=== PATIENT | female | born 1950 | race Caucasian/White ===

== ENCOUNTER 2020-03-18 01:07 | Emergency (ER) | payer OTHER, MEDICARE ==
--- OUTSIDE RECORDS SUMMARY | 2020-03-18 01:10 | XMS REPORT | Continuity of Care Document ---
:1950 Author Organization [facility] t Address [address] [place] [address] Care Team Providers Name Role Phone Provider, Urgent Care Attending Clinician Unavailable Srinivasa LAKHANI Attending Clinician Problems This patient has no known problems. Allergies, Adverse Reactions, Alerts This patient has no known allergies or adverse reactions. Medications This patient has no known medications. Procedures This patient has no known procedures. Encounters Start End Encounter Admission Attending Care Care Encounter Source Date/Time Date/Time Type Type Clinicians Facility Department ID 2020-02-29 2020-02-29 Urgent Provider, ANA [id number] 08:19:23 08:56:14 Care [facility] [id number] Care [place] [id number] Professio [phone] [place] [address] [address] 2020-02-28 2020-02-28 Telephone ANA Bernabe [id number] 00:00:00 00:00:00 [facility] [id number] [place] [id number] Professio [phone] [place] [address] [address] 2020-01-24 2020-01-24 Telemedici ANA Bernabe [id number] 07:51:32 08:06:32 ne Visit Sundeep Ba [id number] [place] [id number] Professio [phone] [place] [address] Building 2019-12-29 2019-12-29 Telephone ANA Bernabe [id number] 00:00:00 00:00:00 [facility] [id number] [place] [id number] Professio [phone] [place] [address] [address] 2019-11-17 2019-11-17 Office Srinivasa [facility] [id number] 12:56:52 13:26:52 Visit [facility] [id number] [place] [id number] Professio [phone] [place] [address] [address] Results This patient has no known results.
--- OUTSIDE RECORDS SUMMARY | 2020-03-18 01:11 | XMS REPORT | Summary of Care ---
:1950 Author Organization [facility] Address [address] [place] [address] Care Team Providers Name Role Phone MD Srinivasa Primary Care Provider LARON Kaur Unavailable Unavailable Reason for Visit Reason Comments Rx Concern/Question Encounter Details Date Type Department Care Team Description 12/29/2019 Telephone [facility] Family Vincenzo Bernabe MD Rx Concern/Question Medicine - [address] [id number] [phone] Allergies Active Allergy Reactions Severity Noted Date Comments Codeine Unknown - See comments 07/26/2015 Sulfamethoxazole Nausea and/or Vomiting 03/12/2018 documented as of this encounter (statuses as of 12/29/2019) Medications Medication Sig Dispensed Refills Start Date End Date Status fluocinonide 0.05 % Apply to 30 g 1 04/30/2018 Active cream area(s) 2 (two) times daily. proMETHazine 25 mg Take 1 tablet by 30 tablet 5 10/19/2018 Active tabletIndications: mouth every 4 Depression, (four) hours as unspecified depression needed for type Nausea and Vomiting (N/V). furosemide 40 mg Take 1 tablet by 30 tablet 5 03/22/2019 Active tabletIndications: mouth daily. Essential hypertension potassium chloride Take 1 tablet by 30 tablet 5 03/22/2019 Active (K-TAB) 10 mEq CR mouth daily. tabletIndications: Essential hypertension FLUoxetine 40 mg TAKE 1 CAPSULE 90 capsule 1 06/22/2019 Active capsuleIndications: BY MOUTH EVERY Depression, DAY unspecified depression type propranolol 40 mg Take 1 tablet by 180 tablet 1 08/23/2019 Active tabletIndications: mouth 2 (two) Essential hypertension times daily. traMADol 50 mg TAKE 1 TABLET BY 120 tablet 2 11/17/2019 Active tabletIndications: MOUTH EVERY 6 Primary osteoarthritis HOURS NEEDED of right knee FOR PAIN cloNIDine 0.2 mg TAKE ONE TABLET 270 tablet 0 11/17/2019 Active tabletIndications: BY MOUTH THREE Essential hypertension TIMES A DAY meloxicam 15 mg Take 1 tablet by 90 tablet 1 11/17/2019 Active tabletIndications: mouth every Primary osteoarthritis morning. of right knee diltiazem 180 mg 24 hr Take 2 capsules 180 capsule 1 0 Active capsuleIndications: by mouth daily. Essential hypertension pravastatin 40 mg TAKE ONE TABLET 90 tablet 1 11/17/2019 Active tabletIndications: BY MOUTH EVERY Hyperlipidemia, EVENING unspecified hyperlipidemia type lisinopril-hydrochloro Take 1 tablet by 180 tablet 1 0 Active thiazide 20-25 mg per mouth 2 (two) tabletIndications: times daily. Essential hypertension documented as of this encounter (statuses as of 12/29/2019) Active Problems Problem Noted Date Hyperlipidemia, unspecified hyperlipidemia type 2017 Essential hypertension 12/06/2015 Osteoarthritis of right knee 12/06/2015 Depressed 12/06/2015 documented as of this encounter (statuses as of 12/29/2019) Immunizations Name Administration Dates Next Due Tdap 10/31/2016 documented as of this encounter Social History Tobacco Use Types Packs/Day Years Used Date Current Every Day Smoker Cigarettes 1 20 Smokeless Tobacco: Never Used Alcohol Use Drinks/Week oz/Week Comments No Sex Assigned at Date Recorded Not on file Job Start Date Occupation Industry Not on file Not on file Not on file Travel History Travel Start Travel End No recent travel history available. documented as of this encounter Last Filed Vital Signs Not on filedocumented in this encounter Plan of Treatment Date Type Specialty Care Team Description 01/24/2020 Telemedicine Visit Family Medicine Vincenzo Bernabe MD [address] [place], [place] [id number] [phone] Health Maintenance Due Date Last Done Comments HEPATITIS C (HCV) SCREEN 1950 Breast Cancer Screening (MAMMOGRAM) 1989 COLONOSCOPY 12/23/1999 Zoster Recombinant Vaccine (SHINGRIX) (1 of 2) 12/23/1999 LUNG CANCER SCREEN: Recommended for age 55-80 with 30 2004 + pack year history Medicare Wellness Visit 2014 Osteoporosis Screening 2014 PNEUMOCOCCAL VACCINES 65+ (1 of 2 - PCV13) 2014 INFLUENZA VACCINE (#1) 2019 DTaP,Tdap,and Td Vaccines (2 - Td) 10/31/2026 10/31/2016 documented as of this encounter Results Not on filedocumented in this encounter Insurance Payer Benefit Plan / Subscriber ID Effective Phone Address T ype Group Dates MEDICARE MEDICARE PART xxxxxxxxxxx 2014-Pre [phone] [address] [employer] sent [phone] ZAAR BRICE [address] [facility] [id number] 2018-Pre [address] [facility] sent [id number] Supplement MEDICARE [place] SUPPLEMENT ZARA WAGONER [id number] documented as of this encounter
--- OUTSIDE RECORDS SUMMARY | 2020-03-18 01:12 | XMS REPORT | Summary of Care ---
:1950 Author Organization [facility] Address [address] [place] [address] Care Team Providers Name Role Phone MD Srinivasa Primary Care Provider LARON Kaur Unavailable Unavailable Reason for Visit Reason Comments Assessment Encounter Details Date Type Department Care Team Description 02/28/2020 Telephone [facility] Family Medicine Sundeep Moreno MD Assessment - [address] [place] [address] [place] [address] [phone] Allergies Active Allergy Reactions Severity Noted Date Comments Codeine Unknown - See comments 07/26/2015 Sulfamethoxazole Nausea and/or Vomiting 03/12/2018 documented as of this encounter (statuses as of 02/28/2020) Medications Medication Sig Dispensed Refills Start Date [...] 03/22/2019 Active tabletIndications: mouth daily. Essential hypertension propranolol 40 mg Take 1 tablet by 180 tablet 1 08/23/2019 Active tabletIndications: mouth 2 (two) Essential hypertension times daily. meloxicam 15 mg Take 1 tablet by [...] 2 (two) tabletIndications: times daily. Essential hypertension traMADol 50 mg TAKE 1 TABLET BY 120 tablet 2 01/24/2020 Active tabletIndications: MOUTH EVERY 6 Primary osteoarthritis HOURS NEEDED of right knee FOR PAIN potassium chloride Take 1 tablet by 30 tablet 5 01/24/2020 Active (K-TAB) 10 mEq CR mouth daily. tabletIndications: Essential hypertension cloNIDine 0.2 mg TAKE ONE TABLET 270 tablet 0 01/24/2020 Active tabletIndications: BY MOUTH THREE Essential hypertension TIMES A DAY FLUoxetine 40 mg TAKE 1 CAPSULE 90 capsule 1 01/24/2020 Active capsuleIndications: BY MOUTH EVERY Depression, DAY unspecified depression type documented as of this encounter (statuses as of 02/28/2020) Active Problems Problem Noted Date Hyperlipidemia, unspecified hyperlipidemia type 2017 Essential hypertension 12/06/2015 Osteoarthritis of right knee 12/06/2015 Depressed 12/06/2015 documented as of this encounter (statuses as of 02/28/2020) Immunizations Name Administration Dates Next Due Tdap [...] Treatment Date Type Specialty Care Team Description 02/29/2020 Urgent Care Family Medicine Provider, [facility] Health Maintenance Due Date Last Done Comments HEPATITIS C (HCV) SCREEN 1950 Breast Cancer Screening (MAMMOGRAM) 1989 COLONOSCOPY 12/23/1999 Zoster Recombinant Vaccine (SHINGRIX) (1 of 2) 12/23/1999 LUNG CANCER SCREEN: Recommended for age 55-80 with 30 2004 + pack year history Medicare Wellness Visit 2014 Osteoporosis Screening 2014 PNEUMOCOCCAL VACCINES 65+ (1 of 2 - PCV13) 2014 INFLUENZA VACCINE (Season Ended) 2020 Depression Screening 08/23/2020 08/23/2019 DTaP,Tdap,and Td Vaccines (2 - Td) 10/31/2026 10/31/2016 documented as of this encounter Results Not on filedocumented in this encounter Insurance Payer Benefit Plan / Subscriber ID Effective Phone Address T e Group Dates MEDICARE MEDICARE PART xxxxxxxxxxx 2014-Pre [phone] [address] [facility] [phone] ZARA BRICE [phone] [facility] [id number] 2018-Pre [address] [facility] [place] sent [id number] Supplement MEDICARE [place] SUPPLEMENT ZARA WAGONER [id number] documented as of this encounter
--- OUTSIDE RECORDS SUMMARY | 2020-03-18 01:12 | XMS REPORT | Summary of Care ---
:1950 Author Organization [facility] Address [address] [place] [address] Care Team Providers Name Role Phone MD Srinivasa Primary Care Provider LARON Kaur Unavailable Unavailable Reason for Visit Reason Comments Pain Encounter Details Date Type Department Care Team Description 01/24/2020 Telemedicine Visit [facility] Sundeep Bernabe Prima ry osteoarthritis of right knee (Primary Dx); Pediatric and MD Essential hypertension; Adult Primary [address] [facility] Depression, unspecified depression type Care- [facility] [address] [place] , [address] [address] [place], [place] [phone] [address] Allergies Active Allergy Reactions Severity Noted Date Comments Codeine Unknown - See comments 07/26/2015 Sulfamethoxazole Nausea and/or Vomiting 03/12/2018 documented as of this encounter (statuses as of 01/24/2020) Medications Medication Sig Dispensed Refills Start End Date Status Date fluocinonide 0.05 % Apply to 30 g 1 Active cream area(s) 2 8 (two) times daily. proMETHazine 25 mg Take 1 tablet 30 tablet 5 Active tabletIndications: by mouth 9 Depression, every 4 unspecified (four) hours depression type as needed for Nausea and Vomiting (N/V). furosemide 40 mg Take 1 tablet 30 tablet 5 Active tabletIndications: by mouth 9 Essential daily. hypertension propranolol 40 mg Take 1 tablet 180 tablet 1 Active tabletIndications: by mouth 2 9 Essential (two) times hypertension daily. meloxicam 15 mg Take 1 tablet 90 tablet 1 Active tabletIndications: by mouth 0 Primary every osteoarthritis of morning. right knee diltiazem 180 mg 24 Take 2 180 capsule 1 Active hr capsules by 0 capsuleIndications: mouth daily. Essential hypertension pravastatin 40 mg TAKE ONE 90 tablet 1 Ac tive tabletIndications: TABLET BY 0 Hyperlipidemia, MOUTH EVERY unspecified EVENING hyperlipidemia type lisinopril-hydrochl Take 1 tablet 180 tablet 1 Active orothiazide 20-25 by mouth 2 0 mg per (two) times tabletIndications: daily. Essential hypertension traMADol 50 mg TAKE 1 TABLET 120 tablet 2 Active tabletIndications: BY MOUTH 0 Primary EVERY 6 HOURS osteoarthritis of NEEDED FOR right knee PAIN potassium chloride Take 1 tablet 30 tablet 5 Active (K-TAB) 10 mEq CR by mouth 0 tabletIndications: daily. Essential hypertension cloNIDine 0.2 mg TAKE ONE 270 tablet 0 Ac tive tabletIndications: TABLET BY 0 Essential MOUTH THREE hypertension TIMES A DAY FLUoxetine 40 mg TAKE 1 90 capsule 1 Ac tive capsuleIndications: CAPSULE BY 0 Depression, MOUTH EVERY unspecified DAY depression type potassium chloride Take 1 tablet 30 tablet 5 0 Discontinued (K-TAB) 10 mEq CR by mouth 9 20 (R eorder) tabletIndications: daily. Essential hypertension FLUoxetine 40 mg TAKE 1 90 capsule 1 01/24/20 Di scontinued capsuleIndications: CAPSULE BY 9 20 (Reorder) Depression, MOUTH EVERY unspecified DAY depression type traMADol 50 mg TAKE 1 TABLET 120 tablet 2 01/24/20 Discontinued tabletIndications: BY MOUTH 0 20 ( Reorder) Primary EVERY 6 HOURS osteoarthritis of NEEDED FOR right knee PAIN cloNIDine 0.2 mg TAKE ONE 270 tablet 0 01/24/20 Di scontinued tabletIndications: TABLET BY 0 20 ( Reorder) Essential MOUTH THREE hypertension TIMES A DAY documented as of this encounter (statuses as of 01/24/2020) Active Problems Problem Noted Date Hyperlipidemia, unspecified hyperlipidemia type 2017 Essential hypertension 12/06/2015 Osteoarthritis of right knee 12/06/2015 Depressed 12/06/2015 documented as of this encounter (statuses as of 01/24/2020) Immunizations Name Administration Dates Next Due Tdap [...] Signs Not on filedocumented in this encounter Progress Notes Sundeep Bernabe MD - 01/24/2020 10:15 AM CDT TELEHEALTH NOTE Verbal consent obtained from Patient: Sherita Parada due to the COVID-19 pandemic for telehealthservices provided below. Communication with patient was conducted via Telephone due to patient unable to obtain video call option. Location of Patient: Home Location of Provider: Office Date of Service: 01/24/2020 Chief Complaint: anxiety HPI: Sherita Parada is a 69 year old female with anxiety, chronic pain Past Medical History: Diagnosis Date Anxiety Arthritis Bursitis of knee, right since two months Depression Hyperlipidemia Hypertension MEDICATIONS: Current Outpatient Medications Medication Sig Dispense Refill cloNIDine 0.2 mg tablet TAKE ONE TABLET BY MOUTH THREE TIMES A DAY 270 tablet 0 diltiazem 180 mg 24 hr capsule Take 2 capsules by mouth daily. 180 capsule 1 lisinopril-hydrochlorothiazide 20-25 mg per tablet Take 1 tablet by mouth 2 (two) times daily. 180 tablet 1 meloxicam 15 mg tablet Take 1 tablet by mouth every morning. 90 tablet 1 pravastatin 40 mg tablet TAKE ONE TABLET BY MOUTH EVERY EVENING 90 tablet 1 traMADol 50 mg tablet TAKE 1 TABLET BY MOUTH EVERY 6 HOURS NEEDED FOR PAIN 120 tablet 2 propranolol 40 mg tablet Take 1 tablet by mouth 2 (two) times daily. 180 tablet 1 FLUoxetine 40 mg capsule TAKE 1 CAPSULE BY MOUTH EVERY DAY 90 capsule 1 furosemide 40 mg tablet Take 1 tablet by mouth daily. 30 tablet 5 potassium chloride (K-TAB) 10 mEq CR tablet Take 1 tablet by mouth daily. 30 tablet 5 proMETHazine 25 mg tablet Take 1 tablet by mouth every 4 (four) hours as needed for Nausea and Vomiting (N/V). 30 tablet 5 fluocinonide 0.05 % cream Apply to area(s) 2 (two) times daily. 30 g 1 No current facility-administered medications for this visit. ROS Pain, back Depression Negative otherwise TELEHEALTH EXAM Alert, no distress ASSESSMENT/ PLAN Sherita Parada is a 69 year old female with PMH as above presenting with: chronic pain, htn, andanxiety/depression. Meds reviewed, no changes. After visit summary (AVS ) documentation will be available through [employer] for this encounter. A total of 15 minutes was spent on the Telephone due to patient unable to obtain video call option. Sundeep Bernabe MD documented in this encounter Plan of Treatment Health Maintenance Due Date Last Done Comments HEPATITIS C (HCV) SCREEN 1950 Breast Cancer Screening (MAMMOGRAM) 1989 COLONOSCOPY 12/23/1999 Zoster Recombinant Vaccine (SHINGRIX) (1 of 2) 12/23/1999 LUNG CANCER SCREEN: Recommended for age 55-80 with 30 2004 + pack year history Medicare Wellness Visit 2014 Osteoporosis Screening 2014 PNEUMOCOCCAL VACCINES 65+ (1 of 2 - PCV13) 2014 INFLUENZA VACCINE (Season Ended) 2020 DTaP,Tdap,and Td Vaccines (2 - Td) 10/31/2026 10/31/2016 documented as of this encounter Results Not on filedocumented in this encounter Visit Diagnoses Diagnosis Primary osteoarthritis of right knee - P rimary Primary localized osteoarthrosis, lower leg Essential hypertension Unspecified essential hypertension Depression, unspecified depression type documented in this encounter Insurance Payer Benefit Plan / Subscriber ID Effective Phone Address T ype Group Dates MEDICARE MEDICARE PART xxxxxxxxxxx 2014-Pre [phone] [address] [employer] sent [phone] ZARA BRICE [id number] [facility] [id number] 2018-Pre [address] [facility] sent [id number] Supplement MEDICARE [place] SUPPLEMENT ZARA WAGONER [id number] documented as of this encounter
--- OUTSIDE RECORDS SUMMARY | 2020-03-18 01:14 | XMS REPORT | Summary of Care ---
:1950 Author Organization [facility] - Health Address [address] [place] [id number] Care Team Providers Name Role Phone MD Srinivasa Primary Care Provider LARON Kaur Unavailable Unavailable Reason for Referral (CATHY) Status Reason Specialty Diagnoses / Referred By Referred To Procedures Contact Contact New Request Diagnoses Leg swelling Elisa Conrad, Procedures UNILATERAL VENOUS DUPLEX LOWER EXTREMITY BY VASCULAR LAB [facility] [address] [place] [address] Reason for Visit Reason Comments Cellulitis left leg 02/23/20 Encounter Details Date Type Department Care Team Description 02/29/2020 Urgent Care [facility] Family Unknown, Attending Leg swelling (Primary Dx); [facility] Elisa Conrad, [facility] [address], [place] [id number] Sprain of left knee, unspecified ligamen t, initial encounter [address] [facility] Provider, [facility] [place] [address] Allergies Active Allergy Reactions Severity Noted Date Comments Codeine Unknown - See comments 07/26/2015 Sulfamethoxazole Nausea and/or Vomiting 03/12/2018 documented as of this encounter (statuses as of 02/29/2020) Medications Medication Sig Dispensed Refills Start Date [...] as of this encounter (statuses as of 02/29/2020) Active Problems Problem Noted Date Hyperlipidemia, unspecified hyperlipidemia type 2017 Essential hypertension 12/06/2015 Osteoarthritis of right knee 12/06/2015 Depressed 12/06/2015 documented as of this encounter (statuses as of 02/29/2020) Immunizations Name Administration Dates Next Due Tdap [...] Travel End No recent travel history available. COVID-19 Exposure Response Date Recorded In the last month, have you been in contact with No / Unsure 02/29/2020 8:20 AM CDT someone who was confirmed or suspected to have Coronavirus / COVID-19? documented as of this encounter Last Filed Vital Signs Vital Sign Reading Time Taken Comments Blood Pressure 168/89 02/29/2020 8:28 AM CDT Pulse 57 02/29/2020 8:24 AM CDT Temperature 36.5 C (97.7 F) 02/29/2020 8:24 AM CDT Respiratory Rate 18 02/29/2020 8:24 AM CDT Oxygen Saturation 98% 02/29/2020 8:24 AM CDT Inhaled Oxygen Concentration - - Weight 90.7 kg (200 lb) 02/29/2020 8:24 AM CDT Height 165.1 cm (5' 5") 02/29/2020 8:24 AM CDT Body Mass Index 33.28 02/29/2020 8:24 AM CDT documented in this encounter Progress Notes Elisa Conrad FNP - 02/29/2020 8:20 AM CDT SUBJECTIVE CC: Cellulitis (left leg 02/23/20) PCP : Sundeep Bernabe HPI: Sherita Parada is a 69 year old female who comes today with c/o left knee pain x 1 week. Pain severity 6 out of 10. She was helping her son who is disable to the van and accidentally twisted her left knee. Denies falls or other types of trauma. Her pain increases with activity and diminisheswith rest and topical analgesics. She has not taken any oral analgesic. She is here today as she noticed that her left leg was more swollen than usual. She is taking Lasix as prescribed. Denies chest pain/ shortness of breath. Takes baby ASA daily. Alleviating factors - topical analgesic. Aggravating factors - activity PAST HISTORY Past Medical History: Diagnosis Date Anxiety Arthritis Bursitis of knee, right since two months Depression Hyperlipidemia Hypertension Family History Problem Relation Age of Onset Stroke Mother Coronary Heart Disease Maternal Grandmother Coronary Heart Disease Maternal Grandfather Family Status Relation Name Status Mo Alive Fa Alive MGMo (Not Specified) MGFa (Not Specified) Past Surgical History: Procedure Laterality Date APPENDECTOMY HYSTERECTOMY parital, then complete TUBAL LIGATION Social History Socioeconomic History Marital status: Spouse name: Not on file Number of children: Not on file Years of education: Not on file Highest education level: Not on file Occupational History Not on file Social Needs Financial resource strain: Not on file Food insecurity: Worry: Not on file Inability: Not on file Transportation needs: Medical: Not on file Non-medical: Not on file Tobacco Use Smoking status: Current Every Day Smoker Packs/day: 1.00 Years: 20.00 Pack years: 20.00 Types: Cigarettes Smokeless tobacco: Never Used Substance and Sexual Activity Alcohol use: No Drug use: No Sexual activity: Not on file Lifestyle Physical activity: Days per week: Not on file Minutes per session: Not on file Stress: Not on file Relationships Social connections: Talks on phone: Not on file Gets together: Not on file Attends judaism service: Not on file Active member of club or organization: Not on file Attends meetings of clubs or organizations: Not on file Relationship status: Not on file Intimate partner violence: Fear of current or ex partner: Not on file Emotionally abused: Not on file Physically abused: Not on file Forced sexual activity: Not on file Other Topics Concern Not on file Social History Narrative Not on file Patient Active Problem List Diagnosis Essential hypertension Osteoarthritis of right knee Depressed Hyperlipidemia, unspecified hyperlipidemia type Current Meds: Current Outpatient Medications on File Prior to Visit Medication Sig Dispense Refill cloNIDine 0.2 mg tablet TAKE ONE TABLET BY MOUTH THREE TIMES A DAY 270 tablet 0 FLUoxetine 40 mg capsule TAKE 1 CAPSULE BY MOUTH EVERY DAY 90 capsule 1 potassium chloride (K-TAB) 10 mEq CR tablet Take 1 tablet by mouth daily. 30 tablet 5 traMADol 50 mg tablet TAKE 1 TABLET BY MOUTH EVERY 6 HOURS NEEDED FOR PAIN 120 tablet 2 diltiazem 180 mg 24 hr capsule Take 2 capsules by mouth daily. 180 capsule 1 lisinopril-hydrochlorothiazide 20-25 mg per tablet Take 1 tablet by mouth 2 (two) times daily. 180 tablet 1 meloxicam 15 mg tablet Take 1 tablet by mouth every morning. 90 tablet 1 pravastatin 40 mg tablet TAKE ONE TABLET BY MOUTH EVERY EVENING 90 tablet 1 propranolol 40 mg tablet Take 1 tablet by mouth 2 (two) times daily. 180 tablet 1 furosemide 40 mg tablet Take 1 tablet by mouth daily. 30 tablet 5 proMETHazine 25 mg tablet Take 1 tablet by mouth every 4 (four) hours as needed for Nausea and Vomiting (N/V). 30 tablet 5 fluocinonide 0.05 % cream Apply to area(s) 2 (two) times daily. 30 g 1 No current facility-administered medications on file prior to visit. ALLERGIES: Allergies Allergen Reactions Codeine Unknown - See comments Sulfamethoxazole Nausea and/or Vomiting REVIEW OF SYSTEMS Constitutional: denies appetite changes, denies chills, denies fatigue, denies fever and denies sweats. HEENT: denies sore throat, nasal drainage, nasal congestion, earache and eye irritation, redness or discharge Cardiovascular: denies chest pain, denies palpitations and denies tachycardia. Respiratory: denies chest congestion, denies cough , denies dyspnea on exertion, denies inability to take deep breath, denies shortness of breath and denies wheezing. Gastrointestinal: denies abdominal pain, denies diarrhea, denies nausea and denies vomiting. Skin: small blister at the back of the left heel, non-draining, no redness. Ext: LLE swelling and pain. Left knee pain 6/10, increases with activity. PHYSICAL EXAM BP (!) 168/89 | Pulse 57 | Temp 36.5 C (97.7 F) (Oral) | Resp 18 | Ht 5' 5" (1.651 m) | Wt 200 lb (90.7 kg) | SpO2 98% | BMI 33.28 kg/m General: alert, oriented times three, no apparent distress, appearing age appropriate Skin: negative findings: color normal, no lesions noted and turgor normal HEENT: TM's pearly peña, light reflex present, landmarks present; nasal turbinates pale without edema or erythema; throat tonsils normal, no erythema, exudate, or petechiae Lungs: good diaphragmatic excursion, lungs clear to auscultation bilaterally Heart: regular rate and rhythm, no murmurs, gallops or rubs Ext: Right lower extremity trace edema, no tenderness. LLE: edema +1 with calf tenderness, no erythema or increased warmth. There is a small blister back of left foot which is not draining. ASSESSMENT & PLAN 1. Leg swelling - Advised to go to the ER but patient declined to go to the ER. Risks and complications of d/w patient and she verbalized understanding. She wants to get the US as outpatient. Advised to get it done today itself and f/u with PCP within 2 days. - UNILATERAL VENOUS DUPLEX LOWER EXTREMITY BY VASCULAR LAB; Future - Continue with Furosemide as prescribed and follow low-salt diet. - Continue to take baby ASA. 2. Sprain of left knee, unspecified ligament, initial encounter - Patient does not want prescription pain medications. She will continue to apply topical analgesic which has helped her. - May apply knee compression with an CHARLES wrap, continue to use walker for ambulation and follow fallsafety. - Discussed RICE and care of the blister. EDUCATION: Leg swelling, sprain of knee. Plan of care, goals and medications discussed with patient. Patient voices understanding. FOLLOW UP: Return to clinic or PCP if symptoms get worse F/U with PCP within 2 days. ER precautions given. Barriers to care: none Ability to manage care: good This visit did not involve counseling and coordination that comprised more than 50% of the visit time. NTLiliya New RN - 02/29/2020 8:20 AM CDT Sherita Parada is a 69 year old female in office for the following: Chief Complaint Patient presents with Cellulitis left leg 02/23/20 All vitals taken. Allergies reviewed. All medications reviewed. Fall risk assessed. Level of pain 6. [place] [id number] Liliya New RN 02/29/2020 8:27 AM documented in this encounter Plan of Treatment [...] filedocumented in this encounter Visit Diagnoses Diagnosis Leg swelling - Primary Swelling of limb Sprain of left knee, unspecified ligamen t, initial encounter documented in this encounter Insurance Payer Benefit Plan / Subscriber ID Effective Phone Address T ype Group Dates MEDICARE MEDICARE PART xxxxxxxxxxx 2014-Pre [phone] [address] [employer] sent [phone] [place] [phone] [facility] [id number] 2018-Pre [address] [facility] sent [id number] Supplement MEDICARE [place] SUPPLEMENT ZARA WAGONER [id number] documented as of this encounter
[2020-03-18 01:35] LABS: Protime INR 1.03
[2020-03-18 01:36] LABS: Absolute Lymphocytes (CBC) 1.5 K/uL (0.7-4.9); Basophils % 1.3 % (0-1.3); Lymphocytes % 16.3 % (15.3-44.8); MPV 10.6 fL (7.6-11.3)
[2020-03-18 01:49] LABS: ALT/SGPT 21 U/L (12-78); AST/SGOT 19 U/L (15-37); Albumin 3.7 g/dL (3.4-5.0); Alkaline Phosphatase 110 U/L (45-117); BUN Blood Urea Nitrogen 18 mg/dL (7-18); Bicarbonate 27 mmol/L (21-32); Bilirubin Direct 0.1 mg/dL (0-0.2); Bilirubin Total 0.3 mg/dL (0.2-1.0); Glucose Level 116 mg/dL (74-106); Magnesium 2.1 mg/dL (1.8-2.4); NT PRO-BNP 463 pg/mL (<125); Potassium 3.2 mmol/L (3.5-5.1); Protein, Total 6.9 g/dL (6.4-8.2); Sodium Level 138 mmol/L (136-145); Troponin (Emerg Dept Use Only) < 0.02 ng/mL (0.0-0.045)
--- NOTE | 2020-03-18 03:57 | EDPHYS ---
Physician Documentation [facility] Name: Sherita Parada Age: 69 yrs Sex: Female : 1950 Arrival Date: 03/18/2020 Time: 01:09 Bed 5 Private MD: ED Physician Arturo Tatum HPI: 03/18 01:54 This 69 yrs old Female presents to ER via EMS with complaints of High Blood mh7 Pressure. 01:54 The patient has elevated blood pressure and discovered this at home, with a home mh7 device. Onset: The symptoms/episode began/occurred today. Modifying factors: The symptoms are aggravated by took a fat burner tablet, The symptoms are alleviated by prescription meds, clonidine. Associated signs and symptoms: Pertinent positives: nausea, vomiting, once, Pertinent negatives: chest pain, dizziness, dyspnea, headache, lightheadedness, visual changes, weakness. Severity of symptoms: At its worst the blood pressure was moderate, in the emergency department the blood pressure is now normal. The blood pressure problem is resolved, and did so just prior to arrival. The patient has experienced similar episodes in the past, chronically. Historical: - Allergies: 01:13 codeine sulfate; rv - Home Meds: 01:13 Lisinopril Oral [Active]; pravastatin oral oral [Active]; rv 01:21 Potassium Chloride Oral [Active]; clonidine HCl 0.2 mg Oral tab [Active]; Propranolol rr5 Oral [Active]; meloxicam oral oral [Active]; pravastatin oral oral [Active]; Diltiazem Oral [Active]; Vitamin Oral [Active]; Furosemide Oral [Active]; Fluoxetine Oral [Active]; lisinopril-hydrochlorothiazide oral oral [Active]; Aleve Oral [Active]; tramadol Oral [Active]; - PMHx: 01:13 Hypertension; High Cholesterol; rv - PSHx: 01:13 Appendectomy; Hysterectomy; rv - Immunization history:: Adult Immunizations up to date. - Social history:: Smoking status: Patient reports the use of cigarette tobacco products, smokes one pack cigarettes per day. ROS: 01:54 Constitutional: Negative for fever, chills, and weight loss, Eyes: Negative for injury, mh7 pain, redness, and discharge, ENT: Negative for injury, pain, and discharge, Neck: Negative for injury, pain, and swelling, Cardiovascular: Negative for chest pain, palpitations, and edema, Respiratory: Negative for shortness of breath, cough, wheezing, and pleuritic chest pain, Back: Negative for injury and pain, : Negative for injury, bleeding, discharge, and swelling, MS/Extremity: Negative for injury and deformity, Skin: Negative for injury, rash, and discoloration, Neuro: Negative for headache, weakness, numbness, tingling, and seizure, Psych: Negative for depression, anxiety, suicide ideation, homicidal ideation, and hallucinations, Allergy/Immunology: Negative for hives, rash, and allergies, Endocrine: Negative for neck swelling, polydipsia, polyuria, polyphagia, and marked weight changes, Hematologic/Lymphatic: Negative for swollen nodes, abnormal bleeding, and unusual bruising. Exam: 01:54 Constitutional: This is a well developed, well nourished patient who is awake, alert, mh7 and in no acute distress. Head/Face: Normocephalic, atraumatic. Eyes: Pupils equal round and reactive to light, extra-ocular motions intact. Lids and lashes normal. Conjunctiva and sclera are non-icteric and not injected. Cornea within normal limits. Periorbital areas with no swelling, redness, or edema. Neck: Trachea midline, no thyromegaly or masses palpated, and no cervical lymphadenopathy. Supple, full range of motion without nuchal rigidity, or vertebral point tenderness. No Meningismus. Chest/axilla: Normal chest wall appearance and motion. Nontender with no deformity. No lesions are appreciated. Cardiovascular: Regular rate and rhythm with a normal S1 and S2. No gallops, murmurs, or rubs. Normal PMI, no JVD. No pulse deficits. Respiratory: Lungs have equal breath sounds bilaterally, clear to auscultation and percussion. No rales, rhonchi or wheezes noted. No increased work of breathing, no retractions or nasal flaring. Abdomen/GI: Soft, non-tender, with normal bowel sounds. No distension or tympany. No guarding or rebound. No evidence of tenderness throughout. Back: No spinal tenderness. No costovertebral tenderness. Full range of motion. Skin: Warm, dry with normal turgor. Normal color with no rashes, no lesions, and no evidence of cellulitis. MS/ Extremity: Pulses equal, no cyanosis. Neurovascular intact. Full, normal range of motion. Neuro: Awake and alert, GCS 15, oriented to person, place, time, and situation. Cranial nerves II-XII grossly intact. Motor strength 5/5 in all extremities. Sensory grossly intact. Cerebellar exam normal. Normal gait. Psych: Awake, alert, with orientation to person, place and time. Behavior, mood, and affect are within normal limits. Vital Signs: 01:09 BP 212 / 98; Pulse 63; Resp 16; Temp 97.7; Pulse Ox 96% ; Weight 90.72 kg; Height 5 ft. rv 5 in. (165.10 cm); Pain 0/10; 02:15 BP 174 / 56; Pulse 66; Resp 18 S; Temp 97.7; Pulse Ox 99% on R/A; sg 03:00 BP 146 / 73; Pulse 56; Resp 15; Pulse Ox 97% on R/A; rv 03:30 BP 120 / 72; Pulse 56; Resp 15; Pulse Ox 96% on R/A; rv 04:03 BP 117 / 72; Pulse 60; Resp 19; Pulse Ox 99% on R/A; rr5 01:09 Body Mass Index 33.28 (90.72 kg, 165.10 cm) rv MDM: 01:37 Patient medically screened. [facility] 01:54 Differential diagnosis: hypertensive crisis, Malignant HTN, medication noncompliance. [facility] Data reviewed: vital signs, nurses notes. 03:55 Data interpreted: manager monitoring: rate is 62 beats/min, rhythm is normal sinus rhythm, mh7 regular, Interpretation: normal rate, normal rhythm, Pulse oximetry: on room air is 96 %. Interpretation: normal. Counseling: I had a detailed discussion with the patient and/or guardian regarding: the historical points, exam findings, and any diagnostic results supporting the discharge/admit diagnosis, the presence of at least one elevated blood pressure reading (>120/80) during this emergency department visit, lab results, radiology results, the need for outpatient follow up, to return to the emergency department if symptoms worsen or persist or if there are any questions or concerns that arise at home. Response to treatment: the patient's symptoms have resolved after treatment, the patient's blood pressure is in an acceptable range, mental status has returned to baseline, the patient no longer shows bradycardia, the patient is not short of breath, the patient is not tachycardic, the patient's pain is gone, the patient's temperature has normalized. 03/18 01:17 Order name: Basic Metabolic Panel 03/18 01:17 Order name: CBC with Diff 03/18 01:17 Order name: LFT's 03/18 01:17 Order name: Magnesium 03/18 01:17 Order name: NT PRO-BNP; Complete Time: 03:20 03/18 01:17 Order name: PT-INR; Complete Time: 03:20 03/18 01:17 Order name: Troponin (emerg Dept Use Only); Complete Time: 03:20 03/18 01:17 Order name: EKG; Complete Time: 01:18 03/18 01:17 Order name: Cardiac monitoring; Complete Time: 01:18 03/18 01:18 Order name: Basic Metabolic Panel; Complete Time: 03:20 EDMS 03/18 01:18 Order name: CBC with Automated Diff; Complete Time: 03:20 EDMS 03/18 01:18 Order name: Liver (Hepatic) Function; Complete Time: 03:20 EDMS 03/18 01:18 Order name: Magnesium; Complete Time: 03:20 EDMS 03/18 03:21 Order name: Chest Single View XRAY 7 03/18 01:17 Order name: EKG - Nurse/Tech; Complete Time: 01:18 03/18 01:17 Order name: IV Saline Lock; Complete Time: 01:18 03/18 01:17 Order name: Labs collected and sent; Complete Time: :19 03/18 01:17 Order name: O2 Per Protocol; Complete Time: : 03/18 01:17 Order name: O2 Sat Monitoring; Complete Time: 01:19 rv Administered Medications: No medications were administered Disposition: 03/18/20 03:57 Discharged to Home. Impression: Hypertension. - Condition is Stable. - Discharge Instructions: Hypertension, Gatu-ty-[id number]. - Medication Reconciliation Form, Thank You Letter, Antibiotic Education, Prescription Opioid Use form. - Follow up: Private Physician; When: 2 - 3 days; Reason: Worsening of condition, Recheck today's complaints, Re-evaluation by your physician. - Problem is an acute exacerbation. - Symptoms have improved. Signatures: Dispatcher [employer] EDFranko oCurtney RN RN rv Carlo Walton RN RN rr5 Arturo Tatum MD MD mh7 Corrections: (The following items were deleted from the chart) 04:04 03:57 03/18/2020 03:57 Discharged to Home. Impression: Hypertension. Condition is rr5 Stable. Forms are Medication Reconciliation Form, Thank You Letter, Antibiotic Education, Prescription Opioid Use. Follow up: Private Physician; When: 2 - 3 days; Reason: Worsening of condition, Recheck today's complaints, Re-evaluation by your physician. Problem is an acute exacerbation. Symptoms have improved. mh7
--- NOTE | 2020-03-18 03:57 | ER ---
Nurse's Notes [facility] Name: Sherita Parada Age: 69 yrs Sex: Female : 1950 Arrival Date: 03/18/2020 Time: 01:09 Bed 5 Private MD: Diagnosis: Hypertension Presentation: 03/18 01:09 Chief complaint: EMS states: PATIENT REGULARLY MONITORS HER BLOOD PRESSURE AT HOME. rv LAST NIGHT IT WAS READING ERROR OR VERY HIGH. AT ABOUT MIDNIGHT, PATIENT TOOK SOME FAT BURNING MEDICATION AND VOMITED AFTER. DENIES CHEST PAIN, SOB, HEADACHE, OR ANY OTHER SYMPTOMS. Coronavirus screen: Proceed with normal triage. Ebola Screen: No symptoms or risks identified at this time. Initial Sepsis Screen: Does the patient meet any 2 criteria? No. Patient's initial sepsis screen is negative. Does the patient have a suspected source of infection? No. Patient's initial sepsis screen is negative. Risk Assessment: Do you want to hurt yourself or someone else? Patient reports no desire to harm self or others. Onset of symptoms was March 17, 2020 at 21:00. 01:09 Method Of Arrival: EMS: [facility] rv 01:09 Acuity: NAVIN 3 rv Triage Assessment: 01:13 General: Appears comfortable, Behavior is calm, cooperative. Pain: Denies pain. EENT: rv No signs and/or symptoms were reported regarding the EENT system. Neuro: Level of Consciousness is awake, alert, obeys commands, Oriented to person, place, time, situation. Cardiovascular: Patient's skin is warm and dry. Rhythm is sinus bradycardia. Respiratory: Airway is patent Breath sounds are clear bilaterally. Derm: RED AND WARM, LEFT LOWER LEG. Musculoskeletal: Swelling present in left leg. Historical: - Allergies: 01:13 codeine sulfate; rv - Home Meds: 01:13 Lisinopril Oral [Active]; pravastatin oral oral [Active]; rv 01:21 Potassium Chloride Oral [Active]; clonidine HCl 0.2 mg Oral tab [Active]; Propranolol rr5 Oral [Active]; meloxicam oral oral [Active]; pravastatin oral oral [Active]; Diltiazem Oral [Active]; Vitamin Oral [Active]; Furosemide Oral [Active]; Fluoxetine Oral [Active]; lisinopril-hydrochlorothiazide oral oral [Active]; Aleve Oral [Active]; tramadol Oral [Active]; - PMHx: 01:13 Hypertension; High Cholesterol; rv - PSHx: 01:13 Appendectomy; Hysterectomy; rv - Immunization history:: Adult Immunizations up to date. - Social history:: Smoking status: Patient reports the use of cigarette tobacco products, smokes one pack cigarettes per day. Screenin:15 Abuse screen: Denies threats or abuse. Denies injuries from another. Nutritional rv screening: No deficits noted. Tuberculosis screening: No symptoms or risk factors identified. Fall Risk None identified. Assessment: 02:10 Reassessment: pt provided with warm blankets x2 and a pair of socks, pt reports feels sg better, awaiting new orders, pt and pt family stated understanding. 03:10 Reassessment: Patient appears in no apparent distress at this time. No changes from rr5 previously documented assessment. chatting with her warehouse logistics coordinator at bedside. 04:03 Reassessment: Patient appears in no apparent distress at this time. Patient is alert, rr5 oriented x 3, equal unlabored respirations, skin warm/dry/pink. discharge instruction given and explained without complaints made. Patient states feeling better. Patient states symptoms have improved. Vital Signs: 01:09 BP 212 / 98; Pulse 63; Resp 16; Temp 97.7; Pulse Ox 96% ; Weight 90.72 kg; Height 5 ft. rv 5 in. (165.10 cm); Pain 0/10; 02:15 BP 174 / 56; Pulse 66; Resp 18 S; Temp 97.7; Pulse Ox 99% on R/A; sg 03:00 BP 146 / 73; Pulse 56; Resp 15; Pulse Ox 97% on R/A; rv 03:30 BP 120 / 72; Pulse 56; Resp 15; Pulse Ox 96% on R/A; rv 04:03 BP 117 / 72; Pulse 60; Resp 19; Pulse Ox 99% on R/A; rr5 01:09 Body Mass Index 33.28 (90.72 kg, 165.10 cm) rv ED Course: 01:09 Patient arrived in ED. ds1 01:09 Franko Betancourt RN is Primary Nurse. rv 01:12 Triage completed. rv 01:13 Arturo Tatum MD is Attending Physician. mh7 01:15 Arm band placed on Patient placed in the treatment room, on a stretcher, Patient rv notified of wait time. EKG completed in triage. Results shown to MD. 01:15 Patient has correct armband on for positive identification. Bed in low position. Call rv light in reach. Side rails up X 1. it network administrator on. Pulse ox on. NIBP on. 01:19 Initial lab(s) drawn, by ED staff, sent to lab. Inserted saline lock: 20 gauge in left rv antecubital area, using aseptic technique. ,using aseptic technique. BY ALIYAH LARRY Blood collected. 03:40 Chest Single View XRAY In Process Unspecified. EDMS 03:45 No provider procedures requiring assistance completed. rv 04:03 IV discontinued, intact, bleeding controlled, No redness/swelling at site. Pressure rr5 dressing applied. Administered Medications: No medications were administered Outcome: 03:45 Condition: improved rv 03:57 Discharge ordered by . francoise 04:03 Discharged to home via wheelchair, with friend. rr5 04:03 Discharge instructions given to patient, Instructed on discharge instructions, follow up and referral plans. Demonstrated understanding of instructions, follow-up care. 04:04 Patient left the ED. rr5 Signatures: Dispatcher [employer] EDMS Edson Emerson RN Mari Stevenson ds1 Franko Betancourt RN RN rv Roque, Raymond, RN RN rr5 Arturo Tatum MD MD 7
[2020-03-18 05:08] VITALS: BP 117/72; O2SAT 99
--- NOTE | 2020-03-18 11:09 | RAD REPORT ---
EXAM DESCRIPTION: RAD - Chest Single View - 03/18/2020 3:40 am CLINICAL HISTORY: hypertension Chest pain. COMPARISON: No comparisons FINDINGS: Portable technique limits examination quality. The lungs are grossly clear. The heart is normal in size. No displaced fractures. IMPRESSION: No acute intrathoracic process suspected.
--- NOTE | 2020-03-18 11:24 | EKG ---
Test Date: 2020-03-18 Test Time: 01:09:21 Architecture Analyst: NISSA MEASUREMENT RESULTS: Intervals: Rate: 60 LA: 224 QRSD: 112 QT: 466 QTc: 466 [place]: P: 71 LA: 224 QRS: -50 T: 46 INTERPRETIVE STATEMENTS: Sinus rhythm with 1st degree AV block Left anterior fascicular block Moderate voltage criteria for LVH, may be normal variant Cannot rule out Septal infarct, age undetermined Abnormal ECG Compared to ECG 11/26/2016 18:00:16 First degree AV block now present Myocardial infarct finding still present Electronically Signed On 03-18-20 11:23:12 CDT by Davon Salgado
== END 2020-03-18 04:04 | disposition home or self-care (01) ==
LOC: ER 01:07
DX: I10 Essential (primary) hypertension (principal); E78.00 Pure hypercholesterolemia, unspecified; Z88.5 Allergy status to narcotic agent
CPT/HCPCS: 36415; 71045; 80048; 80076; 83735; 83880; 84484; 85025; 85610; 93005; 99284

== ENCOUNTER 2021-06-15 15:15 | Emergency (ER) | payer MEDICARE, OTHER ==
[2021-06-15] MEDS ORDERED: levoFLOXacin 250 MG TAB ONE (17:52)
[2021-06-15] MEDS ORDERED: levoFLOXacin 500 MG TAB ONE (17:53)
[2021-06-15 18:01] LABS: Potassium 3.6 mmol/L (3.5-5.1)
[2021-06-15 18:05] LABS: Absolute Lymphocytes (CBC) 1.5 K/uL (0.7-4.9); Basophils % 0.9 % (0-1.3); Hematocrit 34.1 % (36.0-45.0); Lymphocytes % 16.6 % (15.3-44.8); MPV 8.8 fL (7.6-11.3); RBC Red Blood Cell Count 3.81 M/uL (3.86-4.86)
--- NOTE | 2021-06-15 19:57 | ER ---
Nurse's Notes [facility] Name: Sherita Parada Age: 70 yrs Sex: Female : 1950 Arrival Date: 06/15/2021 Time: 15:19 Bed 20 Private MD: Diagnosis: Left leg swelling and pain Presentation: 06/15 15:26 Chief complaint: Patient states: she has recently been diagnosed with lymphadenia, ap3 however her left leg has had an increase in pain, swelling and itching. Patient states she called her PCP, and was told she needed to be seen by someone today. She has an appointment with a vascular dr in June. Coronavirus screen: At this time, the client does not indicate any symptoms associated with coronavirus-19. Ebola Screen: No symptoms or risks identified at this time. Initial Sepsis Screen: Does the patient meet any 2 criteria? No. Patient's initial sepsis screen is negative. Does the patient have a suspected source of infection? No. Patient's initial sepsis screen is negative. Risk Assessment: Do you want to hurt yourself or someone else? Patient reports no desire to harm self or others. 15:26 Method Of Arrival: Ambulatory ap3 15:26 Acuity: NAVIN 4 ap3 19:50 Onset of symptoms is unknown. dc2 19:50 Onset of symptoms is unknown. dc2 Triage Assessment: 15:33 General: Appears in no apparent distress. Behavior is calm, cooperative. Pain: ap3 Complains of pain in left leg Pain at worst was 10 out of 10 on a pain scale. Neuro: Level of Consciousness is awake, alert, obeys commands, Oriented to person, place, time, situation, Appropriate for age Speech is normal. Respiratory: Airway is patent Respiratory effort is even, unlabored, Respiratory pattern is regular, symmetrical. 15:34 Musculoskeletal: Swelling present in left leg. ap3 Historical: - Allergies: 15:31 codeine sulfate; ap3 15:31 steroids; ap3 - Home Meds: 15:31 Aleve Oral [Active]; clonidine HCl 0.2 mg Oral tab [Active]; Diltiazem Oral [Active]; ap3 Fluoxetine Oral [Active]; Furosemide Oral [Active]; lisinopril Oral [Active]; meloxicam Oral [Active]; Potassium Chloride Oral [Active]; pravastatin Oral [Active]; Vitamin Oral [Active]; Propranolol Oral [Active]; Tramadol Oral [Active]; - PMHx: 15:31 High Cholesterol; Hypertension; ap3 - PSHx: 15:31 Lumpectomy of breast; hysterectomy; ap3 - Immunization history:: Client reports having NOT received the Covid vaccine. - Social history:: Smoking status: Patient reports the use of cigarette tobacco products, smokes one pack cigarettes per day. Screenin:33 Abuse screen: Denies threats or abuse. Nutritional screening: No deficits noted. ap3 Tuberculosis screening: No symptoms or risk factors identified. 20:59 Fall Risk None identified. dc2 Assessment: 19:45 Reassessment: Pt sitting up in bed, co pain to all of left leg but states does not want lh3 any pain meds. VSS, right ac 20G noted and flushed. Pt voices no needs at present . Call light within reach, continue to monitor. 19:45 Pain: Complains of pain in left leg co aching 10/10 Pain at worst was 10 out of 10 on a lh3 pain scale. Quality of pain is described as aching, Pain began months ago. 20:53 Reassessment: MD to bedside to discuss discharge with patient. dc2 20:59 Reassessment: Left leg wrapped with 2 marie bandages. Instructed on care for leg dc2 elevation and wrap. Verbalizes understanding. Vital Signs: 15:26 BP 122 / 73 RA (auto/lg); Pulse 62; Resp 19; Temp 98.6; Pulse Ox 99% on R/A; Weight ap3 104.33 kg; Height 5 ft. 5 in. (165.10 cm); Pain 10/10; 19:45 BP 158 / 84; Pulse 59; Resp 18; Temp 97.5; Pulse Ox 100% on R/A; Pain 10/10; lh3 15:26 Body Mass Index 38.27 (104.33 kg, 165.10 cm) ap3 ED Course: 15:19 Patient arrived in ED. jm9 15:30 Triage completed. ap3 15:34 Arm band placed on left wrist. ap3 16:44 Venkatesh Velasquez MD is Attending Physician. kdr 17:07 Jennifer Burciaga RN is Primary Nurse. tc5 17:18 Chem 7 Sent. tc5 17:18 CBC with Diff Sent. tc5 17:18 Inserted saline lock: 20 gauge in right antecubital area, using aseptic technique. tc5 19:19 Report given to Matilde LARRY. tc5 19:48 US Extremity Venous Unilateral Ltd In Process Unspecified. EDMS 19:50 Patient has correct armband on for positive identification. Allergy band placed. Fall dc2 risk band placed. Bed in low position. Side rails up X 1. Pulse ox on. NIBP on. Warm blanket given. 20:59 IV discontinued, intact, bleeding controlled, No redness/swelling at site. dc2 21:00 No provider procedures requiring assistance completed. dc2 Administered Medications: 17:29 Drug: LevaQUIN (levofloxacin) 750 mg Route: PO; tc5 21:00 Follow up: Response: No adverse reaction dc2 Outcome: 19:57 Discharge ordered by . kdr 21:00 Discharged to home via wheelchair. dc2 21:00 Condition: good 21:00 Discharge instructions given to patient, Instructed on discharge instructions, follow up and referral plans. 21:03 Patient left the ED. dc2 Signatures: Dispatcher [employer] EDMS Venkatesh Velasquez MD MD kdr Zahira Brady RN RN kira3 Nancy Chiu RN RN 3 Matilde Velasco RN RN dc2 Jennifer Burciaga RN RN tc5 Deepthi Georges jm9
--- NOTE | 2021-06-15 19:57 | EDPHYS ---
Physician Documentation [facility] Name: Sherita Parada Age: 70 yrs Sex: Female : 1950 Arrival Date: 06/15/2021 Time: 15:19 Bed 20 Private MD: ED Physician Venkatesh Velasquez HPI: 06/15 18:12 This 70 yrs old Female presents to ER via Ambulatory with complaints of Leg kdr Swelling, Leg Pain - LEG ITCHING. 18:12 The patient presents with pain, that is chronic, swelling, tenderness. The complaints kdr affect the lateral aspect of left calf, left lateral ankle, lateral aspect of left foot, left calf, left Achilles, left heel, medial aspect of left calf, left medial ankle, medial aspect of left foot, left [place], anterior aspect of left ankle and dorsum of left foot. Context: The problem was sustained at home, resulted from an unknown cause, the patient can partially bear weight, the patient is able to ambulate, Problem is a result from a previous injury: No. 18:14 Patient has been fighting left lower extremity pain and swelling for several months. kdr Her PCP had initially treated her for cellulitis. She was on an antibiotic for about a month. (Ciprofloxacin) she was subsequently sent to an orthopedist who diagnosed her with lymphedema. He recommended that she get further evaluated and treated for such. She has now been off of her antibiotic few weeks. Since then the leg is continued to swell and began and has become more warm and erythematous. The PCP today told her to come to the ED for further evaluation based on the worsening of her symptoms. She denies chest pain or shortness of breath. She refused pain medication at the time of initial evaluation.. Historical: - Allergies: 15:31 codeine sulfate; ap3 15:31 steroids; ap3 - Home Meds: 15:31 Aleve Oral [Active]; clonidine HCl 0.2 mg Oral tab [Active]; Diltiazem Oral [Active]; ap3 Fluoxetine Oral [Active]; Furosemide Oral [Active]; lisinopril Oral [Active]; meloxicam Oral [Active]; Potassium Chloride Oral [Active]; pravastatin Oral [Active]; Vitamin Oral [Active]; Propranolol Oral [Active]; Tramadol Oral [Active]; - PMHx: 15:31 High Cholesterol; Hypertension; ap3 - PSHx: 15:31 Lumpectomy of breast; hysterectomy; ap3 - Immunization history:: Client reports having NOT received the Covid vaccine. - Social history:: Smoking status: Patient reports the use of cigarette tobacco products, smokes one pack cigarettes per day. ROS: 18:14 Constitutional: Negative for fever, chills, and weight loss, Eyes: Negative for injury, kdr pain, redness, and discharge, Neck: Negative for injury, pain, and swelling, Cardiovascular: Negative for chest pain, palpitations, and edema, Respiratory: Negative for shortness of breath, cough, wheezing, and pleuritic chest pain, Abdomen/GI: Negative for abdominal pain, nausea, vomiting, diarrhea, and constipation, Back: Negative for injury and pain, : Negative for injury, bleeding, discharge, and swelling, Skin: Negative for injury, rash, and discoloration, Neuro: Negative for headache, weakness, numbness, tingling, and seizure activity. Psych: Negative for depression, anxiety, suicide ideation, homicidal ideation, and hallucinations, Allergy/Immunology: Negative for hives, rash, and allergies, Endocrine: Negative for neck swelling, polydipsia, polyuria, polyphagia, and marked weight changes, Hematologic/Lymphatic: Negative for swollen nodes, abnormal bleeding, and unusual bruising. 18:14 MS/extremity: Positive for decreased range of motion, erythema, pain, swelling, tenderness, of the left leg. Exam: 18:14 Constitutional: This is a well developed, well nourished patient who is awake, alert, kdr and in no acute distress. Head/Face: Normocephalic, atraumatic. Eyes: Pupils equal round and reactive to light, extra-ocular motions intact. Lids and lashes normal. Conjunctiva and sclera are non-icteric and not injected. Cornea within normal limits. Periorbital areas with no swelling, redness, or edema. Respiratory: Lungs have equal breath sounds bilaterally, clear to auscultation and percussion. No rales, rhonchi or wheezes noted. No increased work of breathing, no retractions or nasal flaring. Abdomen/GI: Soft, non-tender, with normal bowel sounds. No distension or tympany. No guarding or rebound. No evidence of tenderness throughout. Back: No spinal tenderness. No costovertebral tenderness. Full range of motion. Skin: Warm, dry with normal turgor. Normal color with no rashes, no lesions, and no evidence of cellulitis. Neuro: Awake and alert, GCS 15, oriented to person, place, time, and situation. Cranial nerves II-XII grossly intact. Motor strength 5/5 in all extremities. Sensory grossly intact. Cerebellar exam normal. Normal gait. Psych: Awake, alert, with orientation to person, place and time. Behavior, mood, and affect are within normal limits. 18:14 Musculoskeletal/extremity: Extremities: grossly normal except: noted in the left leg: decreased ROM, erythema, laceration, pain. Vital Signs: 15:26 BP 122 / 73 RA (auto/lg); Pulse 62; Resp 19; Temp 98.6; Pulse Ox 99% on R/A; Weight ap3 104.33 kg; Height 5 ft. 5 in. (165.10 cm); Pain 10/10; 19:45 BP 158 / 84; Pulse 59; Resp 18; Temp 97.5; Pulse Ox 100% on R/A; Pain 10/10; lh3 15:26 Body Mass Index 38.27 (104.33 kg, 165.10 cm) ap3 MDM: 18:14 Data reviewed: vital signs, nurses notes, lab test result(s), radiologic studies. kdr Counseling: I had a detailed discussion with the patient and/or guardian regarding: the historical points, exam findings, and any diagnostic results supporting the discharge/admit diagnosis, lab results, radiology results, the need for outpatient follow up. 19:57 Patient medically screened. kdr 06/15 16:59 Order name: CBC with Diff; Complete Time: 18:12 kdr 06/15 16:59 Order name: Chem 7; Complete Time: 18:12 kdr 06/15 16:59 Order name: US Extremity Venous Unilateral Ltd; Complete Time: 20:43 kdr 06/15 20:00 Order name: Marcus Wrap: Using 6 inch Marcus wrap, snugly wrap left lower extremity to above kdr from the foot to the knee ; Complete Time: 20:50 Administered Medications: 17:29 Drug: LevaQUIN (levofloxacin) 750 mg Route: PO; tc5 21:00 Follow up: Response: No adverse reaction dc2 Disposition Summary: 06/15/21 19:57 Discharge Ordered Location: Home kdr Problem: an ongoing problem kdr Symptoms: have improved kdr Condition: Stable kdr Diagnosis - Left leg swelling and pain kdr Followup: kdr - With: Private Physician - When: 2 - 3 days - Reason: If symptoms return, Further diagnostic work-up, Recheck today's complaints, Continuance of care, Re-evaluation by your physician Discharge Instructions: - Discharge Summary Sheet kdr - Leg Cramps kdr - Lymphedema kdr Forms: - Medication Reconciliation Form kdr - Thank You Letter kdr Prescriptions: - Cephalexin 500 mg Oral Capsule - take 1 capsule by ORAL route every 12 hours for 10 days; 20 capsule; Refills: kdr 0, Product Selection Permitted Signatures: Dispatcher [employer] EDMS Venkatesh Velasquez MD MD kdr Zahira Brady RN RN ap3 Jennifer Burciaga RN RN tc5 Matilde Velasco RN dc2
--- NOTE | 2021-06-15 20:09 | RAD REPORT ---
EXAM DESCRIPTION: US - Extremity Venous Uni Ltd - 06/15/2021 7:48 pm CLINICAL HISTORY: Pain;Swelling COMPARISON: None. TECHNIQUE: Real-time sonographic evaluation of the left lower extremity deep venous system was perfo rmed. FINDINGS: Normal compressibility, flow augmentation, phasic flow and spontaneous flow is identified in the left lower extremity deep venous system. No intraluminal filling defects seen. 2.5 x 1.9 cm fl uid collection in the popliteal fossa consistent with a small Palacios cyst. IMPRESSION: No DVT in the left lower extremity.
[2021-06-15 21:38] VITALS: BP 158/84; TEMP 97.5; O2SAT 100
== END 2021-06-15 21:03 | disposition home or self-care (01) ==
LOC: ER 15:15
DX: R22.42 Localized swelling, mass and lump, left lower limb (principal); I10 Essential (primary) hypertension; E78.00 Pure hypercholesterolemia, unspecified; F17.210 Nicotine dependence, cigarettes, uncomplicated; Z88.5 Allergy status to narcotic agent; Z88.8 Allergy status to other drugs, medicaments and biological substances
CPT/HCPCS: 36415; 80048; 85025; 93971; 99284

== ENCOUNTER 2021-07-17 18:43 | Emergency (ER) | payer OTHER ==
[2021-07-17] MEDS ORDERED: CEPHALEXIN 250 MG CAP ONE (20:09)
[2021-07-17] MEDS ORDERED: DOXYCYCLINE 100 MG CAP PO ONE (20:09)
--- NOTE | 2021-07-17 20:26 | EDPHYS ---
Physician Documentation [facility] Name: Sherita Parada Age: 70 yrs Sex: Female : 1950 Arrival Date: 07/17/2021 Time: 18:47 Bed 7 Private MD: Eleuterio Hauser B ED Physician Elvis Monsalve HPI: 07/17 20:20 This 70 yrs old Female presents to ER via Wheelchair with complaints of Leg jmm Swelling, Leg Pain. 20:20 The patient presents with pain. Onset: The symptoms/episode began/occurred gradually, 1 jmm day(s) ago. Modifying factors: The symptoms are alleviated by nothing. the symptoms are aggravated by nothing. Associated signs and symptoms: Pertinent negatives fever. 70-year-old female with history of hypertension and lymphedema the presents emergency depaty with swelling to the left lower leg. Denies fever or chills.. Historical: - Allergies: 18:56 codeine sulfate; tw5 18:56 steroids; tw5 - Home Meds: 18:56 Aleve Oral [Active]; clonidine HCl 0.2 mg Oral tab [Active]; Diltiazem Oral [Active]; tw5 Fluoxetine Oral [Active]; Furosemide Oral [Active]; lisinopril Oral [Active]; meloxicam Oral [Active]; Potassium Chloride Oral [Active]; pravastatin Oral [Active]; pravastatin Oral [Active]; Vitamin Oral [Active]; Propranolol Oral [Active]; Tramadol Oral [Active]; - PMHx: 18:56 High Cholesterol; Hypertension; tw5 - PSHx: 18:56 hysterectomy; Lumpectomy of breast; tw5 - Immunization history:: Client reports having NOT received the Covid vaccine. - Social history:: Smoking status: Patient reports the use of cigarette tobacco products, smokes one-half pack cigarettes per day. ROS: 20:20 Constitutional: Negative for fever, chills, and weight loss, Cardiovascular: Negative jmm for chest pain, palpitations, and edema, Respiratory: Negative for shortness of breath, cough, wheezing, and pleuritic chest pain. 20:20 MS/extremity: Positive for pain, swelling. 20:20 All other systems are negative. Exam: 20:20 Constitutional: This is a well developed, well nourished patient who is awake, alert, jmm and in no acute distress. Head/Face: atraumatic. Eyes: EOMI, no conjunctival erythema appreciated ENT: Moist Mucus Membranes Neck: Trachea midline, Supple Chest/axilla: Normal chest wall appearance and motion. Cardiovascular: Regular rate and rhythm. No edema appreciated Respiratory: Normal respirations, no respiratory distress appreciated Abdomen/GI: Non distended, soft Back: Normal ROM 20:20 Skin: erythema noted to the left lower leg with induration, mildly ttp, compartments are soft, full dorsalis pulse. 20:20 Neuro: Orientation: is normal, Mentation: is normal, Memory: is normal. 20:20 Psych: Behavior/mood is pleasant, cooperative. Vital Signs: 18:56 BP 143 / 81; Pulse 70; Resp 20; Temp 98.0; Pulse Ox 97% on R/A; Weight 99.79 kg; Height tw5 5 ft. 5 in. (165.10 cm); Pain 8/10; 19:47 BP 141 / 75; Pulse 70; Resp 18; Temp 98.8(O); Pulse Ox 99% on R/A; Pain 3/10; kc4 20:36 BP 147 / 99; Pulse 74; Resp 20; Temp 98.0; Pulse Ox 100% on R/A; Pain 0/10; kc4 18:56 Body Mass Index 36.61 (99.79 kg, 165.10 cm) tw5 Sarai Coma Score: 20:38 Eye Response: spontaneous(4). Verbal Response: oriented(5). Motor Response: obeys kc4 commands(6). Total: 15. MDM: 19:07 Patient medically screened. [facility] 20:20 Data reviewed: vital signs, nurses notes. Counseling: I had a detailed discussion with [facility] the patient and/or guardian regarding: the historical points, exam findings, and any diagnostic results supporting the discharge/admit diagnosis, radiology results, the need for outpatient follow up, to return to the emergency department if symptoms worsen or persist or if there are any questions or concerns that arise at home. ED course: Patient is alert and non toxic in appearance in the ED. No signs of sepsis. Patient is advised to follow up with pcp and otherwise given strict return precautions. Patient understood and agrees with the plan of care. . 07/17 19:15 Order name: US Extremity Venous Unilateral Ltd; Complete Time: 20:33 [facility] Administered Medications: 19:44 Drug: Cephalexin 500 mg Route: PO; kc4 20:46 Follow up: Response: No adverse reaction kc4 19:45 Drug: Doxycycline 100 mg Route: PO; kc4 20:46 Follow up: Response: No adverse reaction kc4 Disposition: 07/18 08:00 Co-signature as Attending Physician, Elvis Monsalve MD I agree with the assessment and [facility] plan of care. Disposition Summary: 07/17/21 20:25 Discharge Ordered Location: Home [facility] Condition: Stable [facility] Diagnosis - Cellulitis of the Left lower Leg [facility] Followup: [facility] - With: Eleuterio Hauser MD - When: 2 - 3 days - Reason: Recheck today's complaints, Continuance of care, Re-evaluation by your physician Discharge Instructions: - Discharge Summary Sheet [facility] - Cellulitis, Adult [facility] Forms: - Medication Reconciliation Form [facility] - Thank You Letter [facility] - Antibiotic Education [facility] - Prescription Opioid Use [facility] Prescriptions: - Cephalexin 500 mg Oral Capsule - take 1 capsule by ORAL route every 6 hours for 10 days; 40 capsule; Refills: 0, [facility] Product Selection Permitted - Doxycycline Hyclate 100 mg Oral Tablet - take 1 tablet by ORAL route every 12 hours; 20 tablet; Refills: 0, Product [facility] Selection Permitted Signatures: Dispatcher [employer] Elvis Reyes MD MD cha Mickail, Joel, PA PA Liset Buchanan kc4 Felecia Pace tw5
--- NOTE | 2021-07-17 20:26 | ER ---
Nurse's Notes [facility] Name: Sherita Parada Age: 70 yrs Sex: Female : 1950 Arrival Date: 07/17/2021 Time: 18:47 Bed 7 Private MD: Eleuterio Hauser B Diagnosis: Cellulitis of the Left lower Leg Presentation: 07/17 18:55 Chief complaint: Patient states: " I went to the clinic today to get my legs wrapped tw5 but they said my legs were infected and I needed to go to the ER and get antibiotics.". Coronavirus screen: Vaccine status: Patient reports being unvaccinated. Ebola Screen: Patient negative for fever greater than or equal to 101.5 degrees Fahrenheit, and additional compatible Ebola Virus Disease symptoms Patient denies exposure to infectious person. Patient denies travel to an Ebola-affected area in the 21 days before illness onset. Onset of symptoms is unknown. 18:55 Method Of Arrival: Wheelchair tw5 18:55 Acuity: NAVIN 3 tw5 18:55 Risk Assessment: Do you want to hurt yourself or someone else? Patient reports no tw5 desire to harm self or others. 20:45 Initial Sepsis Screen: Does the patient meet any 2 criteria? No. Patient's initial kc4 sepsis screen is negative. Does the patient have a suspected source of infection? Yes: Skin breakdown/wound. Triage Assessment: 18:56 General: Appears in no apparent distress. Behavior is calm, cooperative. Pain: tw5 Complains of pain in left [place] Pain currently is 8 out of 10 on a pain scale. Historical: - Allergies: 18:56 codeine sulfate; tw5 18:56 steroids; tw5 - Home Meds: 18:56 Aleve Oral [Active]; clonidine HCl 0.2 mg Oral tab [Active]; Diltiazem Oral [Active]; tw5 Fluoxetine Oral [Active]; Furosemide Oral [Active]; lisinopril Oral [Active]; meloxicam Oral [Active]; Potassium Chloride Oral [Active]; pravastatin Oral [Active]; pravastatin Oral [Active]; Vitamin Oral [Active]; Propranolol Oral [Active]; Tramadol Oral [Active]; - PMHx: 18:56 High Cholesterol; Hypertension; tw5 - PSHx: 18:56 hysterectomy; Lumpectomy of breast; tw5 - Immunization history:: Client reports having NOT received the Covid vaccine. - Social history:: Smoking status: Patient reports the use of cigarette tobacco products, smokes one-half pack cigarettes per day. Screenin:38 Abuse screen: Denies threats or abuse. Denies injuries from another. Nutritional kc4 screening: No deficits noted. On Difficulty chewing/swallowing? No. Tuberculosis screening: No symptoms or risk factors identified. Never had TB. Possible symptoms: None Risk factors: None. Fall Risk None identified. No fall in past 12 months (0 pts). No secondary diagnosis (0 pts). No IV (0 pts). Ambulatory Aid- Crutches/Cane/Walker (15 pts). Gait- Weak (10 pts.). Mental Status- Oriented to own ability (0 pts). Total Brush Fall Scale indicates Low Risk Score (25-44 pts). Fall prevention measures have been instituted. Side Rails Up X 2 Placed close to Nursing Station As available Patient and Family Educated on Fall Prevention Program and strategies. Assessment: 20:38 General: Appears in no apparent distress. well groomed, Behavior is calm, cooperative, kc4 appropriate for age. Pain: Denies pain. Complains of pain in left leg Pain radiates to left leg and left [place] Pain currently is 2 out of 10 on a pain scale. at worst was 9 out of 10 on a pain scale. level that patient reports is acceptable is 1 out of 10 on a pain scale. Quality of pain is described as burning, aching, tender, Pain began 2-3 days ago. Alleviated by medications, Aggravated by increased activity, heat, Also complains of. Neuro: No deficits noted. Neuro: Level of Consciousness is awake, alert, obeys commands, Oriented to person, place, time, situation, Appropriate for age Moves all extremities. Weakness leg(s) Gait is steady, but uses walker. Cardiovascular: No deficits noted. Reports. Cardiovascular: Reports None. Respiratory: No deficits noted. GI: No deficits noted. No signs and/or symptoms were reported involving the gastrointestinal system. : No deficits noted. No signs and/or symptoms were reported regarding the genitourinary system. EENT: No deficits noted. No signs and/or symptoms were reported regarding the EENT system. Derm: Reports increased burning, of left lower limb swelling. Musculoskeletal: No deficits noted. Swelling present in left leg Tenderness present in left leg Reports weakness in left leg pain in left leg. Vital Signs: 18:56 BP 143 / 81; Pulse 70; Resp 20; Temp 98.0; Pulse Ox 97% on R/A; Weight 99.79 kg; Height tw5 5 ft. 5 in. (165.10 cm); Pain 8/10; 19:47 BP 141 / 75; Pulse 70; Resp 18; Temp 98.8(O); Pulse Ox 99% on R/A; Pain 3/10; kc4 20:36 BP 147 / 99; Pulse 74; Resp 20; Temp 98.0; Pulse Ox 100% on R/A; Pain 0/10; kc4 18:56 Body Mass Index 36.61 (99.79 kg, 165.10 cm) tw5 Sarai Coma Score: 20:38 Eye Response: spontaneous(4). Verbal Response: oriented(5). Motor Response: obeys kc4 commands(6). Total: 15. ED Course: 18:47 Patient arrived in ED. mr 18:47 Eleuterio Hauser MD is Private Physician. mr 18:56 Triage completed. tw5 18:56 Arm band placed on right wrist. tw5 19:00 Yobany Beltrán PA is PHCP. jm 19:00 Elvis Monsalve MD is Attending Physician. jmm 19:07 Initial lab(s) drawn, by ma. Inserted saline lock: 22 gauge in left antecubital area, vg1 using aseptic technique. Blood collected. 19:33 Rehana Jean-Baptiste, RN is Primary Nurse. bs2 20:02 US Extremity Venous Unilateral Ltd In Process Unspecified. EDMS 20:25 Eleuterio Hauser MD is Referral Physician. jmm 20:38 Patient has correct armband on for positive identification. Fall risk band placed. kc4 Placed in gown. Bed in low position. Call light in reach. Side rails up X 1. Adult w/ patient. 20:38 No provider procedures requiring assistance completed. IV discontinued, intact, kc4 bleeding controlled, No redness/swelling at site. Pressure dressing applied. Administered Medications: 19:44 Drug: Cephalexin 500 mg Route: PO; kc4 20:46 Follow up: Response: No adverse reaction kc4 19:45 Drug: Doxycycline 100 mg Route: PO; kc4 20:46 Follow up: Response: No adverse reaction kc4 Outcome: 20:25 Discharge ordered by . dhruv 20:44 Discharged to home via wheelchair. kc4 20:44 Condition: stable 20:44 Discharge instructions given to patient, Instructed on discharge instructions, follow up and referral plans. medication usage. 20:46 Patient left the ED. kc4 Signatures: Dispatcher [employer] EDMS Yobany Beltrán PA PA jmm Rivera, Mary mr Garcia, Victoria, RN RN vg1 Rehana Jean-Baptiste RN RN bs2 Liset Chambers kc4 Felecia Pace tw5
--- NOTE | 2021-07-17 20:30 | RAD REPORT ---
EXAM DESCRIPTION: US - Extremity Venous Uni Ltd - 07/17/2021 8:03 pm CLINICAL HISTORY: Leg pain swelling COMPARISON: None. TECHNIQUE: Real-time sonographic evaluation of the left lower extremity deep venous system was perfo rmed. FINDINGS: Normal compressibility, flow augmentation, phasic flow and spontaneous flow is identified in the left lower extremity deep venous system. No intraluminal filling defects seen. Palacios's cyst in the popliteal fossa measuring 2.5 x 1.9 cm. IMPRESSION: No DVT in the left lower extremity.
[2021-07-17 20:57] VITALS: BP 147/99; TEMP 98; O2SAT 100
== END 2021-07-17 20:46 | disposition home or self-care (01) ==
LOC: ER 18:43
DX: L03.116 Cellulitis of left lower limb (principal); I10 Essential (primary) hypertension; E78.00 Pure hypercholesterolemia, unspecified; F17.210 Nicotine dependence, cigarettes, uncomplicated; Z88.5 Allergy status to narcotic agent; Z88.8 Allergy status to other drugs, medicaments and biological substances
CPT/HCPCS: 93971; 99284

== ENCOUNTER → 2023-02-03 | Day surgery (SDC) | payer OTHER ==
--- NOTE | 2023-02-03 12:10 | RAD REPORT ---
EXAM DESCRIPTION: US - Guided FNA Non Breast - 02/03/2023 11:09 am CLINICAL HISTORY: R22.1 COMPARISON: No comparisons FINDINGS: Preoperative diagnosis: Left cervical chain nodule. Post operative diagnosis: Same. Conscious Sedation: None Fluoroscopy time: None Contrast used: None Estimated blood loss: Minimal Specimens:3 fine-needle aspirates obtained under ultrasound guidance IMPRESSION: Technically successful ultrasound-guided fine-needle aspiration of the patient's palpabl e nodule of in the left aspect of the neck.
== END ==
LOC: FNA 10:00
PROVIDERS: ATTEND Otolaryngology
PROC: 07D23ZX Extraction of Left Neck Lymphatic, Percutaneous Approach, Diagnostic (ICD-10-PCS; principal; 2023-02-03)
DX: R22.1 Localized swelling, mass and lump, neck (principal)
CPT/HCPCS: 88162

== ENCOUNTER 2023-03-07 09:27 | Day surgery (SDC) | payer OTHER ==
--- NOTE | 2023-03-06 13:56 | EKG ---
Test Date: 2023-03-05 Test Time: 12:42:57 Inside Sales Person: GI MEASUREMENT RESULTS: Intervals: Rate: 55 SD: 200 QRSD: 112 QT: 484 QTc: 463 [place]: P: SD: 200 QRS: -66 T: 51 INTERPRETIVE STATEMENTS: Sinus bradycardia Left anterior fascicular block Septal infarct, age undetermined Abnormal ECG Compared to ECG 03/18/2020 01:09:21 Sinus rhythm no longer present First degree AV block no longer present Left ventricular hypertrophy no longer present Myocardial infarct finding still present Electronically Signed On 03-06-23 13:55:19 CDT by David Mason
[2023-03-07] MEDS ORDERED: Ringers Lactate 1,000 ML IV ONE (09:53)
[2023-03-07] MEDS ORDERED: LIDOCAINE HCL/EPINEPHRINE 20 ML MDV ONE (12:12)
[2023-03-07] MEDS ORDERED: FENTANYL CITR 100 MCG/2 ML ONE (12:15)
[2023-03-07] MEDS ORDERED: MIDAZOLAM HCL 2 MG/2 ML INJ ONE (12:16)
[2023-03-07] MEDS ORDERED: ONDANSETRON 4 MG/2 ML VIAL ONE (12:16)
[2023-03-07] MEDS ORDERED: propofoL 200 MG/20 ML VIAL IV ONE (12:16)
[2023-03-07] MEDS ORDERED: ROCURONIUM 50 MG/5 ML VIAL IV ONE (12:16)
[2023-03-07] MEDS ORDERED: LIDOCAINE 2% MPF 5 ML VIAL ONE (12:16)
[2023-03-07] MEDS ORDERED: KETOROLAC 30 MG/ML INJ ONE (13:59)
[2023-03-07] MEDS ORDERED: NEOSTIGMINE 1 MG/ML -10 ML VIAL ONE (14:01)
[2023-03-07] MEDS ORDERED: GLYCOPYRROLATE 0.2 MG/ML SYR ONE (14:01)
--- NOTE | 2023-03-07 14:19 | P.OP ---
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 The head was turned towards the right side to the degree feasible but limited due to patient's arthritis. The left upper neck demonstrated a palpable 3 x 4 cm mobile mass which seem to be clinically associated with the tail of the parotid. Planned incision site in the left upper neck was injected with 3 mL of 1% lidocaine with epinephrine. The facial nerve monitor electrodes were placed to the left brow and left upper lip and secured with tape with appropriate grounding and return electrodes placed in the right shoulder. The right face and neck was prepped with Betadine and then draped in a sterile fashion. A 4 to 5 cm incision was made within an existing skin crease over the mass and positioned in such a way to allow for extension in the preauricular crease if deemed necessary. The skin was incised using a 15 blade scalpel and the subcutaneous tissues were divided using Bovie electrocautery. The SMAS was identified and a soft tissue flap was developed anteriorly and posteriorly to the incision. With division of the fatty tissues at the inferior most aspect of the mass, the tail of the parotid was isolated. The LigaSure was used to divide soft tissue attachments around the tip of the mass and the anterior border of the sternocleidomastoid muscles were carefully and bluntly from the posterior aspect of the tumor. The anterior aspect of the mass was palpated and the LigaSure was used to divide the fatty tissues along this edge. No significant salivary tissue was noted in this plane and the mass was elevated along its anterior border and a superior to deep manner with blunt dissection and LigaSure. No facial nerve branches were identified in these areas. The superior border of the mass was palpated and was felt to be inferior to likely branches of the facial nerve. The LigaSure was used to carefully divide the superficial portions of the salivary tissue, taking care to inspect for any branches of nerve. None were visualized. The mass was completely removed with division of soft tissue attachments. Inspection of the cervical cavity revealed a prominent 1.5 cm lymph node on the anterior inferior aspect. This lymph node was grasped with a forcep and removed using the LigaSure, to be sent with the main specimen. The surgical cavity was thoroughly irrigated. There is no significant bleeding noted. Consideration was made for SINCERE drain but given the relatively smooth dissection and the LigaSure dividing the salivary tissue, I elected to defer drain placement. The incision was closed in layered fashion using Vicryl deep sutures and Monocryl subcuticular sutures. The skin was cleaned and dried and the incision was dressed with Mastisol and Steri-Strips. The counts were all correct and the patient was returned to anesthesia for awakening extubation which proceeded without difficulty. The patient was transported to the recovery room and will be discharged home later today in the care of her family. Complications: None Implants: None Transferred to: Recovery Room Condition: Good
[2023-03-07 14:31] VITALS: TEMP 97.5
[2023-03-07] MEDS ORDERED: TRAMADOL HCL 50 MG TAB ONE (15:14)
[2023-03-07 15:30] VITALS: BP 157/81; O2SAT 96
== END 2023-03-07 15:27 | disposition home or self-care (01) ==
LOC: OR 09:27
PROVIDERS: ATTEND Otolaryngology
PROC: 07B20ZX Excision of Left Neck Lymphatic, Open Approach, Diagnostic (ICD-10-PCS; 2023-03-07)
PROC: 0CB90ZZ Excision of Left Parotid Gland, Open Approach (ICD-10-PCS; principal; 2023-03-07 10:45)
DX: D11.0 Benign neoplasm of parotid gland (principal)
CPT/HCPCS: 93005; 88307; 42410; 38999; J2704; J2710; J2001; J2250; J3010; J2405; J7120

== ENCOUNTER 2023-04-05 11:37 | Inpatient (IN) | payer OTHER ==
--- OUTSIDE RECORDS SUMMARY | 2023-04-05 11:48 | XMS REPORT | Continuity of Care Document ---
:[address] [facility] t Address [address] [place] [address] [address] [place] [address] Care Team Providers Name Role Phone Mendy Oh MD Primary Care Physician DWIGHT CHAVEZ Attending Clinician Unavailable PUAM SAENZ Attending Clinician Unavailable MENDY OH Attending Clinician Unavailable Mendy Oh MD Attending Clinician Doctor Unassigned, [place] Attending Clinician Unavailable Lab, Ang - Db Attending Clinician Unavailable NAMITA BRISCOE Attending Clinician Unavailable Namita Briscoe MD Attending Clinician Eileen Anaya LVN Attending Clinician Unavailable DAVIDSON DELGADILLO Attending Clinician Unavailable Akhil Amaral MD Attending Clinician Davidson Sierra Attending Clinician Sonam South Attending Clinician SONAM YU Attending Clinician Unavailable Lab, Adc Fam Pob I Attending Clinician Unavailable Morgan Osei DO Attending Clinician Cbc, Medicare Wellness Ang Fam Attending Clinician Unavailab Dwight Marcelo MD Attending Clinician Only, Adc Test Attending Clinician Unavailable Provider, [facility] Attending Clinician Unavailable Unknown, Attending Attending Clinician Unavailable Elisa Hui Attending Clinician UNKNOWN, ATTENDING Attending Clinician Unavailable DWIGHT CHAVEZ Admitting Clinician Unavailable MENDY OH Admitting Clinician Unavailable Kathy LAKHANI, Dwight Brooks Admitting Clinician Payers Payer Name Policy Type Policy Number Effective Date Expiration Date Celia barr MEDICARE PART A AND [id number] 2014 B 00:00:00 MEDICARE PART A \T\ [id number] 2014 B 00:00:00 [place] [id number] 2020 BENEFITS 00:00:00 [employer] CHOICE [id number] 2022 00:00:00 Problems Condition Condition Condition Status Onset Resolution Last Treating Co mments Source Name Details Category Date Date Treatment Clinician Date Chronic Chronic Disease Active 2020-09 [facility] venous venous 2-14 it[facility] insufficie insufficie [place] [facility] Lymphedema Lymphedema Disease Active 2020-09 [facility] nivers 0-27 ity of 00:00: Medical Branch Leg Leg Disease Active 2020-09 [facility] swelling swelling 0-27 ity of 00:00: Medical Branch Hyperlipid Hyperlipid Disease Active U nivers emia, emia, 6-08 ity of unspecifie unspecifie 00:[place] 00 Medical hyperlipid hyperlipid Br anch emia type emia type Essential Essential Disease Active Uni vers hypertensi hypertensi 3-16 it y of on on 00:00: [place] 00 Medical Branch Osteoarthr Osteoarthr Disease Active U nivers itis of itis of 3-16 ity of right knee right [place] 00:[place]: [place] [facility] Depressed Depressed Disease Active Uni vers 3-16 ity of 00:00: [place] 00 Medical Branch Allergies, Adverse Reactions, Alerts Allergy Allergy Status Severity Reaction(s) Onset Inactive Treating Comm ents Source Name Type Date Date Clinician PREDNISO DRUG Active Other-Cmnt 2020-09 Univ ers LONE INGREDI 09-22 ity of 00:00: [place] 00 Medical Branch Predniso Propensi Active Other - See 2020-09 U nivers lone ty to comments 09-22 ity of adverse 00:00: [place] reaction 00 Medical s Branch SULFAMET DRUG Active N/V Univers HOXAZOLE INGREDI 6-21 ity of 00:00: [place] 00 Medical Branch Sulfamet Propensi Active Nausea Univer s hoxazole ty to and/or 03-12 ity of adverse Vomiting 00:00: [place] reaction 00 Medical s to Branch drug Sulfamet Propensi Active Nausea And [place] hoxazole ty to Vomiting 03-12 Health adverse 00:00: reaction 00 s CODEINE DRUG Active Unknown-Cmnt 2014-09 Uni vers INGREDI 09-25 ity of 00:00: [place] 00 Medical Branch Codeine Propensi Active Unknown 2014-09 [place] ty to 09-25 Health adverse 00:00: reaction 00 s Social History Social Habit Start Date Stop Date Quantity Comments Source History of tobacco Cigarette Smoker University of use [facility] [place] Exposure to 2023-02-09 2023-02-19 Not sure University SARS-CoV-2 (event) 00:00:00 09:47:00 [facility] [place] Alcohol intake 2023-02-19 2023-02-19 Current University of 00:00:00 00:00:00 non-drinker of [facility] alcohol Branch (finding) Cigarettes smoked 2022-04-12 2022-04-12 Univers ity of current (pack per 00:00:00 00:00:00 ) - Reported Branch Cigarette 2022-04-12 2022-04-12 University of pack-years 00:00:00 00:00:00 [facility] [place] Tobacco use and 2022-04-12 2022-04-12 Smokeless Universit y of exposure 00:00:00 00:00:00 tobacco non-user [facility] [place] [facility] Sex Ass[birth year] [facility] 00:00:00 00:00:00 Smoking Status Start Date Stop Date Source Smokes tobacco daily 2022-04-12 00:00:00 Univers ity of [facility] [place] Medications Ordered Filled Start Stop Current Ordering Indication Dosage Frequency Signature Comments Components Source Medication Medication Date Date Medication? Clinician (SIG) Name Name traMADoL 50 Yes 2745 TAKE ONE Un ofe mg tablet 6-20 TABLET BY ity o f 00:00: MOUTH [place] 00 EVERY 4 TO Medical 6 HOURS Branch NEEDED FOR CHRONIC PAIN Indication s: chronic pain traMADoL 50 Yes 2745 TAKE ONE Un ofe mg tablet 6-20 TABLET BY ity o f 00:00: MOUTH [place] 00 EVERY 4 TO Medical 6 HOURS Branch NEEDED FOR CHRONIC PAIN Indication s: chronic pain traMADoL 50 2022-0 Yes 2745 TAKE ONE Un ofe mg tablet 5-17 TABLET BY ity o f 00:00: MOUTH [place] 00 EVERY 4 TO Medical 6 HOURS Branch NEEDED FOR PAIN Indication s: chronic pain traMADoL 50 2022-0 Yes 2745 TAKE ONE Un ofe mg tablet 5-17 TABLET BY ity o f 00:00: MOUTH [place] 00 EVERY 4 TO Medical 6 HOURS Branch NEEDED FOR PAIN Indication s: chronic pain traMADoL 50 2022-0 Yes 2745 TAKE ONE Un ofe mg tablet 5-17 TABLET BY ity o f 00:00: MOUTH [place] 00 EVERY 4 TO Medical 6 HOURS Branch NEEDED FOR PAIN Indication s: chronic pain traMADoL 50 2022-0 Yes 2745 TAKE ONE Un ofe mg tablet 5-17 TABLET BY ity o f 00:00: MOUTH [place] 00 EVERY 4 TO Medical 6 HOURS Branch NEEDED FOR PAIN Indication s: chronic pain traMADoL 50 2022-0 Yes 2745 TAKE ONE Un ofe mg tablet 5-17 TABLET BY ity o f 00:00: MOUTH [place] 00 EVERY 4 TO Medical 6 HOURS Branch NEEDED FOR PAIN Indication s: chronic pain traMADoL 50 2022-0 Yes 2745 TAKE ONE Un ofe mg tablet 5-17 TABLET BY ity o f 00:00: MOUTH [place] 00 EVERY 4 TO Medical 6 HOURS Branch NEEDED FOR PAIN Indication s: chronic pain traMADoL 50 2022-0 Yes 2745 TAKE ONE Un ofe mg tablet 5-17 TABLET BY ity o f 00:00: MOUTH [place] 00 EVERY 4 TO Medical 6 HOURS Branch NEEDED FOR PAIN Indication s: chronic pain traMADoL 50 2022-0 Yes 2745 TAKE ONE Un ofe mg tablet 5-17 TABLET BY ity o f 00:00: MOUTH [place] 00 EVERY 4 TO Medical 6 HOURS Branch NEEDED FOR PAIN Indication s: chronic pain traMADoL 50 3-0 Yes 2745 TAKE ONE Un ofe mg tablet 5-17 TABLET BY ity o f 00:00: MOUTH [place] 00 EVERY 4 TO Medical 6 HOURS Branch NEEDED FOR PAIN Indication s: chronic pain traMADoL 50 2022-0 Yes 2745 TAKE ONE Un ofe mg tablet 5-17 TABLET BY ity o f 00:00: MOUTH [place] 00 EVERY 4 TO Medical 6 HOURS Branch NEEDED FOR PAIN Indication s: chronic pain traMADoL 50 2022-0 Yes 2745 TAKE ONE Un ofe mg tablet 5-17 TABLET BY ity o f 00:00: MOUTH [place] 00 EVERY 4 TO Medical 6 HOURS Branch NEEDED FOR PAIN Indication s: chronic pain traMADoL 50 3-0 2023- No 2745 TAKE ONE U nivers mg tablet 5-17 06-20 TABLET BY ity of 00:00: 00:00 MOUTH [place] 00 :00 EVERY 4 TO Medical 6 HOURS Branch NEEDED FOR PAIN Indication s: chronic pain traMADoL 50 2022-0 Yes 2745 TAKE ONE Un ofe mg tablet 3-17 TABLET BY ity o f 00:00: [place] 00 EVERY 4 Medical HOURS Branch NEEDED FOR CHRONIC PAIN Indication s: chronic pain Indication s: chronic pain traMADoL 50 2022-0 Yes 2745 TAKE ONE Un ofe mg tablet 3-17 TABLET BY ity o f 00:00: MOUTH [place] 00 EVERY 4 Medical HOURS Branch NEEDED FOR CHRONIC PAIN Indication s: chronic pain Indication s: chronic pain traMADoL 50 2022-0 Yes 2745 TAKE ONE Un ofe mg tablet 3-17 TABLET BY ity o f 00:00: MOUTH 00 EVERY 4 Medical HOURS Branch NEEDED FOR CHRONIC PAIN Indication s: chronic pain Indication s: chronic pain traMADoL 50 2022-0 Yes 2745 TAKE ONE Un ofe mg tablet 3-17 TABLET BY ity o f 00:00: MOUTH [place] 00 EVERY 4 Medical HOURS Branch NEEDED FOR CHRONIC PAIN Indication s: chronic pain Indication s: chronic pain traMADoL 50 3-0 Yes 2745 TAKE ONE Un ofe mg tablet 3-17 TABLET BY ity o f 00:00: MOUTH [place] 00 EVERY 4 Medical HOURS Branch NEEDED FOR CHRONIC PAIN Indication s: chronic pain Indication s: chronic pain traMADoL 50 3-0 Yes 2745 TAKE ONE Un ofe mg tablet 3-17 TABLET BY ity o f 00:00: MOUTH [place] 00 EVERY 4 Medical HOURS Branch NEEDED FOR CHRONIC PAIN Indication s: chronic pain Indication s: chronic pain traMADoL 50 3-0 2023- No 2745 TAKE ONE U nivers mg tablet 3-17 05-17 TABLET BY ity of 00:00: 00:00 MOUTH [place] 00 :00 EVERY 4 Medical HOURS Branch NEEDED FOR CHRONIC PAIN Indication s: chronic pain Indication s: chronic pain traMADoL 50 2022-0 Yes 2745 TAKE ONE Un ofe mg tablet 3-15 TABLET BY ity o f 00:00: MOUTH [place] 00 EVERY 6 Medical HOURS Branch NEEDED FOR CHRONIC PAINTAKE ONE TABLET BY MOUTH EVERY 4 HOURS NEEDED FOR CHRONIC PAIN Indication s: chronic pain Indication s: chronic pain traMADoL 50 2022-0 Yes 2745 TAKE ONE Un ofe mg tablet 3-15 TABLET BY ity o f 00:00: MOUTH [place] 00 EVERY 6 Medical HOURS Branch NEEDED FOR CHRONIC PAINTAKE ONE TABLET BY MOUTH EVERY 4 HOURS NEEDED FOR CHRONIC PAIN Indication s: chronic pain Indication s: chronic pain traMADoL 50 2022-0 2022- No 2745 TAKE ONE U nivers mg tablet 3-15 03-17 TABLET BY ity of 00:00: 00:00 MOUTH [place] 00 :00 EVERY 6 Medical HOURS Branch NEEDED FOR CHRONIC PAINTAKE ONE TABLET BY MOUTH EVERY 4 HOURS NEEDED FOR CHRONIC PAIN Indication s: chronic pain Indication s: chronic pain traMADoL 50 2022-0 2023- No 2745 TAKE ONE U nivers mg tablet 3-15 03-17 TABLET BY ity of 00:00: 00:00 MOUTH [place] 00 :00 EVERY 6 Medical HOURS Branch NEEDED FOR CHRONIC PAINTAKE ONE TABLET BY MOUTH EVERY 4 HOURS NEEDED FOR CHRONIC PAIN Indication s: chronic pain Indication s: chronic pain cloNIDine 2022-0 Yes [id number] .2mg Take 1 Un ofe 0.2 mg 1-25 tablet by ity of tablet 00:00: mouth in [place] 00 the Medical morning Branch and 1 tablet at noon and 1 tablet in the evening. diltiazem 2022-0 Yes [id number] 180mg Take 1 U nivers 180 mg 24 1-25 capsule by ity of hr capsule 00:00: mouth in [facility] 00 the Medical morning. Branch FLUoxetine 2022-0 Yes [id number] 60mg Take 3 U nivers 20 mg 1-25 capsules ity of capsule 00:00: by mouth [place] 00 in the Medical morning. Branch furosemide 2022-0 Yes [id number] 40mg Take 1 U nivers 40 mg 1-25 tablet by ity of tablet 00:00: mouth in [place] 00 the Medical morning. Branch isosorbide 2022-0 Yes [id number] 30mg Take 1 U nivers mononitrate 1-25 tablet by ity of 30 mg 24 hr 00:00: mouth in [place] tablet 00 the Medical morning. Branch lisinopriL- 2022-0 Yes [id number] 1{tbl} Take 1 Univers hydrochloro 1-25 tablet by ity of thiazide 00:00: mouth in [place] 20-25 mg 00 the Medical per tablet morning Branch and 1 tablet in the evening. meloxicam 2022-0 Yes [id number] TAKE ONE Univers 15 mg 1-25 9100 TABLET BY ity of tablet 00:00: MOUTH ONCE [place] 00 EVERY Medical MORNING Branch potassium 2022-0 Yes [id number] 10meq Take 1 U nivers chloride 10 1-25 tablet by ity of mEq CR 00:00: mouth in [place] tablet 00 the Medical morning. Branch pravastatin 2022-0 Yes [id number] 40mg Take 1 Univers 40 mg 1-25 tablet by ity of tablet 00:00: mouth [place] 00 every Medical evening. Branch propranoloL 2022-0 Yes [id number] 40mg Take 1 Univers 40 mg 1-25 tablet by ity of tablet 00:00: mouth in [place] 00 the Medical morning Branch and 1 tablet in the evening. cloNIDine 2022-0 Yes [id number] .2mg Take 1 Un ofe 0.2 mg 1-25 tablet by ity of tablet 00:00: mouth in [place] 00 the Medical morning Branch and 1 tablet at noon and 1 tablet in the evening. diltiazem 2022-0 Yes [id number] 180mg Take 1 U nivers 180 mg 24 1-25 capsule by ity of hr capsule 00:00: mouth in [facility] as 00 the Medical morning. Branch FLUoxetine 2022-0 Yes [id number] 60mg Take 3 U nivers 20 mg 1-25 capsules ity of capsule 00:00: by mouth [place] 00 in the Medical morning. Branch furosemide 2022-0 Yes [id number] 40mg Take 1 U nivers 40 mg 1-25 tablet by ity of tablet 00:00: mouth in [place] 00 the Medical morning. Branch isosorbide 2022-0 Yes [id number] 30mg Take 1 U nivers mononitrate 1-25 tablet by ity of 30 mg 24 hr 00:00: mouth in [place] tablet 00 the Medical morning. Branch lisinopriL- 2022-0 Yes [id number] 1{tbl} Take 1 Univers hydrochloro 1-25 tablet by ity of thiazide 00:00: mouth in [place] 20-25 mg 00 the Medical per tablet morning Branch and 1 tablet in the evening. meloxicam 2022-0 Yes [id number] TAKE ONE Univers 15 mg 1-25 9100 TABLET BY ity of tablet 00:00: MOUTH ONCE [place] 00 EVERY Medical MORNING Branch potassium 2022-0 Yes [id number] 10meq Take 1 U nivers chloride 10 1-25 tablet by ity of mEq CR 00:00: mouth in [place] tablet 00 the Medical morning. Branch pravastatin 2022-0 Yes [id number] 40mg Take 1 Univers 40 mg 1-25 tablet by ity of tablet 00:00: mouth [place] 00 every Medical evening. Branch propranoloL 2022-0 Yes [id number] 40mg Take 1 Univers 40 mg 1-25 tablet by ity of tablet 00:00: mouth in [place] 00 the Medical morning Branch and 1 tablet in the evening. cloNIDine 2022-0 Yes [id number] .2mg Take 1 Un ofe 0.2 mg 1-25 tablet by ity of tablet 00:00: mouth in [place] 00 the Medical morning Branch and 1 tablet at noon and 1 tablet in the evening. diltiazem 2022-0 Yes [id number] 180mg Take 1 U nivers 180 mg 24 1-25 capsule by ity of hr capsule 00:00: mouth in [place] 00 the Medical morning. Branch FLUoxetine 2022-0 Yes [id number] 60mg Take 3 U nivers 20 mg 1-25 capsules ity of capsule 00:00: by mouth [place] 00 in the Medical morning. Branch furosemide 2022-0 Yes [id number] 40mg Take 1 U nivers 40 mg 1-25 tablet by ity of tablet 00:00: mouth in [place] 00 the Medical morning. Branch isosorbide 2022-0 Yes [id number] 30mg Take 1 U nivers mononitrate 1-25 tablet by ity of 30 mg 24 hr 00:00: mouth [place] tablet 00 the Medical morning. Branch lisinopriL- 2022-0 Yes [id number] 1{tbl} Take 1 Univers hydrochloro 1-25 tablet by ity of thiazide 00:00: mouth in [place] 20-25 mg 00 the Medical per tablet morning Branch and 1 tablet in the evening. meloxicam 2022-0 Yes [id number] TAKE ONE Univers 15 mg 1-25 9100 TABLET BY ity of tablet 00:00: MOUTH ONCE [place] 00 EVERY Medical MORNING Branch potassium 2022-0 Yes [id number] 10meq Take 1 U nivers chloride 10 1-25 tablet by ity of mEq CR 00:00: mouth in [place] tablet 00 the Medical morning. Branch pravastatin 2022-0 Yes [id number] 40mg Take 1 Univers 40 mg 1-25 tablet by ity of tablet 00:00: mouth [place] 00 every Medical evening. Branch propranoloL 2022-0 Yes [id number] 40mg Take 1 Univers 40 mg 1-25 tablet by ity of tablet 00:00: mouth in [place] 00 the Medical morning Branch and 1 tablet in the evening. cloNIDine 2022-0 Yes [id number] .2mg Take 1 Un ofe 0.2 mg 1-25 tablet by ity of tablet 00:00: mouth in [place] 00 the Medical morning Branch and 1 tablet at noon and 1 tablet in the evening. diltiazem 2022-0 Yes [id number] 180mg Take 1 U nivers 180 mg 24 1-25 capsule by ity of hr capsule 00:00: mouth in [place] 00 the Medical morning. Branch FLUoxetine 2022-0 Yes [id number] 60mg Take 3 U nivers 20 mg 1-25 capsules ity of capsule 00:00: by mouth [place] 00 in the Medical morning. Branch furosemide 2022-0 Yes [id number] 40mg Take 1 U nivers 40 mg 1-25 tablet by ity of tablet 00:00: mouth in [place] 00 the Medical morning. Branch isosorbide 2022-0 Yes [id number] 30mg Take 1 U nivers mononitrate 1-25 tablet by ity of 30 mg 24 hr 00:00: mouth in [place] tablet 00 the Medical morning. Branch lisinopriL- 2022-0 Yes [id number] 1{tbl} Take 1 Univers hydrochloro 1-25 tablet by ity of thiazide 00:00: mouth in [place] 20-25 mg 00 the Medical per tablet morning Branch and 1 tablet in the evening. meloxicam 2022-0 Yes [id number] TAKE ONE Univers 15 mg 1-25 9100 TABLET BY ity of tablet 00:00: MOUTH ONCE [place] 00 EVERY Medical MORNING Branch potassium 2023-0 Yes [id number] 10meq Take 1 U nivers chloride 10 1-25 tablet by ity of mEq CR 00:00: mouth in [place] tablet 00 the Medical morning. Branch pravastatin 2022-0 Yes [id number] 40mg Take 1 Univers 40 mg 1-25 tablet by ity of tablet 00:00: mouth [place] 00 every Medical evening. Branch propranoloL 2022-0 Yes [id number] 40mg Take 1 Univers 40 mg 1-25 tablet by ity of tablet 00:00: mouth in [place] 00 the Medical morning Branch and 1 tablet in the evening. cloNIDine 2022-0 Yes [id number] .2mg Take 1 Un ofe 0.2 mg 1-25 tablet by ity of tablet 00:00: mouth in [place] 00 the Medical morning Branch and 1 tablet at noon and 1 tablet in the evening. diltiazem 2022-0 Yes [id number] 180mg Take 1 U nivers 180 mg 24 1-25 capsule by ity of hr capsule 00:00: mouth in [place] 00 the Medical morning. Branch FLUoxetine 2022-0 Yes [id number] 60mg Take 3 U nivers 20 mg 1-25 capsules ity of capsule 00:00: by mouth [place] 00 in the Medical morning. Branch furosemide 2022-0 Yes [id number] 40mg Take 1 U nivers 40 mg 1-25 tablet by ity of tablet 00:00: mouth in [place] 00 the Medical morning. Branch isosorbide 2022-0 Yes [id number] 30mg Take 1 U nivers mononitrate 1-25 tablet by ity of 30 mg 24 hr 00:00: mouth in [place] tablet 00 the Medical morning. Branch lisinopriL- 2022-0 Yes [id number] 1{tbl} Take 1 Univers hydrochloro 1-25 tablet by ity of thiazide 00:00: mouth in [place] 20-25 mg 00 the Medical per tablet morning Branch and 1 tablet in the evening. meloxicam 2022-0 Yes [id number] TAKE ONE Univers 15 mg 1-25 9100 TABLET BY ity of tablet 00:00: MOUTH ONCE [place] 00 EVERY Medical MORNING Branch potassium 2022-0 Yes [id number] 10meq Take 1 U nivers chloride 10 1-25 tablet by ity of mEq CR 00:00: mouth in [place] tablet 00 the Medical morning. Branch pravastatin 2022-0 Yes [id number] 40mg Take 1 Univers 40 mg 1-25 tablet by ity of tablet 00:00: mouth [place] 00 every Medical evening. Branch propranoloL 2022-0 Yes [id number] 40mg Take 1 Univers 40 mg 1-25 tablet by ity of tablet 00:00: mouth in [place] 00 the Medical morning Branch and 1 tablet in the evening. cloNIDine 2022-0 Yes [id number] .2mg Take 1 Un ofe 0.2 mg 1-25 tablet by ity of tablet 00:00: mouth in [place] 00 the Medical morning Branch and 1 tablet at noon and 1 tablet in the evening. diltiazem 2022-0 Yes [id number] 180mg Take 1 U nivers 180 mg 24 1-25 capsule by ity of hr capsule 00:00: mouth in [facility] as 00 the Medical morning. Branch FLUoxetine 2022-0 Yes [id number] 60mg Take 3 U nivers 20 mg 1-25 capsules ity of capsule 00:00: by mouth [place] 00 in the Medical morning. Branch furosemide 2022-0 Yes [id number] 40mg Take 1 U nivers 40 mg 1-25 tablet by ity of tablet 00:00: mouth in [place] 00 the Medical morning. Branch isosorbide 2022-0 Yes [id number] 30mg Take 1 U nivers mononitrate 1-25 tablet by ity of 30 mg 24 hr 00:00: mouth [place] tablet 00 the Medical morning. Branch lisinopriL- 2022-0 Yes [id number] 1{tbl} Take 1 Univers hydrochloro 1-25 tablet by ity of thiazide 00:00: mouth in [place] 20-25 mg 00 the Medical per tablet morning Branch and 1 tablet in the evening. meloxicam 2022-0 Yes [id number] TAKE ONE Univers 15 mg 1-25 9100 TABLET BY ity of tablet 00:00: MOUTH ONCE [place] 00 EVERY Medical MORNING Branch potassium 2022-0 Yes [id number] 10meq Take 1 U nivers chloride 10 1-25 tablet by ity of mEq CR 00:00: mouth in [place] tablet 00 the Medical morning. Branch pravastatin 2022-0 Yes [id number] 40mg Take 1 Univers 40 mg 1-25 tablet by ity of tablet 00:00: mouth [place] 00 every Medical evening. Branch propranoloL 2022-0 Yes [id number] 40mg Take 1 Univers 40 mg 1-25 tablet by ity of tablet 00:00: mouth in [place] 00 the Medical morning Branch and 1 tablet in the evening. cloNIDine 2022-0 Yes [id number] .2mg Take 1 Un ofe 0.2 mg 1-25 tablet by ity of tablet 00:00: mouth in [place] 00 the Medical morning Branch and 1 tablet at noon and 1 tablet in the evening. diltiazem 2022-0 Yes [id number] 180mg Take 1 U nivers 180 mg 24 1-25 capsule by ity of hr capsule 00:00: mouth in [place] 00 the Medical morning. Branch FLUoxetine 2022-0 Yes [id number] 60mg Take 3 U nivers 20 mg 1-25 capsules ity of capsule 00:00: by mouth [place] 00 in the Medical morning. Branch furosemide 2022-0 Yes [id number] 40mg Take 1 U nivers 40 mg 1-25 tablet by ity of tablet 00:00: mouth in [place] 00 the Medical morning. Branch isosorbide 2022-0 Yes [id number] 30mg Take 1 U nivers mononitrate 1-25 tablet by ity of 30 mg 24 hr 00:00: mouth in [place] tablet 00 the Medical morning. Branch lisinopriL- 2022-0 Yes [id number] 1{tbl} Take 1 Univers hydrochloro 1-25 tablet by ity of thiazide 00:00: mouth in [place] 20-25 mg 00 the Medical per tablet morning Branch and 1 tablet in the evening. meloxicam 2022-0 Yes [id number] TAKE ONE Univers 15 mg 1-25 9100 TABLET BY ity of tablet 00:00: MOUTH ONCE [place] 00 EVERY Medical MORNING Branch potassium 3-0 Yes [id number] 10meq Take 1 U nivers chloride 10 1-25 tablet by ity of mEq CR 00:00: mouth in [place] tablet 00 the Medical morning. Branch pravastatin 2022-0 Yes [id number] 40mg Take 1 Univers 40 mg 1-25 tablet by ity of tablet 00:00: mouth [place] 00 every Medical evening. Branch propranoloL 2022-0 Yes [id number] 40mg Take 1 Univers 40 mg 1-25 tablet by ity of tablet 00:00: mouth in [place] 00 the Medical morning Branch and 1 tablet in the evening. cloNIDine 2022-0 Yes [id number] .2mg Take 1 Un ofe 0.2 mg 1-25 tablet by ity of tablet 00:00: mouth in [place] 00 the Medical morning Branch and 1 tablet at noon and 1 tablet in the evening. diltiazem 2022-0 Yes [id number] 180mg Take 1 U nivers 180 mg 24 1-25 capsule by ity of hr capsule 00:00: mouth in [place] 00 the Medical morning. Branch FLUoxetine 2022-0 Yes [id number] 60mg Take 3 U nivers 20 mg 1-25 capsules ity of capsule 00:00: by mouth [place] 00 in the Medical morning. Branch furosemide 2022-0 Yes [id number] 40mg Take 1 U nivers 40 mg 1-25 tablet by ity of tablet 00:00: mouth in [place] 00 the Medical morning. Branch isosorbide 2022-0 Yes [id number] 30mg Take 1 U nivers mononitrate 1-25 tablet by ity of 30 mg 24 hr 00:00: mouth in [place] tablet 00 the Medical morning. Branch lisinopriL- 2022-0 Yes [id number] 1{tbl} Take 1 Univers hydrochloro 1-25 tablet by ity of thiazide 00:00: mouth in [place] 20-25 mg 00 the Medical per tablet morning Branch and 1 tablet in the evening. meloxicam 2022-0 Yes [id number] TAKE ONE Univers 15 mg 1-25 9100 TABLET BY ity of tablet 00:00: MOUTH ONCE [place] 00 EVERY Medical MORNING Branch potassium 2022-0 Yes [id number] 10meq Take 1 U nivers chloride 10 1-25 tablet by ity of mEq CR 00:00: mouth in [place] tablet 00 the Medical morning. Branch pravastatin 2022-0 Yes [id number] 40mg Take 1 Univers 40 mg 1-25 tablet by ity of tablet 00:00: mouth [place] 00 every Medical evening. Branch propranoloL 2022-0 Yes [id number] 40mg Take 1 Univers 40 mg 1-25 tablet by ity of tablet 00:00: mouth in [place] 00 the Medical morning Branch and 1 tablet in the evening. cloNIDine 2022-0 Yes [id number] .2mg Take 1 Un ofe 0.2 mg 1-25 tablet by ity of tablet 00:00: mouth in [place] 00 the Medical morning Branch and 1 tablet at noon and 1 tablet in the evening. diltiazem 2022-0 Yes [id number] 180mg Take 1 U nivers 180 mg 24 1-25 capsule by ity of hr capsule 00:00: mouth in [place] 00 the Medical morning. Branch FLUoxetine 2022-0 Yes [id number] 60mg Take 3 U nivers 20 mg 1-25 capsules ity of capsule 00:00: by mouth [place] 00 in the Medical morning. Branch furosemide 2022-0 Yes [id number] 40mg Take 1 U nivers 40 mg 1-25 tablet by ity of tablet 00:00: mouth in [place] 00 the Medical morning. Branch isosorbide 2022-0 Yes [id number] 30mg Take 1 U nivers mononitrate 1-25 tablet by ity of 30 mg 24 hr 00:00: mouth in [place] tablet 00 the Medical morning. Branch lisinopriL- 2022-0 Yes [id number] 1{tbl} Take 1 Univers hydrochloro 1-25 tablet by ity of thiazide 00:00: mouth in [place] 20-25 mg 00 the Medical per tablet morning Branch and 1 tablet in the evening. meloxicam 2022-0 Yes [id number] TAKE ONE Univers 15 mg 1-25 9100 TABLET BY ity of tablet 00:00: MOUTH ONCE [place] 00 EVERY Medical MORNING Branch potassium 2022-0 Yes [id number] 10meq Take 1 U nivers chloride 10 1-25 tablet by ity of mEq CR 00:00: mouth in [place] tablet 00 the Medical morning. Branch pravastatin 2022-0 Yes [id number] 40mg Take 1 Univers 40 mg 1-25 tablet by [facility] tablet 00:00: mouth [place] 00 every Medical evening. Branch propranoloL 2022-0 Yes [id number] 40mg Take 1 [facility] 40 mg 1-25 tablet by [facility] tablet 00:00: mouth in [place] 00 the Medical morning Branch and 1 tablet in the evening. cloNIDine 2022-0 Yes [id number] .2mg Take 1 [facility] 0.2 mg 1-25 tablet by [facility] tablet 00:00: mouth in [place] 00 the Medical morning Branch and 1 tablet at noon and 1 tablet in the evening. diltiazem 2022-0 Yes [id number] 180mg Take 1 [facility] 180 mg 24 1-25 capsule by [facility] hr capsule 00:00: mouth in [place] 00 the Medical morning. Branch FLUoxetine 2022-0 Yes [id number] 60mg Take 3 [facility] 20 mg 1-25 capsules [facility] capsule 00:00: by mouth [place] 00 in the Medical morning. Branch furosemide 2022-0 Yes [id number] 40mg Take 1 [facility] 40 mg 1-25 tablet by [facility] tablet 00:00: mouth in [place] 00 the Medical morning. Branch isosorbide 2022-0 Yes [id number] 30mg Take 1 [facility] n[facility] mononitrate 1-25 tablet by [facility] 30 mg 24 hr 00:00: mouth in [place] tablet 00 the Medical morning. Branch lisinopriL- 2022-0 Yes [id number] 1{tbl} Take 1 [facility] hydrochloro 1-25 tablet by [facility] thiazide 00:00: mouth in [place] 20-25 mg 00 the Medical per tablet morning Branch and 1 tablet in the evening. meloxicam 2022-0 Yes [id number] TAKE ONE [facility] 15 mg 1-25 9100 TABLET BY [facility] tablet 00:00: MOUTH ONCE [place] 00 EVERY Medical MORNING Branch potassium 2022-0 Yes [id number] 10meq Take 1 [facility] n[facility] chloride 10 1-25 tablet by [facility] mEq CR 00:00: mouth in [place] tablet 00 the Medical morning. Branch pravastatin 2022-0 Yes [id number] 40mg Take 1 [facility] 40 mg 1-25 tablet by [facility] tablet 00:00: mouth [place] 00 every Medical evening. Branch propranoloL 2022-0 Yes [id number] 40mg Take 1 [facility] 40 mg 1-25 tablet by [facility] tablet 00:00: mouth in [place] 00 the Medical morning Branch and 1 tablet in the evening. cloNIDine 2022-0 Yes [id number] .2mg Take 1 [facility] 0.2 mg 1-25 tablet by [facility] tablet 00:00: mouth in [place] 00 the Medical morning Branch and 1 tablet at noon and 1 tablet in the evening. diltiazem 2022-0 Yes [id number] 180mg Take 1 [facility] 180 mg 24 1-25 capsule by [facility] hr capsule 00:00: mouth in [place] 00 the Medical morning. Branch FLUoxetine 2022-0 Yes [id number] 60mg Take 3 [facility] 20 mg 1-25 capsules [facility] capsule 00:00: by mouth [place] 00 in the Medical morning. Branch furosemide 2022-0 Yes [id number] 40mg Take 1 [facility] 40 mg 1-25 tablet by [facility] tablet 00:00: mouth in [place] 00 the Medical morning. Branch isosorbide 2022-0 Yes [id number] 30mg Take 1 [facility] n[facility] mononitrate 1-25 tablet by [facility] 30 mg 24 hr 00:00: mouth in [place] tablet 00 the Medical morning. Branch lisinopriL- 2022-0 Yes [id number] 1{tbl} Take 1 [facility] hydrochloro 1-25 tablet by [facility] thiazide 00:00: mouth in [place] 20-25 mg 00 the Medical per tablet morning Branch and 1 tablet in the evening. meloxicam 2022-0 Yes [id number] TAKE ONE [facility] 15 mg 1-25 9100 TABLET BY [facility] tablet 00:00: MOUTH ONCE [place] 00 EVERY Medical MORNING Branch potassium 2022-0 Yes [id number] 10meq Take 1 [facility] chloride 10 1-25 tablet by [facility] mEq CR 00:00: mouth in [place] tablet 00 the Medical morning. Branch pravastatin 2022-0 Yes [id number] 40mg Take 1 [facility] 40 mg 1-25 tablet by [facility] tablet 00:00: mouth [place] 00 every Medical evening. Branch propranoloL 2022-0 Yes [id number] 40mg Take 1 [facility] 40 mg 1-25 tablet by [facility] tablet 00:00: mouth in [place] 00 the Medical morning Branch and 1 tablet in the evening. cloNIDine 2022-0 Yes [id number] .2mg Take 1 [facility] 0.2 mg 1-25 tablet by [facility] tablet 00:00: mouth in [place] 00 the Medical morning Branch and 1 tablet at noon and 1 tablet in the evening. diltiazem 2022-0 Yes [id number] 180mg Take 1 [facility] 180 mg 24 1-25 capsule by [facility] hr capsule 00:00: mouth in [place] 00 the Medical morning. Branch FLUoxetine 2022-0 Yes [id number] 60mg Take 3 [facility] 20 mg 1-25 capsules [facility] capsule 00:00: by mouth [place] 00 in the Medical morning. Branch furosemide 2022-0 Yes [id number] 40mg Take 1 [facility] 40 mg 1-25 tablet by [facility] tablet 00:00: mouth in [place] 00 the Medical morning. Branch isosorbide 2022-0 Yes [id number] 30mg Take 1 [facility] n[facility] mononitrate 1-25 tablet by [facility] 30 mg 24 hr 00:00: mouth in [place] tablet 00 the Medical morning. Branch lisinopriL- 2022-0 Yes [id number] 1{tbl} Take 1 [facility] hydrochloro 1-25 tablet by [facility] thiazide 00:00: mouth in [place] 20-25 mg 00 the Medical per tablet morning Branch and 1 tablet in the evening. meloxicam 2022-0 Yes [id number] TAKE ONE [facility] 15 mg 1-25 9100 TABLET BY [facility] tablet 00:00: MOUTH ONCE [place] 00 EVERY Medical MORNING Branch potassium 2022-0 Yes [id number] 10meq Take 1 [facility] chloride 10 1-25 tablet by [facility] mEq CR 00:00: mouth in [place] tablet 00 the Medical morning. Branch pravastatin 2022-0 Yes [id number] 40mg Take 1 [facility] 40 mg 1-25 tablet by [facility] tablet 00:00: mouth [place] 00 every Medical evening. Branch propranoloL 2022-0 Yes [id number] 40mg Take 1 [facility] 40 mg 1-25 tablet by [facility] tablet 00:00: mouth in [place] 00 the Medical morning Branch and 1 tablet in the evening. cloNIDine 2022-0 Yes [id number] .2mg Take 1 [facility] 0.2 mg 1-25 tablet by [facility] tablet 00:00: mouth in [place] 00 the Medical morning Branch and 1 tablet at noon and 1 tablet in the evening. diltiazem 2022-0 Yes [id number] 180mg Take 1 [facility] 180 mg 24 1-25 capsule by [facility] hr capsule 00:00: mouth in [place] 00 the Medical morning. Branch FLUoxetine 2022-0 Yes [id number] 60mg Take 3 [facility] 20 mg 1-25 capsules [facility] capsule 00:00: by mouth [place] 00 in the Medical morning. Branch furosemide 2022-0 Yes [id number] 40mg Take 1 [facility] 40 mg 1-25 tablet by [facility] tablet 00:00: mouth in [place] 00 the Medical morning. Branch isosorbide 2022-0 Yes [id number] 30mg Take 1 [facility] n[facility] mononitrate 1-25 tablet by [facility] 30 mg 24 hr 00:00: mouth in [place] tablet 00 the Medical morning. Branch lisinopriL- 2023-0 Yes [id number] 1{tbl} Take 1 [facility] hydrochloro 1-25 tablet by [facility] thiazide 00:00: mouth in [place] 20-25 mg 00 the Medical per tablet morning Branch and 1 tablet in the evening. meloxicam 0 Yes [id number] TAKE ONE [facility] 15 mg 1-25 9100 TABLET BY [facility] tablet 00:00: MOUTH ONCE [place] 00 EVERY Medical MORNING Branch potassium 2022-0 Yes [id number] 10meq Take 1 [facility] chloride 10 1-25 tablet by [facility] mEq CR 00:00: mouth in [place] tablet 00 the Medical morning. Branch pravastatin 0 Yes [id number] 40mg Take 1 [facility] 40 mg 1-25 tablet by [facility] tablet 00:00: mouth [place] 00 every Medical evening. Branch propranoloL 0 Yes [id number] 40mg Take 1 [facility] 40 mg 1-25 tablet by [facility] tablet 00:00: mouth in [place] 00 the Medical morning Branch and 1 tablet in the evening. cloNIDine Yes [id number] .2mg Take 1 [facility] 0.2 mg 1-25 tablet by [facility] tablet 00:00: mouth in [place] 00 the Medical morning Branch and 1 tablet at noon and 1 tablet in the evening. diltiazem Yes [id number] 180mg Take 1 [facility] 180 mg 24 1-25 capsule by [facility] hr capsule 00:00: mouth in [place] 00 the Medical morning. Branch FLUoxetine 0 Yes [id number] 60mg Take 3 [facility] 20 mg 1-25 capsules [facility] capsule 00:00: by mouth [place] 00 in the Medical morning. Branch furosemide 2022-0 Yes [id number] 40mg Take 1 [facility] 40 mg 1-25 tablet by [facility] tablet 00:00: mouth in [place] 00 the Medical morning. Branch isosorbide 2022-0 Yes [id number] 30mg Take 1 [facility] n[facility] mononitrate 1-25 tablet by [facility] 30 mg 24 hr 00:00: mouth in [place] tablet 00 the Medical morning. Branch lisinopriL- 0 Yes [id number] 1{tbl} Take 1 [facility] hydrochloro 1-25 tablet by [facility] thiazide 00:00: mouth in [place] 20-25 mg 00 the Medical per tablet morning Branch and 1 tablet in the evening. meloxicam 2022-0 Yes [id number] TAKE ONE [facility] 15 mg 1-25 9100 TABLET BY [facility] tablet 00:00: MOUTH ONCE [place] 00 EVERY Medical MORNING Branch potassium 2022-0 Yes [id number] 10meq Take 1 [facility] chloride 10 1-25 tablet by [facility] mEq CR 00:00: mouth in [place] tablet 00 the Medical morning. Branch pravastatin 2022-0 Yes [id number] 40mg Take 1 [facility] 40 mg 1-25 tablet by [facility] tablet 00:00: mouth [place] 00 every Medical evening. Branch propranoloL 2022-0 Yes [id number] 40mg Take 1 [facility] 40 mg 1-25 tablet by [facility] tablet 00:00: mouth in [place] 00 the Medical morning Branch and 1 tablet in the evening. cloNIDine 2022-0 Yes [id number] .2mg Take 1 [facility] 0.2 mg 1-25 tablet by [facility] tablet 00:00: mouth in [place] 00 the Medical morning Branch and 1 tablet at noon and 1 tablet in the evening. diltiazem 2022-0 Yes [id number] 180mg Take 1 [facility] 180 mg 24 1-25 capsule by [facility] hr capsule 00:00: mouth in [place] 00 the Medical morning. Branch FLUoxetine 2022-0 Yes [id number] 60mg Take 3 [facility] 20 mg 1-25 capsules [facility] capsule 00:00: by mouth [place] 00 in the Medical morning. Branch furosemide 2022-0 Yes [id number] 40mg Take 1 [facility] 40 mg 1-25 tablet by [facility] tablet 00:00: mouth in [place] 00 the Medical morning. Branch isosorbide 2022-0 Yes [id number] 30mg Take 1 [facility] n[facility] mononitrate 1-25 tablet by [facility] 30 mg 24 hr 00:00: mouth in [place] tablet 00 the Medical morning. Branch lisinopriL- 2022-0 Yes [id number] 1{tbl} Take 1 [facility] hydrochloro 1-25 tablet by [facility] of thiazide 00:00: mouth in [place] 20-25 mg 00 the Medical per tablet morning Branch and 1 tablet in the evening. meloxicam 2022-0 Yes [id number] TAKE ONE [facility] 15 mg 1-25 9100 TABLET BY [facility] tablet 00:00: MOUTH ONCE [place] 00 EVERY Medical MORNING Branch potassium 2022-0 Yes [id number] 10meq Take 1 [facility] n[facility] chloride 10 1-25 tablet by [facility] of mEq CR 00:00: mouth in [place] tablet 00 the Medical morning. Branch pravastatin 2022-0 Yes [id number] 40mg Take 1 [facility] 40 mg 1-25 tablet by [facility] tablet 00:00: mouth [place] 00 every Medical evening. Branch propranoloL 2022-0 Yes [id number] 40mg Take 1 [facility] 40 mg 1-25 tablet by [facility] tablet 00:00: mouth in [place] 00 the Medical morning Branch and 1 tablet in the evening. cloNIDine 2022-0 Yes [id number] .2mg Take 1 [facility] 0.2 mg 1-25 tablet by [facility] tablet 00:00: mouth in [place] 00 the Medical morning Branch and 1 tablet at noon and 1 tablet in the evening. diltiazem 2022-0 Yes [id number] 180mg Take 1 [facility] 180 mg 24 1-25 capsule by [facility] hr capsule 00:00: mouth in [place] 00 the Medical morning. Branch FLUoxetine 2022-0 Yes [id number] 60mg Take 3 [facility] 20 mg 1-25 capsules [facility] of capsule 00:00: by mouth [place] 00 in the Medical morning. Branch furosemide 2022-0 Yes [id number] 40mg Take 1 [facility] 40 mg 1-25 tablet by [facility] tablet 00:00: mouth in [place] 00 the Medical morning. Branch isosorbide 2022-0 Yes [id number] 30mg Take 1 [facility] n[facility] mononitrate 1-25 tablet by [facility] 30 mg 24 hr 00:00: mouth in [place] tablet 00 the Medical morning. Branch lisinopriL- 2022-0 Yes [id number] 1{tbl} Take 1 [facility] hydrochloro 1-25 tablet by [facility] of thiazide 00:00: mouth in [place] 20-25 mg 00 the Medical per tablet morning Branch and 1 tablet in the evening. meloxicam 2022-0 Yes [id number] TAKE ONE [facility] 15 mg 1-25 9100 TABLET BY [facility] tablet 00:00: MOUTH ONCE [place] 00 EVERY Medical MORNING Branch potassium 2022-0 Yes [id number] 10meq Take 1 [facility] chloride 10 1-25 tablet by [facility] of mEq CR 00:00: mouth in [place] tablet 00 the Medical morning. Branch pravastatin 2022-0 Yes [id number] 40mg Take 1 [facility] 40 mg 1-25 tablet by [facility] of tablet 00:00: mouth [place] 00 every Medical evening. Branch propranoloL 2022-0 Yes [id number] 40mg Take 1 [facility] 40 mg 1-25 tablet by [facility] of tablet 00:00: mouth in [place] 00 the Medical morning Branch and 1 tablet in the evening. cloNIDine 2022-0 Yes [id number] .2mg Take 1 [facility] 0.2 mg 1-25 tablet by [facility] of tablet 00:00: mouth in [place] 00 the Medical morning Branch and 1 tablet at noon and 1 tablet in the evening. diltiazem 2022-0 Yes [id number] 180mg Take 1 [facility] 180 mg 24 1-25 capsule by [facility] of hr capsule 00:00: mouth in [facility] as 00 the Medical morning. Branch FLUoxetine 2022-0 Yes [id number] 60mg Take 3 [facility] n[facility] 20 mg 1-25 capsules [facility] of capsule 00:00: by mouth [place] 00 in the Medical morning. Branch furosemide 2022-0 Yes [id number] 40mg Take 1 [facility] 40 mg 1-25 tablet by [facility] of tablet 00:00: mouth in [place] 00 the Medical morning. Branch isosorbide 2022-0 Yes [id number] 30mg Take 1 [facility] nivers mononitrate 1-25 tablet by [facility] of 30 mg 24 hr 00:00: mouth in [place] tablet 00 the Medical morning. Branch lisinopriL- 2022-0 Yes [id number] 1{tbl} Take 1 [facility] hydrochloro 1-25 tablet by [facility] of thiazide 00:00: mouth in [place] 20-25 mg 00 the Medical per tablet morning Branch and 1 tablet in the evening. meloxicam 2022-0 Yes [id number] TAKE ONE [facility] 15 mg 1-25 9100 TABLET BY [facility] of tablet 00:00: MOUTH ONCE [place] 00 EVERY Medical MORNING Branch potassium 2022-0 Yes [id number] 10meq Take 1 [facility] n[facility] chloride 10 1-25 tablet by [facility] of mEq CR 00:00: mouth in [place] tablet 00 the Medical morning. Branch pravastatin 2022-0 Yes [id number] 40mg Take 1 [facility] 40 mg 1-25 tablet by [facility] of tablet 00:00: mouth [place] 00 every Medical evening. Branch propranoloL 2022-0 Yes [id number] 40mg Take 1 [facility] 40 mg 1-25 tablet by [facility] of tablet 00:00: mouth in [place] 00 the Medical morning Branch and 1 tablet in the evening. cloNIDine 2022-0 Yes [id number] .2mg Take 1 [facility] 0.2 mg 1-25 tablet by [facility] of tablet 00:00: mouth in [place] 00 the Medical morning Branch and 1 tablet at noon and 1 tablet in the evening. diltiazem 2022-0 Yes [id number] 180mg Take 1 [facility] n[facility] 180 mg 24 1-25 capsule by it[facility] of hr capsule 00:00: mouth in [facility] as 00 the Medical morning. Branch FLUoxetine 2022-0 Yes [id number] 60mg Take 3 [facility] nivers 20 mg 1-25 capsules it[facility] of capsule 00:00: by mouth [place] 00 in the Medical morning. Branch furosemide 2022-0 Yes [id number] 40mg Take 1 [facility] n[facility] 40 mg 1-25 tablet by [facility] of tablet 00:00: mouth in [place] 00 the Medical morning. Branch isosorbide 2022-0 Yes [id number] 30mg Take 1 [facility] nivers mononitrate 1-25 tablet by [facility] of 30 mg 24 hr 00:00: mouth in [place] tablet 00 the Medical morning. Branch lisinopriL- 2022-0 Yes [id number] 1{tbl} Take 1 [facility] hydrochloro 1-25 tablet by it[facility] of thiazide 00:00: mouth in [place] 20-25 mg 00 the Medical per tablet morning Branch and 1 tablet in the evening. meloxicam 2022-0 Yes [id number] TAKE ONE [facility] 15 mg 1-25 9100 TABLET BY it[facility] of tablet 00:00: MOUTH ONCE [place] 00 EVERY Medical MORNING Branch potassium 3-0 Yes [id number] 10meq Take 1 [facility] n[facility] chloride 10 1-25 tablet by it[facility] of mEq CR 00:00: mouth in [place] tablet 00 the Medical morning. Branch pravastatin 2022-0 Yes [id number] 40mg Take 1 [facility] 40 mg 1-25 tablet by [facility] of tablet 00:00: mouth [place] 00 every Medical evening. Branch propranoloL 2022-0 Yes [id number] 40mg Take 1 [facility] 40 mg 1-25 tablet by [facility] of tablet 00:00: mouth in [place] 00 the Medical morning Branch and 1 tablet in the evening. cloNIDine 2022-0 Yes [id number] .2mg Take 1 [facility] foe 0.2 mg 1-25 tablet by it[facility] of tablet 00:00: mouth in [place] 00 the Medical morning Branch and 1 tablet at noon and 1 tablet in the evening. diltiazem 2022-0 Yes [id number] 180mg Take 1 [facility] 180 mg 24 1-25 capsule by [facility] of hr capsule 00:00: mouth in [place] 00 the Medical morning. Branch FLUoxetine 2022-0 Yes [id number] 60mg Take 3 [facility] n[facility] 20 mg 1-25 capsules ity of capsule 00:00: by mouth [place] 00 in the Medical morning. Branch furosemide 2022-0 Yes [id number] 40mg Take 1 [facility] 40 mg 1-25 tablet by [facility] of tablet 00:00: mouth in [place] 00 the Medical morning. Branch isosorbide 2022-0 Yes [id number] 30mg Take 1 [facility] nivers mononitrate 1-25 tablet by [facility] of 30 mg 24 hr 00:00: mouth in [place] tablet 00 the Medical morning. Branch lisinopriL- 2022-0 Yes [id number] 1{tbl} Take 1 [facility] hydrochloro 1-25 tablet by ity of thiazide 00:00: mouth in [place] 20-25 mg 00 the Medical per tablet morning Branch and 1 tablet in the evening. meloxicam 2022-0 Yes [id number] TAKE ONE [facility] 15 mg 1-25 9100 TABLET BY it[facility] of tablet 00:00: MOUTH ONCE [place] 00 EVERY Medical MORNING Branch potassium 2022-0 Yes [id number] 10meq Take 1 [facility] n[facility] chloride 10 1-25 tablet by it[facility] of mEq CR 00:00: mouth in [place] tablet 00 the Medical morning. Branch pravastatin 2022-0 Yes [id number] 40mg Take 1 [facility] 40 mg 1-25 tablet by it[facility] of tablet 00:00: mouth [place] 00 every Medical evening. Branch propranoloL 2022-0 Yes [id number] 40mg Take 1 [facility] 40 mg 1-25 tablet by [facility] of tablet 00:00: mouth in [place] 00 the Medical morning Branch and 1 tablet in the evening. cloNIDine 2022-0 Yes [id number] .2mg Take 1 [facility] 0.2 mg 1-25 tablet by [facility] of tablet 00:00: mouth in [place] 00 the Medical morning Branch and 1 tablet at noon and 1 tablet in the evening. diltiazem 2022-0 Yes [id number] 180mg Take 1 [facility] 180 mg 24 1-25 capsule by [facility] of hr capsule 00:00: mouth in [place] 00 the Medical morning. Branch FLUoxetine 2022-0 Yes [id number] 60mg Take 3 [facility] 20 mg 1-25 capsules ity of capsule 00:00: by mouth [place] 00 in the Medical morning. Branch furosemide 2022-0 Yes [id number] 40mg Take 1 [facility] 40 mg 1-25 tablet by [facility] of tablet 00:00: mouth in [place] 00 the Medical morning. Branch isosorbide 2022-0 Yes [id number] 30mg Take 1 [facility] nivers mononitrate 1-25 tablet by [facility] of 30 mg 24 hr 00:00: mouth in [place] tablet 00 the Medical morning. Branch lisinopriL- 2022-0 Yes [id number] 1{tbl} Take 1 [facility] hydrochloro 1-25 tablet by ity of thiazide 00:00: mouth in [place] 20-25 mg 00 the Medical per tablet morning Branch and 1 tablet in the evening. meloxicam 2022-0 Yes [id number] TAKE ONE [facility] 15 mg 1-25 9100 TABLET BY it[facility] of tablet 00:00: MOUTH ONCE [place] 00 EVERY Medical MORNING Branch potassium 2022-0 Yes [id number] 10meq Take 1 [facility] nivers chloride 10 1-25 tablet by ity of mEq CR 00:00: mouth in [place] tablet 00 the Medical morning. Branch pravastatin 2022-0 Yes [id number] 40mg Take 1 [facility] 40 mg 1-25 tablet by [facility] of tablet 00:00: mouth [place] 00 every Medical evening. Branch propranoloL 2022-0 Yes [id number] 40mg Take 1 [facility] 40 mg 1-25 tablet by [facility] of tablet 00:00: mouth in [place] 00 the Medical morning Branch and 1 tablet in the evening. cloNIDine 2022-0 Yes [id number] .2mg Take 1 [facility] 0.2 mg 1-25 tablet by [facility] of tablet 00:00: mouth in [place] 00 the Medical morning Branch and 1 tablet at noon and 1 tablet in the evening. diltiazem 2022-0 Yes [id number] 180mg Take 1 [facility] n[facility] 180 mg 24 1-25 capsule by [facility] of hr capsule 00:00: mouth in [place] 00 the Medical morning. Branch FLUoxetine 2022-0 Yes [id number] 60mg Take 3 [facility] n[facility] 20 mg 1-25 capsules ity of capsule 00:00: by mouth [place] 00 in the Medical morning. Branch furosemide 2022-0 Yes [id number] 40mg Take 1 [facility] n[facility] 40 mg 1-25 tablet by [facility] of tablet 00:00: mouth in [place] 00 the Medical morning. Branch isosorbide 2022-0 Yes [id number] 30mg Take 1 [facility] nivers mononitrate 1-25 tablet by [facility] of 30 mg 24 hr 00:00: mouth in [place] tablet 00 the Medical morning. Branch lisinopriL- 2022-0 Yes [id number] 1{tbl} Take 1 [facility] hydrochloro 1-25 tablet by ity of thiazide 00:00: mouth in [place] 20-25 mg 00 the Medical per tablet morning Branch and 1 tablet in the evening. meloxicam 2022-0 Yes [id number] TAKE ONE [facility] 15 mg 1-25 9100 TABLET BY it[facility] of tablet 00:00: MOUTH ONCE [place] 00 EVERY Medical MORNING Branch potassium 2022-0 Yes [id number] 10meq Take 1 [facility] nivers chloride 10 1-25 tablet by ity of mEq CR 00:00: mouth in [place] tablet 00 the Medical morning. Branch pravastatin 2022-0 Yes [id number] 40mg Take 1 [facility] 40 mg 1-25 tablet by [facility] of tablet 00:00: mouth [place] 00 every Medical evening. Branch propranoloL 2022-0 Yes [id number] 40mg Take 1 [facility] 40 mg 1-25 tablet by [facility] of tablet 00:00: mouth in [place] 00 the Medical morning Branch and 1 tablet in the evening. cloNIDine 2022-0 Yes [id number] .2mg Take 1 [facility] 0.2 mg 1-25 tablet by it[facility] of tablet 00:00: mouth in [place] 00 the Medical morning Branch and 1 tablet at noon and 1 tablet in the evening. diltiazem 2022-0 Yes [id number] 180mg Take 1 [facility] n[facility] 180 mg 24 1-25 capsule by [facility] of hr capsule 00:00: mouth in [place] 00 the Medical morning. Branch FLUoxetine 2022-0 Yes [id number] 60mg Take 3 [facility] nivers 20 mg 1-25 capsules ity of capsule 00:00: by mouth [place] 00 in the Medical morning. Branch furosemide 2022-0 Yes [id number] 40mg Take 1 [facility] nivers 40 mg 1-25 tablet by ity of tablet 00:00: mouth in [place] 00 the Medical morning. Branch isosorbide 2022-0 Yes [id number] 30mg Take 1 U nivers mononitrate 1-25 tablet by [facility]y of 30 mg 24 hr 00:00: mouth in [place] tablet 00 the Medical morning. Branch lisinopriL- 2022-0 Yes [id number] 1{tbl} Take 1 [facility] hydrochloro 1-25 tablet by ity of thiazide 00:00: mouth in [place] 20-25 mg 00 the Medical per tablet morning Branch and 1 tablet in the evening. meloxicam 2022-0 Yes [id number] TAKE ONE [facility] 15 mg 1-25 9100 TABLET BY ity of tablet 00:00: MOUTH ONCE [place] 00 EVERY Medical MORNING Branch potassium 2022-0 Yes [id number] 10meq Take 1 U nivers chloride 10 1-25 tablet by ity of mEq CR 00:00: mouth in [place] tablet 00 the Medical morning. Branch pravastatin 2022-0 Yes [id number] 40mg Take 1 [facility] 40 mg 1-25 tablet by ity of tablet 00:00: mouth [place] 00 every Medical evening. Branch propranoloL 2022-0 Yes [id number] 40mg Take 1 [facility] 40 mg 1-25 tablet by ity of tablet 00:00: mouth in [place] 00 the Medical morning Branch and 1 tablet in the evening. cloNIDine 2022-0 Yes [id number] .2mg Take 1 [facility] 0.2 mg 1-25 tablet by ity of tablet 00:00: mouth in [place] 00 the Medical morning Branch and 1 tablet at noon and 1 tablet in the evening. diltiazem 2022-0 Yes [id number] 180mg Take 1 [facility] nivers 180 mg 24 1-25 capsule by ity of hr capsule 00:00: mouth in [place] 00 the Medical morning. Branch FLUoxetine 2022-0 Yes [id number] 60mg Take 3 [facility] nivers 20 mg 1-25 capsules ity of capsule 00:00: by mouth [place] 00 in the Medical morning. Branch furosemide 2022-0 Yes [id number] 40mg Take 1 [facility] nivers 40 mg 1-25 tablet by ity of tablet 00:00: mouth in [place] 00 the Medical morning. Branch isosorbide 2023-0 Yes [id number] 30mg Take 1 U nivers mononitrate 1-25 tablet by ity of 30 mg 24 hr 00:00: mouth in [place] tablet 00 the Medical morning. Branch lisinopriL- 2022-0 Yes [id number] 1{tbl} Take 1 [facility] hydrochloro 1-25 tablet by ity of thiazide 00:00: mouth in [place] 20-25 mg 00 the Medical per tablet morning Branch and 1 tablet in the evening. meloxicam 2022-0 Yes [id number] TAKE ONE [facility] 15 mg 1-25 9100 TABLET BY ity of tablet 00:00: MOUTH ONCE [place] 00 EVERY Medical MORNING Branch potassium 2022-0 Yes [id number] 10meq Take 1 U nivers chloride 10 1-25 tablet by ity of mEq CR 00:00: mouth in [place] tablet 00 the Medical morning. Branch pravastatin 2022-0 Yes [id number] 40mg Take 1 [facility] 40 mg 1-25 tablet by ity of tablet 00:00: mouth [place] 00 every Medical evening. Branch propranoloL 2022-0 Yes [id number] 40mg Take 1 [facility] 40 mg 1-25 tablet by ity of tablet 00:00: mouth in [place] 00 the Medical morning Branch and 1 tablet in the evening. cloNIDine 2022-0 Yes [id number] .2mg Take 1 Un oef 0.2 mg 1-25 tablet by ity of tablet 00:00: mouth in [place] 00 the Medical morning Branch and 1 tablet at noon and 1 tablet in the evening. diltiazem 2022-0 Yes [id number] 180mg Take 1 U nivers 180 mg 24 1-25 capsule by ity of hr capsule 00:00: mouth in [facility] 00 the Medical morning. Branch FLUoxetine 2022-0 Yes [id number] 60mg Take 3 U nivers 20 mg 1-25 capsules ity of capsule 00:00: by mouth [place] 00 in the Medical morning. Branch furosemide 2022-0 Yes [id number] 40mg Take 1 U nivers 40 mg 1-25 tablet by ity of tablet 00:00: mouth in [place] 00 the Medical morning. Branch isosorbide 2022-0 Yes [id number] 30mg Take 1 U nivers mononitrate 1-25 tablet by ity of 30 mg 24 hr 00:00: mouth in [place] tablet 00 the Medical morning. Branch lisinopriL- 2022-0 Yes [id number] 1{tbl} Take 1 [facility] hydrochloro 1-25 tablet by ity of thiazide 00:00: mouth in [place] 20-25 mg 00 the Medical per tablet morning Branch and 1 tablet in the evening. meloxicam 2022-0 Yes [id number] TAKE ONE [facility] 15 mg 1-25 9100 TABLET BY ity of tablet 00:00: MOUTH ONCE [place] 00 EVERY Medical MORNING Branch potassium 2022-0 Yes [id number] 10meq Take 1 U nivers chloride 10 1-25 tablet by ity of mEq CR 00:00: mouth in [place] tablet 00 the Medical morning. Branch pravastatin 2022-0 Yes [id number] 40mg Take 1 [facility] 40 mg 1-25 tablet by ity of tablet 00:00: mouth [place] 00 every Medical evening. Branch propranoloL 2022-0 Yes [id number] 40mg Take 1 [facility] 40 mg 1-25 tablet by [facility] tablet 00:00: mouth in [place] 00 the Medical morning Branch and 1 tablet in the evening. cloNIDine 2022-0 Yes [id number] .2mg Take 1 [facility] 0.2 mg 1-25 tablet by [facility] tablet 00:00: mouth in [place] 00 the Medical morning Branch and 1 tablet at noon and 1 tablet in the evening. diltiazem 2022-0 Yes [id number] 180mg Take 1 [facility] 180 mg 24 1-25 capsule by [facility] hr capsule 00:00: mouth in [place] 00 the Medical morning. Branch FLUoxetine 2022-0 Yes [id number] 60mg Take 3 [facility] 20 mg 1-25 capsules [facility] of capsule 00:00: by mouth [place] 00 in the Medical morning. Branch furosemide 2022-0 Yes [id number] 40mg Take 1 [facility] 40 mg 1-25 tablet by [facility] tablet 00:00: mouth in [place] 00 the Medical morning. Branch isosorbide 2022-0 Yes [id number] 30mg Take 1 [facility] mononitrate 1-25 tablet by [facility] 30 mg 24 hr 00:00: mouth in [place] tablet 00 the Medical morning. Branch lisinopriL- 2022-0 Yes [id number] 1{tbl} Take 1 [facility] hydrochloro 1-25 tablet by [facility] of thiazide 00:00: mouth in [place] 20-25 mg 00 the Medical per tablet morning Branch and 1 tablet in the evening. meloxicam 2022-0 Yes [id number] TAKE ONE [facility] 15 mg 1-25 9100 TABLET BY [facility] tablet 00:00: MOUTH ONCE [place] 00 EVERY Medical MORNING Branch potassium 2022-0 Yes [id number] 10meq Take 1 [facility] chloride 10 1-25 tablet by [facility] of mEq CR 00:00: mouth in [place] tablet 00 the Medical morning. Branch pravastatin 2022-0 Yes [id number] 40mg Take 1 [facility] 40 mg 1-25 tablet by [facility] tablet 00:00: mouth [place] 00 every Medical evening. Branch propranoloL 2022-0 Yes [id number] 40mg Take 1 [facility] 40 mg 1-25 tablet by [facility] tablet 00:00: mouth in [place] 00 the Medical morning Branch and 1 tablet in the evening. cloNIDine 2022-0 Yes [id number] .2mg Take 1 [facility] 0.2 mg 1-25 tablet by [facility] tablet 00:00: mouth in [place] 00 the Medical morning Branch and 1 tablet at noon and 1 tablet in the evening. diltiazem 2022-0 Yes [id number] 180mg Take 1 [facility] 180 mg 24 1-25 capsule by [facility] hr capsule 00:00: mouth in [place] 00 the Medical morning. Branch FLUoxetine 2022-0 Yes [id number] 60mg Take 3 [facility] 20 mg 1-25 capsules [facility] of capsule 00:00: by mouth [place] 00 in the Medical morning. Branch furosemide 2022-0 Yes [id number] 40mg Take 1 [facility] 40 mg 1-25 tablet by [facility] tablet 00:00: mouth in [place] 00 the Medical morning. Branch isosorbide 2022-0 Yes [id number] 30mg Take 1 [facility] mononitrate 1-25 tablet by [facility] 30 mg 24 hr 00:00: mouth in [place] tablet 00 the Medical morning. Branch lisinopriL- 2022-0 Yes [id number] 1{tbl} Take 1 [facility] hydrochloro 1-25 tablet by [facility] of thiazide 00:00: mouth in [place] 20-25 mg 00 the Medical per tablet morning Branch and 1 tablet in the evening. meloxicam 2022-0 Yes [id number] TAKE ONE [facility] 15 mg 1-25 9100 TABLET BY [facility] tablet 00:00: MOUTH ONCE [place] 00 EVERY Medical MORNING Branch potassium 2023-0 Yes [id number] 10meq Take 1 [facility] chloride 10 1-25 tablet by [facility] of mEq CR 00:00: mouth in [place] tablet 00 the Medical morning. Branch pravastatin 2022-0 Yes [id number] 40mg Take 1 [facility] 40 mg 1-25 tablet by [facility] tablet 00:00: mouth [place] 00 every Medical evening. Branch propranoloL 2022-0 Yes [id number] 40mg Take 1 [facility] 40 mg 1-25 tablet by [facility] tablet 00:00: mouth in [place] 00 the Medical morning Branch and 1 tablet in the evening. cloNIDine 2022-0 Yes [id number] .2mg Take 1 [facility] 0.2 mg 1-25 tablet by [facility] tablet 00:00: mouth in [place] 00 the Medical morning Branch and 1 tablet at noon and 1 tablet in the evening. diltiazem 2022-0 Yes [id number] 180mg Take 1 [facility] 180 mg 24 1-25 capsule by [facility] hr capsule 00:00: mouth in [place] 00 the Medical morning. Branch FLUoxetine 2022-0 Yes [id number] 60mg Take 3 [facility] 20 mg 1-25 capsules [facility] of capsule 00:00: by mouth [place] 00 in the Medical morning. Branch furosemide 2022-0 Yes [id number] 40mg Take 1 [facility] 40 mg 1-25 tablet by [facility] tablet 00:00: mouth in [place] 00 the Medical morning. Branch isosorbide 2022-0 Yes [id number] 30mg Take 1 [facility] mononitrate 1-25 tablet by [facility] 30 mg 24 hr 00:00: mouth in [place] tablet 00 the Medical morning. Branch lisinopriL- 2022-0 Yes [id number] 1{tbl} Take 1 [facility] hydrochloro 1-25 tablet by [facility] of thiazide 00:00: mouth in [place] 20-25 mg 00 the Medical per tablet morning Branch and 1 tablet in the evening. meloxicam 2022-0 Yes [id number] TAKE ONE [facility] 15 mg 1-25 9100 TABLET BY [facility] tablet 00:00: MOUTH ONCE [place] 00 EVERY Medical MORNING Branch potassium 2022-0 Yes [id number] 10meq Take 1 [facility] chloride 10 1-25 tablet by [facility] of mEq CR 00:00: mouth in [place] tablet 00 the Medical morning. Branch pravastatin 2022-0 Yes [id number] 40mg Take 1 [facility] 40 mg 1-25 tablet by [facility] tablet 00:00: mouth [place] 00 every Medical evening. Branch propranoloL 2022-0 Yes [id number] 40mg Take 1 [facility] 40 mg 1-25 tablet by [facility] tablet 00:00: mouth in [place] 00 the Medical morning Branch and 1 tablet in the evening. cloNIDine 2022-0 Yes [id number] .2mg Take 1 [facility] 0.2 mg 1-25 tablet by [facility] tablet 00:00: mouth in [place] 00 the Medical morning Branch and 1 tablet at noon and 1 tablet in the evening. diltiazem 2022-0 Yes [id number] 180mg Take 1 [facility] 180 mg 24 1-25 capsule by [facility] hr capsule 00:00: mouth in [place] 00 the Medical morning. Branch FLUoxetine 2022-0 Yes [id number] 60mg Take 3 [facility] 20 mg 1-25 capsules [facility] capsule 00:00: by mouth [place] 00 in the Medical morning. Branch furosemide 2022-0 Yes [id number] 40mg Take 1 [facility] 40 mg 1-25 tablet by [facility] tablet 00:00: mouth in [place] 00 the Medical morning. Branch isosorbide 2022-0 Yes [id number] 30mg Take 1 [facility] mononitrate 1-25 tablet by [facility] 30 mg 24 hr 00:00: mouth in [place] tablet 00 the Medical morning. Branch lisinopriL- 2022-0 Yes [id number] 1{tbl} Take 1 [facility] hydrochloro 1-25 tablet by [facility] thiazide 00:00: mouth in [place] 20-25 mg 00 the Medical per tablet morning Branch and 1 tablet in the evening. meloxicam 2022-0 Yes [id number] TAKE ONE [facility] 15 mg 1-25 9100 TABLET BY [facility] tablet 00:00: MOUTH ONCE [place] 00 EVERY Medical MORNING Branch potassium 3-0 Yes [id number] 10meq Take 1 [facility] chloride 10 1-25 tablet by [facility] of mEq CR 00:00: mouth in [place] tablet 00 the Medical morning. Branch pravastatin 2022-0 Yes [id number] 40mg Take 1 [facility] 40 mg 1-25 tablet by [facility] tablet 00:00: mouth [place] 00 every Medical evening. Branch propranoloL 2022-0 Yes [id number] 40mg Take 1 [facility] 40 mg 1-25 tablet by [facility] tablet 00:00: mouth in [place] 00 the Medical morning Branch and 1 tablet in the evening. cloNIDine 2022-0 Yes [id number] .2mg Take 1 [facility] 0.2 mg 1-25 tablet by [facility] tablet 00:00: mouth in [place] 00 the Medical morning Branch and 1 tablet at noon and 1 tablet in the evening. diltiazem 2022-0 Yes [id number] 180mg Take 1 [facility] 180 mg 24 1-25 capsule by [facility] hr capsule 00:00: mouth in [facility] 00 the Medical morning. Branch FLUoxetine 2022-0 Yes [id number] 60mg Take 3 [facility] 20 mg 1-25 capsules [facility] of capsule 00:00: by mouth [place] 00 in the Medical morning. Branch furosemide 2022-0 Yes [id number] 40mg Take 1 [facility] 40 mg 1-25 tablet by [facility] of tablet 00:00: mouth in [place] 00 the Medical morning. Branch isosorbide 2022-0 Yes [id number] 30mg Take 1 [facility] n[facility] mononitrate 1-25 tablet by [facility] 30 mg 24 hr 00:00: mouth in [place] tablet 00 the Medical morning. Branch lisinopriL- 2022-0 Yes [id number] 1{tbl} Take 1 [facility] hydrochloro 1-25 tablet by [facility] of thiazide 00:00: mouth in [place] 20-25 mg 00 the Medical per tablet morning Branch and 1 tablet in the evening. meloxicam 2022-0 Yes [id number] TAKE ONE [facility] 15 mg 1-25 9100 TABLET BY [facility] tablet 00:00: MOUTH ONCE [place] 00 EVERY Medical MORNING Branch potassium 3-0 Yes [id number] 10meq Take 1 [facility] chloride 10 1-25 tablet by [facility] of mEq CR 00:00: mouth in [place] tablet 00 the Medical morning. Branch pravastatin 2022-0 Yes [id number] 40mg Take 1 [facility] 40 mg 1-25 tablet by [facility] tablet 00:00: mouth [place] 00 every Medical evening. Branch propranoloL 2022-0 Yes [id number] 40mg Take 1 [facility] 40 mg 1-25 tablet by [facility] tablet 00:00: mouth in [place] 00 the Medical morning Branch and 1 tablet in the evening. cloNIDine 2022-0 Yes [id number] .2mg Take 1 [facility] 0.2 mg 1-25 tablet by [facility] tablet 00:00: mouth in [place] 00 the Medical morning Branch and 1 tablet at noon and 1 tablet in the evening. diltiazem 2022-0 Yes [id number] 180mg Take 1 [facility] 180 mg 24 1-25 capsule by [facility] hr capsule 00:00: mouth in [place] 00 the Medical morning. Branch FLUoxetine 2022-0 Yes [id number] 60mg Take 3 [facility] 20 mg 1-25 capsules [facility] of capsule 00:00: by mouth [place] 00 in the Medical morning. Branch furosemide 2022-0 Yes [id number] 40mg Take 1 [facility] 40 mg 1-25 tablet by [facility] tablet 00:00: mouth in [place] 00 the Medical morning. Branch isosorbide 2022-0 Yes [id number] 30mg Take 1 [facility] mononitrate 1-25 tablet by [facility] of 30 mg 24 hr 00:00: mouth in [place] tablet 00 the Medical morning. Branch lisinopriL- 2022-0 Yes [id number] 1{tbl} Take 1 [facility] hydrochloro 1-25 tablet by [facility] of thiazide 00:00: mouth in [place] 20-25 mg 00 the Medical per tablet morning Branch and 1 tablet in the evening. meloxicam 2022-0 Yes [id number] TAKE ONE [facility] 15 mg 1-25 9100 TABLET BY [facility] of tablet 00:00: MOUTH ONCE [place] 00 EVERY Medical MORNING Branch potassium 2022-0 Yes [id number] 10meq Take 1 [facility] chloride 10 1-25 tablet by [facility] of mEq CR 00:00: mouth in [place] tablet 00 the Medical morning. Branch pravastatin 2022-0 Yes [id number] 40mg Take 1 [facility] 40 mg 1-25 tablet by [facility] of tablet 00:00: mouth [place] 00 every Medical evening. Branch propranoloL 2022-0 Yes [id number] 40mg Take 1 [facility] 40 mg 1-25 tablet by [facility] of tablet 00:00: mouth in [place] 00 the Medical morning Branch and 1 tablet in the evening. cloNIDine 2022-0 Yes [id number] .2mg Take 1 [facility] 0.2 mg 1-25 tablet by [facility] tablet 00:00: mouth in [place] 00 the Medical morning Branch and 1 tablet at noon and 1 tablet in the evening. diltiazem 2022-0 Yes [id number] 180mg Take 1 [facility] 180 mg 24 1-25 capsule by [facility] hr capsule 00:00: mouth in [place] 00 the Medical morning. Branch FLUoxetine 2022-0 Yes [id number] 60mg Take 3 [facility] 20 mg 1-25 capsules [facility] of capsule 00:00: by mouth [place] 00 in the Medical morning. Branch furosemide 2022-0 Yes [id number] 40mg Take 1 [facility] 40 mg 1-25 tablet by [facility] of tablet 00:00: mouth in [place] 00 the Medical morning. Branch isosorbide 2022-0 Yes [id number] 30mg Take 1 [facility] mononitrate 1-25 tablet by [facility] of 30 mg 24 hr 00:00: mouth in [place] tablet 00 the Medical morning. Branch lisinopriL- 2022-0 Yes [id number] 1{tbl} Take 1 [facility] hydrochloro 1-25 tablet by it[facility] of thiazide 00:00: mouth in [place] 20-25 mg 00 the Medical per tablet morning Branch and 1 tablet in the evening. meloxicam 2022-0 Yes [id number] TAKE ONE [facility] 15 mg 1-25 9100 TABLET BY it[facility] of tablet 00:00: MOUTH ONCE [place] 00 EVERY Medical MORNING Branch potassium 3-0 Yes [id number] 10meq Take 1 [facility] chloride 10 1-25 tablet by it[facility] of mEq CR 00:00: mouth in [place] tablet 00 the Medical morning. Branch pravastatin 2022-0 Yes [id number] 40mg Take 1 [facility] 40 mg 1-25 tablet by [facility] of tablet 00:00: mouth [place] 00 every Medical evening. Branch propranoloL 2022-0 Yes [id number] 40mg Take 1 [facility] 40 mg 1-25 tablet by [facility] of tablet 00:00: mouth in [place] 00 the Medical morning Branch and 1 tablet in the evening. cloNIDine 2022-0 Yes [id number] .2mg Take 1 [facility] 0.2 mg 1-25 tablet by [facility] tablet 00:00: mouth in [place] 00 the Medical morning Branch and 1 tablet at noon and 1 tablet in the evening. diltiazem 2022-0 Yes [id number] 180mg Take 1 [facility] 180 mg 24 1-25 capsule by [facility] hr capsule 00:00: mouth in [place] 00 the Medical morning. Branch FLUoxetine 2022-0 Yes [id number] 60mg Take 3 [facility] 20 mg 1-25 capsules [facility] of capsule 00:00: by mouth [place] 00 in the Medical morning. Branch furosemide 2022-0 Yes [id number] 40mg Take 1 [facility] 40 mg 1-25 tablet by [facility] of tablet 00:00: mouth in [place] 00 the Medical morning. Branch isosorbide 2022-0 Yes [id number] 30mg Take 1 [facility] mononitrate 1-25 tablet by [facility] of 30 mg 24 hr 00:00: mouth in [place] tablet 00 the Medical morning. Branch lisinopriL- 2022-0 Yes [id number] 1{tbl} Take 1 [facility] hydrochloro 1-25 tablet by it[facility] of thiazide 00:00: mouth in [place] 20-25 mg 00 the Medical per tablet morning Branch and 1 tablet in the evening. meloxicam 2022-0 Yes [id number] TAKE ONE [facility] 15 mg 1-25 9100 TABLET BY it[facility] of tablet 00:00: MOUTH ONCE [place] 00 EVERY Medical MORNING Branch potassium 2022-0 Yes [id number] 10meq Take 1 [facility] chloride 10 1-25 tablet by it[facility] of mEq CR 00:00: mouth in [place] tablet 00 the Medical morning. Branch pravastatin 2022-0 Yes [id number] 40mg Take 1 [facility] 40 mg 1-25 tablet by [facility] of tablet 00:00: mouth [place] 00 every Medical evening. Branch propranoloL 2022-0 Yes [id number] 40mg Take 1 [facility] 40 mg 1-25 tablet by [facility] of tablet 00:00: mouth in [place] 00 the Medical morning Branch and 1 tablet in the evening. cloNIDine 2022-0 Yes [id number] .2mg Take 1 [facility] 0.2 mg 1-25 tablet by [facility] of tablet 00:00: mouth in [place] 00 the Medical morning Branch and 1 tablet at noon and 1 tablet in the evening. diltiazem 2022-0 Yes [id number] 180mg Take 1 [facility] 180 mg 24 1-25 capsule by [facility] of hr capsule 00:00: mouth in [place] 00 the Medical morning. Branch FLUoxetine 2022-0 Yes [id number] 60mg Take 3 [facility] 20 mg 1-25 capsules it[facility] of capsule 00:00: by mouth [place] 00 in the Medical morning. Branch furosemide 2022-0 Yes [id number] 40mg Take 1 [facility] 40 mg 1-25 tablet by [facility] of tablet 00:00: mouth in [place] 00 the Medical morning. Branch isosorbide 2022-0 Yes [id number] 30mg Take 1 [facility] n[facility] mononitrate 1-25 tablet by [facility] of 30 mg 24 hr 00:00: mouth in [place] tablet 00 the Medical morning. Branch lisinopriL- 2022-0 Yes [id number] 1{tbl} Take 1 [facility] hydrochloro 1-25 tablet by it[facility] of thiazide 00:00: mouth in [place] 20-25 mg 00 the Medical per tablet morning Branch and 1 tablet in the evening. meloxicam 2022-0 Yes [id number] TAKE ONE [facility] 15 mg 1-25 9100 TABLET BY it[facility] of tablet 00:00: MOUTH ONCE [place] 00 EVERY Medical MORNING Branch potassium 2022-0 Yes [id number] 10meq Take 1 [facility] n[facility] chloride 10 1-25 tablet by it[facility] of mEq CR 00:00: mouth in [place] tablet 00 the Medical morning. Branch pravastatin 2022-0 Yes [id number] 40mg Take 1 [facility] 40 mg 1-25 tablet by it[facility] of tablet 00:00: mouth [place] 00 every Medical evening. Branch propranoloL 2022-0 Yes [id number] 40mg Take 1 [facility] 40 mg 1-25 tablet by ity of tablet 00:00: mouth in [place] 00 the Medical morning Branch and 1 tablet in the evening. FLUoxetine 2021-09 Yes 20mg Take 1 [facility] 20 mg 2-28 capsule by it[facility] of capsule 00:00: mouth in [place] 00 the Medical morning. Branch FLUoxetine 2021-09 Yes 20mg Take 1 [facility] 20 mg 2-28 capsule by ity of capsule 00:00: mouth in [place] 00 the Medical morning. Branch FLUoxetine 2021-09 Yes 20mg Take 1 [facility] 20 mg 2-28 capsule by ity of capsule 00:00: mouth in [place] 00 the Medical morning. Branch FLUoxetine 2021-09 Yes 20mg Take 1 [facility] 20 mg 2-28 capsule by ity of capsule 00:00: mouth in [place] 00 the Medical morning. Branch FLUoxetine 2021-09 Yes 20mg Take 1 [facility] 20 mg 2-28 capsule by [facility]y of capsule 00:00: mouth in [place] 00 the Medical morning. Branch FLUoxetine 2021-09 Yes 20mg Take 1 [facility] 20 mg 2-28 capsule by [facility]y of capsule 00:00: mouth in [place] 00 the Medical morning. Branch FLUoxetine 2021-09 Yes 20mg Take 1 [facility] 20 mg 2-28 capsule by [facility]y of capsule 00:00: mouth in [place] the Medical morning. Branch FLUoxetine 2021-09 Yes 20mg Take 1 [facility] 20 mg 2-28 capsule by ity of capsule 00:00: mouth in [place] 00 the Medical morning. Branch FLUoxetine 2021-09 Yes 20mg Take 1 [facility] 20 mg 2-28 capsule by ity of capsule 00:00: mouth in [place] 00 the Medical morning. Branch FLUoxetine 2021-09 Yes 20mg Take 1 [facility] 20 mg 2-28 capsule by ity of capsule 00:00: mouth in [place] the Medical morning. Branch FLUoxetine 2021-09 Yes 20mg Take 1 [facility] 20 mg 2-28 capsule by ity of capsule 00:00: mouth in [place] the Medical morning. Branch FLUoxetine 2021-09 Yes 20mg Take 1 [facility] 20 mg 2-28 capsule by ity of capsule 00:00: mouth in [place] the Medical morning. Branch FLUoxetine 2021-09- No 20mg Take 1 [facility] ers 20 mg 2-28 01-25 capsule by ity of capsule 00:00: 00:00 mouth in [place] 00 :00 the Medical morning. Branch FLUOXETINE 2021-09 Yes TAKE THREE [facility] nivers 20 mg 2-21 TABLETS BY ity of tablet 00:00: MOUTH [place] 00 DAILY Medical Branch traMADoL 50 2021-09 Yes 2745 TAKE ONE [facility] mg tablet 2-21 TABLET BY ity o f 00:00: MOUTH [place] 00 EVERY 6 Medical HOURS Branch NEEDED FOR CHRONIC PAIN Indication s: chronic pain traMADoL 50 2021-09 Yes 2745 TAKE ONE [facility] mg tablet 2-21 TABLET BY ity o f 00:00: MOUTH [place] 00 EVERY 6 Medical HOURS Branch NEEDED FOR CHRONIC PAIN Indication s: chronic pain traMADoL 50 2021-09 Yes 2745 TAKE ONE [facility] mg tablet 2-21 TABLET BY ity o f 00:00: MOUTH [place] [address] EVERY 6 Medical HOURS Branch NEEDED FOR CHRONIC PAIN Indication s: chronic pain traMADoL 50 2021-09 Yes 2745 TAKE ONE [facility] mg tablet 2-21 TABLET BY ity o f 00:00: MOUTH [place] 00 EVERY 6 Medical HOURS Branch NEEDED FOR CHRONIC PAIN Indication s: chronic pain traMADoL 50 2021-09 Yes 2745 TAKE ONE [facility] mg tablet 2-21 TABLET BY ity o f 00:00: MOUTH [place] 00 EVERY 6 Medical HOURS Branch NEEDED FOR CHRONIC PAIN Indication s: chronic pain traMADoL 50 2021-09 Yes 2745 TAKE ONE [facility] mg tablet 2-21 TABLET BY ity o f 00:00: MOUTH [place] 00 EVERY 6 Medical HOURS Branch NEEDED FOR CHRONIC PAIN Indication s: chronic pain traMADoL 50 2021-09 Yes 2745 TAKE ONE [facility] mg tablet 2-21 TABLET BY ity o f 00:00: MOUTH [place] 00 EVERY 6 Medical HOURS Branch NEEDED FOR CHRONIC PAIN Indication s: chronic pain traMADoL 50 2021-09 Yes 2745 TAKE ONE [facility] mg tablet 2-21 TABLET BY ity o f 00:00: MOUTH [place] 00 EVERY 6 Medical HOURS Branch NEEDED FOR CHRONIC PAIN Indication s: chronic pain traMADoL 50 2021-09 Yes 2745 TAKE ONE [facility] mg tablet 2-21 TABLET BY ity o f 00:00: MOUTH [place] 00 EVERY 6 Medical HOURS Branch NEEDED FOR CHRONIC PAIN Indication s: chronic pain traMADoL 50 2021-09 Yes 2745 TAKE ONE [facility] mg tablet 2-21 TABLET BY ity o f 00:00: MOUTH [place] 00 EVERY 6 Medical HOURS Branch NEEDED FOR CHRONIC PAIN Indication s: chronic pain traMADoL 50 2021-09 Yes 2745 TAKE ONE [facility] mg tablet 2-21 TABLET BY ity o f 00:00: MOUTH [place] 00 EVERY 6 Medical HOURS Branch NEEDED FOR CHRONIC PAIN Indication s: chronic pain traMADoL 50 2021-09 Yes 2745 TAKE ONE [facility] mg tablet 2-21 TABLET BY ity o f 00:00: MOUTH [place] 00 EVERY 6 Medical HOURS Branch NEEDED FOR CHRONIC PAIN Indication s: chronic pain traMADoL 50 2021-09 Yes 2745 TAKE ONE [facility] mg tablet 2-21 TABLET BY ity o f 00:00: MOUTH [place] 00 EVERY 6 Medical HOURS Branch NEEDED FOR CHRONIC PAIN Indication s: chronic pain traMADoL 50 2021-09 Yes 2745 TAKE ONE [facility] mg tablet 2-21 TABLET BY ity o f 00:00: MOUTH [place] 00 EVERY 6 Medical HOURS Branch NEEDED FOR CHRONIC PAIN Indication s: chronic pain traMADoL 50 2021-09 Yes 2745 TAKE ONE [facility] mg tablet 2-21 TABLET BY ity o f 00:00: MOUTH [place] 00 EVERY 6 Medical HOURS Branch NEEDED FOR CHRONIC PAIN Indication s: chronic pain traMADoL 50 2021-09 Yes 2745 TAKE ONE [facility] mg tablet 2-21 TABLET BY ity o f 00:00: MOUTH [place] 00 EVERY 6 Medical HOURS Branch NEEDED FOR CHRONIC PAIN Indication s: chronic pain traMADoL 50 2021-09 Yes 2745 TAKE ONE [facility] mg tablet 2-21 TABLET BY ity o f 00:00: MOUTH [place] 00 EVERY 6 Medical HOURS Branch NEEDED FOR CHRONIC PAIN Indication s: chronic pain traMADoL 50 2021-09 Yes 2745 TAKE ONE [facility] mg tablet 2-21 TABLET BY ity o f 00:00: MOUTH [place] 00 EVERY 6 Medical HOURS Branch NEEDED FOR CHRONIC PAIN Indication s: chronic pain traMADoL 50 2021-09 Yes 2745 TAKE ONE [facility] mg tablet 2-21 TABLET BY ity o f 00:00: MOUTH [place] 00 EVERY 6 Medical HOURS Branch NEEDED FOR CHRONIC PAIN Indication s: chronic pain traMADoL 50 2021-09 Yes 2745 TAKE ONE [facility] mg tablet 2-21 TABLET BY ity o f 00:00: MOUTH [place] 00 EVERY 6 Medical HOURS Branch NEEDED FOR CHRONIC PAIN Indication s: chronic pain traMADoL 50 2021-09 Yes 2745 TAKE ONE [facility] mg tablet 2-21 TABLET BY ity o f 00:00: MOUTH [place] 00 EVERY 6 Medical HOURS Branch NEEDED FOR CHRONIC PAIN Indication s: chronic pain traMADoL 50 2021-09 Yes 2745 TAKE ONE [facility] mg tablet 2-21 TABLET BY ity o f 00:00: MOUTH [place] 00 EVERY 6 Medical HOURS Branch NEEDED FOR CHRONIC PAIN Indication s: chronic pain traMADoL 50 2021-09- No 2745 TAKE ONE [facility] mg tablet 2-21 03-15 TABLET BY ity of 00:00: 00:00 MOUTH [place] 00 :00 EVERY 6 Medical HOURS Branch NEEDED FOR CHRONIC PAIN Indication s: chronic pain traMADoL 50 2021-2022- No 2745 TAKE ONE [facility] nivers mg tablet 2-21 03-15 TABLET BY ity of 00:00: 00:00 MOUTH [place] 00 :00 EVERY 6 Medical HOURS Branch NEEDED FOR CHRONIC PAIN Indication s: chronic pain FLUOXETINE 2021-09- No TAKE THREE [facility] 20 mg 2-21 12-28 TABLETS BY ity of tablet 00:00: 00:00 MOUTH [place] 00 :00 DAILY Medical Branch propranoloL 2021-09 Yes [id number] 40mg Take 1 [facility] 40 mg 2-14 tablet by [facility] of tablet 00:00: mouth in [place] 00 the Medical morning Branch and 1 tablet in the evening. meloxicam 2021-09 Yes [id number] TAKE ONE [facility] 15 mg 2-14 9100 TABLET BY ity of tablet 00:00: MOUTH ONCE [place] [address] EVERY Medical MORNING Branch lisinopriL- 2021-09 Yes [id number] 1{tbl} Take 1 [facility] hydrochloro 2-14 tablet by ity of thiazide 00:00: mouth in [place] 20-25 mg 00 the Medical per tablet morning Branch and 1 tablet in the evening. propranoloL 2021-09 Yes [id number] 40mg Take 1 [facility] 40 mg 2-14 tablet by [facility] of tablet 00:00: mouth in [place] 00 the Medical morning Branch and 1 tablet in the evening. meloxicam 2021-09 Yes [id number] TAKE ONE [facility] 15 mg 2-14 9100 TABLET BY it[facility] of tablet 00:00: MOUTH ONCE [place] EVERY Medical MORNING Branch lisinopriL- 2021-09 Yes [id number] 1{tbl} Take 1 [facility] hydrochloro 2-14 tablet by ity of thiazide 00:00: mouth in [place] 20-25 mg 00 the Medical per tablet morning Branch and 1 tablet in the evening. propranoloL 2021-09 Yes [id number] 40mg Take 1 [facility] 40 mg 2-14 tablet by [facility] of tablet 00:00: mouth in [place] 00 the Medical morning Branch and 1 tablet in the evening. meloxicam 2021-09 Yes [id number] TAKE ONE [facility] 15 mg 2-14 9100 TABLET BY it[facility] of tablet 00:00: MOUTH ONCE [place] [address] EVERY Medical MORNING Branch lisinopriL- 2021-09 Yes [id number] 1{tbl} Take 1 [facility] hydrochloro 2-14 tablet by ity of thiazide 00:00: mouth in [place] 20-25 mg 00 the Medical per tablet morning Branch and 1 tablet in the evening. propranoloL 2021-09 Yes [id number] 40mg Take 1 [facility] 40 mg 2-14 tablet by [facility] of tablet 00:00: mouth in [place] 00 the Medical morning Branch and 1 tablet in the evening. meloxicam 2021-09 Yes [id number] TAKE ONE [facility] 15 mg 2-14 9100 TABLET BY it[facility] of tablet 00:00: MOUTH ONCE [place] [address] EVERY Medical MORNING Branch lisinopriL- 2021-09 Yes [id number] 1{tbl} Take 1 [facility] hydrochloro 2-14 tablet by it[facility] of thiazide 00:00: mouth in [place] 20-25 mg 00 the Medical per tablet morning Branch and 1 tablet in the evening. propranoloL 2021-09 Yes [id number] 40mg Take 1 [facility] 40 mg 2-14 tablet by [facility] of tablet 00:00: mouth in [place] 00 the Medical morning Branch and 1 tablet in the evening. meloxicam 2021-09 Yes [id number] TAKE ONE [facility] 15 mg 2-14 9100 TABLET BY ity of tablet 00:00: MOUTH ONCE [place] [address] EVERY Medical MORNING Branch lisinopriL- 2021-09 Yes [id number] 1{tbl} Take 1 [facility] hydrochloro 2-14 tablet by ity of thiazide 00:00: mouth in [place] 20-25 mg 00 the Medical per tablet morning Branch and 1 tablet in the evening. propranoloL 2021-09 Yes [id number] 40mg Take 1 [facility] 40 mg 2-14 tablet by [facility] of tablet 00:00: mouth in [place] 00 the Medical morning Branch and 1 tablet in the evening. meloxicam 2021-09 Yes [id number] TAKE ONE [facility] 15 mg 2-14 9100 TABLET BY it[facility] of tablet 00:00: MOUTH ONCE [place] [address] EVERY Medical MORNING Branch lisinopriL- 2021-09 Yes [id number] 1{tbl} Take 1 [facility] hydrochloro 2-14 tablet by ity of thiazide 00:00: mouth in [place] 20-25 mg 00 the Medical per tablet morning Branch and 1 tablet in the evening. propranoloL 2021-09 Yes [id number] 40mg Take 1 [facility] 40 mg 2-14 tablet by [facility] tablet 00:00: mouth in [place] 00 the Medical morning Branch and 1 tablet in the evening. meloxicam 2021-09 Yes [id number] TAKE ONE [facility] 15 mg 2-14 9100 TABLET BY [facility] of tablet 00:00: MOUTH ONCE [place] [address] EVERY Medical MORNING Branch lisinopriL- 2021-09 Yes [id number] 1{tbl} Take 1 [facility] hydrochloro 2-14 tablet by [facility] of thiazide 00:00: mouth in [place] 20-25 mg 00 the Medical per tablet morning Branch and 1 tablet in the evening. propranoloL 2021-09 Yes [id number] 40mg Take 1 [facility] 40 mg 2-14 tablet by [facility] of tablet 00:00: mouth in [place] 00 the Medical morning Branch and 1 tablet in the evening. meloxicam 2021-09 Yes [id number] TAKE ONE [facility] 15 mg 2-14 9100 TABLET BY [facility] of tablet 00:00: MOUTH ONCE [place] 00 EVERY Medical MORNING Branch lisinopriL- 2021-09 Yes [id number] 1{tbl} Take 1 [facility] hydrochloro 2-14 tablet by [facility]y of thiazide 00:00: mouth in [place] 20-25 mg 00 the Medical per tablet morning Branch and 1 tablet in the evening. propranoloL 2021-09 Yes [id number] 40mg Take 1 [facility] 40 mg 2-14 tablet by [facility] of tablet 00:00: mouth in [place] 00 the Medical morning Branch and 1 tablet in the evening. meloxicam 2021-09 Yes [id number] TAKE ONE [facility] 15 mg 2-14 9100 TABLET BY [facility] of tablet 00:00: MOUTH ONCE [place] 00 EVERY Medical MORNING Branch lisinopriL- 2021-09 Yes [id number] 1{tbl} Take 1 [facility] hydrochloro 2-14 tablet by ity of thiazide 00:00: mouth in [place] 20-25 mg 00 the Medical per tablet morning Branch and 1 tablet in the evening. propranoloL 2021-09 Yes [id number] 40mg Take 1 [facility] 40 mg 2-14 tablet by [facility] of tablet 00:00: mouth in [place] 00 the Medical morning Branch and 1 tablet in the evening. meloxicam 2021-09 Yes [id number] TAKE ONE [facility] 15 mg 2-14 9100 TABLET BY [facility] of tablet 00:00: MOUTH ONCE [place] [address] EVERY Medical MORNING Branch lisinopriL- 2021-09 Yes [id number] 1{tbl} Take 1 [facility] hydrochloro 2-14 tablet by ity of thiazide 00:00: mouth in [place] 20-25 mg 00 the Medical per tablet morning Branch and 1 tablet in the evening. propranoloL 2021-09 Yes [id number] 40mg Take 1 [facility] 40 mg 2-14 tablet by [facility] of tablet 00:00: mouth in [place] 00 the Medical morning Branch and 1 tablet in the evening. meloxicam 2021-09 Yes [id number] TAKE ONE [facility] 15 mg 2-14 9100 TABLET BY [facility] of tablet 00:00: MOUTH ONCE [place] [address] EVERY Medical MORNING Branch lisinopriL- 2021-09 Yes [id number] 1{tbl} Take 1 [facility] hydrochloro 2-14 tablet by [facility] of thiazide 00:00: mouth in [place] 20-25 mg 00 the Medical per tablet morning Branch and 1 tablet in the evening. propranoloL 2021-09 Yes [id number] 40mg Take 1 [facility] 40 mg 2-14 tablet by [facility] of tablet 00:00: mouth in [place] 00 the Medical morning Branch and 1 tablet in the evening. meloxicam 2021-09 Yes [id number] TAKE ONE [facility] 15 mg 2-14 9100 TABLET BY [facility] of tablet 00:00: MOUTH ONCE [place] [address] EVERY Medical MORNING Branch lisinopriL- 2021-09 Yes [id number] 1{tbl} Take 1 [facility] hydrochloro 2-14 tablet by [facility]y of thiazide 00:00: mouth in [place] 20-25 mg 00 the Medical per tablet morning Branch and 1 tablet in the evening. propranoloL 2021-09 Yes [id number] 40mg Take 1 [facility] 40 mg 2-14 tablet by [facility] of tablet 00:00: mouth in [place] 00 the Medical morning Branch and 1 tablet in the evening. meloxicam 2021-09 Yes [id number] TAKE ONE [facility] 15 mg 2-14 9100 TABLET BY [facility] of tablet 00:00: MOUTH ONCE [place] [address] EVERY Medical MORNING Branch lisinopriL- 2021-09 Yes [id number] 1{tbl} Take 1 [facility] hydrochloro 2-14 tablet by [facility]y of thiazide 00:00: mouth in [place] 20-25 mg 00 the Medical per tablet morning Branch and 1 tablet in the evening. propranoloL 2021-09 Yes [id number] 40mg Take 1 [facility] 40 mg 2-14 tablet by [facility] of tablet 00:00: mouth in [place] 00 the Medical morning Branch and 1 tablet in the evening. meloxicam 2021-09 Yes [id number] TAKE ONE [facility] 15 mg 2-14 9100 TABLET BY [facility] of tablet 00:00: MOUTH ONCE [place] [address] EVERY Medical MORNING Branch lisinopriL- 2021-09 Yes [id number] 1{tbl} Take 1 [facility] hydrochloro 2-14 tablet by [facility] of thiazide 00:00: mouth in [place] 20-25 mg 00 the Medical per tablet morning Branch and 1 tablet in the evening. propranoloL 2021-09 Yes [id number] 40mg Take 1 [facility] 40 mg 2-14 tablet by [facility] of tablet 00:00: mouth in [place] 00 the Medical morning Branch and 1 tablet in the evening. meloxicam 2021-09 Yes [id number] TAKE ONE [facility] 15 mg 2-14 9100 TABLET BY [facility] of tablet 00:00: MOUTH ONCE [place] [address] EVERY Medical MORNING Branch lisinopriL- 2021-09 Yes [id number] 1{tbl} Take 1 [facility] hydrochloro 2-14 tablet by [facility]y of thiazide 00:00: mouth in [place] 20-25 mg 00 the Medical per tablet morning Branch and 1 tablet in the evening. propranoloL 2021-09 Yes [id number] 40mg Take 1 [facility] 40 mg 2-14 tablet by [facility] of tablet 00:00: mouth in [place] 00 the Medical morning Branch and 1 tablet in the evening. meloxicam 2021-09 Yes [id number] TAKE ONE [facility] 15 mg 2-14 9100 TABLET BY [facility] of tablet 00:00: MOUTH ONCE [place] [address] EVERY Medical MORNING Branch lisinopriL- 2021-09 Yes [id number] 1{tbl} Take 1 [facility] hydrochloro 2-14 tablet by [facility] of thiazide 00:00: mouth in [place] 20-25 mg 00 the Medical per tablet morning Branch and 1 tablet in the evening. propranoloL 2021-09 Yes [id number] 40mg Take 1 [facility] 40 mg 2-14 tablet by [facility] tablet 00:00: mouth in [place] 00 the Medical morning Branch and 1 tablet in the evening. meloxicam 2021-09 Yes [id number] TAKE ONE [facility] 15 mg 2-14 9100 TABLET BY [facility] of tablet 00:00: MOUTH ONCE [place] [address] EVERY Medical MORNING Branch lisinopriL- 2021-09 Yes [id number] 1{tbl} Take 1 [facility] hydrochloro 2-14 tablet by [facility] of thiazide 00:00: mouth in [place] 20-25 mg 00 the Medical per tablet morning Branch and 1 tablet in the evening. propranoloL 2021-09- No [id number] 40mg Take 1 [facility] 40 mg 2-14 01-25 tablet by [facility] tablet 00:00: 00:00 mouth in [place] 00 :00 the Medical morning Branch and 1 tablet in the evening. meloxicam 2021-09- No [id number] TAKE ONE [facility] 15 mg 2-14 - 9100 TABLET BY [facility] tablet 00:00: 00:[place] 00 :[place] EVERY Medical MORNING Branch lisinopriL- 2021-09- No [id number] 1{tbl} Take 1 [facility] hydrochloro 2-14 - tablet by it y of thiazide 00:00: 00:00 mouth [place] 20-25 mg 00 :00 the Medical per tablet morning Branch and 1 tablet in the evening. FLUoxetine 2021-09 Yes [facility] 20 mg 1-28 it[facility] of capsule 00:00: [place] 00 Medical Branch FLUoxetine 2021-09 Yes [facility] 20 mg 1-28 ity of capsule 00:00: [place] 00 Medical Branch FLUoxetine 2021-09 Yes [facility] 20 mg 1-28 it[facility] of capsule 00:00: [place] 00 Medical Branch FLUoxetine 2021-09 Yes [facility] 20 mg 1-28 ity of capsule 00:00: [place] 00 Medical Branch FLUoxetine 2021-09- No [facility] 20 mg 1-28 12-21 ity of capsule 00:00: 00:00 [place] 00 :00 Medical Branch POTASSIUM 2021-09 Yes [id number] TAKE ONE [facility] CHLORIDE 10 1-16 TABLET BY ity of mEq CR 00:00: MOUTH [place] tablet 00 DAILY Medical Branch traMADoL 50 2021-09 Yes [id number] TAKE ONE [facility] mg tablet 1-16 TABLET BY ity o f 00:00: MOUTH [place] 00 EVERY 6 Medical HOURS Branch NEEDED FOR CHRONIC PAIN Indication s: chronic pain POTASSIUM 2021-09 Yes [id number] TAKE ONE [facility] CHLORIDE 10 1-16 TABLET BY ity of mEq CR 00:00: MOUTH [place] tablet 00 DAILY Medical Branch traMADoL 50 2021-09 Yes [id number] TAKE ONE [facility] of[facility] mg tablet 1-16 TABLET BY ity o f 00:00: MOUTH [place] 00 EVERY 6 Medical HOURS Branch NEEDED FOR CHRONIC PAIN Indication s: chronic pain POTASSIUM 2021-09 Yes [id number] TAKE ONE [facility] CHLORIDE 10 1-16 TABLET BY ity of mEq CR 00:00: MOUTH [place] tablet 00 DAILY Medical Branch traMADoL 50 2021-09 Yes [id number] TAKE ONE [facility] mg tablet 1-16 TABLET BY ity o f 00:00: MOUTH [place] 00 EVERY 6 Medical HOURS Branch NEEDED FOR CHRONIC PAIN Indication s: chronic pain POTASSIUM 2021-09 Yes [id number] TAKE ONE [facility] CHLORIDE 10 1-16 TABLET BY ity of mEq CR 00:00: MOUTH [place] tablet 00 DAILY Medical Branch traMADoL 50 2021-09 Yes [id number] TAKE ONE [facility] mg tablet 1-16 TABLET BY ity o f 00:00: MOUTH [place] 00 EVERY 6 Medical HOURS Branch NEEDED FOR CHRONIC PAIN Indication s: chronic pain POTASSIUM 2021-09 Yes [id number] TAKE ONE [facility] CHLORIDE 10 1-16 TABLET BY ity of mEq CR 00:00: MOUTH [place] tablet 00 DAILY Medical Branch traMADoL 50 2021-09 Yes [id number] TAKE ONE [facility] mg tablet 1-16 TABLET BY ity o f 00:00: MOUTH [place] 00 EVERY 6 Medical HOURS Branch NEEDED FOR CHRONIC PAIN Indication s: chronic pain POTASSIUM 2021-09 Yes [id number] TAKE ONE [facility] CHLORIDE 10 1-16 TABLET BY ity of mEq CR 00:00: MOUTH [place] tablet 00 DAILY Medical Branch traMADoL 50 2021-09 Yes [id number] TAKE ONE [facility] mg tablet 1-16 TABLET BY ity o f 00:00: MOUTH [place] 00 EVERY 6 Medical HOURS Branch NEEDED FOR CHRONIC PAIN Indication s: chronic pain POTASSIUM 2021-09 Yes [id number] TAKE ONE [facility] CHLORIDE 10 1-16 TABLET BY ity of mEq CR 00:00: MOUTH [place] tablet 00 DAILY Medical Branch POTASSIUM 2021-09 Yes [id number] TAKE ONE [facility] CHLORIDE 10 1-16 TABLET BY ity of mEq CR 00:00: MOUTH [place] tablet 00 DAILY Medical Branch POTASSIUM 2021- Yes [id number] TAKE ONE [facility] CHLORIDE 10 1-16 TABLET BY ity of mEq CR 00:00: MOUTH [place] tablet 00 DAILY Medical Branch POTASSIUM 2021- Yes [id number] TAKE ONE [facility] CHLORIDE 10 1-16 TABLET BY ity of mEq CR 00:00: MOUTH [place] tablet 00 DAILY Medical Branch POTASSIUM 2021- Yes [id number] TAKE ONE [facility] CHLORIDE 10 1-16 TABLET BY ity of mEq CR 00:00: MOUTH [place] tablet 00 DAILY Medical Branch POTASSIUM 2021-09 Yes [id number] TAKE ONE [facility] CHLORIDE 10 1-16 TABLET BY ity of mEq CR 00:00: MOUTH [place] tablet 00 DAILY Medical Branch POTASSIUM 2021- Yes [id number] TAKE ONE [facility] CHLORIDE 10 1-16 TABLET BY ity of mEq CR 00:00: MOUTH [place] tablet 00 DAILY Medical Branch POTASSIUM 2021-09 Yes [id number] TAKE ONE [facility] CHLORIDE 10 1-16 TABLET BY ity of mEq CR 00:00: MOUTH [place] tablet 00 DAILY Medical Branch POTASSIUM 2021-09 Yes [id number] TAKE ONE [facility] CHLORIDE 10 1-16 TABLET BY ity of mEq CR 00:00: MOUTH [place] tablet 00 DAILY Medical Branch POTASSIUM 2021-09 Yes [id number] TAKE ONE [facility] CHLORIDE 10 1-16 TABLET BY ity of mEq CR 00:00: MOUTH [place] tablet 00 DAILY Medical Branch POTASSIUM 2021-09 Yes [id number] TAKE ONE [facility] CHLORIDE 10 1-16 TABLET BY ity of mEq CR 00:00: MOUTH [place] tablet 00 DAILY Medical Branch POTASSIUM 2021-09 Yes [id number] TAKE ONE [facility] CHLORIDE 10 1-16 TABLET BY ity of mEq CR 00:00: MOUTH [place] tablet 00 DAILY Medical Branch POTASSIUM 2021-09 Yes [id number] TAKE ONE [facility] CHLORIDE 10 1-16 TABLET BY ity of mEq CR 00:00: MOUTH [place] tablet 00 DAILY Medical Branch POTASSIUM 2021-09- No [id number] TAKE ONE [facility] CHLORIDE 10 1-16 01-25 TABLET BY it y of mEq CR 00:00: 00:00 MOUTH [place] tablet 00 :00 DAILY Medical Branch traMADoL 50 2021-09- No [id number] TAKE ONE U nivers mg tablet 1-16 12-21 TABLET BY ity of 00:00: 00:00 MOUTH [place] 00 :00 EVERY 6 Medical HOURS Branch NEEDED FOR CHRONIC PAIN Indication s: chronic pain triamcinolo 2021-09- No [id number] 40mg [facility] ne 09-23 9109 ity of acetonide 22:00: 20:49 [place] (KENALOG) 00 :00 Medical injection Branch 40 mg triamcinolo 2021-09- No [id number] 40mg 40 mg, [facility] ne 09-23 9109 [facility] of acetonide 22:00: 20:49 [place], [place] ([place] 00 :00 1 dose, On Medi naren injection Wed Branch 40 mg 07/24/22 at 1700, Routine triamcinolo 2021-09- No [id number] 40mg [facility] ne 09-23 9109 ity of acetonide 22:00: 20:49 [place] (KENALOG) 00 :00 Medical injection Branch 40 mg triamcinolo 2021-09- No [id number] 40mg 40 mg, [facility] ne 09-23 9109 [facility] of acetonide 22:00: 20:49 [place], [place] ([place] 00 :00 1 dose, On Medi naren injection Wed Branch 40 mg 07/24/22 at 1700, Routine MELOXICAM 2021-09 Yes [id number] TAKE ONE [facility] 15 mg 0-31 9100 TABLET BY ity of tablet 00:00: MOUTH ONCE [place] 00 EVERY Medical MORNING Branch MELOXICAM 2021-09 Yes [id number] TAKE ONE [facility] 15 mg 0-31 9100 TABLET BY ity of tablet 00:00: MOUTH ONCE [place] 00 EVERY Medical MORNING Branch MELOXICAM 2021-09 Yes [id number] TAKE ONE [facility] 15 mg 0-31 9100 TABLET BY ity of tablet 00:00: MOUTH ONCE [place] 00 EVERY Medical MORNING Branch MELOXICAM 2021-09 Yes [id number] TAKE ONE [facility] 15 mg 0-31 9100 TABLET BY ity of tablet 00:00: MOUTH ONCE [place] 00 EVERY Medical MORNING Branch MELOXICAM 2021-09 Yes [id number] TAKE ONE [facility] 15 mg 0-31 9100 TABLET BY ity of tablet 00:00: MOUTH ONCE [place] 00 EVERY Medical MORNING Branch MELOXICAM 2021-09 Yes [id number] TAKE ONE [facility] 15 mg 0-31 9100 TABLET BY ity of tablet 00:00: MOUTH ONCE [place] 00 EVERY Medical MORNING Branch MELOXICAM 2021-09- No [id number] TAKE ONE [facility] 15 mg 0-31 12-14 9100 TABLET BY ity of tablet 00:00: 00:00 [place] 00 :00 EVERY Medical MORNING Branch MELOXICAM 2021-09- No [id number] TAKE ONE [facility] 15 mg 0-31 12-14 9100 TABLET BY ity of tablet 00:00: 00:00 [place]CE [place] 00 :00 EVERY Medical MORNING Branch traMADoL 50 2021-09 Yes [id number] TAKE ONE [facility] mg tablet 0-11 TABLET BY ity o f 00:00: MOUTH [place] 00 EVERY 6 Medical HOURS Branch NEEDED FOR CHRONIC PAIN Indication s: chronic pain traMADoL 50 2021-09 Yes 2745 TAKE ONE [facility] mg tablet 0-11 TABLET BY ity o f 00:00: MOUTH [place] 00 EVERY 6 Medical HOURS Branch NEEDED FOR CHRONIC PAIN Indication s: chronic pain traMADoL 50 2021-09 Yes 2745 TAKE ONE [facility] mg tablet 0-11 TABLET BY ity o f 00:00: MOUTH [place] 00 EVERY 6 Medical HOURS Branch NEEDED FOR CHRONIC PAIN Indication s: chronic pain traMADoL 50 2021-09- No 2745 TAKE ONE U nivers mg tablet 0-11 11-16 TABLET BY ity of 00:00: 00:00 MOUTH [place] 00 :00 EVERY 6 Medical HOURS Branch NEEDED FOR CHRONIC PAIN Indication s: chronic pain traMADoL 50 2021-09- No 2745 TAKE ONE U nivers mg tablet 0-11 11-16 TABLET BY ity of 00:00: 00:00 MOUTH [place] 00 :00 EVERY 6 Medical HOURS Branch NEEDED FOR CHRONIC PAIN Indication s: chronic pain traMADoL 50 2021-09- No 2745 TAKE ONE U nivers mg tablet 0-11 11-16 TABLET BY ity of 00:00: 00:00 MOUTH [place] 00 :00 EVERY 6 Medical HOURS Branch NEEDED FOR CHRONIC PAIN Indication s: chronic pain PRAVASTATIN 2021-09 Yes [id number] TAKE ONE [facility] 40 mg 0-03 TABLET BY ity of tablet 00:00: MOUTH [place] 00 EVERY Medical EVENING Branch PRAVASTATIN 2021-09 Yes [id number] TAKE ONE [facility] 40 mg 0-03 TABLET BY ity of tablet 00:00: MOUTH [place] 00 EVERY Medical EVENING Branch PRAVASTATIN 2021-09 Yes [id number] TAKE ONE [facility] 40 mg 0-03 TABLET BY ity of tablet 00:00: MOUTH [place] 00 EVERY Medical EVENING Branch PRAVASTATIN 2021-09 Yes [id number] TAKE ONE [facility] 40 mg 0-03 TABLET BY ity of tablet 00:00: MOUTH [place] 00 EVERY Medical EVENING Branch PRAVASTATIN 2021-09 Yes [id number] TAKE ONE [facility] 40 mg 0-03 TABLET BY ity of tablet 00:00: MOUTH [place] 00 EVERY Medical EVENING Branch PRAVASTATIN 2021-09 Yes [id number] TAKE ONE [facility] 40 mg 0-03 TABLET BY ity of tablet 00:00: MOUTH [place] 00 EVERY Medical EVENING Branch PRAVASTATIN 2021-09 Yes [id number] TAKE ONE [facility] 40 mg 0-03 TABLET BY ity of tablet 00:00: MOUTH [place] 00 EVERY Medical EVENING Branch PRAVASTATIN 2021- Yes [id number] TAKE ONE [facility] 40 mg 0-03 TABLET BY ity of tablet 00:00: MOUTH [place] 00 EVERY Medical EVENING Branch PRAVASTATIN 2021- Yes [id number] TAKE ONE [facility] 40 mg 0-03 TABLET BY ity of tablet 00:00: MOUTH [place] 00 EVERY Medical EVENING Branch PRAVASTATIN 2021- Yes [id number] TAKE ONE [facility] 40 mg 0-03 TABLET BY ity of tablet 00:00: MOUTH [place] 00 EVERY Medical EVENING Branch PRAVASTATIN 2021- Yes [id number] TAKE ONE [facility] 40 mg 0-03 TABLET BY ity of tablet 00:00: MOUTH [place] 00 EVERY Medical EVENING Branch PRAVASTATIN 2021- Yes [id number] TAKE ONE [facility] 40 mg 0-03 TABLET BY ity of tablet 00:00: MOUTH [place] 00 EVERY Medical EVENING Branch PRAVASTATIN 2021- Yes [id number] TAKE ONE [facility] 40 mg 0-03 TABLET BY ity of tablet 00:00: MOUTH [place] 00 EVERY Medical EVENING Branch PRAVASTATIN 2021- Yes [id number] TAKE ONE [facility] 40 mg 0-03 TABLET BY ity of tablet 00:00: MOUTH [place] 00 EVERY Medical EVENING Branch PRAVASTATIN 2021- Yes [id number] TAKE ONE [facility] 40 mg 0-03 TABLET BY ity of tablet 00:00: MOUTH [place] 00 EVERY Medical EVENING Branch PRAVASTATIN 2021- Yes [id number] TAKE ONE [facility] 40 mg 0-03 TABLET BY ity of tablet 00:00: MOUTH [place] 00 EVERY Medical EVENING Branch PRAVASTATIN 2021- Yes [id number] TAKE ONE [facility] 40 mg 0-03 TABLET BY ity of tablet 00:00: MOUTH [place] 00 EVERY Medical EVENING Branch PRAVASTATIN 2021- Yes [id number] TAKE ONE [facility] 40 mg 0-03 TABLET BY ity of tablet 00:00: MOUTH [place] 00 EVERY Medical EVENING Branch PRAVASTATIN 2- Yes [id number] TAKE ONE [facility] 40 mg 0-03 TABLET BY ity of tablet 00:00: MOUTH [place] 00 EVERY Medical EVENING Branch PRAVASTATIN 2021- Yes [id number] TAKE ONE [facility] 40 mg 0-03 TABLET BY ity of tablet 00:00: MOUTH [place] 00 EVERY Medical EVENING Branch PRAVASTATIN 2021- Yes [id number] TAKE ONE [facility] 40 mg 0-03 TABLET BY ity of tablet 00:00: MOUTH [place] 00 EVERY Medical EVENING Branch PRAVASTATIN 2022-1 Yes [id number] TAKE ONE [facility] 40 mg 0-03 TABLET BY ity of tablet 00:00: MOUTH [place] 00 EVERY Medical EVENING Branch PRAVASTATIN 2022-1 Yes [id number] TAKE ONE [facility] 40 mg 0-03 TABLET BY ity of tablet 00:00: MOUTH [place] 00 EVERY Medical EVENING Branch PRAVASTATIN 2022-1 Yes [id number] TAKE ONE [facility] 40 mg 0-03 TABLET BY ity of tablet 00:00: MOUTH [place] 00 EVERY Medical EVENING Branch PRAVASTATIN 2022-1 Yes [id number] TAKE ONE [facility] 40 mg 0-03 TABLET BY ity of tablet 00:00: MOUTH [place] 00 EVERY Medical EVENING Branch PRAVASTATIN 2022-1 2022- No [id number] TAKE ONE [facility] 40 mg 0-03 01-25 TABLET BY ity of tablet 00:00: 00:00 MOUTH [place] 00 :00 EVERY Medical EVENING Branch FUROSEMIDE 2022-0 Yes [id number] TAKE ONE [facility] 40 mg 9-26 TABLET BY ity of tablet 00:00: MOUTH [place] 00 DAILY Medical Branch FUROSEMIDE 2022-0 Yes [id number] TAKE ONE [facility] 40 mg 9-26 TABLET BY ity of tablet 00:00: MOUTH [place] 00 DAILY Medical Branch FUROSEMIDE 2022-0 Yes [id number] TAKE ONE [facility] 40 mg 9-26 TABLET BY ity of tablet 00:00: MOUTH [place] 00 DAILY Medical Branch FUROSEMIDE 2022-0 Yes [id number] TAKE ONE [facility] 40 mg 9-26 TABLET BY ity of tablet 00:00: MOUTH [place] 00 DAILY Medical Branch FUROSEMIDE 2022-0 Yes [id number] TAKE ONE [facility] 40 mg 9-26 TABLET BY ity of tablet 00:00: MOUTH [place] 00 DAILY Medical Branch FUROSEMIDE 2022-0 Yes [id number] TAKE ONE [facility] 40 mg 9-26 TABLET BY ity of tablet 00:00: MOUTH [place] 00 DAILY Medical Branch FUROSEMIDE 2022-0 Yes [id number] TAKE ONE [facility] 40 mg 9-26 TABLET BY ity of tablet 00:00: MOUTH [place] 00 DAILY Medical Branch FUROSEMIDE 2022-0 Yes [id number] TAKE ONE [facility] 40 mg 9-26 TABLET BY ity of tablet 00:00: MOUTH [place] 00 DAILY Medical Branch FUROSEMIDE 2022-0 Yes [id number] TAKE ONE [facility] 40 mg 9-26 TABLET BY ity of tablet 00:00: MOUTH DAILY Medical Branch FUROSEMIDE 2022-0 Yes [id number] TAKE ONE [facility] 40 mg 9-26 TABLET BY ity of tablet 00:00: MOUTH 00 DAILY Medical Branch FUROSEMIDE 2022-0 Yes [id number] TAKE ONE [facility] 40 mg 9-26 TABLET BY ity of tablet 00:00: MOUTH DAILY Medical Branch FUROSEMIDE 2022-0 Yes [id number] TAKE ONE [facility] 40 mg 9-26 TABLET BY ity of tablet 00:00: MOUTH DAILY Medical Branch FUROSEMIDE 2022-0 Yes [id number] TAKE ONE [facility] 40 mg 9-26 TABLET BY ity of tablet 00:00: MOUTH DAILY Medical Branch FUROSEMIDE 2022-0 Yes [id number] TAKE ONE [facility] 40 mg 9-26 TABLET BY ity of tablet 00:00: [facility] DAILY Medical Branch FUROSEMIDE 2022-0 Yes [id number] TAKE ONE [facility] 40 mg 9-26 TABLET BY ity of tablet 00:00: MOUTH DAILY Medical Branch FUROSEMIDE 2022-0 Yes [id number] TAKE ONE [facility] 40 mg 9-26 TABLET BY ity of tablet 00:00: MOUTH DAILY Medical Branch FUROSEMIDE 2022-0 Yes [id number] TAKE ONE [facility] 40 mg 9-26 TABLET BY ity of tablet 00:00: MOUTH DAILY Medical Branch FUROSEMIDE 2022-0 Yes [id number] TAKE ONE [facility] 40 mg 9-26 TABLET BY ity of tablet 00:00: [facility] DAILY Medical Branch FUROSEMIDE 2022-0 Yes [id number] TAKE ONE [facility] 40 mg 9-26 TABLET BY ity of tablet 00:00: [facility] DAILY Medical Branch FUROSEMIDE 2022-0 Yes [id number] TAKE ONE [facility] 40 mg 9-26 TABLET BY ity of tablet 00:00: MOUTH DAILY Medical Branch FUROSEMIDE 2022-0 Yes [id number] TAKE ONE [facility] 40 mg 9-26 TABLET BY ity of tablet 00:00: MOUTH DAILY Medical Branch FUROSEMIDE 2022-0 Yes [id number] TAKE ONE [facility] 40 mg 9-26 TABLET BY ity of tablet 00:00: MOUTH [place] DAILY Medical Branch FUROSEMIDE 2022-0 Yes [id number] TAKE ONE [facility] 40 mg 9-26 TABLET BY ity of tablet 00:00: MOUTH DAILY Medical Branch FUROSEMIDE 2022-0 Yes [id number] TAKE ONE [facility] 40 mg 9-26 TABLET BY ity of tablet 00:00: MOUTH [place] 00 DAILY Medical Branch FUROSEMIDE 2-0 Yes [id number] TAKE ONE [facility] 40 mg 9-26 TABLET BY ity of tablet 00:00: MOUTH [place] 00 DAILY Medical Branch FUROSEMIDE 2-0 Yes [id number] TAKE ONE [facility] 40 mg 9-26 TABLET BY ity of tablet 00:00: MOUTH [place] 00 DAILY Medical Branch FUROSEMIDE 2-0 2023- No [id number] TAKE ONE [facility] 40 mg 9-26 -25 TABLET BY ity of tablet 00:00: 00:00 MOUTH [place] 00 :00 DAILY Medical Branch isosorbide 2-0 Yes [id number] 30mg Take 1 U nivers mononitrate 9-14 tablet by ity of 30 mg 24 hr 00:00: mouth in [place] tablet 00 the Medical morning. Branch FLUoxetine 2021-0 Yes [id number] 60mg Take 3 U nivers 20 mg 9-14 tablets by ity of tablet 00:00: mouth in [place] the Medical morning. Branch cloNIDine 2021-0 Yes [id number] .2mg Take 1 Un ofe 0.2 mg 9-14 tablet by ity of tablet 00:00: mouth in [place] the Medical morning Branch and 1 tablet at noon and 1 tablet in the evening. diltiazem 2021-0 Yes [id number] 180mg Take 1 U nivers 180 mg 24 9-14 capsule by ity of hr capsule 00:00: mouth in [facility] as 00 the Medical morning. Branch isosorbide 2021-0 Yes [id number] 30mg Take 1 U nivers mononitrate 9-14 tablet by ity of 30 mg 24 hr 00:00: mouth in [place] tablet 00 the Medical morning. Branch FLUoxetine 2021-0 Yes [id number] 60mg Take 3 U nivers 20 mg 9-14 tablets by ity of tablet 00:00: mouth in [place] the Medical morning. Branch cloNIDine 2021-0 Yes [id number] .2mg Take 1 Un ofe 0.2 mg 9-14 tablet by ity of tablet 00:00: mouth in [place] the Medical morning Branch and 1 tablet at noon and 1 tablet in the evening. diltiazem 2021-0 Yes [id number] 180mg Take 1 U nivers 180 mg 24 9-14 capsule by ity of hr capsule 00:00: mouth in [place] 00 the Medical morning. Branch isosorbide 2021-0 Yes [id number] 30mg Take 1 U nivers mononitrate 9-14 tablet by ity of 30 mg 24 hr 00:00: mouth in [place] tablet 00 the Medical morning. Branch FLUoxetine 2021-0 Yes [id number] 60mg Take 3 U nivers 20 mg 9-14 tablets by ity of tablet 00:00: mouth in [place] the Medical morning. Branch cloNIDine 2021-0 Yes [id number] .2mg Take 1 Un ofe 0.2 mg 9-14 tablet by ity of tablet 00:00: mouth in [place] the Medical morning Branch and 1 tablet at noon and 1 tablet in the evening. diltiazem 2021-0 Yes [id number] 180mg Take 1 U nivers 180 mg 24 9-14 capsule by ity of hr capsule 00:00: mouth in [facility] as 00 the Medical morning. Branch isosorbide 2021-0 Yes [id number] 30mg Take 1 U nivers mononitrate 9-14 tablet by ity of 30 mg 24 hr 00:00: mouth in [place] tablet the Medical morning. Branch FLUoxetine 2021-0 Yes [id number] 60mg Take 3 U nivers 20 mg 9-14 tablets by ity of tablet 00:00: mouth in [place] the Medical morning. Branch cloNIDine 2021-0 Yes [id number] .2mg Take 1 Un ofe 0.2 mg 9-14 tablet by ity of tablet 00:00: mouth in [place] the Medical morning Branch and 1 tablet at noon and 1 tablet in the evening. diltiazem 2021-0 Yes [id number] 180mg Take 1 U nivers 180 mg 24 9-14 capsule by ity of hr capsule 00:00: mouth in [place] 00 the Medical morning. Branch isosorbide 2021-0 Yes [id number] 30mg Take 1 U nivers mononitrate 9-14 tablet by ity of 30 mg 24 hr 00:00: mouth in [place] tablet 00 the Medical morning. Branch FLUoxetine 2021-0 Yes [id number] 60mg Take 3 U nivers 20 mg 9-14 tablets by ity of tablet 00:00: mouth in [place] 00 the Medical morning. Branch cloNIDine 2021-0 Yes [id number] .2mg Take 1 Un ofe 0.2 mg 9-14 tablet by [facility] tablet 00:00: mouth in [place] 00 the Medical morning Branch and 1 tablet at noon and 1 tablet in the evening. diltiazem 2-0 Yes [id number] 180mg Take 1 [facility] 180 mg 24 9-14 capsule by [facility] hr capsule 00:00: mouth in [place] 00 the Medical morning. Branch isosorbide 2-0 Yes [id number] 30mg Take 1 [facility] mononitrate 9-14 tablet by [facility] 30 mg 24 hr 00:00: mouth in [place] tablet 00 the Medical morning. Branch FLUoxetine 2021-0 Yes [id number] 60mg Take 3 [facility] 20 mg 9-14 tablets by [facility] tablet 00:00: mouth in [place] 00 the Medical morning. Branch cloNIDine 2021-0 Yes [id number] .2mg Take 1 [facility] 0.2 mg 9-14 tablet by [facility] tablet 00:00: mouth in [place] 00 the Medical morning Branch and 1 tablet at noon and 1 tablet in the evening. diltiazem 2021-0 Yes [id number] 180mg Take 1 [facility] 180 mg 24 9-14 capsule by [facility] hr capsule 00:00: mouth in [place] 00 the Medical morning. Branch isosorbide 2021-0 Yes [id number] 30mg Take 1 [facility] mononitrate 9-14 tablet by [facility] 30 mg 24 hr 00:00: mouth in [place] tablet 00 the Medical morning. Branch FLUoxetine 2021-0 Yes [id number] 60mg Take 3 [facility] 20 mg 9-14 tablets by [facility] tablet 00:00: mouth in [place] 00 the Medical morning. Branch cloNIDine 2-0 Yes [id number] .2mg Take 1 [facility] 0.2 mg 9-14 tablet by [facility] tablet 00:00: mouth in [place] 00 the Medical morning Branch and 1 tablet at noon and 1 tablet in the evening. diltiazem 2-0 Yes [id number] 180mg Take 1 [facility] 180 mg 24 9-14 capsule by [facility] hr capsule 00:00: mouth in [place] 00 the Medical morning. Branch isosorbide 2-0 Yes [id number] 30mg Take 1 [facility] mononitrate 9-14 tablet by [facility] 30 mg 24 hr 00:00: mouth in [place] tablet 00 the Medical morning. Branch FLUoxetine 2021-0 Yes [id number] 60mg Take 3 [facility] 20 mg 9-14 tablets by [facility] tablet 00:00: mouth in [place] 00 the Medical morning. Branch cloNIDine 2021-0 Yes [id number] .2mg Take 1 [facility] 0.2 mg 9-14 tablet by [facility] tablet 00:00: mouth in [place] 00 the Medical morning Branch and 1 tablet at noon and 1 tablet in the evening. diltiazem 2021-0 Yes [id number] 180mg Take 1 [facility] 180 mg 24 9-14 capsule by [facility] hr capsule 00:00: mouth in [place] 00 the Medical morning. Branch isosorbide 2021-0 Yes [id number] 30mg Take 1 [facility] mononitrate 9-14 tablet by [facility] 30 mg 24 hr 00:00: mouth in [place] tablet 00 the Medical morning. Branch FLUoxetine 2021-0 Yes [id number] 60mg Take 3 [facility] 20 mg 9-14 tablets by [facility] tablet 00:00: mouth in [place] the Medical morning. Branch cloNIDine 2021-0 Yes [id number] .2mg Take 1 [facility] 0.2 mg 9-14 tablet by [facility] tablet 00:00: mouth in [place] the Medical morning Branch and 1 tablet at noon and 1 tablet in the evening. diltiazem 2021-0 Yes [id number] 180mg Take 1 [facility] 180 mg 24 9-14 capsule by [facility] hr capsule 00:00: mouth in [facility] as 00 the Medical morning. Branch isosorbide 2021-0 Yes [id number] 30mg Take 1 [facility] n[facility] mononitrate 9-14 tablet by [facility] of 30 mg 24 hr 00:00: mouth in [place] tablet 00 the Medical morning. Branch FLUoxetine 2021-0 Yes [id number] 60mg Take 3 [facility] 20 mg 9-14 tablets by [facility] tablet 00:00: mouth in [place] 00 the Medical morning. Branch cloNIDine 2021-0 Yes [id number] .2mg Take 1 [facility] 0.2 mg 9-14 tablet by [facility] of tablet 00:00: mouth in [place] 00 the Medical morning Branch and 1 tablet at noon and 1 tablet in the evening. diltiazem 2-0 Yes [id number] 180mg Take 1 [facility] 180 mg 24 9-14 capsule by [facility] hr capsule 00:00: mouth in [place] 00 the Medical morning. Branch isosorbide 2-0 Yes [id number] 30mg Take 1 [facility] mononitrate 9-14 tablet by [facility] 30 mg 24 hr 00:00: mouth in [place] tablet 00 the Medical morning. Branch cloNIDine 2-0 Yes [id number] .2mg Take 1 [facility] 0.2 mg 9-14 tablet by [facility] tablet 00:00: mouth in [place] 00 the Medical morning Branch and 1 tablet at noon and 1 tablet in the evening. diltiazem 2-0 Yes [id number] 180mg Take 1 [facility] 180 mg 24 9-14 capsule by [facility] hr capsule 00:00: mouth in [place] 00 the Medical morning. Branch isosorbide 2-0 Yes [id number] 30mg Take 1 [facility] mononitrate 9-14 tablet by [facility] of 30 mg 24 hr 00:00: mouth in [place] tablet 00 the Medical morning. Branch cloNIDine 2-0 Yes [id number] .2mg Take 1 [facility] 0.2 mg 9-14 tablet by [facility] tablet 00:00: mouth in [place] 00 the Medical morning Branch and 1 tablet at noon and 1 tablet in the evening. diltiazem 2-0 Yes [id number] 180mg Take 1 [facility] 180 mg 24 9-14 capsule by [facility] hr capsule 00:00: mouth in [place] 00 the Medical morning. Branch isosorbide 2-0 Yes [id number] 30mg Take 1 [facility] mononitrate 9-14 tablet by [facility] 30 mg 24 hr 00:00: mouth in [place] tablet 00 the Medical morning. Branch cloNIDine 2-0 Yes [id number] .2mg Take 1 [facility] 0.2 mg 9-14 tablet by [facility] tablet 00:00: mouth in [place] 00 the Medical morning Branch and 1 tablet at noon and 1 tablet in the evening. diltiazem 2-0 Yes [id number] 180mg Take 1 [facility] 180 mg 24 9-14 capsule by [facility] hr capsule 00:00: mouth in [place] 00 the Medical morning. Branch isosorbide 2-0 Yes [id number] 30mg Take 1 [facility] mononitrate 9-14 tablet by [facility] 30 mg 24 hr 00:00: mouth in [place] tablet 00 the Medical morning. Branch cloNIDine 2-0 Yes [id number] .2mg Take 1 [facility] 0.2 mg 9-14 tablet by [facility] tablet 00:00: mouth in [place] 00 the Medical morning Branch and 1 tablet at noon and 1 tablet in the evening. diltiazem 2022-0 Yes [id number] 180mg Take 1 [facility] 180 mg 24 9-14 capsule by [facility] hr capsule 00:00: mouth in [place] 00 the Medical morning. Branch isosorbide 2-0 Yes [id number] 30mg Take 1 [facility] mononitrate 9-14 tablet by [facility] 30 mg 24 hr 00:00: mouth in [place] tablet 00 the Medical morning. Branch cloNIDine 2-0 Yes [id number] .2mg Take 1 [facility] 0.2 mg 9-14 tablet by [facility] tablet 00:00: mouth in [place] the Medical morning Branch and 1 tablet at noon and 1 tablet in the evening. diltiazem 2-0 Yes [id number] 180mg Take 1 [facility] 180 mg 24 9-14 capsule by [facility] hr capsule 00:00: mouth in [place] 00 the Medical morning. Branch isosorbide 2-0 Yes [id number] 30mg Take 1 [facility] mononitrate 9-14 tablet by [facility] 30 mg 24 hr 00:00: mouth in [place] tablet 00 the Medical morning. Branch cloNIDine 2-0 Yes [id number] .2mg Take 1 [facility] 0.2 mg 9-14 tablet by [facility] tablet 00:00: mouth in [place] the Medical morning Branch and 1 tablet at noon and 1 tablet in the evening. diltiazem 2-0 Yes [id number] 180mg Take 1 [facility] 180 mg 24 9-14 capsule by [facility] hr capsule 00:00: mouth in [place] 00 the Medical morning. Branch isosorbide 2-0 Yes [id number] 30mg Take 1 [facility] mononitrate 9-14 tablet by [facility] 30 mg 24 hr 00:00: mouth in [place] tablet 00 the Medical morning. Branch cloNIDine 2-0 Yes [id number] .2mg Take 1 [facility] 0.2 mg 9-14 tablet by [facility] tablet 00:00: mouth in [place] 00 the Medical morning Branch and 1 tablet at noon and 1 tablet in the evening. diltiazem 2022-0 Yes [id number] 180mg Take 1 [facility] 180 mg 24 9-14 capsule by [facility] hr capsule 00:00: mouth in [place] 00 the Medical morning. Branch isosorbide 2-0 Yes [id number] 30mg Take 1 [facility] mononitrate 9-14 tablet by [facility] 30 mg 24 hr 00:00: mouth in [place] tablet 00 the Medical morning. Branch cloNIDine 2-0 Yes [id number] .2mg Take 1 [facility] 0.2 mg 9-14 tablet by [facility] tablet 00:00: mouth in [place] 00 the Medical morning Branch and 1 tablet at noon and 1 tablet in the evening. diltiazem 2-0 Yes [id number] 180mg Take 1 [facility] 180 mg 24 9-14 capsule by [facility] hr capsule 00:00: mouth in [place] 00 the Medical morning. Branch isosorbide 2-0 Yes [id number] 30mg Take 1 [facility] mononitrate 9-14 tablet by [facility] 30 mg 24 hr 00:00: mouth in [place] tablet 00 the Medical morning. Branch cloNIDine 2-0 Yes [id number] .2mg Take 1 [facility] 0.2 mg 9-14 tablet by [facility] tablet 00:00: mouth in [place] 00 the Medical morning Branch and 1 tablet at noon and 1 tablet in the evening. diltiazem 2022-0 Yes [id number] 180mg Take 1 [facility] 180 mg 24 9-14 capsule by [facility] hr capsule 00:00: mouth in [place] 00 the Medical morning. Branch isosorbide 2-0 Yes [id number] 30mg Take 1 [facility] mononitrate 9-14 tablet by [facility] of 30 mg 24 hr 00:00: mouth in [place] tablet 00 the Medical morning. Branch cloNIDine 2022-0 Yes [id number] .2mg Take 1 [facility] 0.2 mg 9-14 tablet by [facility] tablet 00:00: mouth in [place] 00 the Medical morning Branch and 1 tablet at noon and 1 tablet in the evening. diltiazem 2022-0 Yes [id number] 180mg Take 1 [facility] 180 mg 24 9-14 capsule by [facility] hr capsule 00:00: mouth in [place] 00 the Medical morning. Branch isosorbide 2-0 Yes [id number] 30mg Take 1 [facility] mononitrate 9-14 tablet by [facility] 30 mg 24 hr 00:00: mouth in [place] tablet 00 the Medical morning. Branch cloNIDine 2-0 Yes [id number] .2mg Take 1 [facility] 0.2 mg 9-14 tablet by [facility] tablet 00:00: mouth in [place] 00 the Medical morning Branch and 1 tablet at noon and 1 tablet in the evening. diltiazem 2-0 Yes [id number] 180mg Take 1 [facility] 180 mg 24 9-14 capsule by [facility] hr capsule 00:00: mouth in [place] 00 the Medical morning. Branch isosorbide 2-0 Yes [id number] 30mg Take 1 [facility] mononitrate 9-14 tablet by [facility] of 30 mg 24 hr 00:00: mouth in [place] tablet 00 the Medical morning. Branch cloNIDine 2-0 Yes [id number] .2mg Take 1 [facility] 0.2 mg 9-14 tablet by [facility] of tablet 00:00: mouth in [place] the Medical morning Branch and 1 tablet at noon and 1 tablet in the evening. diltiazem 2-0 Yes [id number] 180mg Take 1 [facility] 180 mg 24 9-14 capsule by [facility] hr capsule 00:00: mouth in [place] 00 the Medical morning. Branch isosorbide 2-0 Yes [id number] 30mg Take 1 [facility] mononitrate 9-14 tablet by [facility] of 30 mg 24 hr 00:00: mouth in [place] tablet 00 the Medical morning. Branch cloNIDine 2-0 Yes [id number] .2mg Take 1 [facility] 0.2 mg 9-14 tablet by [facility] of tablet 00:00: mouth in [place] the Medical morning Branch and 1 tablet at noon and 1 tablet in the evening. diltiazem 2-0 Yes [id number] 180mg Take 1 [facility] 180 mg 24 9-14 capsule by [facility] hr capsule 00:00: mouth in [place] 00 the Medical morning. Branch isosorbide 2-0 Yes [id number] 30mg Take 1 [facility] mononitrate 9-14 tablet by [facility] of 30 mg 24 hr 00:00: mouth in [place] tablet 00 the Medical morning. Branch cloNIDine 2-0 Yes [id number] .2mg Take 1 [facility] 0.2 mg 9-14 tablet by [facility] of tablet 00:00: mouth in [place] 00 the Medical morning Branch and 1 tablet at noon and 1 tablet in the evening. diltiazem 2022-0 Yes [id number] 180mg Take 1 [facility] 180 mg 24 9-14 capsule by [facility] of hr capsule 00:00: mouth in [place] 00 the Medical morning. Branch isosorbide 2-0 Yes [id number] 30mg Take 1 [facility] n[facility] mononitrate 9-14 tablet by [facility] of 30 mg 24 hr 00:00: mouth in [place] tablet 00 the Medical morning. Branch cloNIDine 2-0 Yes [id number] .2mg Take 1 [facility] 0.2 mg 9-14 tablet by [facility] of tablet 00:00: mouth in [place] the morning Branch and 1 tablet at noon and 1 tablet in the evening. diltiazem 2-0 Yes [id number] 180mg Take 1 [facility] 180 mg 24 9-14 capsule by [facility] of hr capsule 00:00: mouth in [place] 00 the Medical morning. Branch isosorbide 2-0 Yes [id number] 30mg Take 1 [facility] mononitrate 9-14 tablet by [facility] of 30 mg 24 hr 00:00: mouth in [place] tablet 00 the Medical morning. Branch cloNIDine 2-0 Yes [id number] .2mg Take 1 [facility] 0.2 mg 9-14 tablet by [facility] of tablet 00:00: mouth in [place] the Medical morning Branch and 1 tablet at noon and 1 tablet in the evening. diltiazem 2022-0 Yes [id number] 180mg Take 1 [facility] 180 mg 24 9-14 capsule by [facility] of hr capsule 00:00: mouth in [place] 00 the Medical morning. Branch isosorbide 2-0 Yes [id number] 30mg Take 1 [facility] mononitrate 9-14 tablet by [facility] of 30 mg 24 hr 00:00: mouth in [place] tablet 00 the Medical morning. Branch cloNIDine 2-0 Yes [id number] .2mg Take 1 [facility] 0.2 mg 9-14 tablet by [facility] of tablet 00:00: mouth in [place] 00 the Medical morning Branch and 1 tablet at noon and 1 tablet in the evening. diltiazem Yes [id number] 180mg Take 1 [facility] 180 mg 24 9-14 capsule by [facility] of hr capsule 00:00: mouth in [place] 00 the Medical morning. Branch isosorbide 2022- No [id number] 30mg Take 1 [facility] mononitrate 9-14 -25 tablet by it y of 30 mg 24 hr 00:00: 00:00 mouth in [place] tablet 00 :00 the Medical morning. Branch cloNIDine 2021-2022- No [id number] .2mg Take 1 [facility]ivers 0.2 mg 9-14 -25 tablet by [facility] of tablet 00:00: 00:00 mouth in [place] 00 :00 the Medical morning Branch and 1 tablet at noon and 1 tablet in the evening. diltiazem 2022- No [id number] 180mg Take 1 [facility] 180 mg 24 9-14 -25 capsule by [facility] of hr capsule 00:00: 00:00 mouth in [place] 00 :00 the Medical morning. Branch FLUoxetine 2021-2021- No [id number] 60mg Take 3 [facility] 20 mg 9-14 12-14 tablets by [facility] of tablet 00:00: 00:00 mouth in [place] 00 :00 the Medical morning. Branch FLUoxetine 2021-2021- No [id number] 60mg Take 3 [facility] 20 mg 9-14 12-14 tablets by [facility] of tablet 00:00: 00:00 mouth in [place] 00 :00 the Medical morning. Branch traMADoL 50 2021-0 Yes [id number] TAKE ONE [facility] mg tablet 9-06 TABLET BY ity o f 00:00: MOUTH [place] 00 EVERY 6 Medical HOURS Branch NEEDED FOR CHRONIC PAIN Indication s: chronic pain traMADoL 50 2021-0 Yes 2745 TAKE ONE [facility] mg tablet 9-06 TABLET BY ity o f 00:00: MOUTH [place] 00 EVERY 6 Medical HOURS Branch NEEDED FOR CHRONIC PAIN Indication s: chronic pain traMADoL 50 2021-0 Yes 2745 TAKE ONE [facility] of[facility] mg tablet 9-06 TABLET BY ity o f 00:00: MOUTH [place] 00 EVERY 6 Medical HOURS Branch NEEDED FOR CHRONIC PAIN Indication s: chronic pain traMADoL 50 2021-0 2021- No 2745 TAKE ONE [facility] nivers mg tablet 05-28 10-11 TABLET BY ity of 00:00: 00:00 MOUTH [place] 00 :00 EVERY 6 Medical HOURS Branch NEEDED FOR CHRONIC PAIN Indication s: chronic pain fluocinonid 0 Yes [id number] Apply to [facility] 0.05 % 6-13 [id number] area(s) 2 ity of cream 00:00: (two) [place] 00 times Medical daily. Branch lisinopriL- 0 Yes [id number] 1{tbl} Take 1 [facility] hydrochloro 6-13 tablet by [facility]y of thiazide 00:00: mouth 2 [place] 20-25 mg 00 (two) Medical per tablet times Branch daily. meloxicam Yes [id number] 15mg Take 1 [facility] 15 mg 6-13 9100 tablet by [facility] of tablet 00:00: mouth [place] 00 every Medical morning. Branch fluocinonid Yes [id number] Apply to [facility] e 0.05 % 6-13 [id number] area(s) 2 ity of cream 00:00: (two) [place] 00 times Medical daily. Branch lisinopriL- Yes [id number] 1{tbl} Take 1 [facility] hydrochloro 6-13 tablet by ity of thiazide 00:00: mouth 2 [place] 20-25 mg 00 (two) Medical per tablet times Branch daily. meloxicam 0 Yes [id number] 15mg Take 1 [facility] 15 mg 6-13 9100 tablet by [facility] of tablet 00:00: mouth [place] 00 every Medical morning. Branch fluocinonid Yes [id number] Apply to [facility] 0.05 % 6-13 [id number] area(s) 2 ity of cream 00:00: (two) [place] 00 times Medical daily. Branch lisinopriL- Yes [id number] 1{tbl} Take 1 [facility] hydrochloro 6-13 tablet by [facility] of thiazide 00:00: mouth 2 [place] 20-25 mg 00 (two) Medical per tablet times Branch daily. meloxicam 2021-0 Yes [id number] 15mg Take 1 [facility] 15 mg 6-13 9100 tablet by [facility] of tablet 00:00: mouth [place] 00 every Medical morning. Branch fluocinonid 2021-0 Yes [id number] Apply to [facility] 0.05 % 6-13 [id number] area(s) 2 ity of cream 00:00: (two) [place] 00 times Medical daily. Branch lisinopriL- 0 Yes [id number] 1{tbl} Take 1 [facility] hydrochloro 6-13 tablet by [facility] of thiazide 00:00: mouth 2 [place] 20-25 mg 00 (two) Medical per tablet times Branch daily. meloxicam 0 Yes [id number] 15mg Take 1 [facility] 15 mg 6-13 9100 tablet by it[facility] of tablet 00:00: mouth [place] 00 every Medical morning. Branch fluocinonid 0 Yes [id number] Apply to [facility] e 0.05 % 6-13 [id number] area(s) 2 ity of cream 00:00: (two) [place] 00 times Medical daily. Branch lisinopriL- Yes [id number] 1{tbl} Take 1 [facility] hydrochloro 6-13 tablet by [facility] of thiazide 00:00: mouth 2 [place] 20-25 mg 00 (two) Medical per tablet times Branch daily. fluocinonid 2021-0 Yes [id number] Apply to [facility] e 0.05 % 6-13 [id number] area(s) 2 ity of cream 00:00: (two) [place] 00 times Medical daily. Branch lisinopriL- Yes [id number] 1{tbl} Take 1 [facility] hydrochloro 6-13 tablet by [facility] of thiazide 00:00: mouth 2 [place] 20-25 mg 00 (two) Medical per tablet times Branch daily. fluocinonid 2021-0 Yes [id number] Apply to [facility] e 0.05 % 6-13 [id number] area(s) 2 ity of cream 00:00: (two) [place] 00 times Medical daily. Branch lisinopriL- 2021-0 Yes [id number] 1{tbl} Take 1 [facility] hydrochloro 6-13 tablet by [facility] of thiazide 00:00: mouth 2 [place] 20-25 mg 00 (two) Medical per tablet times Branch daily. fluocinonid 2021-0 Yes [id number] Apply to [facility] e 0.05 % 6-13 [id number] area(s) 2 ity of cream 00:00: (two) [place] 00 times Medical daily. Branch lisinopriL- 2022-0 Yes [id number] 1{tbl} Take 1 [facility] hydrochloro 6-13 tablet by ity of thiazide 00:00: mouth 2 [place] 20-25 mg 00 (two) Medical per tablet times Branch daily. fluocinonid 2022-0 Yes [id number] Apply to [facility] 0.05 % 6-13 [id number] area(s) 2 ity of cream 00:00: (two) [place] 00 times Medical daily. Branch lisinopriL- 2022-0 Yes [id number] 1{tbl} Take 1 [facility] hydrochloro 6-13 tablet by [facility] of thiazide 00:00: mouth 2 [place] 20-25 mg 00 (two) Medical per tablet times Branch daily. fluocinonid 2-0 Yes [id number] Apply to [facility] 0.05 % 6-13 [id number] area(s) 2 ity of cream 00:00: (two) [place] 00 times Medical daily. Branch lisinopriL- 2022-0 Yes [id number] 1{tbl} Take 1 [facility] hydrochloro 6-13 tablet by [facility] of thiazide 00:00: mouth 2 [place] 20-25 mg 00 (two) Medical per tablet times Branch daily. fluocinonid 2-0 Yes [id number] Apply to [facility] e 0.05 % 6-13 [id number] area(s) 2 ity of cream 00:00: (two) [place] 00 times Medical daily. Branch fluocinonid 2-0 Yes [id number] Apply to [facility] 0.05 % 6-13 [id number] area(s) 2 ity of cream 00:00: (two) [place] 00 times Medical daily. Branch fluocinonid 2022-0 Yes [id number] Apply to [facility] 0.05 % 6-13 [id number] area(s) 2 ity of cream 00:00: (two) [place] 00 times Medical daily. Branch fluocinonid 2022-0 Yes [id number] Apply to [facility] 0.05 % 6-13 [id number] area(s) 2 ity of cream 00:00: (two) [place] 00 times Medical daily. Branch fluocinonid 2022-0 Yes [id number] Apply to [facility] e 0.05 % 6-13 [id number] area(s) 2 ity of cream 00:00: (two) [place] 00 times Medical daily. Branch fluocinonid 2022-0 Yes [id number] Apply to [facility] e 0.05 % 6-13 [id number] area(s) 2 ity of cream 00:00: (two) [place] 00 times Medical daily. Branch fluocinonid 2022-0 Yes [id number] Apply to [facility] 0.05 % 6-13 [id number] area(s) 2 ity of cream 00:00: (two) [place] 00 times Medical daily. Branch fluocinonid 2022-0 Yes [id number] Apply to [facility] 0.05 % 6-13 [id number] area(s) 2 ity of cream 00:00: (two) [place] 00 times Medical daily. Branch fluocinonid 2022-0 Yes [id number] Apply to [facility] 0.05 % 6-13 [id number] area(s) 2 ity of cream 00:00: (two) [place] 00 times Medical daily. Branch fluocinonid 2022-0 Yes [id number] Apply to [facility] e 0.05 % 6-13 [id number] area(s) 2 ity of cream 00:00: (two) [place] 00 times Medical daily. Branch fluocinonid 2022-0 Yes [id number] Apply to [facility] e 0.05 % 6-13 [id number] area(s) 2 ity of cream 00:00: (two) [place] 00 times Medical daily. Branch fluocinonid 2022-0 Yes [id number] Apply to [facility] 0.05 % 6-13 [id number] area(s) 2 ity of cream 00:00: (two) [place] 00 times Medical daily. Branch fluocinonid 2022-0 Yes [id number] Apply to [facility] 0.05 % 6-13 [id number] area(s) 2 ity of cream 00:00: (two) [place] 00 times Medical daily. Branch fluocinonid 2022-0 Yes [id number] Apply to [facility] e 0.05 % 6-13 [id number] area(s) 2 ity of cream 00:00: (two) [place] 00 times Medical daily. Branch fluocinonid 2022-0 Yes [id number] Apply to [facility] e 0.05 % 6-13 [id number] area(s) 2 ity of cream 00:00: (two) [place] 00 times Medical daily. Branch fluocinonid 2022-0 Yes [id number] Apply to [facility] 0.05 % 6-13 [id number] area(s) 2 ity of cream 00:00: (two) [place] 00 times Medical daily. Branch fluocinonid 2022-0 Yes [id number] Apply to [facility] 0.05 % 6-13 [id number] area(s) 2 ity of cream 00:00: (two) [place] 00 times Medical daily. Branch fluocinonid 2022-0 Yes [id number] Apply to [facility] e 0.05 % 6-13 [id number] area(s) 2 ity of cream 00:00: (two) [place] 00 times Medical daily. Branch fluocinonid 2022-0 Yes [id number] Apply to [facility] 0.05 % 6-13 [id number] area(s) 2 ity of cream 00:00: (two) [place] 00 times Medical daily. Branch fluocinonid 2022-0 Yes [id number] Apply to [facility] 0.05 % 6-13 [id number] area(s) 2 ity of cream 00:00: (two) [place] 00 times Medical daily. Branch fluocinonid 2022-0 Yes [id number] Apply to [facility] 0.05 % 6-13 [id number] area(s) 2 ity of cream 00:00: (two) [place] 00 times Medical daily. Branch fluocinonid 2022-0 Yes [id number] Apply to [facility] 0.05 % 6-13 [id number] area(s) 2 ity of cream 00:00: (two) [place] 00 times Medical daily. Branch fluocinonid 2022-0 Yes [id number] Apply to [facility] 0.05 % 6-13 [id number] area(s) 2 ity of cream 00:00: (two) [place] 00 times Medical daily. Branch fluocinonid 2022-0 Yes [id number] Apply to [facility] 0.05 % 6-13 [id number] area(s) 2 ity of cream 00:00: (two) [place] 00 times Medical daily. Branch fluocinonid 2022-0 Yes [id number] Apply to [facility] e 0.05 % 6-13 [id number] area(s) 2 ity of cream 00:00: (two) [place] 00 times Medical daily. Branch fluocinonid 2022-0 Yes [id number] Apply to [facility] 0.05 % 6-13 [id number] area(s) 2 ity of cream 00:00: (two) [place] 00 times Medical daily. Branch fluocinonid 2022-0 Yes [id number] Apply to [facility] e 0.05 % 6-13 [id number] area(s) 2 ity of cream 00:00: (two) [place] 00 times Medical daily. Branch fluocinonid 2022-0 Yes [id number] Apply to [facility] e 0.05 % 6-13 [id number] area(s) 2 ity of cream 00:00: (two) [place] 00 times Medical daily. Branch fluocinonid 2022-0 Yes [id number] Apply to [facility] e 0.05 % 6-13 [id number] area(s) 2 ity of cream 00:00: (two) [place] 00 times Medical daily. Branch fluocinonid 2022-0 Yes [id number] Apply to [facility] e 0.05 % 6-13 [id number] area(s) 2 ity of cream 00:00: (two) [place] 00 times Medical daily. Branch fluocinonid 2022-0 Yes [id number] Apply to [facility] e 0.05 % 6-13 [id number] area(s) 2 ity of cream 00:00: (two) [place] 00 times Medical daily. Branch fluocinonid 2022-0 Yes [id number] Apply to [facility] e 0.05 % 6-13 [id number] area(s) 2 ity of cream 00:00: (two) [place] 00 times Medical daily. Branch fluocinonid 2022-0 Yes [id number] Apply to [facility] 0.05 % 6-13 [id number] area(s) 2 ity of cream 00:00: (two) [place] 00 times Medical daily. Branch fluocinonid 2022-0 Yes [id number] Apply to [facility] 0.05 % 6-13 [id number] area(s) 2 ity of cream 00:00: (two) [place] 00 times Medical daily. Branch fluocinonid 2022-0 Yes [id number] Apply to [facility] e 0.05 % 6-13 [id number] area(s) 2 ity of cream 00:00: (two) [place] 00 times Medical daily. Branch fluocinonid 2022-0 Yes [id number] Apply to [facility] e 0.05 % 6-13 [id number] area(s) 2 ity of cream 00:00: (two) [place] 00 times Medical daily. Branch fluocinonid 2022-0 Yes [id number] Apply to [facility] e 0.05 % 6-13 [id number] area(s) 2 ity of cream 00:00: (two) [place] 00 times Medical daily. Branch fluocinonid 2022-0 Yes [id number] Apply to [facility] e 0.05 % 6-13 [id number] area(s) 2 ity of cream 00:00: (two) [place] 00 times Medical daily. Branch fluocinonid 2022-0 Yes [id number] Apply to [facility] 0.05 % 6-13 [id number] area(s) 2 ity of cream 00:00: (two) [place] 00 times Medical daily. Branch fluocinonid 2022-0 Yes [id number] Apply to [facility] e 0.05 % 6-13 [id number] area(s) 2 ity of cream 00:00: (two) [place] 00 times Medical daily. Branch fluocinonid 2-0 Yes [id number] Apply to [facility] 0.05 % 6-13 [id number] area(s) 2 ity of cream 00:00: (two) [place] 00 times Medical daily. Branch fluocinonid 2-0 Yes [id number] Apply to [facility] 0.05 % 6-13 [id number] area(s) 2 ity of cream 00:00: (two) [place] 00 times Medical daily. Branch fluocinonid 2022-0 Yes [id number] Apply to [facility] 0.05 % 6-13 [id number] area(s) 2 ity of cream 00:00: (two) [place] 00 times Medical daily. Branch fluocinonid 2022-0 Yes [id number] Apply to [facility] e 0.05 % 6-13 [id number] area(s) 2 ity of cream 00:00: (two) [place] 00 times Medical daily. Branch fluocinonid 2022-0 Yes [id number] Apply to [facility] 0.05 % 6-13 [id number] area(s) 2 ity of cream 00:00: (two) [place] 00 times Medical daily. Branch fluocinonid 2022-0 Yes [id number] Apply to [facility] 0.05 % 6-13 [id number] area(s) 2 ity of cream 00:00: (two) [place] 00 times Medical daily. Branch fluocinonid 2021-0 Yes [id number] Apply to [facility] 0.05 % 6-13 [id number] area(s) 2 [facility] of cream 00:00: (two) [place] 00 times Medical daily. Branch fluocinonid 2021-0 Yes [id number] Apply to [facility] 0.05 % 6-13 [id number] area(s) 2 ity of cream 00:00: (two) [place] 00 times Medical daily. Branch fluocinonid 2021-0 Yes [id number] Apply to [facility] 0.05 % 6-13 [id number] area(s) 2 ity of cream 00:00: (two) [place] 00 times Medical daily. Branch fluocinonid 2021-0 Yes [id number] Apply to [facility] 0.05 % 6-13 [id number] area(s) 2 ity of cream 00:00: (two) [place] 00 times Medical daily. Branch fluocinonid 2021-0 Yes [id number] Apply to [facility] 0.05 % 6-13 [id number] area(s) 2 ity of cream 00:00: (two) [place] 00 times Medical daily. [place] lisinopriL- 2021- No [id number] 1{tbl} Take 1 [facility] hydrochloro 6-13 12-14 tablet by it y of thiazide 00:00: 00:00 mouth 2 [place] 20-25 mg 00 :00 (two) Medical per tablet times [place] daily. lisinopriL- 2021- No [id number] 1{tbl} Take 1 [facility] hydrochloro 6-13 12-14 tablet by it y of thiazide 00:00: 00:00 mouth 2 [place] 20-25 mg 00 :00 (two) Medical per tablet times [place] daily. meloxicam 2021- No [id number] 15mg Take 1 [facility] 15 mg 6- 10 9100 tablet by ity of tablet 00:00: 00:00 mouth [place] 00 :00 every Medical morning. [place] cloNIDine 2021- No [id number] .2mg Take 1 [facility] 0.2 mg 6- 09-14 tablet by ity of tablet 00:00: 00:00 mouth 3 [place] 00 :00 (three) Medical times Branch daily. FLUOXETINE 2021-0 2021- No [id number] TAKE THREE [facility] 20 mg 6-02 09-14 TABLETS BY ity of tablet 00:00: 00:00 MOUTH [place] 00 :00 DAILY Medical Branch POTASSIUM 2-0 Yes [id number] TAKE ONE [facility] CHLORIDE 10 4-05 TABLET BY ity of mEq CR 00:00: MOUTH [place] tablet 00 DAILY Medical Branch POTASSIUM 2-0 Yes [id number] TAKE ONE [facility] CHLORIDE 10 4-05 TABLET BY ity of mEq CR 00:00: MOUTH [place] tablet 00 DAILY Medical Branch POTASSIUM 2-0 Yes [id number] TAKE ONE [facility] CHLORIDE 10 4-05 TABLET BY ity of mEq CR 00:00: MOUTH [place] tablet 00 DAILY Medical Branch POTASSIUM 2-0 Yes [id number] TAKE ONE [facility] CHLORIDE 10 4-05 TABLET BY ity of mEq CR 00:00: MOUTH [place] tablet 00 DAILY Medical Branch POTASSIUM 2-0 Yes [id number] TAKE ONE [facility] CHLORIDE 10 4-05 TABLET BY ity of mEq CR 00:00: MOUTH [place] tablet 00 DAILY Medical Branch POTASSIUM 2-0 Yes [id number] TAKE ONE [facility] CHLORIDE 10 4-05 TABLET BY ity of mEq CR 00:00: MOUTH [place] tablet 00 DAILY Medical Branch POTASSIUM 2-0 2021- No [id number] TAKE ONE [facility] CHLORIDE 10 4-05 11-16 TABLET BY it y of mEq CR 00:00: 00:00 MOUTH [place] tablet 00 :00 DAILY Medical Branch POTASSIUM 2-0 2021- No [id number] TAKE ONE [facility] CHLORIDE 10 4-05 11-16 TABLET BY it y of mEq CR 00:00: 00:00 MOUTH [place] tablet 00 :00 DAILY Medical Branch POTASSIUM 2-0 2021- No [id number] TAKE ONE [facility] CHLORIDE 10 4-05 11-16 TABLET BY it y of mEq CR 00:00: 00:00 MOUTH [place] tablet 00 :00 DAILY Medical Branch propranoloL 2021-0 Yes [id number] 40mg Take 1 [facility] 40 mg 3-23 tablet by ity of tablet 00:00: mouth 2 [place] 00 (two) Medical times Branch daily. propranoloL 2021-0 Yes [id number] 40mg Take 1 [facility] 40 mg 3-23 tablet by ity of tablet 00:00: mouth 2 [place] 00 (two) Medical times Branch daily. propranoloL 2021-0 Yes [id number] 40mg Take 1 [facility] 40 mg 3-23 tablet by ity of tablet 00:00: mouth 2 [place] (two) Medical times Branch daily. propranoloL 2021-0 Yes [id number] 40mg Take 1 [facility] 40 mg 3-23 tablet by ity of tablet 00:00: mouth 2 [place] (two) Medical times Branch daily. propranoloL 2021-0 Yes [id number] 40mg Take 1 [facility] 40 mg 3-23 tablet by ity of tablet 00:00: mouth 2 [place] (two) Medical times Branch daily. propranoloL 2021-0 Yes [id number] 40mg Take 1 [facility] 40 mg 3-23 tablet by ity of tablet 00:00: mouth [place] (two) Medical times Branch daily. propranoloL 2021-0 Yes [id number] 40mg Take 1 [facility] 40 mg 3-23 tablet by ity of tablet 00:00: mouth [place] (two) Medical times Branch daily. propranoloL 2021-0 Yes [id number] 40mg Take 1 [facility] 40 mg 3-23 tablet by ity of tablet 00:00: mouth [place] (two) Medical times Branch daily. propranoloL 2021-0 Yes [id number] 40mg Take 1 [facility] 40 mg 3-23 tablet by ity of tablet 00:00: mouth [place] (two) Medical times Branch daily. propranoloL 2021-0 Yes [id number] 40mg Take 1 [facility] 40 mg 3-23 tablet by ity of tablet 00:00: mouth [place] (two) Medical times Branch daily. propranoloL 2021-0 2021- No [id number] 40mg Take 1 [facility] 40 mg 3-23 12-14 tablet by ity of tablet 00:00: 00:00 mouth 2 [place] 00 :00 (two) Medical times Branch daily. propranoloL 2021-0 2021- No [id number] 40mg Take 1 [facility] 40 mg 3-23 12-14 tablet by ity of tablet 00:00: 00:[address] [place] [address] 00 :00 (two) Medical times Branch daily. diltiazem 2021-0 2021- No [id number] 180mg Take 1 [facility] 180 mg 24 3-23 09-14 capsule by ity of hr capsule 00:00: 00:00 mouth [place] 00 :00 daily. Medical Branch ISOSORBIDE 2021-0 2021- No [id number] TAKE ONE [facility] MONONITRATE 3-11 09-14 TABLET BY it y of 30 mg 24 hr 00:00: 00:00 MOUTH [place] tablet 00 :00 DAILY [facility] No known No No known [facility] 1-26 medication [facility] 12:42: s 49 No known 2020-09 No No known [facility] 2-15 medication [facility] 14:18: s 14 No known 2020-09 No No known [facility] 1- medication [facility] 11:49: s 44 pravastatin Yes [id number] 40mg Take 1 [facility] 40 mg 8-03 tablet by ity of tablet 00:00: mouth [place] 00 every Medical evening. Branch furosemide Yes [id number] 40mg Take 1 [facility] 40 mg 8-03 tablet by ity of tablet 00:00: mouth [place] 00 daily. Medical Branch pravastatin Yes [id number] 40mg Take 1 [facility] 40 mg 8-03 tablet by ity of tablet 00:00: mouth [place] 00 every Medical evening. Branch pravastatin 2021- No [id number] 40mg Take 1 [facility] 40 mg 8-03 -03 tablet by ity of tablet 00:00: 00:00 mouth [place] 00 :00 every Medical evening. Branch furosemide 2021- No [id number] 40mg Take 1 [facility] 40 mg 8-06-17 tablet by ity of tablet 00:00: 00:00 mouth [place] 00 :00 daily. Medical Branch aspirin 325 Yes 325mg Take 325 [facility] n[facility] mg tablet 2-10 mg by ity of 13:23: mouth [place] 23 daily. Medical Branch aspirin 325 Yes 325mg Take 325 [facility] mg tablet 2-10 mg by ity of 13:23: mouth [place] 23 daily. Medical Branch aspirin 325 Yes 325mg Take 325 [facility] mg tablet 2-10 mg by ity of 13:23: mouth [place] 23 daily. Medical Branch aspirin 325 Yes 325mg Take 325 [facility] mg tablet 2-10 mg by ity of 13:23: mouth [place] 23 daily. Medical Branch aspirin 325 Yes 325mg Take 325 [facility] mg tablet 2-10 mg by ity of 13:23: mouth [place] 23 daily. Medical Branch aspirin 325 2021-0 Yes 325mg Take 325 [facility] mg tablet 2-10 mg by ity of 13:23: mouth [place] 23 daily. Medical Branch aspirin 325 2020-0 Yes 325mg Take 325 [facility] mg tablet 2-10 mg by ity of 13:23: mouth [place] 23 daily. Medical Branch aspirin 325 2020-0 Yes 325mg Take 325 [facility] mg tablet 2-10 mg by ity of 13:23: mouth [place] 23 daily. Medical Branch aspirin 325 2020-0 Yes 325mg Take 325 [facility] mg tablet 2-10 mg by ity of 13:23: mouth [place] 23 daily. Medical Branch aspirin 325 2020-0 Yes 325mg Take 325 [facility] mg tablet 2-10 mg by ity of 13:23: mouth [place] 23 daily. Medical Branch aspirin 325 2020-0 Yes 325mg Take 325 [facility] mg tablet 2-10 mg by ity of 13:23: mouth [place] 23 daily. Medical Branch aspirin 325 2020-0 Yes 325mg Take 325 [facility] mg tablet 2-10 mg by ity of 13:23: mouth [place] 23 daily. Medical Branch aspirin 325 2020-0 Yes 325mg Take 325 [facility] mg tablet 2-10 mg by ity of 13:23: mouth [place] 23 daily. Medical Branch aspirin 325 2020-0 Yes 325mg Take 325 [facility] mg tablet 2-10 mg by ity of 13:23: mouth [place] 23 daily. Medical Branch aspirin 325 2020-0 Yes 325mg Take 325 [facility] mg tablet 2-10 mg by ity of 13:23: mouth [place] 23 daily. Medical Branch aspirin 325 1-0 Yes 325mg Take 325 [facility] mg tablet 2-10 mg by ity of 13:23: mouth [place] 23 daily. Medical Branch aspirin 325 1-0 Yes 325mg Take 325 [facility] mg tablet 2-10 mg by ity of 13:23: mouth [place] 23 daily. Medical Branch aspirin 325 1-0 Yes 325mg Take 325 [facility] mg tablet 2-10 mg by ity of 13:23: mouth [place] 23 daily. Medical Branch aspirin 325 1-0 Yes 325mg Take 325 [facility] mg tablet 2-10 mg by ity of 13:23: mouth [place] 23 daily. Medical Branch aspirin 325 2020-0 Yes 325mg Take 325 [facility] mg tablet 2-10 mg by ity of 13:23: mouth [place] 23 daily. Medical Branch aspirin 325 1-0 Yes 325mg Take 325 [facility] mg tablet 2-10 mg by ity of 13:23: mouth [place] 23 daily. Medical Branch aspirin 325 1-0 Yes 325mg Take 325 [facility] mg tablet 2-10 mg by ity of 13:23: mouth [place] 23 daily. Medical Branch aspirin 325 1-0 Yes 325mg Take 325 [facility] mg tablet 2-10 mg by ity of 13:23: mouth [place] 23 daily. Medical Branch aspirin 325 1-0 Yes 325mg Take 325 [facility] mg tablet 2-10 mg by ity of 13:23: mouth [place] 23 daily. Medical Branch aspirin 325 1-0 Yes 325mg Take 325 [facility] mg tablet 2-10 mg by ity of 13:23: mouth [place] 23 daily. Medical Branch aspirin 325 1-0 Yes 325mg Take 325 [facility] mg tablet 2-10 mg by ity of 13:23: mouth [place] 23 daily. Medical Branch aspirin 325 2020-0 Yes 325mg Take 325 [facility] mg tablet 2-10 mg by ity of 13:23: mouth [place] 23 daily. Medical Branch aspirin 325 2020-0 Yes 325mg Take 325 [facility] mg tablet 2-10 mg by ity of 13:23: mouth [place] 23 daily. Medical Branch aspirin 325 1-0 Yes 325mg Take 325 [facility] mg tablet 2-10 mg by ity of 13:23: mouth [place] 23 daily. Medical Branch aspirin 325 1-0 Yes 325mg Take 325 [facility] mg tablet 2-10 mg by ity of 13:23: mouth [place] 23 daily. Medical Branch aspirin 325 1-0 Yes 325mg Take 325 [facility] mg tablet 2-10 mg by ity of 13:23: mouth [place] 23 daily. Medical Branch aspirin 325 1-0 Yes 325mg Take 325 [facility] mg tablet 2-10 mg by ity of 13:23: mouth [place] 23 daily. Medical Branch aspirin 325 1-0 Yes 325mg Take 325 [facility] mg tablet 2-10 mg by ity of 13:23: mouth [place] 23 daily. Medical Branch aspirin 325 1-0 Yes 325mg Take 325 [facility] mg tablet 2-10 mg by ity of 13:23: mouth [place] 23 daily. Medical Branch aspirin 325 1-0 Yes 325mg Take 325 [facility] mg tablet 2-10 mg by ity of 13:23: mouth [place] 23 daily. Medical Branch aspirin 325 1-0 Yes 325mg Take 325 [facility] mg tablet 2-10 mg by ity of 13:23: mouth [place] 23 daily. Medical Branch aspirin 325 1-0 Yes 325mg Take 325 [facility] mg tablet 2-10 mg by ity of 13:23: mouth [place] 23 daily. Medical Branch aspirin 325 1-0 Yes 325mg Take 325 [facility] mg tablet 2-10 mg by ity of 13:23: mouth [place] 23 daily. Medical Branch aspirin 325 1-0 Yes 325mg Take 325 [facility] mg tablet 2-10 mg by ity of 13:23: mouth [place] 23 daily. Medical Branch aspirin 325 1-0 Yes 325mg Take 325 [facility] mg tablet 2-10 mg by ity of 13:23: mouth [place] 23 daily. Medical Branch aspirin 325 2020-0 Yes 325mg Take 325 [facility] mg tablet 2-10 mg by ity of 13:23: mouth [place] 23 daily. Medical Branch aspirin 325 2020-0 Yes 325mg Take 325 [facility] mg tablet 2-10 mg by ity of 13:23: mouth [place] 23 daily. Medical Branch aspirin 325 2020-0 Yes 325mg Take 325 [facility] mg tablet 2-10 mg by ity of 13:23: mouth [place] 23 daily. Medical Branch aspirin 325 1-0 Yes 325mg Take 325 [facility] mg tablet 2-10 mg by ity of 13:23: mouth [place] 23 daily. Medical Branch aspirin 325 1-0 Yes 325mg Take 325 [facility] mg tablet 2-10 mg by ity of 13:23: mouth [place] 23 daily. Medical Branch aspirin 325 1-0 Yes 325mg Take 325 [facility] mg tablet 2-10 mg by ity of 13:23: mouth [place] 23 daily. Medical Branch aspirin 325 1-0 Yes 325mg Take 325 [facility] mg tablet 2-10 mg by ity of 13:23: mouth [place] 23 daily. Medical Branch aspirin 325 1-0 Yes 325mg Take 325 [facility] mg tablet 2-10 mg by ity of 13:23: mouth [place] 23 daily. Medical Branch aspirin 325 2021-0 Yes 325mg Take 325 [facility] mg tablet 2-10 mg by ity of 13:23: mouth [place] 23 daily. Medical Branch aspirin 325 2020-0 Yes 325mg Take 325 [facility] mg tablet 2-10 mg by ity of 13:23: mouth [place] 23 daily. Medical Branch aspirin 325 2020-0 Yes 325mg Take 325 [facility] mg tablet 2-10 mg by ity of 13:23: mouth [place] 23 daily. Medical Branch aspirin 325 2020-0 Yes 325mg Take 325 [facility] mg tablet 2-10 mg by ity of 13:23: mouth [place] 23 daily. Medical Branch aspirin 325 2020-0 Yes 325mg Take 325 [facility] mg tablet 2-10 mg by ity of 13:23: mouth [place] 23 daily. Medical Branch aspirin 325 2020-0 Yes 325mg Take 325 [facility] mg tablet 2-10 mg by ity of 13:23: mouth [place] 23 daily. Medical Branch aspirin 325 2020-0 Yes 325mg Take 325 [facility] mg tablet 2-10 mg by ity of 13:23: mouth [place] 23 daily. Medical Branch aspirin 325 0 Yes 325mg Take 325 [facility] mg tablet 2-10 mg by ity of 13:23: mouth [place] 23 daily. Medical Branch aspirin 325 2020-0 Yes 325mg Take 325 [facility] mg tablet 2-10 mg by ity of 13:23: mouth [place] 23 daily. Medical Branch aspirin 325 2020-0 Yes 325mg Take 325 [facility] mg tablet 2-10 mg by ity of 13:23: mouth [place] 23 daily. Medical Branch aspirin 325 2020-0 Yes 325mg Take 325 [facility] mg tablet 2-10 mg by ity of 13:23: mouth [place] 23 daily. Medical Branch aspirin 325 0 Yes 325mg Take 325 [facility] mg tablet 2-10 mg by ity of 13:23: mouth [place] 23 daily. Medical Branch aspirin 325 2020-0 Yes 325mg Take 325 [facility] mg tablet 2-10 mg by ity of 13:23: mouth [place] 23 daily. Medical Branch proMETHazin 2019-0 Yes [id number] 25mg Take 1 [facility] 25 mg 1-28 tablet by ity of tablet 00:00: mouth [place] 00 every 4 Medical (four) Branch hours as needed for Nausea and Vomiting (N/V). proMETHazin 2019-0 Yes [id number] 25mg Take 1 [facility] e 25 mg 1-28 tablet by ity of tablet 00:00: mouth [place] 00 every 4 Medical (four) Branch hours as needed for Nausea and Vomiting (N/V). proMETHazin 2019-0 Yes [id number] 25mg Take 1 [facility] e 25 mg 1-28 tablet by ity of tablet 00:00: mouth [place] 00 every 4 Medical (four) Branch hours as needed for Nausea and Vomiting (N/V). proMETHazin 2019-0 Yes [id number] 25mg Take 1 [facility] e 25 mg 1-28 tablet by ity of tablet 00:00: mouth [place] 00 every 4 Medical (four) Branch hours as needed for Nausea and Vomiting (N/V). proMETHazin 2019-0 Yes [id number] 25mg Take 1 [facility] e 25 mg 1-28 tablet by ity of tablet 00:00: mouth [place] 00 every 4 Medical (four) Branch hours as needed for Nausea and Vomiting (N/V). proMETHazin 2019-0 Yes [id number] 25mg Take 1 [facility] e 25 mg 1-28 tablet by ity of tablet 00:00: mouth [place] 00 every 4 Medical (four) Branch hours as needed for Nausea and Vomiting (N/V). proMETHazin 2019-0 Yes [id number] 25mg Take 1 [facility] e 25 mg 1-28 tablet by ity of tablet 00:00: mouth [place] 00 every 4 Medical (four) Branch hours as needed for Nausea and Vomiting (N/V). proMETHazin 2019-0 Yes [id number] 25mg Take 1 [facility] e 25 mg 1-28 tablet by ity of tablet 00:00: mouth [place] 00 every 4 Medical (four) Branch hours as needed for Nausea and Vomiting (N/V). proMETHazin 2019-0 Yes [id number] 25mg Take 1 [facility] e 25 mg 1-28 tablet by ity of tablet 00:00: mouth [place] 00 every 4 Medical (four) Branch hours as needed for Nausea and Vomiting (N/V). proMETHazin 2019-0 Yes [id number] 25mg Take 1 [facility] e 25 mg 1-28 tablet by ity of tablet 00:00: mouth [place] 00 every 4 Medical (four) Branch hours as needed for Nausea and Vomiting (N/V). proMETHazin 2019-0 Yes [id number] 25mg Take 1 [facility] e 25 mg 1-28 tablet by ity of tablet 00:00: mouth [place] 00 every 4 Medical (four) Branch hours as needed for Nausea and Vomiting (N/V). proMETHazin 2019-0 Yes [id number] 25mg Take 1 [facility] e 25 mg 1-28 tablet by ity of tablet 00:00: mouth [place] 00 every 4 Medical (four) Branch hours as needed for Nausea and Vomiting (N/V). proMETHazin 2019-0 Yes [id number] 25mg Take 1 [facility] e 25 mg 1-28 tablet by ity of tablet 00:00: mouth [place] 00 every 4 Medical (four) Branch hours as needed for Nausea and Vomiting (N/V). proMETHazin 2019-0 Yes [id number] 25mg Take 1 [facility] e 25 mg 1-28 tablet by ity of tablet 00:00: mouth [place] 00 every 4 Medical (four) Branch hours as needed for Nausea and Vomiting (N/V). proMETHazin 2019-0 Yes [id number] 25mg Take 1 [facility] e 25 mg 1-28 tablet by ity of tablet 00:00: mouth [place] 00 every 4 Medical (four) Branch hours as needed for Nausea and Vomiting (N/V). proMETHazin 2019-0 Yes [id number] 25mg Take 1 [facility] e 25 mg 1-28 tablet by ity of tablet 00:00: mouth [place] 00 every 4 Medical (four) Branch hours as needed for Nausea and Vomiting (N/V). proMETHazin 2019-0 Yes [id number] 25mg Take 1 [facility] e 25 mg 1-28 tablet by ity of tablet 00:00: mouth [place] 00 every 4 Medical (four) Branch hours as needed for Nausea and Vomiting (N/V). proMETHazin 2019-0 Yes [id number] 25mg Take 1 [facility] 25 mg 1-28 tablet by ity of tablet 00:00: mouth [place] 00 every 4 Medical (four) Branch hours as needed for Nausea and Vomiting (N/V). proMETHazin 2019-0 Yes [id number] 25mg Take 1 [facility] e 25 mg 1-28 tablet by ity of tablet 00:00: mouth [place] 00 every 4 Medical (four) Branch hours as needed for Nausea and Vomiting (N/V). proMETHazin 2019-0 Yes [id number] 25mg Take 1 [facility] 25 mg 1-28 tablet by ity of tablet 00:00: mouth [place] 00 every 4 Medical (four) Branch hours as needed for Nausea and Vomiting (N/V). proMETHazin 2019-0 Yes [id number] 25mg Take 1 [facility] 25 mg 1-28 tablet by ity of tablet 00:00: mouth [place] 00 every 4 Medical (four) Branch hours as needed for Nausea and Vomiting (N/V). proMETHazin 2019-0 Yes [id number] 25mg Take 1 [facility] 25 mg 1-28 tablet by ity of tablet 00:00: mouth [place] 00 every 4 Medical (four) Branch hours as needed for Nausea and Vomiting (N/V). proMETHazin 2019-0 Yes [id number] 25mg Take 1 [facility] 25 mg 1-28 tablet by ity of tablet 00:00: mouth [place] 00 every 4 Medical (four) Branch hours as needed for Nausea and Vomiting (N/V). proMETHazin 2019-0 Yes [id number] 25mg Take 1 [facility] 25 mg 1-28 tablet by ity of tablet 00:00: mouth [place] 00 every 4 Medical (four) Branch hours as needed for Nausea and Vomiting (N/V). proMETHazin 2019-0 Yes [id number] 25mg Take 1 [facility] 25 mg 1-28 tablet by ity of tablet 00:00: mouth [place] 00 every 4 Medical (four) Branch hours as needed for Nausea and Vomiting (N/V). proMETHazin 2019-0 Yes [id number] 25mg Take 1 [facility] 25 mg 1-28 tablet by ity of tablet 00:00: mouth [place] 00 every 4 Medical (four) Branch hours as needed for Nausea and Vomiting (N/V). proMETHazin 2019-0 Yes [id number] 25mg Take 1 [facility] 25 mg 1-28 tablet by ity of tablet 00:00: mouth [place] 00 every 4 Medical (four) Branch hours as needed for Nausea and Vomiting (N/V). proMETHazin 2019-0 Yes [id number] 25mg Take 1 [facility] 25 mg 1-28 tablet by ity of tablet 00:00: mouth [place] 00 every 4 Medical (four) Branch hours as needed for Nausea and Vomiting (N/V). proMETHazin 2019-0 Yes [id number] 25mg Take 1 [facility] 25 mg 1-28 tablet by ity of tablet 00:00: mouth [place] 00 every 4 Medical (four) Branch hours as needed for Nausea and Vomiting (N/V). proMETHazin 2019-0 Yes [id number] 25mg Take 1 [facility] 25 mg 1-28 tablet by ity of tablet 00:00: mouth [place] 00 every 4 Medical (four) Branch hours as needed for Nausea and Vomiting (N/V). proMETHazin 2019-0 Yes [id number] 25mg Take 1 [facility] 25 mg 1-28 tablet by ity of tablet 00:00: mouth [place] 00 every 4 Medical (four) Branch hours as needed for Nausea and Vomiting (N/V). proMETHazin 2019-0 Yes [id number] 25mg Take 1 [facility] 25 mg 1-28 tablet by ity of tablet 00:00: mouth [place] 00 every 4 Medical (four) Branch hours as needed for Nausea and Vomiting (N/V). proMETHazin 2019-0 Yes [id number] 25mg Take 1 [facility] 25 mg 1-28 tablet by ity of tablet 00:00: mouth [place] 00 every 4 Medical (four) Branch hours as needed for Nausea and Vomiting (N/V). proMETHazin 2019-0 Yes [id number] 25mg Take 1 [facility] 25 mg 1-28 tablet by ity of tablet 00:00: mouth [place] 00 every 4 Medical (four) Branch hours as needed for Nausea and Vomiting (N/V). proMETHazin 2019-0 Yes [id number] 25mg Take 1 [facility] 25 mg 1-28 tablet by ity of tablet 00:00: mouth [place] 00 every 4 Medical (four) Branch hours as needed for Nausea and Vomiting (N/V). proMETHazin 2019-0 Yes [id number] 25mg Take 1 [facility] e 25 mg 1-28 tablet by ity of tablet 00:00: mouth [place] 00 every 4 Medical (four) Branch hours as needed for Nausea and Vomiting (N/V). proMETHazin 2019-0 Yes [id number] 25mg Take 1 [facility] 25 mg 1-28 tablet by ity of tablet 00:00: mouth [place] 00 every 4 Medical (four) Branch hours as needed for Nausea and Vomiting (N/V). proMETHazin 2019-0 Yes [id number] 25mg Take 1 [facility] 25 mg 1-28 tablet by ity of tablet 00:00: mouth [place] 00 every 4 Medical (four) Branch hours as needed for Nausea and Vomiting (N/V). proMETHazin 2019-0 Yes [id number] 25mg Take 1 [facility] e 25 mg 1-28 tablet by ity of tablet 00:00: mouth [place] 00 every 4 Medical (four) Branch hours as needed for Nausea and Vomiting (N/V). proMETHazin 2019-0 Yes [id number] 25mg Take 1 [facility] 25 mg 1-28 tablet by ity of tablet 00:00: mouth [place] 00 every 4 Medical (four) Branch hours as needed for Nausea and Vomiting (N/V). proMETHazin 2019-0 Yes [id number] 25mg Take 1 [facility] 25 mg 1-28 tablet by ity of tablet 00:00: mouth [place] 00 every 4 Medical (four) Branch hours as needed for Nausea and Vomiting (N/V). proMETHazin 2019-0 Yes [id number] 25mg Take 1 [facility] 25 mg 1-28 tablet by ity of tablet 00:00: mouth [place] 00 every 4 Medical (four) Branch hours as needed for Nausea and Vomiting (N/V). proMETHazin 2019-0 Yes [id number] 25mg Take 1 [facility] e 25 mg 1-28 tablet by ity of tablet 00:00: mouth [place] 00 every 4 Medical (four) Branch hours as needed for Nausea and Vomiting (N/V). proMETHazin 2019-0 Yes [id number] 25mg Take 1 [facility] 25 mg 1-28 tablet by ity of tablet 00:00: mouth [place] 00 every 4 Medical (four) Branch hours as needed for Nausea and Vomiting (N/V). proMETHazin 2019-0 Yes [id number] 25mg Take 1 [facility] 25 mg 1-28 tablet by ity of tablet 00:00: mouth [place] 00 every 4 Medical (four) Branch hours as needed for Nausea and Vomiting (N/V). proMETHazin 2019-0 Yes [id number] 25mg Take 1 [facility] 25 mg 1-28 tablet by ity of tablet 00:00: mouth [place] 00 every 4 Medical (four) Branch hours as needed for Nausea and Vomiting (N/V). proMETHazin 2019-0 Yes [id number] 25mg Take 1 [facility] 25 mg 1-28 tablet by ity of tablet 00:00: mouth [place] 00 every 4 Medical (four) Branch hours as needed for Nausea and Vomiting (N/V). proMETHazin 2019-0 Yes [id number] 25mg Take 1 [facility] 25 mg 1-28 tablet by ity of tablet 00:00: mouth [place] 00 every 4 Medical (four) Branch hours as needed for Nausea and Vomiting (N/V). proMETHazin 2019-0 Yes [id number] 25mg Take 1 [facility] 25 mg 1-28 tablet by ity of tablet 00:00: mouth [place] 00 every 4 Medical (four) Branch hours as needed for Nausea and Vomiting (N/V). proMETHazin 2019-0 Yes [id number] 25mg Take 1 [facility] 25 mg 1-28 tablet by ity of tablet 00:00: mouth [place] 00 every 4 Medical (four) Branch hours as needed for Nausea and Vomiting (N/V). proMETHazin 2019-0 Yes [id number] 25mg Take 1 [facility] e 25 mg 1-28 tablet by ity of tablet 00:00: mouth [place] 00 every 4 Medical (four) Branch hours as needed for Nausea and Vomiting (N/V). proMETHazin 2019-0 Yes [id number] 25mg Take 1 [facility] 25 mg 1-28 tablet by ity of tablet 00:00: mouth [place] 00 every 4 Medical (four) Branch hours as needed for Nausea and Vomiting (N/V). proMETHazin 2019-0 Yes [id number] 25mg Take 1 [facility] 25 mg 1-28 tablet by ity of tablet 00:00: mouth [place] 00 every 4 Medical (four) Branch hours as needed for Nausea and Vomiting (N/V). proMETHazin 2019-0 Yes [id number] 25mg Take 1 [facility] 25 mg 1-28 tablet by ity of tablet 00:00: mouth [place] 00 every 4 Medical (four) Branch hours as needed for Nausea and Vomiting (N/V). proMETHazin 2019-0 Yes [id number] 25mg Take 1 [facility] 25 mg 1-28 tablet by ity of tablet 00:00: mouth [place] 00 every 4 Medical (four) Branch hours as needed for Nausea and Vomiting (N/V). proMETHazin 2019-0 Yes [id number] 25mg Take 1 [facility] 25 mg 1-28 tablet by ity of tablet 00:00: mouth [place] 00 every 4 Medical (four) Branch hours as needed for Nausea and Vomiting (N/V). proMETHazin 2019-0 Yes [id number] 25mg Take 1 [facility] 25 mg 1-28 tablet by ity of tablet 00:00: mouth [place] 00 every 4 Medical (four) Branch hours as needed for Nausea and Vomiting (N/V). proMETHazin 2019-0 Yes [id number] 25mg Take 1 [facility] 25 mg 1-28 tablet by ity of tablet 00:00: mouth [place] 00 every 4 Medical (four) Branch hours as needed for Nausea and Vomiting (N/V). proMETHazin 2019-0 Yes [id number] 25mg Take 1 [facility] 25 mg 1-28 tablet by ity of tablet 00:00: mouth [place] 00 every 4 Medical (four) Branch hours as needed for Nausea and Vomiting (N/V). proMETHazin 2019-0 Yes [id number] 25mg Take 1 Univers e 25 mg 1-28 tablet by ity of tablet 00:00: mouth [place] 00 every 4 Medical (four) Branch hours as needed for Nausea and Vomiting (N/V). proMETHazin 2019-0 Yes [id number] 25mg Take 1 Univers e 25 mg 1-28 tablet by ity of tablet 00:00: mouth [place] 00 every 4 Medical (four) Branch hours as needed for Nausea and Vomiting (N/V). Immunizations Ordered Filled Immunization Date Status Comments [facility] e Immunization Name Name [facility] 2016-10-31 Completed University of 00:00:00 [facility] [place] TDAP 2016-10-31 Completed University of 00:00:00 [facility] [place] TDAP 2016-10-31 Completed University of 00:00:00 [facility] [place] TDAP 2016-10-31 Completed University of 00:00:00 [facility] [place] TDAP 2016-10-31 Completed University of 00:00:00 [facility] [place] TDAP 2016-10-31 Completed University of 00:00:00 [facility] [place] TDAP 2016-10-31 Completed University of 00:00:00 [facility] [place] TDAP 2016-10-31 Completed University of 00:00:00 [facility] [place] TDAP 2016-10-31 Completed University of 00:00:00 [facility] [place] TDAP 2016-10-31 Completed University of 00:00:00 [facility] [place] TDAP 2016-10-31 Completed University of 00:00:00 [facility] [place] TDAP 2016-10-31 Completed University of 00:00:00 [facility] [place] TDAP 2016-10-31 Completed University of 00:00:00 [facility] [place] TDAP 2016-10-31 Completed University of 00:00:00 [facility] TDAP 2016-10-31 Completed University of 00:00:00 [facility] TDAP 2016-10-31 Completed University of 00:00:00 [facility] TDAP 2016-10-31 Completed University of 00:00:00 [facility] TDAP 2016-10-31 Completed University of 00:00:00 [facility] TDAP 2016-10-31 Completed University of 00:00:00 [facility] TDAP 2016-10-31 Completed University of 00:00:00 [facility] TDAP 2016-10-31 Completed University of 00:00:00 [facility] TDAP 2016-10-31 Completed University of 00:00:00 [facility] TDAP 2016-10-31 Completed University of 00:00:00 [facility] TDAP 2016-10-31 Completed University of 00:00:00 [facility] TDAP 2016-10-31 Completed University of 00:00:00 [facility] TDAP 2016-10-31 Completed University of 00:00:00 [facility] TDAP 2016-10-31 Completed University of 00:00:00 [facility] TDAP 2016-10-31 Completed University of 00:00:00 [facility] TDAP 2016-10-31 Completed University of 00:00:00 [facility] TDAP 2016-10-31 Completed University of 00:00:00 [facility] TDAP 2016-10-31 Completed University of 00:00:00 [facility] TDAP 2016-10-31 Completed University of 00:00:00 [facility] TDAP 2016-10-31 Completed University of 00:00:00 [facility] TDAP 2016-10-31 Completed University of 00:00:00 [facility] TDAP 2016-10-31 Completed University of 00:00:00 [facility] TDAP 2016-10-31 Completed University of 00:00:00 [facility] TDAP 2016-10-31 Completed University of 00:00:00 [facility] TDAP 2016-10-31 Completed University of 00:00:00 [facility] TDAP 2016-10-31 Completed University of 00:00:00 [facility] TDAP 2016-10-31 Completed University of 00:00:00 [facility] TDAP 2016-10-31 Completed University of 00:00:00 [facility] TDAP 2016-10-31 Completed University of 00:00:00 [facility] TDAP 2016-10-31 Completed University of 00:00:00 [facility] TDAP 2016-10-31 Completed University of 00:00:00 [facility] TDAP 2016-10-31 Completed University of 00:00:00 [facility] TDAP 2016-10-31 Completed University of 00:00:00 [facility] TDAP 2016-10-31 Completed University of 00:00:00 [facility] TDAP 2016-10-31 Completed University of 00:00:00 [facility] TDAP 2016-10-31 Completed University of 00:00:00 [facility] TDAP 2016-10-31 Completed University of 00:00:00 [facility] TDAP 2016-10-31 Completed University of 00:00:00 [facility] TDAP 2016-10-31 Completed University of 00:00:00 [facility] TDAP 2016-10-31 Completed University of 00:00:00 [facility] TDAP 2016-10-31 Completed University of 00:00:00 [facility] TDAP 2016-10-31 Completed University of 00:00:00 [facility] TDAP 2016-10-31 Completed University of 00:00:00 [facility] TDAP 2016-10-31 Completed University of 00:00:00 [facility] TDAP 2016-10-31 Completed University of 00:00:00 [facility] TDAP 2016-10-31 Completed University of 00:00:00 [facility] TDAP 2016-10-31 Completed University of 00:00:00 [facility] TDAP 2016-10-31 Completed University of 00:00:00 [facility] [place] Vital Signs Vital Name Observation Time Observation Value Comments Source Systolic blood 2023-02-19 15:01:00 125 mm[Hg] [facility] [place] pressure [facility] Diastolic blood 2023-02-19 15:01:00 74 mm[Hg] [facility] [place] [facility] Heart rate 2023-02-19 15:01:00 60 /min [facility] Body height 2023-02-19 15:01:00 165.1 cm [facility] Body weight 2023-02-19 15:01:00 83.961 kg [facility] BMI 2023-02-19 15:01:00 30.80 kg/m2 [facility] [place] [facility] Oxygen saturation 2023-02-19 15:01:00 96 /min [facility] [place] in Arterial blood Medical Br anch by Pulse oximetry Systolic blood 2022-12-04 17:49:00 122 mm[Hg] [facility] [place] pressure [facility] Diastolic blood 2022-12-04 17:49:00 70 mm[Hg] [facility] [place] pressure [facility] Heart rate 2022-12-04 17:49:00 60 /min [facility] [place] [facility] Body height 2022-12-04 17:49:00 165.1 cm [facility] [place] [facility] Body weight 2022-12-04 17:49:00 92.806 kg [facility] [place] [facility] BMI 2022-12-04 17:49:00 34.05 kg/m2 [facility] [place] [facility] Oxygen saturation 2022-12-04 17:49:00 94 /min [facility] [place] in Arterial blood Medical Br anch by Pulse oximetry Body height 2022-10-23 20:19:00 165.1 cm [facility] [place] [facility] Body weight 2022-10-23 20:19:00 95.709 kg [facility] [place] [facility] BMI 2022-10-23 20:19:00 35.11 kg/m2 [facility] [place] [facility] Systolic blood 2022-09-04 19:48:00 159 mm[Hg] [facility] [place] pressure Medical [facility] Diastolic blood 2022-09-04 19:48:00 82 mm[Hg] [facility] [place] [facility] Heart rate 2022-09-04 19:47:00 63 /min [facility] [place] [facility] Body height 2022-09-04 19:47:00 165.1 cm [facility] [place] [facility] Body weight 2022-09-04 19:47:00 95.936 kg [facility] [place] [facility] BMI 2022-09-04 19:47:00 35.20 kg/m2 [facility] [place] [facility] Oxygen saturation 2022-09-04 19:47:00 97 /min [facility] [place] in Arterial blood Medical Br anch by Pulse oximetry Body weight 2022-07-24 20:42:00 97.523 kg [facility] BMI 2022-07-24 20:42:00 35.78 kg/m2 [facility] Systolic blood 2022-06-05 19:29:00 176 mm[Hg] [facility] Diastolic blood 2022-06-05 19:29:00 96 mm[Hg] [facility] Heart rate 2022-06-05 19:22:00 60 /min [facility] Body weight 2022-06-05 19:22:00 97.523 kg [facility] BMI 2022-06-05 19:22:00 35.78 kg/m2 [facility] Oxygen saturation 2022-06-05 19:22:00 98 /min [facility] in Arterial blood Medical Br anch by Pulse oximetry Procedures Procedure Date / Time Performing Clinician Source Performed REFERRAL- 2023-03-04 05:01:00 Doctor Jorge, [facility] REQUEST/RESPONSE [facility] [place] MEDICAL RELEASE/CLEARANCE 2023-02-12 05:01:00 Doctor Jorge, [facility] FORMS [facility] US HEAD NECK 2022-12-12 18:59:53 Althea Mendy [facility] REFERRAL- 2022-11-25 06:01:00 Doctor Jorge, [facility] REQUEST/RESPONSE [facility] MEDICATION CORRESPONDENCE 2022-09-08 06:01:00 Doctor Jorge, [facility] Encounters Start End Encounter Admission Attending Care Care Encounter Source Date/Time Date/Time Type Type Clinicians Facility Department ID 2021-07-24 Outpatient [facility] [id number] [place] 10:37:00 Health 2021-07-20 Outpatient Bibiana ZABALA [facility] JEFFREY [id number] Univers 21:49:03 DWIGHT Wong [facility] 2021-06-08 Outpatient LETTY, [facility] [id number] [place] 11:28:06 [facility] 2023-05-22 2023-05-22 Outpatient Bibiana [place] [facility] [id number] Univers 12:00:00 12:00:00 MENDY carmichael [facility] 2023-03-122023-03-12 [facility] 1.2.840.114 [id number] Univers 00:00:00 00:00:00 Mendy HEALTH 350.1.13.10 it y of [place] 4.2.7.2.686 Moustapha as GEREMIAS?BLEA [id number] [facility] [address] MEDICAL OFFICE [facility] 2023-03-09 2023-03-09 [facility] 1.2.840.114 [id number] Univers 00:00:00 00:00:00 Mendy HEALTH 350.1.13.10 [facility] 4.2.7.2.686 Moustapha as GEREMIAS?BLEA [id number] [address] OFFICE [facility] 2023-03-06 2023-03-06 Outpatient Bibiana [place] [facility] [id number] Univers 13:30:00 13:30:00 MENDY ity [facility] 2023-03-05 2023-03-05 Telephone [facility] [id number] [id number] Univers 00:00:00 00:00:00 [facility] 350.1.13.10 it [facility] 4.2.7.2.686 Moustapha as GEREMIAS?BLEA [id number] [address] OFFICE [facility] 2023-03-04 2023-03-04 Orders Doctor MARCIE 1.2.840.114 [id number] Univers 00:00:00 00:00:00 Only Unassigned, JC 350.1.13.10 ity of [place] [facility] 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 - Db [facility] 1.2.840.1 14 [id number] Univers 10:45:00 10:45:00 Visit Mendy Oh [facility] 350.1.13.10 ity [facility] 4.2.7.2.686 Moustapha as GEREMIAS?BLEA [id number] [facility] 353 [facility] OFFICE [facility] 2023-02-19 2023-02-19 Outpatient R ALTHEA [facility] [id number] Univers 10:00:00 10:29:59 MENDY carmichael [facility] 2023-02-19 2023-02-19 Office [facility] 1.2.840.114 [id number] Univers 10:00:00 10:29:59 Visit Mendy HEALTH 350.1.13.10 it y of [place] 4.2.7.2.686 Moustapha as GEREMIAS?BLEA [id number] [address] OFFICE [facility] 2023-02-18 2023-02-18 Outpatient R [place] [facility] [id number] [facility] 09:45:00 09:45:00 MENDY carmichael [facility] 2023-02-14 2023-02-14 Telephone [facility] 1.2.950.803 [id number] Univers 00:00:00 00:00:00 Mendy HEALTH 350.1.13.10 it [facility] 4.2.7.2.686 Moustapha as GEREMIAS?BLEA [id number] [address] OFFICE [facility] 2023-02-13 2023-02-13 Telephone [facility] 1.2.450.601 [id number] Univers 00:00:00 00:00:00 Mendy HEALTH 350.1.13.10 it y of [place] 4.2.7.2.686 Moustapha as GEREMIAS?BLEA [id number] [address] OFFICE [facility] 2023-02-13 2023-02-13 Patient Doctor AZCAROLYN 1.2.840.114 [id number] Univers 00:00:00 00:00:00 Secure Msg Unassigned, HEALTH 350.1.13.10 ity of [place] [facility] 4.2.7.2.686 Moustapha as GEREMIAS?BLEA [id number] [address] OFFICE [facility] 2023-02-12 2023-02-12 Orders Doctor MARCIE 1.2.840.114 [id number] Univers 00:00:00 00:00:00 Only Unassigned, JC 350.1.13.10 ity of [place] [facility] 4.2.7.2.686 Moustapha as [id number] [address] 2023-02-05 2023-02-05 Refill [facility] 1.2.840.114 [id number] Univers 00:00:00 00:00:00 Mendy HEALTH 350.1.13.10 it y of [place] 4.2.7.2.686 Moustapha as GEREMIAS?BLEA [id number] [address] OFFICE [facility] 2023-01-22 2023-01-22 Outpatient R LUIS FELIPE [facility] [id number] Univers 13:00:00 13:00:00 NAMITA itmargarette [facility] 2022-12-26 2022-12-26 Telephone [facility] 1.2.101.168 [id number] Univers 00:00:00 00:00:00 Mendy HEALTH 350.1.13.10 it y [facility] 4.2.7.2.686 Moustapha as GEREMIAS?BLEA [id number] [address] OFFICE [facility] 2022-12-12 2022-12-12 [facility] [id number] Univers 13:04:48 23:59:00 MENDY itmargarette [facility] 2022-12-12 2022-12-12 [facility] 1.2.840.114 [id number] Univers 13:04:48 23:59:00 Encounter Mendy HAR[place] 350.1.13.10 ity of [place] 4.2.7.2.686 [place] [facility] [id number] [facility] [address] 2022-12-05 2022-12-05 Telephone [facility] 1.2.418.984 [id number] Univers 00:00:00 00:00:00 Mendy HEALTH 350.1.13.10 it y of [place] 4.2.7.2.686 Moustapha as GEREMIAS?BLEA [id number] [address] OFFICE [facility] 2022-12-04 2022-12-04 Office [facility] 1.2.840.114 [id number] Univers 13:00:00 13:15:00 Visit Mendy HEALTH 350.1.13.10 it y of [place] 4.2.7.2.686 Moustapha as GEREMIAS?BLEA [phone] Al francisca PICKENS [address] [place] [address] OFFICE [facility] 2022-12-04 2022-12-04 Outpatient R ALTHEA [facility] [id number] Univers 13:00:00 13:00:00 MENDY carmichael [facility] 2022-12-04 2022-12-04 Telephone [facility] 1.2.257.538 [id number] Univers 00:00:00 00:00:00 Mendy [facility] 350.1.13.10 i ty [place] 4.2.7.2.686 [place] PROF[place] [id number] Al francisca BRAVO [address] [place] [address] 2022-11-29 2022-11-29 Telephone [facility] 1.2.211.824 [id number] Univers 00:00:00 00:00:00 [facility] 350.1.13.10 it y of [place] 4.2.7.2.686 Moustapha as GEREMIAS?BLEA [id number] Al francisca PICKENS [address] [place] [address] 2022-11-28 2022-11-28 Telephone [facility] 1.2.361.017 [id number] Univers 00:00:00 00:00:00 [facility] 350.1.13.10 it y of [place] 4.2.7.2.686 Moustapha as GEREMIAS?BLEA [id number] Al francisca PICKENS [address] [place] [address] 2022-11-27 2022-11-27 Refill [facility] 1.2.840.114 [id number] Univers 00:00:00 00:00:00 [place] HEALTH 350.1.13.10 it y of [place] 4.2.7.2.686 Moustapha as GEREMIAS?BLEA [id number] Al dicchapo PICKENS [address] [place] [address] OFFICE [facility] 2022-11-26 2022-11-26 Telephone [facility] 1.2.388.892 [id number] Univers 00:00:00 00:00:00 [place] HEALTH 350.1.13.10 it y of [place] 4.2.7.2.686 Moustapha as GEREMIAS?BLEA [id number] Al dicchapo PICKENS [address] [place] [address] OFFICE [facility] 2022-11-26 2022-11-26 Reffrancheska [facility] 1.2.840.114 [id number] Univers 00:00:00 00:00:00 [facility] 350.1.13.10 it y [facility] 4.2.7.2.686 Moustapha as GEREMIAS?BLEA [id number] Al francisca PICKENS [address] [facility] OFFICE [facility] 2022-11-25 2022-11-25 Orders Doctor MARCIE 1.2.840.114 [id number] Univers 00:00:00 00:00:00 Only Unassigned, JC 350.1.13.10 ity of [place] [facility] 4.2.7.2.686 Moustapha as [id number] [address] 2022-11-23 2022-11-23 Reffrancheska [facility] 1.2.840.114 [id number] Univers 00:00:00 00:00:00 [facility] 350.1.13.10 it y [facility] 4.2.7.2.686 Moustapha as GEREMIAS?BLEA [id number] Al francisca PICKENS [address] [place] [address] OFFICE [facility] 2022-10-23 2022-10-23 Outpatient R LUIS FELIPE [facility] [id number] Univers 14:00:00 14:28:57 NAMITA kvngmargarette [facility] 2022-10-23 2022-10-23 Office Luis [facility]RE[facility] 1.2.257.188 [id number] Univers 14:00:00 14:28:57 Visit [facility] 350.1.13.10 it y of [facility] 4.2.7.2.686 Moustapha as GEREMIAS?BLEA [id number] Al francisca PICKENS [address] MEDICAL OFFICE [facility] 2022-10-16 2022-10-16 Telephone Althea AZCAROLYN 1.2.295.104 [id number] Univers 00:00:00 00:00:00 Mendy HARMON 350.1.13.10 i ty [place] 4.2.7.2.686 [place] PROF[place] [id number] Al francisca NAL 044 [facility] 2022-10-02 2022-10-02 Refill [facility] 1.2.840.114 [id number] Univers 00:00:00 00:00:00 Mendy HEALTH 350.1.13.10 it y of [place] 4.2.7.2.686 Moustapha as GEREMIAS?BLEA [id number] [facility] YAMILET[address] OFFICE [facility] 2022-10-02 2022-10-02 [facility] 1.2.840.114 [id number] Univers 00:00:00 00:00:00 Mendy HEALTH 350.1.13.10 it y of [place] 4.2.7.2.686 Moustapha as GEREMIAS?BLEA [id number] [facility] YAMILET[address] OFFICE [facility] 2022-10-02 2022-10-02 [facility] 1.2.840.114 [id number] Univers 00:00:00 00:00:00 Mendy HEALTH 350.1.13.10 it y of [place] 4.2.7.2.686 Moustapha as GEREMIAS?BLEA [id number] [address] OFFICE [facility] 2022-10-02 2022-10-02 [facility] OhRUST 1.2.840.114 [id number] Univers 00:00:00 00:00:00 Mendy HEALTH 350.1.13.10 it y of [place] 4.2.7.2.686 Moustapha as GEREMIAS?BLEA [id number] [address] OFFICE [facility] 2022-10-02 2022-10-02 [facility] 1.2.840.114 [id number] Univers 00:00:00 00:00:00 Mendy HEALTH 350.1.13.10 it y of [place] 4.2.7.2.686 Moustapha as GEREMIAS?BLEA [id number] [facility] YAMILET[address] OFFICE [facility] 2022-10-02 2022-10-02 [facility] OhRUST 1.2.840.114 [id number] Univers 00:00:00 00:00:00 Mendy HEALTH 350.1.13.10 it y of [place] 4.2.7.2.686 Moustapha as GEREMIAS?BLEA [id number] [address] OFFICE [facility] 2022-10-02 2022-10-02 Елена [facility] 1.2.840.114 [id number] Univers 00:00:00 00:00:00 Mendy HEALTH 350.1.13.10 it y of [place] 4.2.7.2.686 Moustapha as GEREMIAS?BLEA [phone] Al amelie[address] OFFICE [facility] 2022-10-02 2022-10-02 Елена [facility] 1.2.840.114 [id number] Univers 00:00:00 00:00:00 Mendy HEALTH 350.1.13.10 it y of [place] 4.2.7.2.686 Moustapha as GEREMIAS?BLEA [id number] [address] 2022-10-02 2022-10-02 Елена [facility] 1.2.840.114 [id number] Univers 00:00:00 00:00:00 Mendy HEALTH 350.1.13.10 it y of [place] 4.2.7.2.686 Moustapha as GEREMIAS?BLEA [id number] Al francisca MENDOZA[address] OFFICE [facility] 2022-10-02 2022-10-02 Елена [facility] 1.2.840.114 [id number] Univers 00:00:00 00:00:00 Mendy HEALTH 350.1.13.10 it y of [place] 4.2.7.2.686 Moustapha as GEREMIAS?BLEA [phone] Al francisca MENDOZA[address] OFFICE [facility] 2022-10-02 2022-10-02 Елена [facility] 1.2.840.114 [id number] Univers 00:00:00 00:00:00 Mendy HEALTH 350.1.13.10 it y of [place] 4.2.7.2.686 Moustapha as GEREMIAS?BLEA [id number] Al francisca [address] OFFICE [facility] 2022-09-18 2022-09-18 Елена [facility] 1.2.840.114 [id number] Univers 00:00:00 00:00:00 Mendy HEALTH 350.1.13.10 it y of [place] 4.2.7.2.686 Moustapha as GEREMIAS?BLEA [id number] Al francisca MENDOZA [address] MEDICAL OFFICE [facility] 2022-09-11 2022-09-11 Refill [facility] 1.2.840.114 [id number] Univers 00:00:00 00:00:00 [facility] 350.1.13.10 it y of [place] 4.2.7.2.686 Moustapha as GEREMIAS?BLEA [id number] Al francisca MENDOZA [address] MEDICAL OFFICE [facility] 2022-09-08 2022-09-08 Orders Doctor MARCIE 1.2.840.114 [id number] Univers 00:00:00 00:00:00 Only Unassigned, JC 350.1.13.10 ity of [place] [facility] 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, Ang - [facility] 1.2.840.1 14 [id number] Univers 14:00:00 14:15:00 [facility] 350.1.13.10 ity of [place] 4.2.7.2.686 Moustapha as GEREMIAS?BLEA [id number] Al francisca MENDOZA [address] MEDICAL OFFICE [facility] 2022-09-04 2022-09-04 Outpatient R ALTHEA [facility] [id number] Univers 14:00:00 14:00:00 MENDY margarette [facility] 2022-09-04 2022-09-04 Office [facility] [id number] Univers 13:45:00 14:00:00 Visit [facility] [id number] it y of [place] [id number] Moustapha as GEREMIAS?BLEA [id number] Al francisca PICKENS [address] [place] [address] MEDICAL OFFICE [facility] 2022-09-04 2022-09-04 Outpatient R ALTHEA [facility] [id number] Univers 07:30:00 07:30:00 MENDY carmichael [facility] 2022-08-20 2022-08-20 Telephone [facility] [id number] Univers 00:00:00 00:00:00 Mendy HEALTH [id number] it y of [place] [id number] Moustapha as GEREMIAS?BLEA [id number] Al francisca PICKENS [address] [place] [address] MEDICAL OFFICE [facility] 2022-08-07 2022-08-07 Refill [facility] [id number] Univers 00:00:00 00:00:00 Mendy HEALTH [id number] it y of [place] [id number] Moustapha as GEREMIAS?BLEA [id number] Al francisca PICKENS [address] [place] [address] OFFICE [facility] 2022-07-24 2022-07-24 Office Luis [facility]RE[facility] [id number] Univers 16:15:00 16:15:00 Visit [facility] HEALTH 350.1.13.10 it y of [place] 4.2.7.2.686 Moustapha as GEREMIAS?BLEA [phone] Al francisca PICKENS [address] MEDICAL OFFICE [facility] 2022-07-24 2022-07-24 Outpatient R LUIS FELIPE [facility] [id number] Univers 16:15:00 15:57:44 NAMITA carmichael [facility] 2022-07-22 2022-07-22 Telephone [facility] 1.2.663.609 [id number] Univers 00:00:00 00:00:00 Mendy HEALTH 350.1.13.10 it y of [place] 4.2.7.2.686 Moustapha as GEREMIAS?BLEA [id number] Al francisca [address] MEDICAL OFFICE [facility] 2022-07-19 2022-07-19 Reffrancheska [facility] 1.2.840.114 [id number] Univers 00:00:00 00:00:00 Mendy HEALTH 350.1.13.10 it y of [place] 4.2.7.2.686 Moustapha as GEREMIAS?BLEA [phone] [address] MEDICAL OFFICE [facility] 2022-07-12 2022-07-12 Outpatient R LUIS FELIPE [facility] [id number] Univers 11:00:00 11:00:00 NAMITA carmichael [facility] 2022-07-02 2022-07-02 Reffrancheska [facility] 1.2.840.114 [id number] Univers 00:00:00 00:00:00 [facility] 350.1.13.10 it y of [place] 4.2.7.2.686 Moustapha as GEREMIAS?BLEA [id number] [address] MEDICAL OFFICE [facility] 2022-06-24 2022-06-24 Reffrancheska [facility] 1.2.840.114 [id number] Univers 00:00:00 00:00:00 [facility] 350.1.13.10 it y of [place] 4.2.7.2.686 Moustapha as GEREMIAS?BLEA [phone] [address] MEDICAL OFFICE [facility] 2022-06-11 2022-06-11 Reffrancheska [facility] 1.2.840.114 [id number] Univers 00:00:00 00:00:00 [facility] 350.1.13.10 it y of [place] 4.2.7.2.686 Moustapha as GEREMIAS?BLEA [phone] [address] MEDICAL OFFICE [facility] 2022-06-05 2022-06-05 Outpatient R ALTHEA [facility] [id number] Univers 14:15:00 14:45:07 MENDY [facility] 2022-06-05 2022-06-05 Office [facility] 1.2.840.114 [id number] Univers 14:15:00 14:30:00 Visit [facility] 350.1.13.10 it y of [place] 4.2.7.2.686 Moustapha as GEREMIAS?BLEA [phone] [address] MEDICAL OFFICE [facility] 2022-06-05 2022-06-05 Outpatient [facility] [id number] Univers 14:15:00 14:15:00 MENDY ity [facility] 2022-06-05 2022-06-05 Outpatient Bibiana OH [facility] [id number] Univers 14:15:00 14:15:00 MENDY ity [facility] 2022-05-24 2022-05-24 Refill [facility] 1.2.840.114 [id number] Univers 00:00:00 00:00:00 [facility] 350.1.13.10 [facility] 4.2.7.2.686 Moustapha as GEREMIAS?BLEA [phone] Al francisca MENDOZA[address] OFFICE [facility] 2022-04-12 2022-04-12 Office [facility]RE[facility] 1.2.446.763 [id number] Univers 08:45:00 10:06:[address] [facility] 350.1.13.10 it y of [place] 4.2.7.2.686 Moustapha as GEREMIAS?BLEA [id number] Al dicchapo PICKENS [address] [facility] OFFICE [facility] 2022-04-12 2022-04-12 Outpatient Bibiana BRISCOE [facility] [id number] Univers 08:45:00 10:06:52 NAMITATJ carmichael [facility] 2022-04-12 2022-04-12 Outpatient Bibiana BRISCOE [facility] [id number] Univers 08:45:00 08:45:00 NAMITATJ carmichael [facility] 2022-04-08 2022-04-08 Outpatient Bibiana [facility] [id number] Univers 16:00:00 16:00:00 NAMITATJ carmichael [facility] 2022-03-21 2022-03-21 Outpatient Bibiana SHAFFERBRISCOE, [facility] [id number] Univers 11:15:00 11:15:00 NAMITATJ carmichael [facility] 2022-03-04 2022-03-04 Outpatient Bibiana ALTHEA [facility] [id number] Univers 14:00:00 14:47:34 MENDY margarette [facility] 2022-03-04 2022-03-04 Office [facility] 1.2.840.114 [id number] Univers 14:00:00 14:15:00 Visit [facility] 350.1.13.10 it y of [place] 4.2.7.2.686 Moustapha as GEREMIAS?BLEA [id number] Al francisca [address]ENS [address] MEDICAL OFFICE [facility] 2022-03-04 2022-03-04 Outpatient R ALTHEA [facility] [id number] Univers 14:00:00 14:00:00 [facility] 2022-03-01 2022-03-01 Abstract Eileen Anaya [facility] 1.2.840.114 [id number] Univers 00:00:00 00:00:00 HEALTH 350.1.13.10 it y of [place] 4.2.7.2.686 Moustapha as GEREMIAS?BLEA [phone] Al francisca PICKENS [address] [place] [address] OFFICE [facility] 2022-02-21 2022-02-21 Refill [facility] 1.2.840.114 [id number] Univers 00:00:00 00:00:00 [facility] 350.1.13.10 it y of [place] 4.2.7.2.686 Moustapha as GEREMIAS?BLEA [id number] Al francisca PICKENS [address] [place] [address] OFFICE [facility] 2022-02-01 2022-02-01 Outpatient R LUIS [facility] [id number] Univers 11:00:00 11:22:57 NAMITA [facility] 2022-02-01 2022-02-01 Office Luis [facility]RE[facility] 1.2.672.486 [id number] Univers 11:00:00 11:22:[address] [facility] 350.1.13.10 it y of [place] 4.2.7.2.686 Moustapha as GEREMIAS?BLEA [phone] Al francisca PICK[address] MEDICAL OFFICE [facility] 2022-02-01 2022-02-01 Outpatient R LUIS FELIPE [facility] [id number] Univers 11:00:00 11:22:57 NAMITA margarette [facility] 2022-02-01 2022-02-01 Outpatient R [facility] [id number] Univers 11:00:00 11:00:00 [facility] 2022-01-25 2022-01-25 Outpatient R LUIS FELIPE [facility] [id number] Univers 10:15:00 10:36:40 NAMITA margarette [facility] 2022-01-25 2022-01-25 Office Luis [facility]ipeRE[facility] 1.2.787.518 [id number] Univers 10:15:00 10:36:40 Visit [facility] 350.1.13.10 it y of [place] 4.2.7.2.686 Moustapha as GEREMIAS?BLEA [phone] Al francisca PICKENS [address] [facility] OFFICE [facility] 2022-01-25 2022-01-25 Outpatient R LUIS FELIPE [facility] [id number] Univers 10:15:00 10:15:00 [facility] 2022-01-18 2022-01-18 Outpatient R [facility] [id number] Univers 10:45:00 10:49:06 [facility] 2022-01-18 2022-01-18 Office Luis [facility]ipeRE[facility] 1.2.938.245 [id number] Univers 10:45:00 10:49:06 Visit [facility] 350.1.13.10 it y of [place] 4.2.7.2.686 Moustapha as GEREMIAS?BLEA [id number] Al francisca PICKENS 198 [facility] 2022-01-18 2022-01-18 Outpatient R LUIS [facility] [id number] Univers 10:45:00 10:49:06 [facility] 2022-01-18 2022-01-18 Outpatient R LUIS [facility] [id number] Univers 10:45:00 10:49:06 [facility] 2022-01-16 2022-01-16 Reffrancheska [facility]RE[facility] 1.2.840.114 [id number] Univers 00:00:00 00:00:00 Mendy HEALTH 350.1.13.10 it y of [place] 4.2.7.2.686 Moustapha as GEREMIAS?BLEA [phone] Al francisca PICKENS 0[address] [facility] OFFICE [facility] 2022-01-15 2022-01-15 Елена OhREH[facility]IL[facility] 1.2.840.114 [id number] Univers 00:00:00 00:00:00 Mendy HEALTH 350.1.13.10 it y of [place] 4.2.7.2.686 Moustapha as PROFESSIO [id number] Al francisca NAL 044 [facility] ONE 2021-12-31 2021-12-31 Telephone Luis FelipeREHABIL[facility]ATION [facility] 1.2.840.114 [id number] Univers 00:00:00 00:00:00 Namita Pablo HEALTH 350.1.13.10 it y of [place] 4.2.7.2.686 Moustapha as GEREMIAS?BLEA [phone] Al francisca [address] [facility] OFFICE [facility] 2021-12-24 2021-12-24 Елена OhREHABIL[facility] 1.2.840.114 [id number] Univers 00:00:00 00:00:00 Mendy HEALTH 350.1.13.10 it y of [place] 4.2.7.2.686 Moustapha as PROFESSIO [phone] Al francisca NAL 044 [facility] 2021-12-21 2021-12-21 Office Luis [facility]ipeREHABIL[facility]ATION [facility] 1.2.851.598 [id number] Univers 09:00:00 09:35:30 Visit Namita Pablo HEALTH 350.1.13.10 it y of [place] 4.2.7.2.686 Moustapha as GEREMIAS?BLEA [phone] Al francisca PICKENS [address] [place] [address] 2021-12-21 2021-12-21 Outpatient Bibiana BRISCOE [facility] [id number] Univers 09:00:00 09:35:30 NAMITA carmichael [facility] 2021-12-21 2021-12-21 Outpatient Bbiiana BRISCOE [facility] [id number] Univers 09:00:00 09:35:30 NAMITA carmichael [facility] 2021-12-21 2021-12-21 Outpatient Bibiana BRISCOE [facility] [id number] Univers 09:00:00 09:00:00 NAMITA margarette [facility] 2021-12-19 2021-12-19 Outpatient Bibiana DELGADILLO [facility] [id number] Univers 15:00:00 15:00:00 DAVIDSON carmichael [facility] 2021-12-18 2021-12-18 Orders Doctor MARCIE 1.2.840.114 [id number] Univers 00:00:00 00:00:00 Only Unassigned, JC 350.1.13.10 ity of [place] HOSPITAL 4.2.7.2.686 Moustapha as [phone] [address] 2021-12-12 2021-12-12 Outpatient R [facility] [id number] Univers 09:30:00 09:49:11 MENDY itmargarette [facility] 2021-12-12 2021-12-12 Office [facility] 1.2.840.114 [id number] Univers 09:30:00 09:45:00 Visit Mendy HEALTH 350.1.13.10 [facility] 4.2.7.2.686 Moustapha as GEREMIAS?BLEA [phone] Al francisca PICKENS [address] [place] [address] OFFICE BUILDING 2021-12-12 2021-12-12 Outpatient R [facility] [id number] Univers 09:30:00 09:30:00 MENDY [facility] 2021-12-06 2021-12-06 Orders Doctor MARCIE 1.2.840.114 [id number] Univers 00:00:00 00:00:00 Only Unassigned, JC 350.1.13.10 ity of [place] [facility] 4.2.7.2.686 Moustapha as [phone] [address] 2021-11-30 2021-11-30 Refill [facility]RE[facility] 1.2.840.114 [id number] Univers 00:00:00 00:00:00 Mendy HEALTH 350.1.13.10 [facility] 4.2.7.2.686 Moustapha as PROFESSIO [phone] Al francisca BRAVO [address] [place] [address] OFFICE BUILDING ONE 2021-11-07 2021-11-07 Outpatient R LUIS FELIPE [facility] [id number] Univers 16:00:00 16:40:03 NAMITA itmargarette [facility] 2021-11-07 2021-11-07 Office Luis [facility]RE[facility] 1.2.719.621 [id number] Univers 16:00:00 16:40:[address] [facility] 350.1.13.10 it [facility] 4.2.7.2.686 Moustapha as GEREMIAS?BLEA [phone] Al francisca PICKENS [address] MEDICAL OFFICE BUILDING 2021-11-07 2021-11-07 Outpatient Bibiana BRISCOE [facility] [id number] Univers 16:00:00 16:00:00 NAMITA carmichael [facility] 2021-11-06 2021-11-06 Office [facility] 1.2.840.114 [id number] Univers 09:00:00 09:15:00 Visit [facility] 350.1.13.10 it y of [place] 4.2.7.2.686 Moustapha as GEREMIAS?BLEA [phone] Al francisca MENDOZA [address] MEDICAL OFFICE [facility] 2021-11-06 2021-11-06 Outpatient Bibiana [facility] [id number] Univers 09:00:00 09:00:00 MENDY carmichael [facility] 2021-11-06 2021-11-06 Outpatient Bibiana [facility] [id number] Univers 09:00:00 09:00:00 MENDY ity [facility] 2021-11-06 2021-11-06 Outpatient Bibiana [facility] [id number] Univers 09:00:00 09:00:00 MENDY ity [facility] 2021-11-06 2021-11-06 Orders Doctor JACK 1.2.840.114 [id number] Univers 00:00:00 00:00:00 Only Unassigned, JC 350.1.13.10 ity of [place] [facility] 4.2.7.2.686 Moustapha as [phone] [address] 2021-10-17 2021-10-17 Telephonic ESPINOZA Amaral 1.2.840.114 [id number] [place] 07:45:00 10:51:26 Encounter Akhil RENEE 350.1.13.58 Health CLINIC 9.2.7.2.686 [id number] 2 2021-10-15 2021-10-15 Orders Doctor JACK 1.2.840.114 [id number] Univers 00:00:00 00:00:00 Only Unassigned, JC 350.1.13.10 [facility] 4.2.7.2.686 Moustapha as [phone] [address] 2021-09-13 2021-09-13 Outpatient R [facility] [id number] Univers 09:11:20 23:59:00 NAMITA carmichael [facility] 2021-09-13 2021-09-13 Hospital [facility] 1.2.840.114 [id number] Univers 09:11:20 23:59:00 Encounter Namita WANG 350.1.13.10 ity of [place] 4.2.7.2.686 Moustapha as GEREMIAS?BLEA [phone] Al ameliechapo MENDOZAPUNEET [address] MEDICAL OFFICE [facility] 2021-09-13 2021-09-13 Outpatient R [facility] [id number] Univers 09:11:20 23:59:00 [place] amol [facility] 2021-09-13 2021-09-13 Outpatient R [facility] [id number] Univers 09:11:20 23:59:00 NAMITATJ carmichael [facility] 2021-09-13 2021-09-13 Outpatient R [facility] [id number] Univers 09:11:20 23:59:00 [facility]arg[facility] 2021-09-13 2021-09-13 Office [facility] 1.2.935.512 [id number] Univers 09:00:00 09:56:30 Visit Namita Pablo [facility] 350.1.13.10 it y of [place] 4.2.7.2.686 Moustapha as GEREMIAS?BLEA [phone] Al francisca PICKENS [address] MEDICAL OFFICE BUILDING 2021-09-05 2021-09-05 Telephonic ESPINOZA Amaral 1.2.840.114 [id number] [place] 07:45:00 09:00:23 Encounter Akhil RENEE 350.1.13.58 Health CLINIC 9.2.7.2.686 [id number] 2 2021-08-20 2021-08-20 Orders Doctor JACK 1.2.840.114 [id number] Univers 00:00:00 00:00:00 Only Unassigned, JC 350.1.13.10 ity of [place] HOSPITAL 4.2.7.2.686 Moustapha as [id number] [address] 2021-08-07 2021-08-07 Office Althea [facility] 1.2.840.114 [id number] Univers 09:12:18 09:27:18 Visit [facility] 350.1.13.10 [facility] 4.2.7.2.686 Moustapha as GEREMIAS?BLEA [id number] [address] MEDICAL OFFICE [facility] 2021-08-07 2021-08-07 Outpatient R ALTHEA [facility] [id number] Univers 09:15:00 09:15:00 MENDY carmichael [facility] 2021-08-07 2021-08-07 Outpatient Bibiana OH [facility] [id number] Univers 09:15:00 09:15:00 [facility] 2021-08-02 2021-08-02 Orders Doctor JACK 1.2.840.114 [id number] Univers 00:00:00 00:00:00 Only Unassigned, JC 350.1.13.10 ity of [place] HOSPITAL 4.2.7.2.686 Moustapha as [phone] [address] 2021-07-23 2021-07-23 Office ESPINOZA AMARAL [facility] 1.2.840.114 [id number] [place] 11:44:00 11:59:00 Visit AKHIL MARTIN 350.1.13.58 [place] 9.2.7.2.686 CLINIC [id number] 1 2021-07-23 2021-07-23 Orders Doctor JACK 1.2.840.114 [id number] Univers 00:00:00 00:00:00 Only Unassigned, JC 350.1.13.10 ity of [place] HOSPITAL 4.2.7.2.686 Moustapha as [id number] [address] 2021-07-17 2021-07-17 Telephone Althea [facility] 1.2.350.721 [id number] Univers 00:00:00 00:00:00 Mendy [facility] 350.1.13.10 it y of [place] 4.2.7.2.686 Moustapha as Geremias?Blea [phone] [address] Medical Office Building 2021-07-17 2021-07-17 Orders Doctor MARCIE 1.2.840.114 [id number] Univers 00:00:00 00:00:00 Only Unassigned, JC 350.1.13.10 ity of [place] [facility] 4.2.7.2.686 Moustapha as [phone] [address] 2021-07-13 2021-07-13 Refill [facility] 1.2.840.114 [id number] Univers 00:00:00 00:00:00 [facility] 350.1.13.10 it y of [place] 4.2.7.2.686 Moustapha as Professio [id number] [address] Office [facility] One 2021-07-10 2021-07-10 Telephone [facility] 1.2.631.706 [id number] Univers 00:00:00 00:00:00 Mendy Health 350.1.13.10 it y of [place] 4.2.7.2.686 Moustapha as Geremias?Blea [phone] [address] Office [facility] 2021-07-03 2021-07-03 Telephone [facility] 1.2.810.239 [id number] Univers 00:00:00 00:00:00 Mendy Health 350.1.13.10 it y of [place] 4.2.7.2.686 Moustapha as Geremias?Blea [phone] [address] Medical Office Building 2021-06-15 2021-06-15 Telephone [facility] 1.2.195.704 [id number] Univers 00:00:00 00:00:00 Mendy Health 350.1.13.10 it y of [place] 4.2.7.2.686 Moustapha as Geremias?Blea [phone] [address] Office [facility] 2021-06-11 2021-06-11 Telephone [facility] 1.2.861.439 [id number] Univers 00:00:00 00:00:00 [facility] 350.1.13.10 it y of [place] 4.2.7.2.686 Moustapha as Geremias?Blea [phone] Al francisca mendoza [address] Medical Office [facility] 2021-06-07 2021-06-07 Office [facility] 1.2.840.114 [id number] Univers 13:48:53 14:03:53 Visit MendyFormerly [facility] 350.1.13.10 it y of [place] 4.2.7.2.686 Moustapha as Geremias?Blea [phone] [facility] 044 [facility] Office [facility] 2021-06-07 2021-06-07 Outpatient R ALTHEA [facility] [id number] Univers 13:45:00 13:45:00 [facility] 2021-06-07 2021-06-07 Outpatient Bibiana OH [facility] [id number] Univers 12:00:00 12:00:00 [facility] 2021-06-06 2021-06-06 Outpatient Bibiana [facility] [id number] Univers 14:35:00 23:59:00 [facility] 2021-06-06 2021-06-06 Outpatient Bibiana DELGADILLO [facility] [id number] Univers 14:35:00 23:59:00 DAVIDSONDell [facility] 2021-06-06 2021-06-06 Outpatient Bibiana [facility] [id number] Univers 14:35:00 23:59:00 DAVIDSON y [facility] 2021-06-06 2021-06-06 [facility] 1.2.840.114 [id number] Univers 14:35:00 23:59:00 Encounter Davidson [facility] 350.1.13.10 ity of [place] 4.2.7.2.686 Moustapha as Geremias?Blea [id number] [facility] 809 [facility] Office [facility] 2021-06-06 2021-06-06 Office Luis [facility]RE[facility] 1.2.648.594 [id number] Univers 14:19:47 15:22:30 Visit [facility] 350.1.13.10 it y of [place] 4.2.7.2.686 Moustapha as Geremias?Blea [phone] Al francisca pickens [address] Medical Office [facility] 2021-06-06 2021-06-06 Outpatient Bibiana BRISCOE [facility] [id number] Univers 14:15:00 14:15:00 NAMITA carmichael [facility] 2021-05-31 2021-05-31 Telephone [facility] 1.2.037.803 [id number] Univers 00:00:00 00:00:00 Mendy [facility] 350.1.13.10 it y of [place] 4.2.7.2.686 Moustapha as Geremias?Blea [phone] Al francisca mendoza 044 [facility] Office [facility] 2021-05-25 2021-05-25 Outpatient Bibiana [facility] [id number] Univers 00:00:00 00:00:00 MENDY carmichael [facility] 2021-05-24 2021-05-24 [facility] 1.2.840.114 [id number] Univers 07:00:00 23:59:00 Encounter Mendy [place] 350.1.13.10 ity of [place] 4.2.7.2.686 [place] [facility] [phone] [address] 2021-05-24 2021-05-24 [facility] 1.2.840.114 [id number] Univers 14:06:27 14:21:27 Visit Mendy [facility] [id number] it y of [place] [id number] Moustapha as Geremias?Blea [phone] Al francisca pickens 044 [facility] Office [facility] 2021-05-24 2021-05-24 [facility]patient [facility] [id number] Univers 14:00:00 14:00:00 MENDY carmichael [facility] 2021-05-24 2021-05-24 Orders Doctor JACK 1.2.840.114 [id number] Univers 00:00:00 00:00:00 Only Unassigned, JC 350.1.13.10 ity of [place] [facility] 4.2.7.2.686 Moustapha as [phone] [address] 2021-05-24 2021-05-24 Orders Doctor MARCIE 1.2.840.114 [id number] Univers 00:00:00 00:00:00 Only Unassigned, JC 350.1.13.10 ity of [place] [facility] [id number] Moustapha as [phone] [address] 2021-05-23 2021-05-23 Office Aimee [facility] 1.2.840.114 [id number] Univers 14:22:52 15:10:04 Visit Sonam Agustin [employer] 350.1.13.10 i ty of [place] [id number] Moustapha as Geremias?Blea [phone] Al francisca pickens [address] [place] [address] Office [facility] 2021-05-23 2021-05-23 Outpatient R AIMEE [facility] [id number] Univers 14:30:00 14:30:00 SONAM carmichael [facility] 2021-05-08 2021-05-08 Outpatient R ALTHEA [facility] [id number] Univers 09:15:00 09:15:00 MENDY carmichael [facility] 2021-04-24 2021-04-24 [facility] 1.2.840.114 [id number] Univers 08:52:17 09:07:17 Visit Mendy [facility] [id number] it y of [place] [id number] Moustapha as Professio [phone] [address] [facility] 2021-04-24 2021-04-24 [facility] [id number] Univers 09:00:00 09:00:00 MENDY carmichael [facility] 2021-04-24 2021-04-24 Telephone [facility] 1.2.958.413 [id number] Univers 00:00:00 00:00:00 Mendy [facility] 350.1.13.10 it y of [place] 4.2.7.2.686 [place]oust[place]ha as Professio [phone] [address] One 2021-04-23 2021-04-23 Orders Doctor MARCIE 1.2.840.114 [id number] Univers 00:00:00 00:00:00 Only Unassigned, JC 350.1.13.10 ity of [place] HOSPITAL 4.2.7.2.686 Moustapha as [phone] [address] 2021-04-13 2021-04-13 Telephone [facility] 1.2.473.514 [id number] Univers 00:00:00 00:00:00 Mendy Health 350.1.13.10 it y of [place] 4.2.7.2.686 [place] Professio [phone] [address] 2021-04-10 2021-04-10 Reffrancheska [facility] 1.2.840.114 [id number] Univers 00:00:00 00:00:00 Mendy Harmon 350.1.13.10 i [place] [phone] [address] 2021-03-27 2021-03-27 [facility] 1.2.840.114 [id number] Univers 00:00:00 00:00:00 Mendy Harmon 350.1.13.10 i ty [place] [phone] [address] 2021-02-15 2021-02-15 Orders Doctor MARCIE 1.2.840.114 [id number] Univers 00:00:00 00:00:00 Only Unassigned, JC 350.1.13.10 ity of [place] HOSPITAL 4.2.7.2.686 [place] as [phone] [address] 2021-02-11 2021-02-11 [facility] 1.2.840.114 [id number] Univers 00:00:00 00:00:00 Mendy Health 350.1.13.10 it y of [place] 4.2.7.2.686 [place] Professio [phone] [address] One 2021-02-08 2021-02-08 [place] [facility] 1.2.840.114 [id number] Univers 00:00:00 00:00:00 Mendy Harmon 350.1.13.10 i ty [place] [phone] [address] 2021-01-29 2021-01-29 Roll Press Operator Lab, Adc Fam Pob I [facility] 1.2. 840.114 [id number] Univers 12:42:30 13:02:30 Visit Mendy Oh [facility] 350.1.13.10 ity of [place] 4.2.7.2.686 [place] Professio [phone] [address] One 2021-01-29 2021-01-29 Office Althea [facility] 1.2.840.114 [id number] Univers 12:02:04 12:17:04 Visit Mendy [facility] 350.1.13.10 it y of [place] 4.2.7.2.686 [place] Professio [phone] [address] 2021-01-29 2021-01-29 Outpatient R OH [facility] [id number] Univers 12:00:00 12:00:00 MENDY kvngmargarette of [facility] 2020-12-27 2020-12-27 Reffr[place] [facility] 1.2.840.114 [id number] Univers 00:00:00 00:00:00 Mendy [facility] 350.1.13.10 it y of [place] 4.2.7.2.686 [place] Professio [phone] [address] Office [facility] One 2020-12-08 2020-12-08 Orders Doctor MARCIE 1.2.840.114 [id number] Univers 00:00:00 00:00:00 Only Unassigned, JC 350.1.13.10 ity of [place] [facility] 4.2.7.2.686 [place]oust[place]ha as [phone] [address] 2020-12-06 2020-12-06 [place] [facility] 1.2.840.114 [id number] Univers 00:00:00 00:00:00 Mendy Mejia 350.1.13.10 i ty [place] [phone] [address] 2020-12-01 2020-12-01 Refill [facility] 1.2.840.114 [id number] Univers 00:00:00 00:00:00 Mendy Mejia 350.1.13.10 i ty [place].2.[place] [phone] [address] 2020-11-28 2020-11-28 [facility] 1.2.699.555 [id number] Univers 00:00:00 00:00:00 Mendy Wang 350.1.13.10 it y of [place] 4.2.7.2.686 [place] Professio [phone] [address] Office Building One 2020-11-24 2020-11-24 [facility] 1.2.840.114 [id number] Univers 11:13:31 23:59:00 Encounter Mendy Gimenezton 350.1.13.10 ity of [place] 4.2.7.2.686 [place] [facility] [phone] [address] 2020-11-24 2020-11-24 [facility] 1.2.840.114 [id number] Univers 11:00:00 11:12:00 Encounter Mendy Mejia 350.1.13.10 ity of [place] 4.2.7.2.686 [phone] [address] 2020-11-24 2020-11-24 Outpatient R [facility] [id number] Univers 00:00:00 00:00:00 MENDY carmichael of [facility] 2020-11-24 2020-11-24 Patient [facility] 1.2.840.114 [id number] Univers 00:00:00 00:00:00 Outreach Morgan PRIMARY 350.1.13.10 i ty of [place]2.7.2.686 [place] [phone] [address] 2020-11-08 2020-11-08 Outpatient R ALTHEA [facility] [id number] Univers 00:00:00 00:00:00 MENDY carmichael [facility] 2020-11-01 2020-11-01 Nurse Cbc, Medicare Wellness [facility] 1.2.840.114 [id number] Univers 13:05:17 14:09:44 Visit Mendy Oh [facility] 350.1.13.10 ity of [place] 4.2.7.2.686 [place] Professio [phone] [address] 2020-11-01 2020-11-01 Office [facility] 1.2.840.114 [id number] Univers 12:58:02 13:13:02 Visit Mendy [facility] 350.1.13.10 it y of [place] 4.2.7.2.686 [place] Professio [phone] [address] 2020-11-01 2020-11-01 Outpatient R ALTHEA [facility] [id number] Univers 13:00:00 13:00:00 MENDY carmichael [facility] 2020-10-25 2020-10-25 Reff[place] [facility] 1.2.840.114 [id number] Univers 00:00:00 00:00:00 Mendy Gimenezton 350.1.13.10 i ty [place] 4.2.7.2.[place] [phone] [address] 2020-10-13 2020-10-13 Refill [facility] 1.2.840.114 [id number] Univers 00:00:00 00:00:00 Mendy [facility] 350.1.13.10 it y of [place] 4.2.7.2.686 [place] Professio [phone] [address] One 2020-09-29 2020-09-29 Orders Doctor JACK 1.2.840.114 [id number] Univers 00:00:00 00:00:00 Only Unassigned, JC 350.1.13.10 it[place] HOSPITAL 4.2.7.2.686 Moustapha as [phone] [facility] [address] 2020-09-13 2020-09-13 [facility] 1.2.840.114 [id number] Univers 00:00:00 00:00:00 Mendy Harmon 350.1.13.10 i ty [place]2.[place].2.[place] [phone] Al dicwv nal 044 [facility] 2020-09-06 2020-09-06 [facility] 1.2.840.114 [id number] Univers 00:00:00 00:00:00 Mendy Harmon 350.1.13.10 i ty [place] 4.2.7.2.[place] [phone] [facility] 044 [facility] 2020-07-05 2020-07-05 [facility] 1.2.840.114 [id number] Univers 07:55:00 10:15:00 Encounter Dwight wong 350.1.13.10 ity of [place].2.7.2.[place] [phone] [address] 2020-07-04 2020-07-04 Laboratory Only, Adc Test [facility] 1.2.840. 114 [id number] Univers 14:16:45 14:31:45 Only Dwight Chavez 350.1.1 3.10 ity of [place] 4.2.7.2.686 [place] [phone] [facility] [address] 2020-07-04 2020-07-04 Outpatient R [facility] [id number] Univers 14:30:00 14:30:00 DWIGHT Wong o f [facility] 2020-07-04 2020-07-04 Orders Doctor MARCIE 1.2.840.114 [id number] Univers 00:00:00 00:00:00 Only Unassigned, JC 350.1.13.10 it[place] HOSPITAL 4.2.7.2.686 Moustapha as [phone] [address] 2020-06-29 2020-06-29 Telephone [facility] 1.2.605.551 [id number] Univers 00:00:00 00:00:00 Mendy Health 350.1.13.10 it y of [place] 4.2.7.2.686 [place] Professio [phone] [address] Office [facility] One 2020-06-25 2020-06-25 [facility] [facility] 1.2.840.114 [id number] Univers 00:00:00 00:00:00 Mendy [facility] 350.1.13.10 it y of [place] 4.2.7.2.686 [place] Professio [phone] [address] 2020-06-17 2020-06-17 [facility] [facility] 1.2.840.114 [id number] Univers 00:00:00 00:00:00 [facility]y [facility] 350.1.13.10 it y of [place] 4.2.7.2.686 [place] Professio [phone] [address] 2020-05-02 2020-05-02 [place] [facility] 1.2.840.114 [id number] Univers 00:00:00 00:00:00 [facility] 350.1.13.10 it y of [place] 4.2.7.2.686 [place] Professio [phone] [address] 2020-05-01 2020-05-01 Office [facility] 1.2.840.114 [id number] Univers 14:50:23 15:33:33 Visit Mendy Gimenezton 350.1.13.10 i ty [place]2.7.2.[place] [phone] [address] 2020-05-01 2020-05-01 Outpatient R ALTHEA [facility] [id number] Univers 15:00:00 15:00:00 MENDY carmichael [facility] 2020-04-17 2020-04-17 Telephone [facility] 1.2.032.893 [id number] Univers 00:00:00 00:00:00 Mendy Harmon 350.1.13.10 i ty [place]2.[place].2.[place] [phone] [address] 2020-04-17 2020-04-17 Orders Doctor MARCIE 1.2.840.114 [id number] Univers 00:00:00 00:00:00 Only Unassigned, JC 350.1.13.10 it[place] HOSPITAL 4.2.7.2.686 Moustapha as [phone] [address] 2020-04-02 2020-04-02 Refill [facility] 1.2.840.114 [id number] Univers 00:00:00 00:00:00 Mendy Wang 350.1.13.10 it y of [place] 4.2.7.2.686 [place] Professio [phone] [address] Office [facility] One 2020-03-30 2020-03-30 Orders Doctor MARCIE 1.2.840.114 [id number] Univers 00:00:00 00:00:00 Only Unassigned, JC 350.1.13.10 it[place] HOSPITAL 4.2.7.2.686 Moustapha as [phone] [address] 2020-03-29 2020-03-29 [facility] [id number] Univers 13:45:00 13:45:00 MENDY itmargarette [facility] 2020-03-27 2020-03-27 Telephone [facility] 1.2.689.601 [id number] Univers 00:00:00 00:00:00 Mendy Harmon 350.1.13.10 i ty of [place]2.7.2.[place] [phone] [address] 2020-03-20 2020-03-20 Office [facility] 1.2.840.114 [id number] Univers 14:21:50 14:36:50 Visit Mendy Harmon 350.1.13.10 i ty of [place] 4.2.7.2.[place] [phone] [address] 2020-03-20 2020-03-20 Outpatient [facility] [id number] Univers 14:30:00 14:30:00 MENDY ity of [facility] 2020-03-20 2020-03-20 Orders Doctor MARCIE 1.2.840.114 [id number] Univers 00:00:00 00:00:00 Only Unassigned, JC 350.1.13.10 ity of [place] [facility] 4.2.7.2.686 Moust[place]ha as [phone] [address] 2020-02-29 2020-02-29 Urgent Provider, [facility] 1.2.840.114 [id number] Univers 08:19:23 08:56:14 Care Unknown, Attending Health 350.1.13.10 ity of [place] 4.2.7.2.686 [place] Professio [phone] [address] Office Building [facility] 2020-02-29 2020-02-29 Urgent Provider, [facility] 1.2.852.826 [id number] 08:19:23 08:56:14 Care [facility] 350.1.13.10 Care [place] 4.2.7.2.686 Professio [phone] [place] [address] Office Building One 2020-02-29 2020-02-29 Outpatient R DRU [facility] [id number] Univers 08:20:00 08:20:00 ATTENDING ity [facility] 2020-02-28 2020-02-28 Telephone [facility] 1.2.839.253 [id number] Univers 00:00:00 00:00:00 [facility] 350.1.13.10 it y of [place] 4.2.7.2.686 [place] Professio [phone] [address] Office Building One 2020-02-28 2020-02-28 Telephone [facility] 1.2.495.736 [id number] 00:00:00 00:00:00 Mendy Health 350.1.13.10 [place] 4.2.7.2.686 Professio [phone] nal [facility] Office Building One 2020-01-24 2020-01-24 Outpatient R [facility] [id number] Univers 10:15:00 10:15:00 MENDY itmargarette of [facility] 2020-01-24 2020-01-24 Telemevai [facility] 1.2.840.114 [id number] Univers 07:51:32 08:06:32 ne Visit Mendy Harmon 350.1.13.10 ity of [place].2.[place] [phone] [address] 2020-01-24 2020-01-24 Telemjacqueline [facility]RE[facility] 1.2.840.114 [id number] 07:51:32 08:06:32 ne Visit Mendy Harmon 350.1.13.10 [place] 4.2.7.2.686 Professio [phone] [address] 2019-12-29 2019-12-29 Telephone [facility] 1.2.645.742 [id number] Univers 00:00:00 00:00:00 [facility]y [facility] 350.1.13.10 it y of [place] 4.2.7.2.686 [place] Professio [phone] [address] 2019-12-29 2019-12-29 Telephone [facility] 1.2.474.407 [id number] 00:00:00 00:00:00 [facility]y Health 350.1.13.10 [place] 4.2.7.2.686 Professio [phone] [address] 2019-11-17 2019-11-17 Office [facility] 1.2.840.114 [id number] [facility] 12:56:52 13:26:52 Visit Mendy Health 350.1.13.10 it y of [place] 4.2.7.2.686 [place] as Professio [phone] [address] Office [facility] 2019-11-17 2019-11-17 Office Althea [facility] 1.2.840.114 [id number] 12:56:52 13:26:52 Visit Mendy Health 350.1.13.10 [place] 4.2.7.2.686 Professio [phone] [place] [address] Office Building One 2019-11-17 2019-11-17 Outpatient R ALTHEA [facility] [id number] Univers 13:00:00 13:00:00 MENDY carmichael of [facility] 2019-10-20 2019-10-20 Orders Doctor MARCIE 1.2.840.114 [id number] Univers 00:00:00 00:00:00 Only Unassigned, JC 350.1.13.10 ity [place] [facility] 4.2.7.2.686 [place]oust[place] as [phone] [address] 2019-10-06 2019-10-06 Telephone Oh, [facility] 1.2.177.265 [id number] Univers 00:00:00 00:00:00 [facility] 350.1.13.10 it y of [place] 4.2.7.2.686 Moustapha as Pauline [phone] Al [facility] [address] Office Building One Results This patient has no known results.
[2023-04-05] MEDS ORDERED: PANTOPRAZOLE 40 MG INJ ONE (12:24)
[2023-04-05] MEDS ORDERED: ONDANSETRON 4 MG/2 ML VIAL ONE ×2 (12:24→16:00)
[2023-04-05] MEDS ORDERED: NA CHLORIDE 0.9% 1,000 ML ONE (12:24)
[2023-04-05] MEDS ORDERED: FENTANYL CITR 100 MCG/2 ML ONE (12:24)
[2023-04-05 12:49] LABS: Absolute Lymphocytes (CBC) 2.1 K/uL (0.7-4.9); Hematocrit 29.9 % (36.0-45.0); MPV 9.7 fL (7.6-11.3); RBC Red Blood Cell Count 3.36 M/uL (3.86-4.86)
[2023-04-05 12:54] LABS: Protime INR 1.16
--- NOTE | 2023-04-05 13:09 | EDPHYS ---
Physician Documentation [facility] Name: Sherita Parada Age: 72 yrs Sex: Female : 1950 Arrival Date: 04/05/2023 Time: 11:37 Bed 3 Private MD: KARYN Physician Elvis Monsalve HPI: 04/05 12:07 This 72 yrs old Female presents to ER via EMS with complaints of VOMITING ailyn BLOOD, ABD PAIN. 12:07 The patient presents with abdominal pain in the epigastric area. Onset: The ailyn symptoms/episode began/occurred 1 day(s) ago. The patient presents to the emergency department vomiting blood, a small amount, a moderate amount, bright red. Onset: The symptoms/episode began/occurred 1 day(s) ago. Abdominal pain: described as constant, crampy, located in the epigastric area, right upper quadrant and left upper quadrant. Modifying factors: The symptoms are alleviated by nothing, the symptoms are aggravated by nothing. Associated signs and symptoms: Pertinent positives: dizziness when standing, shortness of breath, vomiting. The symptoms do not radiate. Associated signs and symptoms: Pertinent positives:. Modifying factors: The symptoms are alleviated by nothing, remaining still, the symptoms are aggravated by movement, pressure, touching the area. Severity of pain: At its worst the pain was moderate in the emergency department the pain is unchanged. Severity of symptoms: At their worst the symptoms were moderate in the emergency department the symptoms are unchanged. Historical: - Allergies: 11:54 codeine sulfate; vg1 11:54 steroids; vg1 - PMHx: 11:54 High Cholesterol; Hypertension; vg1 - PSHx: 11:54 hysterectomy; Lumpectomy of breast; Benign Tumor, Left lymph node near neck; vg1 - Immunization history:: Client reports receiving the 2nd dose of the Covid vaccine. - Social history:: Smoking status: Patient reports the use of cigarette tobacco products, smokes one pack cigarettes per day. - Family history:: not pertinent. ROS: 12:07 Constitutional: Negative for fever, chills, and weight loss, Eyes: Negative for injury, ailyn pain, redness, and discharge, ENT: Negative for injury, pain, and discharge, Neck: Negative for injury, pain, and swelling, Cardiovascular: Negative for chest pain, palpitations, and edema, Respiratory: Negative for shortness of breath, cough, wheezing, and pleuritic chest pain, Back: Negative for injury and pain, : Negative for injury, bleeding, discharge, and swelling, MS/Extremity: Negative for injury and deformity, Neuro: Negative for headache, weakness, numbness, tingling, and seizure, Psych: Negative for depression, anxiety, suicide ideation, homicidal ideation, and hallucinations, Allergy/Immunology: Negative for hives, rash, and allergies, Endocrine: Negative for neck swelling, polydipsia, polyuria, polyphagia, and marked weight changes, Hematologic/Lymphatic: Negative for swollen nodes, abnormal bleeding, and unusual bruising. 12:07 Abdomen/GI: Positive for abdominal pain, nausea and vomiting, vomiting, hematemesis, of the epigastric area, right upper quadrant and left upper quadrant. 12:07 Skin: Positive for diaphoresis, pallor. Exam: 12:07 Constitutional: This is a well developed, well nourished patient who is awake, alert, ailyn and in no acute distress. Head/Face: Normocephalic, atraumatic. Eyes: Pupils equal round and reactive to light, extra-ocular motions intact. Lids and lashes normal. Conjunctiva and sclera are non-icteric and not injected. Cornea within normal limits. Periorbital areas with no swelling, redness, or edema. ENT: Nares patent. No nasal discharge, no septal abnormalities noted. Tympanic membranes are normal and external auditory canals are clear. Oropharynx with no redness, swelling, or masses, exudates, or evidence of obstruction, uvula midline. Mucous membranes moist. Neck: Trachea midline, no thyromegaly or masses palpated, and no cervical lymphadenopathy. Supple, full range of motion without nuchal rigidity, or vertebral point tenderness. No Meningismus. Chest/axilla: Normal chest wall appearance and motion. Nontender with no deformity. No lesions are appreciated. Respiratory: Lungs have equal breath sounds bilaterally, clear to auscultation and percussion. No rales, rhonchi or wheezes noted. No increased work of breathing, no retractions or nasal flaring. Back: No spinal tenderness. No costovertebral tenderness. Full range of motion. Female : Normal external genitalia. MS/ Extremity: Pulses equal, no cyanosis. Neurovascular intact. Full, normal range of motion. Neuro: Awake and alert, GCS 15, oriented to person, place, time, and situation. Cranial nerves II-XII grossly intact. Motor strength 5/5 in all extremities. Sensory grossly intact. Cerebellar exam normal. Normal gait. Psych: Awake, alert, with orientation to person, place and time. Behavior, mood, and affect are within normal limits. 12:07 Cardiovascular: Rate: tachycardic, actual rate is 106 bpm, Rhythm: regular, Pulses: Pulses are 4+ in bilateral radial, brachial, femoral, popliteal, posterior tibial and and dorsalis pedis arteries.. Heart sounds: normal, JVD: is not appreciated. 12:07 Abdomen/GI: Inspection: distension, that is mild, Bowel sounds: active, Palpation: mild abdominal tenderness, moderate abdominal tenderness, in the epigastric area, right upper quadrant and left upper quadrant, Liver: no appreciated palpable abnormalities, Hernia: not appreciated. Vital Signs: 11:50 BP 149 / 90; Pulse 106; Resp 16; Temp 97.9(O); Pulse Ox 98% on R/A; Weight 83.91 kg; vg1 Height 5 ft. 5 in. ; Pain 2/10; 12:30 BP 104 / 67; Pulse 101; Resp 18; Pulse Ox 98% on R/A; ph 13:30 BP 99 / 66; Pulse 93; Resp 18; Pulse Ox 95% on R/A; ph 14:30 BP 122 / 70; Pulse 90; Resp 20; Pulse Ox 99% ; vg1 15:14 BP 135 / 73; Pulse 90; Resp 18; Pulse Ox 98% on R/A; ph 11:50 Body Mass Index 30.79 (83.91 kg, 165.1 cm) vg1 11:50 Pain Scale: Adult vg1 MDM: 11:51 Patient medically screened. ailyn 12:14 Differential diagnosis: gastritis, diverticulitis, hemorrhagic shock, varices, ailyn appendicitis, bowel obstruction, coronary artery disease, Cholelithiasis, diverticulitis, gastritis, gastroesophageal reflux disease, GI Bleed, Hepatitis, myocardia ischemia or infarction, non-specific abd pain, pancreatitis, Peptic Ulcer Disease, urinary tract infection. Data reviewed: vital signs, nurses notes, lab test result(s), EKG, radiologic studies, CT scan, plain films. Consideration of Admission/Observation Escalation of care including admission/observation considered. I considered the following discharge prescriptions or medication management in the emergency department Medications were administered in the Emergency Department. See MAR. Test considered but Not performed: Ultrasound NO ABD USG. 04/05 12:01 Order name: Basic Metabolic Panel; Complete Time: 13:58 [facility] 04/05 12:01 Order name: CBC with Diff; Complete Time: 12:59 [facility] 04/05 12:01 Order name: LFT's; Complete Time: 13:58 [facility] 04/05 12:01 Order name: Magnesium; Complete Time: 13:58 [facility] 04/05 12:01 Order name: NT PRO-BNP; Complete Time: 13:58 [facility] 04/05 12:01 Order name: PT-INR; Complete Time: 13:06 [facility] 04/05 12:01 Order name: Troponin HS; Complete Time: 13:58 [facility] 04/05 12:01 Order name: Lipase; Complete Time: 13:58 [facility] 04/05 12:01 Order name: Type And Screen; Complete Time: 17:03 [facility] 04/05 14:00 Order name: CBC with Diff; Complete Time: 14:43 [facility] 04/05 14:43 Order name: Packed RBCs (Additional Unit) EDAK 04/05 14:52 Order name: ABO/RH no charge; Complete Time: 17:03 [facility]DA[facility] 04/05 16:27 Order name: Basic Metabolic Panel EDMS 04/05 16:27 Order name: Basic Metabolic Panel EDMS 04/05 16:27 Order name: CBC with Automated Diff EDMS 04/05 16:27 Order name: CBC with Automated Diff EDMS 04/05 16:27 Order name: Hematocrit EDMS 04/05 16:27 Order name: Hematocrit EDMS 04/05 16:27 Order name: Hematocrit EDMS 04/05 16:27 Order name: Hematocrit EDMS 04/05 16:27 Order name: Hemoglobin EDMS 04/05 16:27 Order name: Hemoglobin EDMS 04/05 16:27 Order name: Hemoglobin EDMS 04/05 16:27 Order name: Hemoglobin EDMS 04/05 16:27 Order name: Protime (+INR) EDMS 04/05 16:27 Order name: Protime (+INR) EDMS 04/05 16:27 Order name: PTT, Activated Partial Thromb EDMS 04/05 16:27 Order name: PTT, Activated Partial Thromb EDMS 04/05 16:27 Order name: CBC with Diff; Complete Time: 17:03 jl7 04/05 12:01 Order name: XRAY Chest (1 view); Complete Time: 13:58 ailyn 04/05 12:06 Order name: CT Abd/Pelvis - IV Contrast Only; Complete Time: 13:58 ailyn 04/05 12:01 Order name: EKG; Complete Time: 12:02 04/05 16:27 Order name: CONS Physician Consult EDMS 04/05 16:27 Order name: NPO EDMS 04/05 16:27 Order name: EKG Electrocardiogram EDMS 04/05 16:27 Order name: EKG Electrocardiogram EDMS 04/05 16:27 Order name: EKG Electrocardiogram EDMS 04/05 16:27 Order name: EKG Electrocardiogram EDMS 04/05 16:27 Order name: EKG Electrocardiogram EDMS 04/05 16:27 Order name: EKG Electrocardiogram EDMS 04/05 16:27 Order name: EKG Electrocardiogram EDMS 04/05 16:27 Order name: EKG Electrocardiogram EDMS 04/05 16:27 Order name: EKG Electrocardiogram EDMS 04/05 16:27 Order name: EKG Electrocardiogram EDMS 04/05 16:27 Order name: EKG Electrocardiogram EDMS 04/05 12:01 Order name: Cardiac monitoring; Complete Time: 12:56 04/05 12:01 Order name: EKG - Nurse/Tech; Complete Time: 14:01 04/05 12:01 Order name: IV Saline Lock; Complete Time: 12:43 ailyn 04/05 12:01 Order name: Labs collected and sent; Complete Time: 12:43 04/05 12:01 Order name: O2 Per Protocol; Complete Time: 12:43 04/05 12:01 Order name: O2 Sat Monitoring; Complete Time: 12:43 04/05 12:01 Order name: IV Saline Lock - Large Bore; Complete Time: 12:43 04/05 14:00 Order name: Misc. Order: BEDREST; Complete Time: 14:01 [facility] Administered Medications: 12:30 Drug: NS 0.9% IV 1000 ml Route: IV; Rate: 1 bolus; Site: left forearm; ph 13:30 Follow up: Response: No adverse reaction; IV Status: Completed infusion; IV Intake: jl7 1000ml 12:30 Drug: Pantoprazole IVP 80 mg Route: IVP; Site: left forearm; ph 16:51 Follow up: Response: No adverse reaction jl7 12:32 Drug: Ondansetron IVP 8 mg Route: IVP; Site: left forearm; ph 16:51 Follow up: Response: No adverse reaction; Nausea is decreased jl7 12:32 Drug: fentaNYL (PF) IVP 25 mcg Route: IVP; Site: left antecubital; ph 13:30 Follow up: Response: No adverse reaction; Marked relief of symptoms vg1 14:11 Drug: Pantoprazole IV 8 mg/hr Route: IV; Rate: 25 ml/hr; Site: right wrist; vg1 16:51 Follow up: Response: No adverse reaction; IV Status: Infusion continued upon admission jl7 17:45 Not Given (Other Intervention Used): fentaNYL (PF) IVP 25 mcg IVP once ph Disposition Summary: 04/05/23 13:08 Hospitalization Ordered Hospitalization Status: Inpatient Admission ailyn Provider: Jose L Bellamy cha Location: Telemetry/[facility] (Inpatient) ailyn Condition: Fair ailyn Problem: new ailyn Symptoms: have improved ailyn Bed/Room Type: Standard ailyn Room Assignment: 216(04/05/23 16:44) dw Diagnosis - GI Bleed/ Gastrointestinal hemorrhage, unspecified - UPPER ailyn - Anemia, unspecified aiyln - Hematemesis ailyn - Epigastric abdominal tenderness ailyn Forms: - Medication Reconciliation Form ailyn - SBAR form ailyn Signatures: Dispatcher [employer] Amy Silva RN RN dw Anderson, Corey, MD MD cha Hall, Patricia, RN RN ph Garcia, Victoria, RN RN vg1 Janine Moran RN jl7 Corrections: (The following items were deleted from the chart) 16:44 13:08 ailyn dw
--- NOTE | 2023-04-05 13:09 | ER ---
Nurse's Notes [facility] Name: Sherita Parada Age: 72 yrs Sex: Female : 1950 Arrival Date: 04/05/2023 Time: 11:37 Bed 3 Private MD: Diagnosis: GI Bleed/ Gastrointestinal hemorrhage, unspecified-UPPER;Anemia, unspecified;Hematemesis;Epigastric abdominal tenderness Presentation: 04/05 11:50 Chief complaint: EMS states: vomited blood x1 this morning, appears to have blood vg1 clots. On March 07, 2023 pt had "saliva gland sx", two weeks after had post op and was 'cleared'. Pt stated Epigastric discomfort, denies blood in stool or dark stool. Last BM was this morning, stated 'normal'. Coronavirus screen: Vaccine status: Patient reports receiving the 2nd dose of the covid vaccine. Ebola Screen: Patient negative for fever greater than or equal to 101.5 degrees Fahrenheit, and additional compatible Ebola Virus Disease symptoms Patient denies exposure to infectious person. Patient denies travel to an Ebola-affected area in the 21 days before illness onset. Initial Sepsis Screen: Does the patient meet any 2 criteria? HR > 90 bpm. Does the patient have a suspected source of infection? No. Patient's initial sepsis screen is negative. Risk Assessment: Do you want to hurt yourself or someone else? Patient reports no desire to harm self or others. Patient reports desire/thoughts of hurting themselves or someone else. Provider notified. Onset of symptoms was April 05, 2023. 11:50 Method Of Arrival: EMS: [facility] vg1 11:50 Acuity: NAVIN 3 vg1 11:54 Care prior to arrival: Medication(s) given: zofran 4 mg, IV initiated. 20 GA, in the vg1 left forearm. Triage Assessment: 11:54 General: Appears in no apparent distress. comfortable, Behavior is calm, cooperative. vg1 Pain: Complains of pain in epigastric area Pain currently is 2 out of 10 on a pain scale. Neuro: Level of Consciousness is awake, alert, obeys commands, Oriented to person, place, time, situation, Reports dizziness. Cardiovascular: Patient's skin is warm and dry. GI: Abdomen is round non-distended, Reports nausea, vomiting, blood, with blood clots. Musculoskeletal: Circulation, motion, and sensation intact. Historical: - Allergies: 11:54 codeine sulfate; vg1 11:54 steroids; vg1 - PMHx: 11:54 High Cholesterol; Hypertension; vg1 - PSHx: 11:54 hysterectomy; Lumpectomy of breast; Benign Tumor, Left lymph node near neck; vg1 - Immunization history:: Client reports receiving the 2nd dose of the Covid vaccine. - Social history:: Smoking status: Patient reports the use of cigarette tobacco products, smokes one pack cigarettes per day. - Family history:: not pertinent. Screenin:56 [facility] ED Fall Risk Assessment (Adult) History of falling in the last 3 months, vg1 including since admission No falls in past 3 months (0 pts). Abuse screen: Denies threats or abuse. Denies injuries from another. Nutritional screening: No deficits noted. Tuberculosis screening: No symptoms or risk factors identified. Assessment: 11:56 Reassessment: SEE TRIAGE. vg1 13:32 Reassessment: pt transported to CT via stretcher. vg1 14:46 Reassessment: Patient appears in no apparent distress at this time. Patient and/or vg1 family updated on plan of care and expected duration. Pain level reassessed. pt resting with eyes closed. 15:14 Reassessment: Patient appears in no apparent distress at this time. No changes from ph previously documented assessment. Patient and/or family updated on plan of care and expected duration. Pain level reassessed. 16:30 Reassessment: Patient appears in no apparent distress at this time. Pt laying in bed jl7 with eyes closed, respirations even and unlabored, no signs of distress noted at this time. 17:55 Reassessment: Patient appears in no apparent distress at this time. Patient and/or vg1 family updated on plan of care and expected duration. Pain level reassessed. Patient is alert, oriented x 3, equal unlabored respirations, skin warm/dry/pink. Vital Signs: 11:50 BP 149 / 90; Pulse 106; Resp 16; Temp 97.9(O); Pulse Ox 98% on R/A; Weight 83.91 kg; vg1 Height 5 ft. 5 in. ; Pain 2/10; 12:30 BP 104 / 67; Pulse 101; Resp 18; Pulse Ox 98% on R/A; ph 13:30 BP 99 / 66; Pulse 93; Resp 18; Pulse Ox 95% on R/A; ph 14:30 BP 122 / 70; Pulse 90; Resp 20; Pulse Ox 99% ; vg1 15:14 BP 135 / 73; Pulse 90; Resp 18; Pulse Ox 98% on R/A; ph 11:50 Body Mass Index 30.79 (83.91 kg, 165.1 cm) vg1 11:50 Pain Scale: Adult vg1 ED Course: 11:42 Patient arrived in ED. eb 11:43 Magda Velásquez, RN is Primary Nurse. vg1 11:51 Elvis Monsalve MD is Attending Physician. ailyn 11:54 Triage completed. vg1 11:54 Arm band placed on. vg1 11:56 Patient has correct armband on for positive identification. Placed in gown. Bed in low vg1 position. Call light in reach. Side rails up X2. Adult w/ patient. Client placed on continuous cardiac and pulse oximetry monitoring. NIBP monitoring applied. 12:30 Initial lab(s) drawn, by me, sent to lab. Inserted saline lock: 20 gauge in right ph wrist, using aseptic technique. Blood collected. Maintain EMS IV. Dressing intact. Good blood return noted. Site clean \\T\\ dry. Gauge \\T\\ site: 20 LFA. 13:07 XRAY Chest (1 view) In Process Unspecified. EDMS 13:07 Jose L Bellamy MD is Hospitalizing Provider. [facility] 13:44 CT Abd/Pelvis - IV Contrast Only In Process Unspecified. EDMS 14:27 Repeat lab(s) drawn. by me, sent to lab. jl7 16:50 Repeat lab(s) drawn. by me, sent to lab. jl7 17:19 No provider procedures requiring assistance completed. Patient admitted, IV remains in vg1 place. Administered Medications: 12:30 Drug: NS 0.9% IV 1000 ml Route: IV; Rate: 1 bolus; Site: left forearm; ph 13:30 Follow up: Response: No adverse reaction; IV Status: Completed infusion; IV Intake: jl7 1000ml 12:30 Drug: Pantoprazole IVP 80 mg Route: IVP; Site: left forearm; ph 16:51 Follow up: Response: No adverse reaction jl7 12:32 Drug: Ondansetron IVP 8 mg Route: IVP; Site: left forearm; ph 16:51 Follow up: Response: No adverse reaction; Nausea is decreased jl7 12:32 Drug: fentaNYL (PF) IVP 25 mcg Route: IVP; Site: left antecubital; ph 13:30 Follow up: Response: No adverse reaction; Marked relief of symptoms vg1 14:11 Drug: Pantoprazole IV 8 mg/hr Route: IV; Rate: 25 ml/hr; Site: right wrist; vg1 16:51 Follow up: Response: No adverse reaction; IV Status: Infusion continued upon admission jl7 17:45 Not Given (Other Intervention Used): fentaNYL (PF) IVP 25 mcg IVP once ph Medication: 13:39 VIS not applicable for this client. ph Intake: 13:30 IV: 1000ml; Total: 1000ml. jl7 Outcome: 13:08 Decision to Hospitalize by Provider. ailyn 17:18 Admitted to Tele accompanied by tech, room 216, with chart, Report called to lory Brito RN 17:18 Condition: stable 17:18 Instructed on the need for admit. 17:55 Patient left the ED. lory Signatures: Dispatcher [employer] Elvis Reyes MD MD cha Hall, Patricia, RN RN ph Janine Moran RN RN Gwen Bermudez Victoria, RN RN vg1
[2023-04-05 13:11] LABS: ALT/SGPT 17 U/L (13-56); AST/SGOT 12 U/L (15-37); Alkaline Phosphatase 82 U/L (45-117); BUN Blood Urea Nitrogen 61 mg/dL (7-18); Bicarbonate 25 mEq/L (21-32); Bilirubin Total 0.3 mg/dL (0.2-1.0); Glomerular Filtration Rate 50 ml/min (=/>90); Glucose Level 147 mg/dL (74-106); Lipase 17 U/L (13-75); NT PRO-BNP 1408 pg/mL (<125); Potassium 3.7 mEq/L (3.5-5.1); Sodium Level 136 mEq/L (136-145); Troponin High Sensitivity 26.7 pg/mL (<58.9)
[2023-04-05 13:21] LABS: Bilirubin Direct < 0.1 mg/dL (0-0.2); Bilirubin Indirect, Calculated ND mg/dL (0.2-0.8)
--- NOTE | 2023-04-05 13:28 | RAD REPORT ---
EXAM DESCRIPTION: RAD - Chest Single View - 04/05/2023 1:05 pm CLINICAL HISTORY: COUGH Chest pain. COMPARISON: Chest Single View dated 03/18/2020 FINDINGS: Portable technique limits examination quality. The lungs are emphysematous but grossly clear. Heart is moderately enlarged. No displaced fractures. IMPRESSION: No acute intrathoracic process suspected. COPD.
[2023-04-05] MEDS: PANTOPRAZOLE INJ 80 MG in NA CHLORIDE 0.9% 250 ML IV SCH ×2 (13:30→23:36)
--- NOTE | 2023-04-05 13:52 | RAD REPORT ---
EXAM DESCRIPTION: CTAbdomen Pelvis W Contrast - 04/05/2023 1:42 pm CLINICAL HISTORY: Abdominal pain. ABD PAIN COMPARISON: No comparisons TECHNIQUE: Biphasic CT imaging of the abdomen and pelvis was performed with 100 ml non-ionic IV cont rast. All CT scans are performed using dose optimization technique as appropriate and may include automated exposure control or mA/KV adjustment according to patient size. FINDINGS: The lung bases are clear. The liver, spleen, pancreas, adrenal glands and kidneys are within normal limits. No bowel obstruction, free air, free fluid or abscess. Prominent stool is present in the rectum. Non visualized appendix. No evidence of significant lymphadenopathy. Moderate stool is present lower lumbar spine. IMPRESSION: No acute intra-abdominal or pelvic finding.
[2023-04-05 14:33] LABS: Absolute Lymphocytes (CBC) 1.1 K/uL (0.7-4.9); Hematocrit 26.4 % (36.0-45.0); Lymphocytes % 8.1 % (15.3-44.8); MCV 89.1 fL (80-100); MPV 9.2 fL (7.6-11.3); RBC Red Blood Cell Count 2.97 M/uL (3.86-4.86)
[2023-04-05] MEDS ORDERED: ACETAMINOPHEN 500 MG TAB PO PRN (16:22)
[2023-04-05] MEDS ORDERED: ONDANSETRON 4 MG/2 ML VIAL IV PRN (16:22)
--- NOTE | 2023-04-05 16:28 | P.HP ---
Certification for Inpatient Patient admitted to: Inpatient With expected LOS: >2 Midnights Patient will require the following post-hospital care: None Practitioner: I am a practitioner with admitting privileges, knowledge of patient current condition, hospital course, and medical plan of care. Services: Services provided to patient in accordance with Admission requirements found in Title 42 Section 412.3 of the Code of Federal Regulations Patient History Date of Service: 04/05/23 Reason for admission: Acute GI bleeding History of Present Illness: Patient is a 72-year-old female who comes to the hospital with GI bleeding. Patient has been on NSAIDs and aspirin for quite a while. Patient states she started having some abdominal pain and then vomited up bright red blood. Her pain was mainly in the epigastric region. She decided to come into the emergency room for further evaluation. In the emergency room she was found to be slightly anemic. Patient was started on a Protonix drip. Spoke with GI and they will see the patient as well. We will continue with n.p.o. Patient will be admitted to the hospital for further evaluation. Allergies codeine Allergy (Verified 03/05/23 12:33) AMS Home Medications: Cholecalciferol (Vitamin D3) [Vitamin D3] 1,000 unit PO DAILY 03/05/23 Diltiazem HCl [Cardizem Cd] 180 mg PO DAILY 03/05/23 Fluoxetine HCl [Prozac] 3 cap PO DAILY 03/05/23 Furosemide [Lasix*] 40 mg PO DAILY 03/05/23 Isosorbide Mononitrate [Isosorbide Mononitrate ER] 30 mg PO DAILY 03/05/23 Pravastatin [Pravachol*] 40 mg PO DAILY 03/05/23 Propranolol [Inderal*] 40 mg PO BID 03/05/23 Tramadol HCl [Ultram] 50 mg PO PRN PRN 03/05/23 cloNIDine HCL [Clonidine HCl] 0.2 mg PO TID 03/05/23 Cyanocobalamin (Vitamin B-12) [Vitamin B12] 5,000 mcg SL DAILY #30 tab 04/06/23 - Past Medical/Surgical History -: Depression -: Hypertension -: Osteoarthritis Past Surgical History: Patient denies surgical history - Family History Father Family History: Reviewed- Non-Contributory Mother Medical History: Diabetes, Stroke - Social History Smoking Status: Unknown if ever smoked Alcohol use: No CD- Drugs: No Review of Systems 10-point ROS is otherwise unremarkable Physical Examination - Vital Signs Temperature: 98 F Blood Pressure: 110/80 Pulse: 80 Respirations: 18 Pulse Ox (%): 95 - Physical Exam General: Alert, In no apparent distress, Oriented x3 HEENT: Atraumatic, PERRLA, Mucous membr. moist/pink, EOMI, Sclerae nonicteric Neck: Supple, 2+ carotid pulse no bruit, No LAD, Without JVD or thyroid abn ormality Respiratory: Clear to auscultation bilaterally, Normal air movement Cardiovascular: Regular rate/rhythm, Normal S1 S2 Gastrointestinal: Normal bowel sounds, Soft and benign, Non-distended, Tenderness Musculoskeletal: No clubbing, No swelling, No tenderness Integumentary: No rashes Neurological: Normal gait, Normal speech, Normal strength at 5/5 x4 extr, Normal tone, Sensation intact, Cranial nerves 3-12 intact, Normal affect Lymphatics: No axilla or inguinal lymphadenopathy - Studies Laboratory Data (last 24 hrs) 04/05/23 14:24: WBC 14.10 H, Hgb 8.8 L D, Hct 26.4 L, Plt Count 177 04/05/23 12:30: PT 12.8 H, INR 1.16 04/05/23 12:30: WBC 12.60 H, Hgb 9.7 L, Hct 29.9 L, Plt Count 221 04/05/23 12:30: Sodium 136, Potassium 3.7, BUN 61 H, Creatinine 1.15 H, Glucose 147 H, Magnesium 2.0, Total Bilirubin 0.3, AST 12 L, ALT 17, Alkaline Phosphatase 82, Lipase 17 Assessment & Plan - Problems (Diagnosis) (1) Upper GI bleeding Current Visit: Yes Status: Acute (2) HTN (hypertension) Current Visit: Yes Status: Acute (3) NSAID-associated gastropathy Current Visit: Yes Status: Acute (4) HTN (hypertension) Current Visit: Yes Status: Acute - Plan Plan: 1. Continue with IV hydration and PPI drip 2. Continue with IV antibiotics 3. Continue with pain control 4. NPO 5. GI consultation 6. Serial H&H, and we will monitor LFTs and lipase along with electrolytes. 7. Strict blood pressure control 8. GI and DVT prophylaxis Discharge Plan: Home Plan to discharge in: Greater than 2 days - Advance Directives Does patient have a Living Will: No Does patient have a Durable POA for Healthcare: No - Code Status/Comfort Care Code Status Assessed: Yes Code Status: Full Code Critical Care: No Time Spent Managing PTS Care (In Minutes): 45
[2023-04-05 16:58] LABS: Absolute Lymphocytes (CBC) 1.5 K/uL (0.7-4.9); Hematocrit 27.5 % (36.0-45.0); Lymphocytes % 12.3 % (15.3-44.8); MPV 9.3 fL (7.6-11.3); RBC Red Blood Cell Count 3.09 M/uL (3.86-4.86)
[2023-04-05] MEDS: NA CHLORIDE 0.9% 1,000 ML IV SCH ×2 (17:00→22:09)
[2023-04-05] MEDS ORDERED: NA CHLORIDE 0.9% 250 ML IV SCH (17:00)
[2023-04-05 19:27] LABS: Hematocrit 26.1 % (36.0-45.0)
[2023-04-05 20:02] VITALS: BMI 30.7
[2023-04-05 20:43] LABS: Hematocrit 25.8 % (36.0-45.0)
[2023-04-06 01:14] LABS: Hematocrit 25.3 % (36.0-45.0)
[2023-04-06] MEDS: MORPHINE 2 MG/ML SYR IV PRN ×2 (01:34→05:12)
[2023-04-06] MEDS: NA CHLORIDE 0.9% 1,000 ML IV SCH ×2 (03:00→13:00)
[2023-04-06 03:37] LABS: Absolute Lymphocytes (CBC) 2.3 K/uL (0.7-4.9); Hematocrit 24.8 % (36.0-45.0); Lymphocytes % 20.3 % (15.3-44.8); MCV 89.1 fL (80-100); RBC Red Blood Cell Count 2.78 M/uL (3.86-4.86)
[2023-04-06 03:42] LABS: Protime INR 1.19
[2023-04-06 03:56] LABS: Potassium 3.6 mEq/L (3.5-5.1)
[2023-04-06] MEDS ORDERED: HYDRALAZINE HCL 20 MG/ML VIAL IV PRN (04:36)
[2023-04-06] MEDS: Ringers Lactate 1,000 ML IV ONE ×2 (08:47→08:49)
[2023-04-06] MEDS: PANTOPRAZOLE INJ 80 MG in NA CHLORIDE 0.9% 250 ML IV SCH ×2 (08:50→10:39)
[2023-04-06] MEDS ORDERED: propofoL 200 MG/20 ML VIAL IV ONE (09:25)
--- NOTE | 2023-04-06 11:54 | CON ---
Date of Consultation: 04/06/2023 Reason For Consultation: Upper GI bleed, hematemesis, nausea, vomiting, upper abdominal pain. History Of Present Illness: Patient is a 72-year-old white female with history of hypertension, hype rlipidemia, osteoarthritis, COPD. Patient presented to the hospital with 1-day history of hematemesi s. Patient states she had nausea, vomiting, fevers, chills, night sweats, and also midepigastric and right upper quadrant pain, maximum 10/10 now down about /10. She has also lost about 50 pounds ove r the past year and she is a chronic smoker of approximately half pack per day. She also reports had taken aspirin and NSAIDs for chronic pain all over her body. She denies any change in bowel habits, diarrhea, constipation, muscle aches, joint aches, backaches, headaches, chest pain, shortness of br eath, seizure, syncope, lower extremity edema, muscle aches, joint aches. She did report occasional lower extremity edema, none now. Past Medical History: Significant for hypertension, hyperlipidemia, osteoarthritis, COPD, tobacco ab use, depression, hysterectomy, breast lumpectomy, looks like a lymph node biopsy in the past for breezy gn process. Allergies: CODEINE. Medications: At home include Aloe Vera, aspirin, vitamin D3, Cardizem or diltiazem, Prozac, Lasix, I sordil, lisinopril, hydrochlorothiazide, meloxicam, , vitamins, pravastatin, Marcel al, Ultram, clonidine. Review of Systems: Patient has nausea; vomiting; hematemesis; fevers; chills; night sweats; change in weight, approximat riley lost 50 pounds over the past year; chronic tobacco smoker; midepigastric pain; right upper quadra nt pain. Positive NSAIDs, aspirin. She denies any melena, hematochezia, hematemesis. Right now, wisam wong has no coffee-ground emesis. She did report hematemesis. No muscle aches, joint aches. No change in bowel habits, diarrhea, or constipation. Positive for some depression and . Social History: She is a , 2 sons. Positive for tobacco half pack per day. No alcohol. Family History: Father of diabetes, hypertension, myocardial infarction, another medical condit ion she cannot recall at this time. Mother of stroke. Physical Examination: Vital Signs: Patient is 5 feet 5 inches, 185 pounds, formally 235 pounds she reports, has lost 50 po unds. BMI now 30.8 kg/sq m. She has temperature 97.4 degrees Fahrenheit, pulse 106, respirations 16 , blood pressure 144/79, O2 saturation 92% to 98%. General: She is an obese female, lying in bed, in no acute distress. HEENT: Normocephalic, atraumatic. Anicteric. Pupils equal, round, and reactive to light. Extraocu lar movements are intact. Oropharynx clear. Neck: Supple. No masses. Respirations: Clear to auscultation bilaterally. Cardiac: Regular rate and rhythm. Gastrointestinal: Positive bowel sounds. Soft, nondistended. No hepatosplenomegaly. Some mild cassi n in the right upper quadrant midepigastric area. Extremities: No clubbing, cyanosis, or edema. 2+ pulses. Neuro: Alert and oriented x3. Grossly nonfocal. Able to move all extremities well. Sensation is intact to light touch. Laboratory Data: Patient has a white count of 11.3 down from 14.1 yesterday, hemoglobin is 8.3 down from 9.7 on admission; hematocrit 25, MCV of 89, platelet count of 173, polys of 68%, lymphocytes 20% , monocytes 10%, eosinophils 1%; basophils 1%. PT of 13.1, INR of 1.2, PTT of 29.1. Patient has a s odium 142, potassium 3.6, chloride 110, bicarb 27, BUN of 51, creatinine of 1.02, glucose 110, calciu m 8.5. Patient's magnesium is 2.0. Total bilirubin 0.3, direct bilirubin less than 0.1, AST of 12, ALT of 17, alk phos 82. Troponin I of 26.7, normal. B-type natriuretic peptide of 1408. Probable c ongestive heart failure. Total protein 6.0, albumin 3.0. Lipase 17. CT abdomen and pelvis was nega tive. Impression: 1.Upper abdominal gastrointestinal bleeding with hematemesis; nausea; vomiting; midepigastric right upper quadrant pain, maximum 10/10, down to 1/10; associated with fevers, chills, night sweats, 50 po unds weight loss over the past year with positive tobacco history of half pack per day for many years . Had aspirin and ibuprofen for body aches all over her body. She reports no change in bowel habits . 2.Possible congestive heart failure with B-type natriuretic peptide of 1408. 3.History of hypertension, hyperlipidemia, arthritis, osteoarthritis, chronic obstructive pulmonary disease, tobacco abuse, depression, hysterectomy, breast lumpectomy, and lymph node biopsy in the pas t that was benign. Recommendations: 1.Continue IV fluid resuscitation. 2.Serial H and H and transfuse p.r.n. 3.PPI therapy. 4.Keep patient n.p.o. 5.Proceed with urgent EGD. JOSÉ LUIS/KIRSTEN Voice ID: [id number] Report ID: [id number]
[2023-04-06] MEDS: TRAMADOL HCL 50 MG TAB PO PRN ×2 (14:45→21:42)
[2023-04-06 15:06] LABS: Absolute Lymphocytes (CBC) 1.7 K/uL (0.7-4.9); Hematocrit 23.8 % (36.0-45.0); Lymphocytes % 16.3 % (15.3-44.8); MCV 89.4 fL (80-100); RBC Red Blood Cell Count 2.66 M/uL (3.86-4.86)
[2023-04-06] MEDS ORDERED: CYANOCOBALAMIN 1000MCG/ML INJ IM ONE (18:10)
--- NOTE | 2023-04-06 18:42 | P.PN ---
Subjective Date of Service: 04/06/23 Patient is doing better. Status post EGD with gastric ulcers and gastric erosions with no active bleeding. Hemoglobin down to 7.8. Will repeat in the morning. If hemoglobin stable anticipate discharge home. Review of Systems 10-point ROS is otherwise unremarkable Physical Examination - Vital Signs Temperature: 98 F Blood Pressure: 110/80 Pulse: 80 Respirations: 18 Pulse Ox (%): 95 - Physical Exam General: Alert, In no apparent distress, Oriented x3 HEENT: Atraumatic, PERRLA, EOMI Neck: Supple, JVD not distended Respiratory: Clear to auscultation bilaterally, Normal air movement Cardiovascular: Regular rate/rhythm, Normal S1 S2 Gastrointestinal: Normal bowel sounds, No tenderness Musculoskeletal: No tenderness Integumentary: No rashes Neurological: Normal speech, Normal tone, Normal affect Lymphatics: No axilla or inguinal lymphadenopathy - Studies Medications List Reviewed: Yes Assessment & Plan - Problems (Diagnosis) (1) Upper GI bleeding Current Visit: Yes Status: Acute (2) HTN (hypertension) Current Visit: Yes Status: Acute (3) NSAID-associated gastropathy Current Visit: Yes Status: Acute (4) HTN (hypertension) Current Visit: Yes Status: Acute - Plan Plan: 1. Continue with IV hydration and PPI drip changed to twice daily; 2. DC antibiotic therapy 3. Continue with pain control 4. Clear liquid diet; advance as tolerated 5. GI consultation appreciated; s/p EGD 6. Serial H&H 7. Strict blood pressure control 8. GI and DVT prophylaxis Discharge Plan: Home Plan to discharge in: Greater than 2 days - Advance Directives Does patient have a Living Will: No Does patient have a Durable POA for Healthcare: No - Code Status/Comfort Care Code Status: Full Code Critical Care: No Time Spent Managing PTS Care (In Minutes): 35
[2023-04-06] MEDS ORDERED: SODIUM CHLORIDE 0.9% 10ML INJ IV PRN (18:51)
[2023-04-06] MEDS ORDERED: FLUOXETINE 20 MG CAP PO ONE (20:00)
[2023-04-06 20:24] LABS: Absolute Lymphocytes (CBC) 1.7 K/uL (0.7-4.9); Hematocrit 23.5 % (36.0-45.0); Lymphocytes % 16.8 % (15.3-44.8); MPV 9.4 fL (7.6-11.3); RBC Red Blood Cell Count 2.64 M/uL (3.86-4.86)
[2023-04-06] MEDS: cloNIDine HCL 0.1 MG TAB PO SCH (21:06)
[2023-04-06] MEDS: PANTOPRAZOLE 40 MG INJ IVP SCH (21:07)
[2023-04-06] MEDS: PROPRANOLOL HCL 40 MG TAB PO SCH (21:10)
[2023-04-07 00:38] VITALS: TEMP 97.6
[2023-04-07 02:45] VITALS: O2SAT 93
[2023-04-07 08:16] LABS: Absolute Lymphocytes (CBC) 1.3 K/uL (0.7-4.9); Hematocrit 23.2 % (36.0-45.0); Lymphocytes % 13.8 % (15.3-44.8); MCV 88.9 fL (80-100); MPV 8.8 fL (7.6-11.3); RBC Red Blood Cell Count 2.61 M/uL (3.86-4.86)
[2023-04-07] MEDS ORDERED: FUROSEMIDE 40 MG TABLET PO SCH (09:00)
[2023-04-07] MEDS: PROPRANOLOL HCL 40 MG TAB PO SCH (09:00)
[2023-04-07] MEDS ORDERED: ISOSORBIDE MONO SR 30 MG TAB PO SCH (09:00)
[2023-04-07] MEDS ORDERED: ATORVASTATIN 10 MG TAB PO SCH (09:00)
[2023-04-07] MEDS: PANTOPRAZOLE 40 MG INJ IVP SCH (09:00)
[2023-04-07] MEDS: cloNIDine HCL 0.1 MG TAB PO SCH ×2 (09:00→13:34)
[2023-04-07] MEDS ORDERED: FLUOXETINE 20 MG CAP PO SCH ×2 (09:00)
--- NOTE | 2023-04-07 11:47 | EKG ---
Test Date: 2023-04-05 Test Time: 13:58:34 Database Designer: MARYURI MEASUREMENT RESULTS: Intervals: Rate: 88 NM: 180 QRSD: 106 QT: 414 QTc: 500 [place]: P: 72 NM: 180 QRS: -47 T: 58 INTERPRETIVE STATEMENTS: Normal sinus rhythm Left anterior fascicular block Septal infarct, age undetermined Abnormal ECG Compared to ECG 03/05/2023 12:42:57 Sinus bradycardia no longer present Myocardial infarct finding still present Electronically Signed On 04-07-23 11:45:02 CDT by David Mason
[2023-04-07 13:37] VITALS: BP 116/73
--- NOTE | 2023-04-07 14:37 | P.PN ---
Subjective Date of Service: 04/07/23 Chief Complaint: Acute GI bleeding, hematemesis, anemia Subjective: Improving (No further GI bleeding, hematemesis, hgb stable at ~ 8. Tolerating CLs to FLs. Wants to go home) Review of Systems 10-point ROS is otherwise unremarkable General: Weakness (Improved. ), Malaise (Improved.) Physical Examination - Vital Signs Temperature: 97.6 F Blood Pressure: 116/73 Pulse: 77 Respirations: 18 Pulse Ox (%): 93 - Physical Exam General: Alert, In no apparent distress, Oriented x3, Cooperative HEENT: Atraumatic, Normocephalic, PERRLA, EOMI Neck: Supple Respiratory: Normal air movement Cardiovascular: Normal pulses Gastrointestinal: Soft and benign, No masses, No guarding Neurological: Normal speech, Normal strength at 5/5 x4 extr - Studies Medications List Reviewed: Yes Assessment And Plan - Current Problems (Diagnosis) (1) Hematemesis Current Visit: Yes Status: Acute Comment: Resolved on PPI therapy (2) Gastritis Current Visit: Yes Status: Acute (3) Ulcer, gastric, acute Current Visit: Yes Status: Acute (4) NSAID-associated gastropathy Current Visit: Yes Status: Acute (5) Upper GI bleeding Current Visit: Yes Status: Acute - Plan REC: 1) Continue Protonix 40 mg bid for 2 months and then qd 2) Advance diet to GI soft 3) Okay to discharge 4) GI clinic f/u 5) await EGD pathology 6) await gastrin level
[2023-04-07] MEDS: TRAMADOL HCL 50 MG TAB PO PRN (14:44)
== END 2023-04-07 15:38 | disposition home or self-care (01) | DRG 379 ==
LOC: ER 11:37 → ERHOLD 16:22 → 2ND 17:27
PROVIDERS: ADMIT Hospitalist; ATTEND Hospitalist
PROC: 0DB78ZX Excision of Stomach, Pylorus, Via Natural or Artificial Opening Endoscopic, Diagnostic (ICD-10-PCS; 2023-04-06)
PROC: 0DB68ZX Excision of Stomach, Via Natural or Artificial Opening Endoscopic, Diagnostic (ICD-10-PCS; principal; 2023-04-06 09:00)
DX: K29.01 Acute gastritis with bleeding (principal); E78.00 Pure hypercholesterolemia, unspecified; I10 Essential (primary) hypertension; K31.9 Disease of stomach and duodenum, unspecified; D64.9 Anemia, unspecified; J44.9 Chronic obstructive pulmonary disease, unspecified; M19.90 Unspecified osteoarthritis, unspecified site; F17.210 Nicotine dependence, cigarettes, uncomplicated; T39.395A Adverse effect of other nonsteroidal anti-inflammatory drugs [NSAID], initial encounter; Z88.5 Allergy status to narcotic agent; Z90.710 Acquired absence of both cervix and uterus; Z79.899 Other long term (current) drug therapy
CPT/HCPCS: 36415; 71045; 74177; 80048; 80076; 82607; 82941; 83540; 83690; 83735; 83880; 84484; 85014; 85018; 85025; 85610; 85730; 86850; 86900; 86901; 86920; 88305; 88312; 93005; 99285; C9113; J0360; J2270; J2405; J2704; J3010; J3420; J7030; J7050; J7120; Q9967

== ENCOUNTER 2024-06-10 15:49 | Inpatient (IN) | payer OTHER ==
[2024-06-10 18:17] LABS: Absolute Lymphocytes (CBC) 0.6 K/uL (0.7-4.9); Absolute Neutrophil 4.3 K/uL (1.8-8.0); Basophils % 0.4 % (0-1.3); Eosinophils % 0.6 % (0-4.4); Hematocrit 40.8 % (36.0-45.0); Hemoglobin 13.8 g/dL (12.0-15.0); Lymphocytes % 9.9 % (15.3-44.8); MCH 29.3 pg (27.0-35.0); MCHC 33.7 g/dL (32.0-36.0); MPV 8.8 fL (7.6-11.3); Monocytes % 16.2 % (3.3-12.3); Neutrophils % 72.9 % (41.7-73.7); Nucleated Red Blood Cells % 0.1 % (0-0); Platelets 174 thou/uL (152-406); RBC Red Blood Cell Count 4.69 M/uL (3.86-4.86); Red Cell Distribution Width 14.1 % (12.1-15.2)
[2024-06-10 18:24] LABS: Albumin/Globulin Ratio 0.8 (1.1-1.8); Anion Gap 11.2 mEq/L (5.0-15.0); Bilirubin Total 0.4 mg/dL (0.2-1.0); Potassium 3.2 mEq/L (3.5-5.1)
[2024-06-10] MEDS ORDERED: droPERidol 5 MG/2 ML VIAL ONE (18:30)
[2024-06-10] MEDS ORDERED: DIPHENHYDRAMINE 50 MG/ML VIAL ONE (18:30)
[2024-06-10] MEDS ORDERED: NA CHLORIDE 0.9% 1,000 ML ONE ×2 (18:39→18:48)
--- NOTE | 2024-06-10 18:41 | ER ---
Nurse's Notes [facility] Name: Sherita Parada Age: 73 yrs Sex: Female : 1950 Arrival Date: 06/10/2024 Time: 15:49 Bed 6 Private MD: Diagnosis: Vomiting;Diarrhea, unspecified;Hypokalemia;Weakness;Acute kidney failure, unspecified;Other viral enteritis;Abnormal findings on diagnostic imaging of other specified body structures-right renal nmass;Abnormal levels of other serum enzymes-elevated troponin;Hypo-osmolality and hyponatremia Presentation: 06/10 16:02 Chief complaint: Patient states: Pt c/o nausea, vomiting, diarrhea x "nearly a week". tl4 Pt unable to tolerate food or liquids. Coronavirus screen: diarrhea, nausea, vomiting. Ebola Screen: No symptoms or risks identified at this time. Initial Sepsis Screen: Does the patient meet any 2 criteria? No. Patient's initial sepsis screen is negative. Does the patient have a suspected source of infection? No. Patient's initial sepsis screen is negative. Risk Assessment: Do you want to hurt yourself or someone else? Patient reports no desire to harm self or others. Onset of symptoms is unknown. 16:02 Method Of Arrival: Wheelchair tl4 16:02 Acuity: NAVIN 3 tl4 Triage Assessment: 16:08 General: Appears distressed, uncomfortable, Behavior is cooperative. Pain: Denies pain. tl4 EENT: No signs and/or symptoms were reported regarding the EENT system. Neuro: Level of Consciousness is awake, alert, obeys commands, Oriented to person, place, time, situation. Cardiovascular: Capillary refill < 3 seconds Patient's skin is warm and dry. Respiratory: Airway is patent Respiratory effort is even, unlabored, Respiratory pattern is regular, symmetrical. GI: Reports diarrhea, intolerance of fluids, intolerance of food, nausea, vomiting. : No signs and/or symptoms were reported regarding the genitourinary system. Derm: No signs and/or symptoms reported regarding the dermatologic system. Musculoskeletal: No signs and/or symptoms reported regarding the musculoskeletal system. Historical: - Allergies: 16:03 codeine sulfate ('makes me crazy'); tl4 16:03 Morphine; tl4 16:03 steroids (hypertension); tl4 - PMHx: 16:03 High Cholesterol; Hypertension; tl4 - PSHx: 16:03 Benign Tumor; hysterectomy; Lumpectomy of breast; Appendectomy; tl4 16:07 Cyst removal, groin; tl4 - Immunization history:: Adult Immunizations unknown. - Infectious Disease History:: Denies. - Social history:: Smoking status: Patient reports the use of cigarette tobacco products, 8 cigarettes/day. Screenin:58 [facility] ED Fall Risk Assessment (Adult) History of falling in the last 3 months, mb9 including since admission No falls in past 3 months (0 pts) Confusion or Disorientation No (0 pts) Intoxicated or Sedated No (0 pts) Impaired Gait No (0 pts) Mobility Assist Device Used No (0 pt) Altered Elimination No (0 pt) Score/Fall Risk Level 0 - 2 = Low Risk Oriented to surroundings, Maintained a safe environment, Educated pt \\T\\ family on fall prevention, incl call for assistance when getting out of bed. Abuse screen: Denies threats or abuse. Nutritional screening: No deficits noted. Tuberculosis screening: No symptoms or risk factors identified. Assessment: 17:58 General: Appears in no apparent distress. Behavior is calm, cooperative. Pain: Denies mb9 pain. Neuro: Young Agitation-Sedation Scale (RASS): 0 - Alert and Calm Level of Consciousness is awake, alert, obeys commands, Oriented to person, place, time, situation, Appropriate for age. Cardiovascular: Patient's skin is warm and dry. Respiratory: Airway is patent Respiratory effort is even, unlabored, Respiratory pattern is regular, symmetrical. GI: Abdomen is round non-distended, Bowel sounds present X 4 quads. Abd is soft and non tender X 4 quads. Reports diarrhea. : No signs and/or symptoms were reported regarding the genitourinary system. EENT: No signs and/or symptoms were reported regarding the EENT system. Derm: Skin is pink, warm \\T\\ dry. Musculoskeletal: Range of motion: intact in all extremities. Vital Signs: 16:02 BP 147 / 102; Pulse 99; Resp 20; Temp 98.3(O); Pulse Ox 98% ; Height 5 ft. 5 in. ; tl4 18:57 BP 118 / 99; Pulse 84; Resp 18; Pulse Ox 99% ; ko1 19:40 BP 157 / 91; br2 ED Course: 15:52 Patient arrived in ED. mg5 16:03 Triage completed. tl4 16:05 Lance Burgess MD is Attending Physician. ec2 16:09 Arm band placed on right wrist. tl4 17:57 Paige Vazquez, LARON is Primary Nurse. mb9 17:57 Initial lab(s) drawn, by me, sent to lab. Inserted saline lock: 20 gauge in right mb9 antecubital area, using aseptic technique. Blood collected. Flushed with 10 mL NS. 17:57 CBC with Diff Sent. mb9 17:57 CMP Sent. mb9 17:57 Lipase Sent. mb9 17:58 Placed in gown. Bed in low position. Call light in reach. Side rails up X 1. Provided mb9 Education on: PRESS CALL LIGHT IF NEEDING ANYTHING. Client placed on continuous cardiac and pulse oximetry monitoring. NIBP monitoring applied. 18:14 Attending Physician role handed off by Lance Burgess MD ec2 18:14 Elvis Monsalve MD is Attending Physician. ec2 18:16 Radiology exam delayed due to lab results not completed at this time. (BUN/Creatinine). nj 18:38 Ortiz Phillips MD is Hospitalizing Provider. ailyn 18:44 Magnesium Sent. ko1 18:44 NT PRO-BNP Sent. ko1 18:44 Troponin HS Sent. ko1 18:57 No provider procedures requiring assistance completed. ko1 19:06 Report given to Kaitlynn and STARLA. mb9 19:08 XRAY Chest (1 view) In Process Unspecified. EDMS 19:21 Abdomen In Process Unspecified. EDMS Administered Medications: 18:33 Drug: Droperidol IVP 2.5 mg IVP once Route: IVP; Site: right antecubital; ko1 18:48 Follow up: Response: No adverse reaction ko1 18:38 Drug: NS 0.9% IV 1000 ml IV at 1 bolus Per protocol; 1000 mL bolus Route: IV; Rate: 1 ko1 bolus; Site: right antecubital; 18:38 Drug: diphenhydrAMINE IVP 25 mg IVP once Route: IVP; Site: right antecubital; ko1 18:53 Follow up: Response: No adverse reaction ko1 18:50 Drug: Potassium PO Effervescent Tablet 25 mEq PO once; dissolve in 4 ounces of water or ko1 juice Route: PO; 19:01 Follow up: Response: No adverse reaction ko1 18:50 Drug: Famotidine IVP 20 mg IVP once; dilute with 10 mL 0.9% NaCl; give over 2 minutes ko1 Route: IVP; Site: right antecubital; 19:02 Follow up: Response: No adverse reaction ko1 Medication: 17:59 VIS not applicable for this client. mb9 Outcome: 18:41 Decision to Hospitalize by Provider. [facility] 21:09 Patient left the ED. iw Signatures: Dispatcher [employer] EDElvis Smith MD MD cha Williams, Irene, RN RN iw Jay Garcia Kathy, RN RN ko1 Paige Vazquez RN RN mb9 Monika Rodriguez 5 Lance Burgess MD MD ec2 Geoff Drake RN RN tl4 Lisa Vicente RN RN br2 Corrections: (The following items were deleted from the chart) 16:08 16:03 PSHx: Cyst removal, groin (Hypertension); tl4 tl4 18:54 18:44 BASIC METABOLIC PANEL+C.LAB.BRZ drawn and sent. ko1 EDMS 18:54 18:44 HEPATIC FUNCTION+C.LAB.BRZ drawn and sent. ko1 EDMI
--- NOTE | 2024-06-10 18:41 | EDPHYS ---
Physician Documentation [facility] Name: Sherita Parada Age: 73 yrs Sex: Female : 1950 Arrival Date: 06/10/2024 Time: 15:49 Bed 6 Private MD: ED Physician Elvis Monsalve HPI: 06/10 16:11 This 73 yrs old Female presents to ER via Wheelchair with complaints of ec2 Diarrhea. 16:11 Patient arrives today for evaluation of several days of nausea, vomiting, diarrhea. ec2 Patient reports decreased p.o. intake. Patient reports previous abdominal surgeries including appendectomy and hysterectomy. Patient reports no specific urinary complaints.. Historical: - Allergies: 16:03 codeine sulfate ('makes me crazy'); tl4 16:03 Morphine; tl4 16:03 steroids (hypertension); tl4 - PMHx: 16:03 High Cholesterol; Hypertension; tl4 - PSHx: 16:03 Benign Tumor; hysterectomy; Lumpectomy of breast; Appendectomy; tl4 16:07 Cyst removal, groin; tl4 - Immunization history:: Adult Immunizations unknown. - Infectious Disease History:: Denies. - Social history:: Smoking status: Patient reports the use of cigarette tobacco products, 8 cigarettes/day. ROS: 16:11 Constitutional: as per hpi ec2 Exam: 16:11 Constitutional: GEN: NAD Head: atraumatic Eyes: EOMI Ears: External ears are ec2 normal. CV: regular rate LUNGS: no respiratory distress ABD: non-distended, soft, nontender, not guarding, not rigid. SKIN: no evidence of rashes MSK: no evidence of trauma 20:58 ECG was reviewed by the Attending Physician. ailyn Vital Signs: 16:02 BP 147 / 102; Pulse 99; Resp 20; Temp 98.3(O); Pulse Ox 98% ; Height 5 ft. 5 in. ; tl4 18:57 BP 118 / 99; Pulse 84; Resp 18; Pulse Ox 99% ; ko1 19:40 BP 157 / 91; br2 MDM: 16:05 Patient medically screened. ec2 16:11 Data reviewed: vital signs. ED course: Patient arrives today for nausea, vomiting, ec2 diarrhea. Examination remarkable for a reassuring abdominal examination. Will obtain lab work, urine studies, CT imaging and treat the patient's symptoms. Differential includes gastroenteritis, urinary tract infection, electrolyte disturbances. . 18:14 Transition of care: After a detail discussion of the patient's case, care is ec2 transferred to Elvis Monsalve MD. ED course: Patient signed out with pending lab work and CT imaging.. 06/10 16:09 Order name: CBC with Diff; Complete Time: 18:31 [facility] 06/10 16:09 Order name: CMP; Complete Time: 18:31 [facility] 06/10 16:09 Order name: Lipase; Complete Time: 18:31 [facility] 06/10 16:09 Order name: UAM [facility] 06/10 18:35 Order name: Magnesium; Complete Time: 20:57 [facility] 06/10 18:35 Order name: NT PRO-BNP; Complete Time: 20:57 [facility] 06/10 18:35 Order name: Troponin HS; Complete Time: 20:57 [facility] 06/10 19:22 Order name: Urinalysis w/ reflexes [facility] 06/10 19:22 Order name: CBC with Automated Diff [facility] 06/10 19:22 Order name: CBC with Automated Diff [facility] 06/10 19:22 Order name: Comprehensive Metabolic Panel [facility] 06/10 19:22 Order name: Comprehensive Metabolic Panel [facility] 06/10 18:35 Order name: XRAY Chest (1 view); Complete Time: 20:11 [facility] 06/10 18:36 Order name: Abdomen ; Complete Time: 20:11 [facility] 06/10 18:35 Order name: EKG; Complete Time: 18:36 [facility] 06/10 16:09 Order name: IV Saline Lock; Complete Time: 17:57 [facility] 06/10 16:09 Order name: Labs collected and sent; Complete Time: 17:57 [facility] 06/10 18:35 Order name: Cardiac monitoring; Complete Time: 18:42 [facility] 06/10 18:35 Order name: EKG - Nurse/Tech [facility] 06/10 18:35 Order name: O2 Per Protocol; Complete Time: 18:42 [facility] 06/10 18:35 Order name: O2 Sat Monitoring; Complete Time: 18:42 [facility] EC:58 Rate is 103 beats/min. Rhythm is regular. QRS [place] is Normal. ND interval is normal. [facility] QRS interval is normal. QT interval is normal. No Q waves. T waves are Normal. No ST changes noted. Clinical impression: NSR w/ Non-specific ST/T Changes and No evidence of ischemia. Interpreted by me. Reviewed by me. Administered Medications: 18:33 Drug: Droperidol IVP 2.5 mg IVP once Route: IVP; Site: right antecubital; ko1 18:48 Follow up: Response: No adverse reaction ko1 18:38 Drug: NS 0.9% IV 1000 ml IV at 1 bolus Per protocol; 1000 mL bolus Route: IV; Rate: 1 ko1 bolus; Site: right antecubital; 18:38 Drug: diphenhydrAMINE IVP 25 mg IVP once Route: IVP; Site: right antecubital; ko1 18:53 Follow up: Response: No adverse reaction ko1 18:50 Drug: Potassium PO Effervescent Tablet 25 mEq PO once; dissolve in 4 ounces of water or ko1 juice Route: PO; 19:01 Follow up: Response: No adverse reaction ko1 18:50 Drug: Famotidine IVP 20 mg IVP once; dilute with 10 mL 0.9% NaCl; give over 2 minutes ko1 Route: IVP; Site: right antecubital; 19:02 Follow up: Response: No adverse reaction ko1 Disposition Summary: 06/10/24 18:41 Hospitalization Ordered Notes: Hospitalization Status: Inpatient Admission ailyn Provider: Ortiz Phillips cha [facility] a[facility]n Condition: Fair ailyn Problem: new ailyn Symptoms: have improved ailyn Bed/Room Type: Standard [facility] Room Assignment: 211(06/10/24 19:59) rv1 Diagnosis - Vomiting ailyn - Diarrhea, unspecified ailyn - Hypokalemia ailyn - Weakness ailyn - Acute kidney failure, unspecified aliyn - Other viral enteritis ailyn - Abnormal findings on diagnostic imaging of other specified body structures - right ailyn renal nmass - Abnormal levels of other serum enzymes - elevated troponin ailyn - Hypo-osmolality and hyponatremia ailyn Forms: - Medication Reconciliation Form ailyn - SBAR form ailyn - Leadership Thank You Letter ailyn Signatures: Dispatcher [employer] Elvis Reyes MD MD cha Oliver, Kathy, RN RN ko1 Vandana King rv1 Lance Burgess MD MD ec2 Geoff Drake RN RN tl4 Corrections: (The following items were deleted from the chart) 16:08 16:03 PSHx: Cyst removal, groin (Hypertension); tl4 tl4 18:36 16:09 Abdomen Pelvis W Con+CT.RAD.BRZ ordered. EDMS EDMS 18:36 18:36 MAGNESIUM+C.LAB.BRZ ordered. EDMS EDMS 18:36 18:36 PROBNP+C.LAB.BRZ ordered. EDMS EDMS 18:36 18:36 Troponin High Sensitivity+C.LAB.BRZ ordered. EDMS EDMS 18:54 18:36 BASIC METABOLIC PANEL+C.LAB.BRZ ordered. EDMS EDMS 18:54 18:36 HEPATIC FUNCTION+C.LAB.BRZ ordered. EDMS EDMS 19:59 18:41 ailyn rv1
[2024-06-10] MEDS ORDERED: POTASSIUM 25 MEQ EFFERV TAB ONE (18:47)
[2024-06-10] MEDS ORDERED: FAMOTIDINE 20 MG/2 ML VIAL IV ONE (18:47)
[2024-06-10 19:11] LABS: Magnesium 1.8 mg/dL (1.6-2.4)
--- NOTE | 2024-06-10 19:16 | P.HP ---
Certification for Inpatient Patient admitted to: Observation With expected LOS: <2 Midnights Practitioner: I am a practitioner with admitting privileges, knowledge of patient current condition, hospital course, and medical plan of care. Services: Services provided to patient in accordance with Admission requirements found in Title 42 Section 412.3 of the Code of Federal Regulations Patient History Date of Service: 06/10/24 Reason for admission: Generalized weakness History of Present Illness: 73 yrs old Female with past medical history of hypertension, hyperlipidemia who came in with nausea vomiting and diarrhea which has been going on for the last few days and was progressively worsening and was brought to ER. Patient denies any fever or chills. No sick contacts. Started having nausea vomiting and diarrhea associated with anorexia. Cannot tolerate anything p.o. complains of diffuse abdominal discomfort. Denies any chest pain or shortness of breath. Patient has previous abdominal surgeries including appendectomy and hysterectomy. Denies any dysuria. Patient was assessed in the ER and is admitted for further management of acute kidney injury and dehydration and intractable nausea and vomiting Allergies codeine Allergy (Verified 06/10/24 22:07) AMS Home medications list reviewed: Yes Home Medications: Cholecalciferol (Vitamin D3) [Vitamin D3] 1,000 unit PO DAILY 03/05/23 Fluoxetine HCl [Prozac] 3 cap PO DAILY 03/05/23 Furosemide [Lasix*] 40 mg PO DAILY 03/05/23 Isosorbide Mononitrate [Isosorbide Mononitrate ER] 30 mg PO DAILY 03/05/23 Pravastatin [Pravachol*] 40 mg PO DAILY 03/05/23 Tramadol HCl [Ultram] 50 mg PO PRN PRN 03/05/23 dilTIAZem HCL [Cardizem Cd] 180 mg PO DAILY 03/05/23 Cyanocobalamin (Vitamin B-12) [Vitamin B12] 5,000 mcg SL DAILY #30 tab 04/06/23 Pantoprazole Sodium [Protonix] 40 mg PO BID #60 tab 04/07/23 Hydrocodone 10/APAP 325 [[place] 10/325] 1 tab PO Q6H PRN #30 tab 04/10/23 - Past Medical/Surgical History Diabetic: No Past Medical History: Reviewed- Non-Contributory -: Depression -: Hypertension -: Osteoarthritis -: Lymphedema L Past Surgical History: Reviewed- Non-Contributory -: SX salivatory gland - Family History Family History: Reviewed- Non-Contributory - Family History Mother -: Diabetes, Stroke - Social History Smoking Status: Never smoker Alcohol use: No CD- Drugs: No Caffeine use: Yes Review of Systems 10-point ROS is otherwise unremarkable Physical Examination - Vital Signs Temperature: 98.3 F Blood Pressure: 146/100 Pulse: 88 Respirations: 18 Pulse Ox (%): 94 - Physical Exam General: Alert, In no apparent distress, Oriented x3 HEENT: Atraumatic, Normocephalic Neck: Supple Respiratory: Clear to auscultation bilaterally, Normal air movement Cardiovascular: Regular rate/rhythm, Normal S1 S2 Capillary refill: <2 Seconds Gastrointestinal: Normal bowel sounds, Soft and benign, Non-distended Musculoskeletal: No clubbing, No swelling Integumentary: No rashes Neurological: Normal speech, Normal strength at 5/5 x4 extr, Cranial nerves 3-12 intact Lymphatics: No axilla or inguinal lymphadenopathy - Studies Laboratory Data (last 24 hrs) 06/10/24 06/10/24 06/10/24 17:59 17:59 17:59 WBC 5.90 Hgb 13.8 Hct 40.8 Plt Count 174 Sodium Cancelled 130 L Potassium Cancelled 3.2 L BUN Cancelled 33 H Creatinine Cancelled 2.01 H Glucose Cancelled 111 H Total Bilirubin Cancelled 0.4 AST Cancelled 26 ALT Cancelled 18 Alkaline Phosphatase Cancelled 109 Lipase 13 Assessment and Plan - Plan Acute gastroenteritis Monitor closely IV hydration Zofran as needed Acute kidney injury Hyponatremia Hypokalemia Renal parameters monitor Hypertension Antihypertensives titrated Continue home medications and titrate as needed Hyperlipidemia Continue statin NSTEMI possibly type II Will trend cardiac enzymes Will monitor telemetry EKG did not show any acute changes suggestive of ischemia Patient denies any chest pain Will get an echocardiogram Cardiology consult if cardiac enzymes trended hide Elevated BNP Will get an echocardiogram GI/DVT prophylaxis Advanced directive full code - Advance Directives Does patient have a Living Will: No Does patient have a Durable POA for Healthcare: No - Code Status/Comfort Care Code Status: Full Code Time Spent Managing Pts Care (In Minutes): 48
[2024-06-10] MEDS ORDERED: ONDANSETRON 4 MG/2 ML VIAL IV PRN (19:17)
--- NOTE | 2024-06-10 19:56 | RAD REPORT ---
EXAMINATION: CT ABDOMEN AND PELVIS WITHOUT CONTRAST CLINICAL INDICATION: Female, 73 years old. ABD PAIN TECHNIQUE: CT abdomen and pelvis was performed, without IV contrast, as per department protocol. Axia l, sagittal and coronal reconstructions were obtained. One or more of the following dose reduction techniques were used: Automated exposure control, adjustment of the mA and kV according to the patien t size, and iterative reconstruction. Unless otherwise specified, incidental findings do not require dedicated imaging follow-up. COMPARISON: 2022 FINDINGS: The lack of oral and intravenous contrast limits the sensitivity of this exam for evaluation of solid visceral organs, vascular structures, and bowel Liver, spleen, pancreas, adrenals and left kidney grossly normal. 10 mm right renal mass low density.. Comparing this unenhanced scan to the 2022 enhanced scan there i s equivocal mild enhancement. No evidence of diverticulitis. Hysterectomy. No adnexal mass. Fluid within large and small bowel IMPRESSION: 10 mm right renal mass demonstrates equivocal enhancement when compared to a 2022 exam. It is still f avored to be a benign complex cyst however. It is recommended that patient have a follow-up renal ultrasound in 3 months for reevaluation Fluid within large and small bowel may indicate an enteritis
--- NOTE | 2024-06-10 20:00 | RAD REPORT ---
Procedure: Chest Single View History: cough Comparison: 2022 The lungs appear clear of acute infiltrate. No significant pleural effusion noted. The heart is mildly enlarged IMPRESSION: No acute abnormality is displayed.
[2024-06-10 20:45] LABS: Troponin High Sensitivity 85.7 pg/mL (<58.9)
[2024-06-10 21:33] VITALS: O2SAT 99
[2024-06-10 22:04] VITALS: BMI 32.3
[2024-06-10] MEDS: NA CHLORIDE 0.9% 1,000 ML IV SCH (22:16)
[2024-06-11 00:42] LABS: C.diff Antigen/Toxin Ag neg : Tox neg (NEG : NEG); CDIFF INTERNAL NEG CONTROL White Background (WHITE BKGD); STOOL CONSISTENCY Liquid/Semi-Solid
[2024-06-11 05:31] LABS: Absolute Lymphocytes (CBC) 0.4 K/uL (0.7-4.9); Absolute Monocytes 1.1 K/uL (0.1-1.3); Basophils % 0.3 % (0-1.3); Eosinophils % 0.4 % (0-4.4); Hematocrit 40.2 % (36.0-45.0); Hemoglobin 13.4 g/dL (12.0-15.0); Lymphocytes % 6.9 % (15.3-44.8); MCH 29.1 pg (27.0-35.0); MCHC 33.4 g/dL (32.0-36.0); MCV 87.1 fL (80-100); MPV 8.8 fL (7.6-11.3); Monocytes % 16.7 % (3.3-12.3); Neutrophils % 75.7 % (41.7-73.7); Platelets 173 thou/uL (152-406); RBC Red Blood Cell Count 4.61 M/uL (3.86-4.86)
--- NOTE | 2024-06-11 05:50 | P.PN ---
Date of Service: 06/11/24 subjective Admitted with gastroenteritis, trying to slowly advance diet, Reports 2 bowel movements over night, C. difficile Review of Systems 10-point ROS is otherwise unremarkable Physical Examination - Vital Signs reviewed - Physical Exam General: Alert, In no apparent distress, Oriented x3 HEENT: Atraumatic, Normocephalic Neck: Supple Respiratory: Clear to auscultation bilaterally, Normal air movement Cardiovascular: Regular rate/rhythm, Normal S1 S2 Capillary refill: <2 Seconds Gastrointestinal: Normal bowel sounds, mild abdominal tenderness Musculoskeletal: No clubbing, No swelling Integumentary: No rashes Neurological: Normal speech, Normal strength at 5/5 x4 extr, Cranial nerves 3-12 intact Lymphatics: No axilla or inguinal lymphadenopathy Assessment and Plan - Plan Acute gastroenteritis Diarrhea Monitor closely IV hydration Zofran as needed C. difficile negative Acute kidney injury Hyponatremia Hypokalemia renal mass Renal parameters monitor follow US 3 mo renal mass Hypertension Antihypertensives titrated Continue home medications and titrate as needed Hyperlipidemia Continue statin NSTEMI possibly type II Elevated BNP Will trend cardiac enzymes Will monitor telemetry EKG did not show any acute changes suggestive of ischemia Patient denies any chest pain Will get an echocardiogram Cardiology consult if cardiac enzymes trended hide Elevated BNP Will get an echocardiogram GI/DVT prophylaxis Advanced directive full code - Advance Directives Does patient have a Living Will: No Does patient have a Durable POA for Healthcare: No - Code Status/Comfort Care Code Status: Full Code Time Spent Managing Pts Care (In Minutes): 30
[2024-06-11 06:01] LABS: Albumin 2.8 g/dL (3.4-5.0); Albumin/Globulin Ratio 0.8 (1.1-1.8); Anion Gap 9.6 mEq/L (5.0-15.0); Bilirubin Total 0.4 mg/dL (0.2-1.0); Globulin 3.7 g/dL (2.3-3.5); Protein, Total 6.5 g/dL (6.4-8.2)
[2024-06-11 06:04] LABS: Potassium 2.6 mEq/L (3.5-5.1)
[2024-06-11 06:05] LABS: Troponin High Sensitivity 115.8 pg/mL (<58.9)
[2024-06-11] MEDS: KCL 20 MEQ/100 mL IVPB 20 MEQ/100 ML BAG IV SCH (06:37)
[2024-06-11] MEDS: METOPROLOL TARTRATE 5 MG/5 ML INJ IV PRN (07:56)
[2024-06-11] MEDS: PNEUMOCOCCAL VACCINE 0.5 ML IMVAC ONE (09:25)
[2024-06-11] MEDS: ENOXAPARIN 30 MG/0.3 ML SQ SCH (09:25)
[2024-06-11] MEDS: cloNIDine HCL 0.1 MG TAB PO ONE ×2 (11:52→14:50)
[2024-06-11] MEDS: METOPROLOL TARTRATE 5 MG/5 ML INJ IV STA ×2 (11:53→14:50)
[2024-06-11] MEDS ORDERED: HOME MED 1 EA UNK (Diltiazem Hcl [Diltiazem 24hr Er] 240 MG) PO SCH (15:16)
--- NOTE | 2024-06-11 15:39 | EKG ---
Test Date: 2024-06-10 Test Time: 20:55:51 Manager Custom: JOSHUA MEASUREMENT RESULTS: Intervals: Rate: 103 CA: 192 QRSD: 106 QT: 384 QTc: 503 [place]: P: 28 CA: 192 QRS: -51 T: 98 INTERPRETIVE STATEMENTS: Sinus tachycardia with premature supraventricular complexes Left anterior fascicular block Left ventricular hypertrophy with repolarization abnormality Cannot rule out Septal infarct, age undetermined Abnormal ECG Compared to ECG 04/11/2023 18:27:45 Left anterior fascicular block now present Left ventricular hypertrophy now present Early repolarization now present Sinus rhythm no longer present Left-axis deviation no longer present Myocardial infarct finding still present Electronically Signed On 06-11-24 15:38:10 CDT by David Mason
[2024-06-11] MEDS: ISOSORBIDE MONO SR 30 MG TAB PO SCH (15:41)
[2024-06-11] MEDS: DILTIAZEM HCL 120 MG SR CAP PO SCH (15:41)
[2024-06-11] MEDS: FAMOTIDINE 20 MG TAB PO SCH (20:20)
[2024-06-12 06:18] LABS: Anion Gap 8.6 mEq/L (5.0-15.0)
[2024-06-12 06:20] LABS: Potassium 2.6 mEq/L (3.5-5.1)
--- NOTE | 2024-06-12 06:39 | P.PN ---
Date of Service: 06/12/24 subjective Dark-colored urine, UA 3+ hematuria, will add ceftriaxone for UTI Review of Systems 10-point ROS is otherwise unremarkable Physical Examination - Vital Signs reviewed - Physical Exam General: Alert, In no apparent distress, Oriented x3 HEENT: Atraumatic, Normocephalic Neck: Supple Respiratory: Clear to auscultation bilaterally, Normal air movement Cardiovascular: Regular rate/rhythm, Normal S1 S2 Capillary refill: <2 Seconds Gastrointestinal: Normal bowel sounds, Soft and benign, Non-distended Musculoskeletal: No clubbing, No swelling Integumentary: No rashes Neurological: Normal speech, Normal strength at 5/5 x4 extr, Cranial nerves 3-12 intact Lymphatics: No axilla or inguinal lymphadenopathy Assessment and Plan - Plan Acute gastroenteritis Monitor closely IV hydration Zofran as needed Acute cystitis with hematuria Acute kidney injury Hyponatremia Hypokalemia renal mass Renal parameters monitor follow US 3 mo renal mass Will add ceftriaxone Hypertensive urgency Essential hypertension Sinus tachycardia Antihypertensives titrated, on beta-blockers Continue home medications and titrate as needed Hyperlipidemia Continue statin NSTEMI possibly type II Will trend cardiac enzymes Will monitor telemetry EKG did not show any acute changes suggestive of ischemia Patient denies any chest pain Will get an echocardiogram Cardiology consult if cardiac enzymes trended hide Elevated BNP Will get an echocardiogram GI/DVT prophylaxis Advanced directive full code - Advance Directives Does patient have a Living Will: No Does patient have a Durable POA for Healthcare: No - Code Status/Comfort Care Code Status: Full Code Time Spent Managing Pts Care (In Minutes): 30
[2024-06-12] MEDS: KCL 20 MEQ/100 mL IVPB 20 MEQ/100 ML BAG IV SCH ×2 (07:00→07:42)
[2024-06-12] MEDS: POTASSIUM 25 MEQ EFFERV TAB PO ONE ×2 (07:42→14:12)
[2024-06-12] MEDS: METOPROLOL TARTRATE 5 MG/5 ML INJ IV STA (07:42)
[2024-06-12] MEDS: ATORVASTATIN 10 MG TAB PO SCH (08:06)
[2024-06-12] MEDS: FLUOXETINE 20 MG CAP PO SCH (08:06)
[2024-06-12] MEDS ORDERED: HOME MED 1 EA UNK (Pravastatin [Pravachol*] 40 MG/TAB Tab) PO SCH (09:00)
[2024-06-12] MEDS ORDERED: DILTIAZEM HCL 120 MG SR CAP PO SCH (09:00)
[2024-06-12] MEDS ORDERED: DILTIAZEM HCL 240 MG PO SCH (09:00)
[2024-06-12 10:03] LABS: Specific Gravity 1.017 (1.005-1.030); Sqamous Epithelial <5 /HPF (None Seen); Urine Bacteria <20 /HPF (<20); Urine Bilirubin NEGATIVE (Negative); Urine Blood 3+ (OVER) (Negative); Urine Clarity Extremely Turbid (Clear); Urine Color Light-Orange (Yellow); Urine Culture Reflex Order REFLEXED; Urine Glucose NEGATIVE (Negative); Urine Ketones NEGATIVE (Negative); Urine Micro Reflex YN NO BILL MICROSCOPIC; Urine Mucus Slight /HPF (None Seen); Urine Nitrite 2+ (Negative); Urine Protein 3+ (Negative); Urine RBC 21-50 /HPF (None Seen); Urine Triple Phosphate Crystal Many /HPF (None Seen); Urine Urobilinogen Normal (Normal); Urine WBC >50 /HPF (<5)
[2024-06-12 13:33] LABS: Anion Gap 9.3 mEq/L (5.0-15.0); Magnesium 1.6 mg/dL (1.6-2.4); Potassium 3.3 mEq/L (3.5-5.1)
[2024-06-12] MEDS: POTASSIUM CL SA 10 MEQ TAB PO ONE (20:35)
[2024-06-12] MEDS: cloNIDine HCL 0.1 MG TAB PO SCH (20:36)
[2024-06-13] MEDS: ACETAMINOPHEN 325 MG TABLET PO PRN (00:41)
[2024-06-13] MEDS: TRAMADOL HCL 50 MG TAB PO PRN (01:16)
[2024-06-13] MEDS: HYDRALAZINE HCL 20 MG/ML VIAL IV PRN (04:59)
--- NOTE | 2024-06-13 07:24 | P.PN ---
Date of Service: 06/13/24 subjective Dark-colored urine, UA 3+ hematuria, will add ceftriaxone for UTI She reports eating breakfast, no nausea or diarrhea today Review of Systems 10-point ROS is otherwise unremarkable Physical Examination - Vital Signs reviewed - Physical Exam General: Alert, In no apparent distress, Oriented x3 HEENT: Atraumatic, Normocephalic Neck: Supple Respiratory: Clear to auscultation bilaterally, Normal air movement Cardiovascular: Regular rate/rhythm, Normal S1 S2 Capillary refill: <2 Seconds Gastrointestinal: Normal bowel sounds, Soft and benign, Non-distended Musculoskeletal: No clubbing, No swelling Integumentary: No rashes Neurological: Normal speech, Normal strength at 5/5 x4 extr, Cranial nerves 3-12 intact Lymphatics: No axilla or inguinal lymphadenopathy Assessment and Plan - Plan Acute gastroenteritis improving Monitor closely IV hydration Zofran as needed Acute cystitis with hematuria Acute kidney injury Hyponatremia Hypokalemia renal mass Renal parameters monitor follow US 3 mo renal mass Will add ceftriaxone Hypertensive urgency Essential hypertension Sinus tachycardia Antihypertensives titrated, on beta-blockers Continue home medications and titrate as needed Hyperlipidemia Continue statin NSTEMI possibly type II Will trend cardiac enzymes Will monitor telemetry EKG did not show any acute changes suggestive of ischemia Patient denies any chest pain Will get an echocardiogram Cardiology consult if cardiac enzymes trended hide Elevated BNP Will get an echocardiogram GI/DVT prophylaxis Advanced directive full code - Advance Directives Does patient have a Living Will: No Does patient have a Durable POA for Healthcare: No - Code Status/Comfort Care Code Status: Full Code Time Spent Managing Pts Care (In Minutes): 30
[2024-06-13 08:33] LABS: Absolute Basophils 0.1 K/uL (0-0.5); Absolute Eosinophils 0.1 K/uL (0-0.5); Absolute Lymphocytes (CBC) 0.8 K/uL (0.7-4.9); Absolute Monocytes 1.5 K/uL (0.1-1.3); Absolute Neutrophil 7.2 K/uL (1.8-8.0); Basophils % 0.7 % (0-1.3); Eosinophils % 1.1 % (0-4.4); Hematocrit 39.2 % (36.0-45.0); Hemoglobin 13.5 g/dL (12.0-15.0); Lymphocytes % 8.6 % (15.3-44.8); MCH 29.4 pg (27.0-35.0); MCHC 34.5 g/dL (32.0-36.0); MCV 85.3 fL (80-100); MPV 8.6 fL (7.6-11.3); Neutrophils % 74.6 % (41.7-73.7); Nucleated Red Blood Cells % 0.1 % (0-0); Platelets 233 thou/uL (152-406); Red Cell Distribution Width 13.9 % (12.1-15.2)
[2024-06-13 08:49] LABS: Anion Gap 11.1 mEq/L (5.0-15.0); Magnesium 1.4 mg/dL (1.6-2.4); Potassium 3.1 mEq/L (3.5-5.1)
[2024-06-13] MEDS: CEFTRIAXONE 1,000 MG in NA CHLORIDE 0.9% 50 ML IVPB SCH (08:58)
[2024-06-13] MEDS: ENOXAPARIN 40 MG/0.4 ML SQ SCH (08:59)
[2024-06-13] MEDS ORDERED: ENOXAPARIN 40 MG/0.4 ML SQ SCH (09:00)
[2024-06-13] MEDS: Magnesium Sulfate 2gm IVPB 2 G/50 ML BAG IV ONE (10:58)
[2024-06-13] MEDS: HYDRALAZINE HCL 20 MG/ML VIAL IV ONE (10:58)
[2024-06-13] MEDS: POTASSIUM CL SA 10 MEQ TAB PO ONE (11:00)
[2024-06-13 12:34] VITALS: BP 140/85; TEMP 97.5
--- NOTE | 2024-06-14 06:54 | ECHO ---
HEIGHT: 5 ft 5 in WEIGHT: 194 lb 6 oz DATE OF STUDY: 06/11/[address]: Dennys Phillips DO 2-DIMENSIONAL: YES M.MODE: YES DOPPLER: YES COLOR FLOW: YES TDS: YES PORTABLE: YES DEFINITY: BUBBLE STUDY: DIAGNOSIS: CONGESTIVE HEART FAILURE CARDIAC HISTORY: CATHERIZATION: NO SURGERY: NO PROSTHETIC VALVE: NO PACEMAKER: NO MEASUREMENTS (cm) DIASTOLIC (NORMALS) SYSTOLIC (NORMALS) IVSd 1.2 (0.6-1.2) LA Diam 4.4 (1.9-4.0) LVEF 55% LVIDd 4.7 (3.5-5.7) LVIDs 3.8 (2.0-3.5) %FS 21% LVPWd 1.3 (0.6-1.2) Ao Diam 3.0 (2.0-3.7) 2 DIMENSIONAL ASSESSMENT: RIGHT ATRIUM: NORMAL LEFT ATRIUM: ENLARGED RIGHT VENTRICLE: NORMAL LEFT VENTRICLE: NORMAL TRICUSPID VALVE: MILD TRICUSPID REGURGITATION MITRAL VALVE: MILD MITRAL REGURGITATION PULMONIC VALVE: NORMAL AORTIC VALVE: NORMAL PERICARDIAL EFFUSION: NONE AORTIC ROOT: NORMAL LEFT VENTRICULAR WALL MOTION: NORMAL DOPPLER/COLOR FLOW: SEE BELOW COMMENTS: 1. NORMAL LEFT VENTRICULAR EJECTION FRACTION 55-60% WITH NORMAL WALL MOTION 2. LEFT ATRIAL ENLARGEMENT 3. MILD MITRAL REGURGITATION 4. MILD TRICUSPID REGURGITATION 5. GRADE I DIASTOLIC DYSFUNCTION TECHNOLOGIST: ANA ESTRADA
== END 2024-06-13 15:15 | disposition home or self-care (01) | DRG 682 ==
LOC: ER 15:49 → ERHOLD 19:31 → 2ND 20:25 → OBSVTOIN 06-12 12:55
PROVIDERS: ADMIT Family Medicine; ATTEND Hospitalist
DX: N17.9 Acute kidney failure, unspecified (principal); I21.A1 Myocardial infarction type 2; A08.39 Other viral enteritis; E87.1 Hypo-osmolality and hyponatremia; N30.01 Acute cystitis with hematuria; E78.00 Pure hypercholesterolemia, unspecified; I10 Essential (primary) hypertension; E87.6 Hypokalemia; E86.0 Dehydration; M19.90 Unspecified osteoarthritis, unspecified site; N28.89 Other specified disorders of kidney and ureter; F17.210 Nicotine dependence, cigarettes, uncomplicated; R00.0 Tachycardia, unspecified; Z23 Encounter for immunization; Z88.5 Allergy status to narcotic agent; Z90.49 Acquired absence of other specified parts of digestive tract; Z90.710 Acquired absence of both cervix and uterus; Z79.899 Other long term (current) drug therapy
CPT/HCPCS: 36415; 71045; 74176; 80048; 80053; 81001; 83690; 83735; 83880; 84132; 84484; 85025; 87077; 87086; 87088; 87186; 87324; 90471; 90732; 93005; 93306; 96374; 96375; 99284; G0378; J0360; J0696; J1200; J1650; J1790; J3475; J3480; J7030

== ENCOUNTER 2024-07-13 18:24 | Inpatient (IN) | payer OTHER ==
[2024-07-13 19:12] LABS: Absolute Basophils 0.2 K/uL (0-0.5); Absolute Eosinophils 0.1 K/uL (0-0.5); Absolute Lymphocytes (CBC) 1.8 K/uL (0.7-4.9); Absolute Monocytes 1.6 K/uL (0.1-1.3); Absolute Neutrophil 10.8 K/uL (1.8-8.0); Basophils % 1.1 % (0-1.3); Eosinophils % 0.5 % (0-4.4); Hematocrit 42.8 % (36.0-45.0); Hemoglobin 14.1 g/dL (12.0-15.0); Lymphocytes % 12.2 % (15.3-44.8); MCH 28.6 pg (27.0-35.0); MCHC 32.9 g/dL (32.0-36.0); MCV 86.8 fL (80-100); Monocytes % 11.3 % (3.3-12.3); Neutrophils % 74.9 % (41.7-73.7); Platelets 302 thou/uL (152-406); RBC Red Blood Cell Count 4.92 M/uL (3.86-4.86); Red Cell Distribution Width 14.8 % (12.1-15.2)
[2024-07-13 19:25] LABS: PT Prothrombin Time 12.4 SECONDS (9.4-12.5); PTT, Activated Partial Thromb 33.4 SECONDS (24.3-36.9); Protime INR 1.11
[2024-07-13 19:31] LABS: Albumin 3.3 g/dL (3.4-5.0); Albumin/Globulin Ratio 0.8 (1.1-1.8); Anion Gap 9.7 mEq/L (5.0-15.0); Bilirubin Total 0.4 mg/dL (0.2-1.0); Globulin 4.4 g/dL (2.3-3.5); Potassium 3.7 mEq/L (3.5-5.1); Protein, Total 7.7 g/dL (6.4-8.2)
--- NOTE | 2024-07-13 19:39 | RAD REPORT ---
EXAMINATION: CT HEAD WITHOUT CONTRAST CLINICAL INDICATION: Female, 73 years old.fall, ams TECHNIQUE: Axial CT images from the skull base to the vertex without intravenous contrast. Coronal an d sagittal reformatted images were created from the data set. One or more of the following dose reduction techniques were used: Automated exposure control, adjustment of the mA and/or kV according to patient size, and/or iterative reconstruction. Unless otherwise specified, incidental findings do not require dedicated imaging follow-up. [id number]. COMPARISON: No prior exam. FINDINGS: INTRACRANIAL: No acute intracranial hemorrhage. No hydrocephalus. No mass effect or midline shift. Mo derate to severe subcortical deep white matter hypoattenuation, typically from old chronic small vessel ischemic changes. VASCULATURE: No visualized abnormalities in the arteries or dural venous sinuses. SCALP/SKULL: No significant soft tissue or osseous abnormalities. SINUSES: The visualized paranasal sinuses and mastoid air cells are predominantly clear. IMPRESSION: No acute intracranial abnormality. Probable advanced chronic small vessel ischemic changes.
--- NOTE | 2024-07-13 19:46 | RAD REPORT ---
EXAMINATION: ONE VIEW CHEST XR CLINICAL INDICATION: Female, 73 years old.AMS TECHNIQUE: 1 View, AP supine, X-ray of the chest was performed. [id number]. COMPARISON: 06/10/2024 FINDINGS: Lungs and pleura: Clear lungs. No effusion. Chronic coarsening of the pulmonary interstitium. Heart and mediastinum: Similar mild cardiomegaly. Unremarkable mediastinal contours. Osseous structures: No acute abnormality. Tubes/lines: None Other: None. IMPRESSION: No acute intrathoracic abnormality.
--- NOTE | 2024-07-13 19:55 | EDPHYS ---
Physician Documentation [facility] Name: Sherita Parada Age: 73 yrs Sex: Female : 1950 Arrival Date: 07/13/2024 Time: 18:24 Bed 4 Private MD: ED Physician Clyde Domínguez HPI: 07/13 18:38 This 73 yrs old Female presents to ER via Unassigned with complaints of ams. rn 18:38 The patient presents with confusion, decreased responsiveness. Onset: The rn symptoms/episode began/occurred 11 day(s) ago. Possible causes: unknown. It is unknown whether or not the patient has had similar symptoms in the past. Family told EMS altered mental status since July 02. Did have a fall with a head injury but no blood thinners, no known LOC. EMS reports strong odor of urine. Patient reports hurts all over but no injury from the fall. No fever or vomiting or diarrhea. No chest pain or shortness of breath.. Historical: - Allergies: 18:41 codeine sulfate ('makes me crazy'); cm10 18:41 Morphine; cm10 18:41 steroids (Hypertension); cm10 - PMHx: 18:41 High Cholesterol; Hypertension; Ulcers; Atrial fibrillation; cm10 - PSHx: 18:41 Appendectomy; Benign Tumor; Cyst removal; hysterectomy; Lumpectomy of breast; cm10 - Immunization history:: Adult Immunizations unknown. - Infectious Disease History:: Denies. - Family history:: not pertinent. - Social history:: Smoking status: unknown. - Hospitalizations: : No recent hospitalization is reported. ROS: 18:38 Constitutional: Negative for fever, chills, and weight loss, Eyes: Negative for injury, rn pain, redness, and discharge, Neck: Negative for injury, pain, and swelling, Cardiovascular: Negative for chest pain, palpitations, and edema, Respiratory: Negative for shortness of breath, cough, wheezing, and pleuritic chest pain, Abdomen/GI: Negative for abdominal pain, nausea, vomiting, diarrhea, and constipation, Back: Negative for injury and pain, MS/Extremity: Negative for injury and deformity, Skin: Negative for injury, rash, and discoloration, Neuro: Positive for generalized weakness and altered mental status Exam: 18:38 Constitutional: This is a well developed, well nourished patient who is awake, alert, rn and in no acute distress. Slow to respond but oriented x 3 Head/Face: Normocephalic, atraumatic. ENT: Dry mucous membranes Cardiovascular: Regular rate and rhythm. No pulse deficits. Respiratory: No increased work of breathing, no retractions or nasal flaring. Abdomen/GI: Soft, nontender, nondistended MS/ Extremity: Pulses equal, no cyanosis. Neurovascular intact. Full, normal range of motion. Equal circumference. Neuro: Awake and alert, GCS 15, oriented to person, place, time, and situation. Cranial nerves II-XII grossly intact. Motor strength 4/5 in all extremities. Sensory grossly intact. 19:49 ECG was reviewed by the Attending Physician. rn Vital Signs: 18:42 BP 173 / 110; Pulse 114; Resp 18; Temp 98.8(O); Pulse Ox 94% on R/A; Weight 96.16 kg lg3 (M); Pain 0/10; 20:34 BP 184 / 126; Pulse 107; Resp 18; Pulse Ox 99% ; cp4 20:57 BP 180 / 114; Pulse 108; Resp 18; Pulse Ox 98% ; cp4 21:39 BP 178 / 110; Pulse 110; Resp 18; Pulse Ox 98% ; cp4 18:42 Pain Scale: Adult lg3 MDM: 18:32 Medical Screening Exam initiated rn 19:54 Differential Diagnosis: CVA, electrolyte abnormality, pneumonia, UTI, volume depletion. rn Data reviewed: vital signs, nurses notes, lab test result(s), radiologic studies, CT scan, plain films, and as a result, I will discharge patient. Counseling: I had a detailed discussion with the patient and/or guardian regarding the historical points, exam findings, and any diagnostic results supporting the discharge/admit diagnosis, lab results, radiology results, the need for further work-up and treatment in the hospital. ED course: No source of infection identified at this time. Nursing has not obtained urine yet but very foul smell, elevated lactic acid, altered mental status and weakness with falls. Will cover with antibiotics and admit to hospitalist service. 07/13 18:37 Order name: Blood Culture Adult (2) rn 07/13 18:37 Order name: CBC with Diff; Complete Time: 19:46 rn 07/13 18:37 Order name: CMP; Complete Time: 19:46 rn 07/13 18:37 Order name: Lactate w/ 2H reflex if indic.; Complete Time: 19:46 rn 07/13 18:37 Order name: Protime (+inr); Complete Time: 19:46 rn 07/13 18:37 Order name: Ptt, Activated; Complete Time: 19:46 rn 07/13 18:37 Order name: Urinalysis w/ reflexes rn 07/13 20:22 Order name: Urinalysis w/ reflexes EDMS 07/13 20:22 Order name: CBC with Automated Diff EDMS 07/13 20:22 Order name: CBC with Automated Diff EDMS 07/13 20:22 Order name: Comprehensive Metabolic Panel EDMS 07/13 20:22 Order name: Comprehensive Metabolic Panel EDMS 07/13 20:22 Order name: Magnesium EDMS 07/13 20:22 Order name: Magnesium EDMS 07/13 20:22 Order name: NT PRO-BNP EDMS 07/13 20:22 Order name: NT PRO-BNP EDMS 07/13 20:52 Order name: Urine Culture EDNC 07/13 18:37 Order name: Chest Single View XRAY; Complete Time: 19:46 rn 07/13 18:37 Order name: CT Head Brain wo Cont; Complete Time: 19:46 rn 07/13 18:37 Order name: Accucheck; Complete Time: 18:41 rn 07/13 18:37 Order name: Cardiac monitoring; Complete Time: 18:41 rn 07/13 18:37 Order name: EKG - Nurse/Tech; Complete Time: 19:41 rn 07/13 18:37 Order name: IV Saline Lock - Large Bore; Complete Time: 19:03 rn 07/13 18:37 Order name: Labs collected and sent; Complete Time: 19:03 rn 07/13 18:37 Order name: O2 Per Protocol; Complete Time: 18:41 rn 07/13 18:37 Order name: O2 Sat Monitoring; Complete Time: 18:41 rn 07/13 18:37 Order name: Vital Signs; Complete Time: 18:41 rn EC:49 Rate is 109 beats/min. Rhythm is regular. Left axis deviation noted. QRS is positive in rn lead I and negative in lead aVF. DE interval is normal. QRS interval is normal. QT interval is normal. No Q waves. T waves are Normal. No ST changes noted. Clinical impression: Sinus tachycardia. Interpreted by me. Reviewed by me. Administered Medications: 20:24 Drug: Rocephin IV 1 grams IV at calculated rate once; Given slow IV push per pharmacy cp4 instructions Route: IV; Rate: calculated rate; Site: right forearm; 20:33 Follow up: Response: No adverse reaction; IV Status: Completed infusion cp4 20:33 Drug: Ondansetron IVP 4 mg IVP once; over 2 minutes Route: IVP; Site: right forearm; cp4 21:07 Follow up: Response: No adverse reaction cp4 22:19 Drug: Metoprolol IVP 5 mg IVP once; Hold for SBP <100 or HR <60. Route: IVP; Site: [facility] right forearm; 22:19 Follow up: Response: No adverse reaction cp4 Disposition Summary: 07/13/24 19:55 Hospitalization Ordered Notes: Hospitalization Status: Observation rn Provider: Jose L Bellamy rn Location: Telemetry/MedSurg (observation) rn Condition: Stable rn Problem: new rn Symptoms: have improved rn Bed/Room Type: Standard rn Room Assignment: 213(07/13/24 20:43) cg Diagnosis - Altered mental status, unspecified rn - Delirium due to known physiological condition rn - UTI/ Urinary tract infection, site not specified rn Forms: - Medication Reconciliation Form rn - SBAR form rn - Leadership Thank You Letter rn Signatures: Dispatcher [employer] EDMS Clyde Domínguez MD MD rn Garcia, Cindy, Ariana Barlow RN RN RN Anupama Martinez cp4 Corrections: (The following items were deleted from the chart) 18:38 18:38 BLOOD CULTURE*+BA.LAB.BRZ ordered. EDMS EDMS 18:38 18:38 CBC+H.LAB.BRZ ordered. EDMS EDMS 18:38 18:38 COMPREHENSIVE METABOLIC PANEL+C.LAB.BRZ ordered. EDMS EDMS 18:38 18:38 LACTATE+C.LAB.BRZ ordered. EDMS EDMS 18:38 18:38 PROTIME (+INR)+COAG.LAB.BRZ ordered. EDMS EDMS 18:38 18:38 PTT, ACTIVATED+COAG.LAB.BRZ ordered. EDMS EDMS 18:38 18:38 Urinalysis+U.LAB.BRZ ordered. EDMS EDMS 18:38 18:38 Chest Single View+RAD.RAD.BRZ ordered. EDMS EDMS 18:38 18:38 Head Brain Wo Cont+CT.RAD.BRZ ordered. EDMS EDMS 20:43 19:55 rn cg
--- NOTE | 2024-07-13 19:55 | ER ---
Nurse's Notes [facility] Name: Sherita Parada Age: 73 yrs Sex: Female : 1950 Arrival Date: 07/13/2024 Time: 18:24 Bed 4 Private MD: Diagnosis: Altered mental status, unspecified;Delirium due to known physiological condition;UTI/ Urinary tract infection, site not specified Presentation: 07/13 18:42 Chief complaint: EMS states: Called to patient's home for AMS onset when patient fell cm10 on 07/02. Per EMS report, pt has been falling more recently. Upon arrival, pt is A\T\Ox4. Coronavirus screen: Client denies travel out of the [place] in the last 14 days. Ebola Screen: Patient denies travel to an Ebola-affected area in the 21 days before illness onset. Initial Sepsis Screen: Does the patient meet any 2 criteria? Altered Mental Status. HR > 90 bpm. Does the patient have a suspected source of infection? No. Patient's initial sepsis screen is negative. Risk Assessment: Do you want to hurt yourself or someone else? Patient reports no desire to harm self or others. Onset of symptoms was July 02, 2024. 18:42 Method Of Arrival: EMS: [facility] cm10 18:42 Acuity: NAVIN 2 cm10 18:44 Care prior to arrival: IV initiated. 20 GA, in the right forearm, Glucose check: 126. cm10 Historical: - Allergies: 18:41 codeine sulfate ('makes me crazy'); cm10 18:41 Morphine; cm10 18:41 steroids (Hypertension); cm10 - PMHx: 18:41 High Cholesterol; Hypertension; Ulcers; Atrial fibrillation; cm10 - PSHx: 18:41 Appendectomy; Benign Tumor; Cyst removal; hysterectomy; Lumpectomy of breast; cm10 - Immunization history:: Adult Immunizations unknown. - Infectious Disease History:: Denies. - Family history:: not pertinent. - Social history:: Smoking status: unknown. - Hospitalizations: : No recent hospitalization is reported. Screenin:16 [facility] ED Fall Risk Assessment (Adult) History of falling in the last 3 months, cp4 including since admission Yes- single mechanical fall (1 pt) Confusion or Disorientation No (0 pts) Intoxicated or Sedated No (0 pts) Impaired Gait No (0 pts) Mobility Assist Device Used No (0 pt) Altered Elimination No (0 pt) Score/Fall Risk Level 0 - 2 = Low Risk Oriented to surroundings, Maintained a safe environment, Assessed \T\ reinforced patient's understanding of fall precautions, Hourly rounding (assess needs \T\ fall precautionary measures) done. Abuse screen: Denies threats or abuse. Nutritional screening: No deficits noted. Tuberculosis screening: No symptoms or risk factors identified. Assessment: 20:16 General: Appears in no apparent distress. uncomfortable, Behavior is calm, cooperative, cp4 appropriate for age. Pain: Denies pain. Neuro: Level of Consciousness is awake, alert, obeys commands, Oriented to person, place, time, situation. Cardiovascular: Patient's skin is warm and dry. Respiratory: Airway is patent Respiratory effort is even, unlabored. GI: No signs and/or symptoms were reported involving the gastrointestinal system. : No signs and/or symptoms were reported regarding the genitourinary system. EENT: No signs and/or symptoms were reported regarding the EENT system. Derm: No signs and/or symptoms reported regarding the dermatologic system. Musculoskeletal: No signs and/or symptoms reported regarding the musculoskeletal system. Vital Signs: 18:42 BP 173 / 110; Pulse 114; Resp 18; Temp 98.8(O); Pulse Ox 94% on R/A; Weight 96.16 kg lg3 (M); Pain 0/10; 20:34 BP 184 / 126; Pulse 107; Resp 18; Pulse Ox 99% ; cp4 20:57 BP 180 / 114; Pulse 108; Resp 18; Pulse Ox 98% ; cp4 21:39 BP 178 / 110; Pulse 110; Resp 18; Pulse Ox 98% ; cp4 18:42 Pain Scale: Adult lg3 ED Course: 18:28 Patient arrived in ED. cm10 18:32 Clyde Domínguez MD is Attending Physician. rn 18:44 Triage completed. cm10 18:44 Arm band placed on Patient placed in an exam room, on a stretcher. cm10 18:55 Inserted saline lock: 22 gauge in left forearm, using aseptic technique. Blood cm10 collected. Flushed with 10 mL NS Maintain EMS IV. Dressing intact. Good blood return noted. Site clean \T\ dry. Gauge \T\ site: 20g right FA. Flushed with 10 mL NS. 18:55 Initial lab(s) drawn, by me, sent to lab. First set of blood cultures drawn by me. cm10 19:03 CBC with Diff Sent. cm10 19:03 CMP Sent. cm10 19:03 Lactate w/ 2H reflex if indic. Sent. cm10 19:03 Protime (+inr) Sent. cm10 19:03 Ptt, Activated Sent. cm10 19:29 CT Head Brain wo Cont In Process Unspecified. EDMS 19:39 Chest Single View XRAY In Process Unspecified. EDMS 19:55 Jose L Bellamy MD is Hospitalizing Provider. rn 20:16 Anupama Fraga is Primary Nurse. cp4 20:16 Placed in gown. Bed in low position. Call light in reach. Side rails up X2. Cleaned of cp4 incontinence. Linen changed. 20:16 No provider procedures requiring assistance completed. Urine collected: straight cath cp4 specimen, bogdan colored. Straight cath inserted, using sterile technique, 16 Fr. Specimen obtained. 21:39 Patient admitted, IV remains in place. cp4 21:40 Provided Education on: admission. cp4 Administered Medications: 20:24 Drug: Rocephin IV 1 grams IV at calculated rate once; Given slow IV push per pharmacy cp4 instructions Route: IV; Rate: calculated rate; Site: right forearm; 20:33 Follow up: Response: No adverse reaction; IV Status: Completed infusion cp4 20:33 Drug: Ondansetron IVP 4 mg IVP once; over 2 minutes Route: IVP; Site: right forearm; cp4 21:07 Follow up: Response: No adverse reaction cp4 22:19 Drug: Metoprolol IVP 5 mg IVP once; Hold for SBP <100 or HR <60. Route: IVP; Site: cp4 right forearm; 22:19 Follow up: Response: No adverse reaction cp4 Medication: 20:16 VIS not applicable for this client. cp4 Outcome: 19:55 Decision to Hospitalize by Provider. rn 21:39 Admitted to Med/surg accompanied by nurse, via stretcher, with chart, cp4 21:39 Condition: stable 21:39 Instructed on the need for admit, 22:20 Patient left the ED. cp4 Signatures: Dispatcher [employer] EDClyde Gaines MD MD rn Able, Sarahy, RN RN lg3 Ariana Nayak RN RN cm10 Anupama Fraga cp4 Corrections: (The following items were deleted from the chart) 20:12 18:42 BP 173 / 110; Pulse 114bpm; Resp 18bpm; Pulse Ox 93% RA; Temp 98.8F Oral; 96.16 lg3 kg Measured; Pain 0/10, Adult; cm10
--- NOTE | 2024-07-13 20:15 | P.HP ---
Certification for Inpatient Patient admitted to: Inpatient Practitioner: I am a practitioner with admitting privileges, knowledge of patient current condition, hospital course, and medical plan of care. Services: Services provided to patient in accordance with Admission requirements found in Title 42 Section 412.3 of the Code of Federal Regulations Patient History Date of Service: 07/14/24 Reason for admission: Altered mental status History of Present Illness: 73 yrs old Female with a past medical historyHigh Cholesterol; Hypertension; Ulcers; Atrial fibrillation; presents to the emergency room with confusion. She reports symptoms started a week ago, HPI limited given Per medical record, previous falls hitting her head, patient is not on anticoagulation. Reports foul odor from urine. No reported fever, nausea vomiting diarrhea, chest pain shortness of breath. Plan to admit to [facility] for delirium, acute cystitis with hematuria, delirium, metabolic encephalopathy, hypertensive urgency ER [id number] beats/min. Rhythm is regular. Left axis deviation noted. QRS is positive in lead I and negative in lead aVF. OR interval is normal. QRS interval is normal. QT interval is normal. No Q waves. T waves are Normal. No ST changes noted. Clinical impression: Sinus tachycardia, BP 173 / 110; Pulse 114; Resp 18; Temp 98.8(O); Pulse Ox 94% on R/A; Weight 96.16 kg (M); Pain 0/10; she was t reated with metoprolol IV, IV Rocephin, Zofran, and the emergency room. Laboratory evaluation acute kidney injury, BUN 23, creatinine 1.18, estimated GFR 48, leukocytosis 14.40, left shift, urine acute acute cystitis, WBCs leukoesterase 250, with hematuria, chest x-ray no acute abnormality, CT of the head no acute abnormality possible chronic small vessel ischemic changes Allergies codeine Allergy (Verified 06/10/24 22:07) AMS morphine Adverse Reaction (Unknown, Verified 07/13/24 22:58) unknown prednisone Adverse Reaction (Verified 07/13/24 22:58) hypertension Home Medications: Fluoxetine HCl [Prozac] 3 cap PO DAILY 03/05/23 Furosemide [Lasix*] 40 mg PO DAILY 03/05/23 Isosorbide Mononitrate [Isosorbide Mononitrate ER] 30 mg PO DAILY 03/05/23 Pravastatin [Pravachol*] 1 tab PO DAILY 03/05/23 Tramadol HCl [Ultram] 1 tab PO PRN PRN 03/05/23 Hydrocodone 10/APAP 325 [[place] 10/325*] 1 tab PO Q6H PRN #30 tab 04/10/23 Clonidine HCl [Catapres*] 0.2 mg PO TID 06/11/24 Famotidine 20 mg PO BEDTIME 06/11/24 Pantoprazole Sodium [Protonix] 1 tab PO DAILY 06/11/24 dilTIAZem HCL [Diltiazem 24Hr ER] 240 mg PO DAILY 06/11/24 Cefdinir [Cefdinir*] 300 mg PO BID #14 cap 06/13/24 Metoprolol Tartrate [Lopressor*] 50 mg PO BID #60 tab 06/13/24 - Past Medical/Surgical History Diabetic: No -: Depression -: Hypertension -: Osteoarthritis -: Lymphedema L -: SX salivatory gland - Family History Mother -: Diabetes, Stroke - Social History Alcohol use: No CD- Drugs: No Caffeine use: Yes Review of Systems is unable to be obtained General: As per HPI Physical Examination - Physical Exam General: Alert, Oriented x2, Confused, Other (Generalized weakness) HEENT: Atraumatic, Normocephalic Neck: Supple, JVD not distended Respiratory: Normal air movement, Diminished Cardiovascular: Normal pulses, Regular rate/rhythm Capillary refill: <2 Seconds Gastrointestinal: Normal bowel sounds, Soft and benign Musculoskeletal: No swelling, No contractures Integumentary: No breakdown, No significant lesion Neurological: Normal speech, Normal strength at 5/5 x4 extr, Other (No focal deficits) - Studies Laboratory Data (last 24 hrs) 07/13/24 07/13/24 07/13/24 18:55 18:55 18:55 WBC 14.40 H Hgb 14.1 Hct 42.8 Plt Count 302 PT 12.4 INR 1.11 APTT 33.4 Sodium 135 L Potassium 3.7 BUN 23 H Creatinine 1.18 H Glucose 122 H Total Bilirubin 0.4 AST 19 ALT 16 Alkaline Phosphatase 130 H Assessment and Plan - Problems (Diagnosis) (1) Metabolic encephalopathy Current Visit: Yes Status: Acute (2) Acute cystitis with hematuria Current Visit: Yes Status: Acute (3) Delirium due to another medical condition, acute, hyperactive Current Visit: Yes Status: Acute (4) Falling Current Visit: Yes Status: Acute (5) Hypertensive urgency Current Visit: Yes Status: Acute - Plan Admit to [facility] Fall precautions IV fluids, IV antibiotics, Levaquin, ceftriaxone Trend cultures, urine culture, blood culture Hypertensive urgency, as needed antihypertensive Resume home antihypertensive, antilipid, aspirin statin Telemetry O2 2 L keep sats greater than 92% Normal saline, Trend kidney function, trend WBC Falls, PT eval - Advance Directives Does patient have a Living Will: No Does patient have a Durable POA for Healthcare: No - Code Status/Comfort Care Code Status: Full Code Critical Care: No Time Spent Managing Pts Care (In Minutes): 55
[2024-07-13] MEDS ORDERED: CEFTRIAXONE 1000 MG/VIAL ONE (20:20)
[2024-07-13] MEDS ORDERED: ONDANSETRON 4 MG/2 ML VIAL ONE (20:28)
[2024-07-13 20:42] LABS: Specific Gravity 1.019 (1.005-1.030); Sqamous Epithelial <5 /HPF (None Seen); Urine Bacteria 20-50 /HPF (<20); Urine Bilirubin NEGATIVE (Negative); Urine Blood 3+ (OVER) (Negative); Urine Clarity Extremely Turbid (Clear); Urine Color Light-Orange (Yellow); Urine Crystals Unidentified Few /HPF (None Seen); Urine Culture Reflex Order REFLEXED; Urine Glucose NEGATIVE (Negative); Urine Ketones NEGATIVE (Negative); Urine Microscopic Reflex YN ORDER UMIC; Urine Mucus Slight /HPF (None Seen); Urine Nitrite NEGATIVE (Negative); Urine Protein 4+ (Over) (Negative); Urine RBC 21-50 /HPF (None Seen); Urine Urobilinogen Normal (Normal); Urine WBC 20-50 /HPF (<5); Urine WBC Clump Rare /HPF (None Seen); Urine pH 6.5 (5.0-7.0)
[2024-07-13] MEDS ORDERED: METOPROLOL TARTRATE 5 MG/5 ML INJ IV ONE (21:58)
[2024-07-13] MEDS: NA CHLORIDE 0.9% 1,000 ML IV SCH (22:32)
[2024-07-13 22:51] VITALS: BMI 34.7
[2024-07-13] MEDS: LORazepam 2 MG/ML VIAL IV PRN (23:15)
[2024-07-14] MEDS: METOPROLOL TARTRATE 5 MG/5 ML INJ IV STA (00:33)
[2024-07-14] MEDS ORDERED: METOPROLOL TARTRATE 5 MG/5 ML INJ IV PRN (02:58)
[2024-07-14] MEDS: Levofloxacin500mg IV 500 MG/100 ML BAG IV ONE ×2 (03:00→05:06)
[2024-07-14] MEDS ORDERED: Levofloxacin 750mg IV 750 MG/150 ML BAG IV SCH (03:00)
[2024-07-14] MEDS: LORazepam 2 MG/ML VIAL IV ONE (04:08)
[2024-07-14] MEDS: HYDRALAZINE HCL 20 MG/ML VIAL IV ONE (05:04)
[2024-07-14 06:08] LABS: Absolute Basophils 0.2 K/uL (0-0.5); Absolute Eosinophils 0.1 K/uL (0-0.5); Absolute Lymphocytes (CBC) 1.5 K/uL (0.7-4.9); Absolute Neutrophil 10.6 K/uL (1.8-8.0); Basophils % 1.3 % (0-1.3); Eosinophils % 0.5 % (0-4.4); Hematocrit 41.6 % (36.0-45.0); Hemoglobin 13.8 g/dL (12.0-15.0); MCH 28.6 pg (27.0-35.0); MCHC 33.1 g/dL (32.0-36.0); MCV 86.3 fL (80-100); MPV 8.8 fL (7.6-11.3); Monocytes % 7.6 % (3.3-12.3); Neutrophils % 79.6 % (41.7-73.7); Platelets 284 thou/uL (152-406); RBC Red Blood Cell Count 4.82 M/uL (3.86-4.86); Red Cell Distribution Width 14.7 % (12.1-15.2)
[2024-07-14] MEDS: ONDANSETRON 4 MG/2 ML VIAL IV PRN (06:27)
[2024-07-14 06:40] LABS: Albumin 2.9 g/dL (3.4-5.0); Albumin/Globulin Ratio 0.7 (1.1-1.8); Anion Gap 12.6 mEq/L (5.0-15.0); Bilirubin Total 0.4 mg/dL (0.2-1.0); Globulin 4.4 g/dL (2.3-3.5); Magnesium 1.8 mg/dL (1.6-2.4); Potassium 3.6 mEq/L (3.5-5.1); Protein, Total 7.3 g/dL (6.4-8.2)
--- NOTE | 2024-07-14 06:51 | P.PN ---
Date of Service: 07/14/24 Subjective: remains confused. responding to some questions in short phrases opens eyes and responds to verbal stimuli restless throughout the night per nursing staff afebrile ROS: 10 point ROS limited due to mentation Physical Exam: GEN: awake, orientedx2, restless; slow to answer questions - requires repetitive questioning HEENT: Normal conjunctiva, sclera anicteric CV: Sinus Tachycardia; HR 100-110s, no edema Pulm: Nonlabored respirations on room air ABD: soft, mild generalized abdominal discomfort, nondistended Neuro: Normal speech, normal affect Problem List: Acute metabolic encephalopathy suspected UTI s/p Recent fall Hypertension Hyperlipidemia Depression Hx a-fib; not on anticoagulation Hx ulcers Acute metabolic encephalopathy suspected UTI s/p Recent fall on admission, presents with confusion, altered mentation, decreased responsiveness for ~2 weeks. +foul smelling urine family reports symptoms began 07/02. Had a recent fall with head injury. Family denies any loss of consciousness. CT head (07/13): Advanced chronic small vessel ischemic changes CXR (07/13): negative for any acute findings urinalysis suspicious for UTI continue empiric rocephin (07/14-) follow urine and blood cultures continue IVF pain control PT consult advance diet as tolerated did have some coughing when trying bedside swallow this morning resume home meds once appropriate/tolerating PO Hypertension Hyperlipidemia Depression Hx a-fib; not on anticoagulation Hx ulcers confirm home meds, restart as appropriate resume home metoprolol, imdur, cardizem, statin Code: Full Dispo: Home, ~2 days Pending cultures updated daughter over phone Time Spent Managing Pts Care (In Minutes): 54
[2024-07-14] MEDS ORDERED: FUROSEMIDE 40 MG TABLET PO SCH (09:00)
[2024-07-14] MEDS: CEFTRIAXONE 1,000 MG in NA CHLORIDE 0.9% 50 ML IVPB SCH (10:00)
[2024-07-14] MEDS: METOPROLOL TAR 50 MG TAB PO SCH (10:20)
[2024-07-14] MEDS: ISOSORBIDE MONO SR 30 MG TAB PO SCH (10:21)
[2024-07-14] MEDS: ATORVASTATIN 10 MG TAB PO SCH (10:21)
[2024-07-14] MEDS: DILTIAZEM HCL 120 MG SR CAP PO SCH (10:21)
[2024-07-14] MEDS: NA CHLORIDE 0.9% 50 ML ONE (11:13)
[2024-07-14] MEDS: HYDRALAZINE HCL 20 MG/ML VIAL IV PRN (16:13)
[2024-07-14] MEDS: LIDOCAINE 4% PATCH TOP SCH (16:15)
[2024-07-14] MEDS: TRAMADOL HCL 50 MG TAB PO PRN (16:16)
[2024-07-15] MEDS ORDERED: Levofloxacin 250mg IV 250 MG/50 ML BAG IV SCH (03:00)
[2024-07-15 06:30] LABS: Albumin/Globulin Ratio 0.8 (1.1-1.8); Anion Gap 11.4 mEq/L (5.0-15.0); Bilirubin Total 0.3 mg/dL (0.2-1.0); Globulin 3.9 g/dL (2.3-3.5); Magnesium 1.9 mg/dL (1.6-2.4); Potassium 3.4 mEq/L (3.5-5.1); Protein, Total 6.9 g/dL (6.4-8.2)
[2024-07-15 06:36] LABS: Absolute Basophils 0.1 K/uL (0-0.5); Absolute Lymphocytes (CBC) 1.2 K/uL (0.7-4.9); Absolute Monocytes 1.3 K/uL (0.1-1.3); Absolute Neutrophil 11.4 K/uL (1.8-8.0); Basophils % 0.6 % (0-1.3); Hematocrit 38.9 % (36.0-45.0); Lymphocytes % 8.5 % (15.3-44.8); MCH 28.6 pg (27.0-35.0); MCHC 33.6 g/dL (32.0-36.0); MCV 85.3 fL (80-100); MPV 9.3 fL (7.6-11.3); Monocytes % 9.3 % (3.3-12.3); Neutrophils % 81.6 % (41.7-73.7); Nucleated Red Blood Cells % 0.1 % (0-0); Platelets 276 thou/uL (152-406); RBC Red Blood Cell Count 4.55 M/uL (3.86-4.86); Red Cell Distribution Width 14.4 % (12.1-15.2)
[2024-07-15] MEDS: PANTOPRAZOLE 40MG TABLET PO SCH (08:24)
[2024-07-15] MEDS: FLUOXETINE 20 MG CAP PO SCH (08:24)
--- NOTE | 2024-07-15 09:20 | P.PN ---
Date of Service: 07/15/24 Subjective: remains confused. Able to respond to some questions responds "yes" when asked in pain. Unable to elaborate further left lower extremity pain/tenderness near knee on exam ate some applesauce for breakfast unsure when she last voided. ROS: 10 point ROS limited due to mentation Physical Exam: GEN: awake, orientedx2, restless; slow to answer questions - requires repetitive questioning HEENT: Normal conjunctiva, sclera anicteric CV: Sinus Tachycardia; HR 100-110s, no edema Pulm: Nonlabored respirations on room air ABD: soft, mild generalized abdominal discomfort, nondistended Neuro: Normal speech, normal affect Problem List: Acute metabolic encephalopathy UTI, POA s/p Recent fall acute on chronic pain Hypertension Hyperlipidemia Depression Hx a-fib; not on anticoagulation Hx ulcers Acute metabolic encephalopathy UTI, POA s/p Recent fall acute on chronic pain on admission, presents with confusion, altered mentation, decreased responsiveness for ~2 weeks. +foul smelling urine family reports symptoms began 07/02. Had a recent fall with head injury. Family denies any loss of consciousness. CT head (07/13): Advanced chronic small vessel ischemic changes CXR (07/13): negative for any acute findings Would likely benefit from CT abd/pelvis to further eval but suspect patient wouldn't be able to remain still long enough or follow commands for clear images. continue empiric rocephin (07/14-) urine cx (07/13): 4+ GNR follow urine and blood cultures bladder scan/PVR with 400-500 ml retained urine. Will recheck PVR ~noon. May need Dai placed if worse. pain control - fentanyl ordered - daughter states tolerates this well in past family reports patient doesn't do well with morphine/dilaudid continue lidocaine patch, tramadol avoid ativan as much as possible did have some coughing when trying bedside swallow yesterday resume home meds once appropriate/tolerating PO NPO for now feels some lower left extremity/knee pain/tenderness on light touch responds yes when asked if in pain but unable to elaborate further d/t mentation. unknown etiology or chronicity. She did have a recent fall at home. pain control continue PT Hypertension Hyperlipidemia Depression Hx a-fib; not on anticoagulation Hx ulcers confirm home meds, restart as appropriate resume home metoprolol, imdur, cardizem, statin Code: Full Dispo: Home, ~1-2 days Pending cultures improvement of mentation baseline is aox3, wheelchair bound mostly, and can transfer Time Spent Managing Pts Care (In Minutes): 54
[2024-07-15] MEDS: FENTANYL CITR 100 MCG/2 ML IV ONE (10:33)
--- NOTE | 2024-07-15 12:20 | EKG ---
Test Date: 2024-07-13 Test Time: 19:29:33 Device Sales Consultant: NOEL MEASUREMENT RESULTS: Intervals: Rate: 109 SD: 158 QRSD: 100 QT: 358 QTc: 482 [place]: P: 13 SD: 158 QRS: -39 T: 103 INTERPRETIVE STATEMENTS: Sinus tachycardia with premature atrial complexes Left axis deviation Voltage criteria for left ventricular hypertrophy T wave abnormality, consider lateral ischemia Abnormal ECG Compared to ECG 06/10/2024 20:55:51 Left-axis deviation now present T-wave abnormality now present Possible ischemia now present Left anterior fascicular block no longer present Early repolarization no longer present Myocardial infarct finding no longer present Electronically Signed On 07-15-24 12:16:19 CDT by Edgard Rush
[2024-07-15] MEDS: FENTANYL CITR 100 MCG/2 ML IV PRN (13:22)
[2024-07-15] MEDS: POTASSIUM 25 MEQ EFFERV TAB PO ONE (15:35)
--- NOTE | 2024-07-15 19:33 | RAD REPORT ---
EXAMINATION: CT Abdomen Pelvis W Contrast CLINICAL INDICATION: Female, 73 years old. abd pain, uti, r/o hydro/pyelo TECHNIQUE: CT abdomen and pelvis was performed, after the administration of IV contrast, as per [facility] protocol. Axial, sagittal and coronal reconstructions were obtained. One or more of the following dose reduction techniques were used: Automated exposure control, adjustment of the mA and k V according to patient size, and iterative reconstruction. Unless otherwise specified, incidental findings do not require dedicated imaging follow-up. COMPARISON: 04/11/2023 FINDINGS: Motion artifact limits evaluation. LOWER CHEST: The visualized lung bases are clear. LIVER: Normal in size and contour. No focal lesion. BILIARY SYSTEM: No suspicious abnormalities. SPLEEN: Normal size. No focal lesion. PANCREAS: No mass, ductal dilation, or savanah-pancreatic fluid. ADRENALS: Normal; no mass. KIDNEYS: Normal size. Cortical thinning of the left superior pole, table, may relate to focal scarrin g. Otherwise normal contour. No hydronephrosis. URINARY BLADDER: Unremarkable. GASTROINTESTINAL TRACT: No evidence of free air, significant intra-abdominal free fluid, bowel obstru ction or abscess. APPENDIX: Normal appendix. LYMPH NODES: No lymphadenopathy. MUSCULOSKELETAL: No acute or suspicious osseous abnormality. ADDITIONAL FINDINGS: Atherosclerotic calcifications of the aorta. Tortuosity of the iliac vessels. IMPRESSION: No acute or concerning abnormalities seen in the abdomen or pelvis, within limits of motion artifact. Stable findings as above.
[2024-07-15] MEDS: FAMOTIDINE 20 MG TAB PO SCH (21:00)
[2024-07-15] MEDS: LORazepam 2 MG/ML VIAL IV ONE (21:27)
[2024-07-16] MEDS: LORazepam 2 MG/ML VIAL ONE (02:47)
[2024-07-16] MEDS: LORazepam 2 MG/ML VIAL IV ONE (02:51)
[2024-07-16 05:43] LABS: Absolute Basophils 0.1 K/uL (0-0.5); Absolute Lymphocytes (CBC) 1.3 K/uL (0.7-4.9); Absolute Monocytes 1.5 K/uL (0.1-1.3); Absolute Neutrophil 11.4 K/uL (1.8-8.0); Basophils % 0.5 % (0-1.3); Hematocrit 39.3 % (36.0-45.0); Hemoglobin 13.1 g/dL (12.0-15.0); Lymphocytes % 9.4 % (15.3-44.8); MCH 28.5 pg (27.0-35.0); MCHC 33.3 g/dL (32.0-36.0); MCV 85.5 fL (80-100); MPV 9.1 fL (7.6-11.3); Monocytes % 10.4 % (3.3-12.3); Neutrophils % 79.7 % (41.7-73.7); Platelets 264 thou/uL (152-406); Red Cell Distribution Width 14.8 % (12.1-15.2)
[2024-07-16 05:52] LABS: Anion Gap 10.4 mEq/L (5.0-15.0); Magnesium 2.2 mg/dL (1.6-2.4); Potassium 3.4 mEq/L (3.5-5.1)
--- NOTE | 2024-07-16 07:10 | P.PN ---
Date of Service: 07/16/24 Subjective: nursing staff reports patient restless throughout the night voided multiple times throughout the day after initial bladder scan yesterday afebrile ROS: 10 point ROS limited due to mentation Physical Exam: GEN: awake, orientedx2, restless; slow to answer questions HEENT: Normal conjunctiva, sclera anicteric CV: Regular rate and rhythm, no edema Pulm: Nonlabored respirations on room air ABD: soft, mild generalized abdominal discomfort, nondistended Neuro: Normal speech, normal affect Problem List: Acute metabolic encephalopathy UTI, POA s/p Recent fall acute on chronic pain Hypertension Hyperlipidemia Depression Hx a-fib; not on anticoagulation Hx ulcers Acute metabolic encephalopathy UTI, POA s/p Recent fall on admission, presents with confusion, altered mentation, decreased responsiveness for ~2 weeks. +foul smelling urine family reports symptoms began 07/02. Had a recent fall with head injury. Family denies any loss of consciousness. CT head (07/13): Advanced chronic small vessel ischemic changes CXR (07/13): negative for any acute findings CT abd/pelvis (07/15): no acute findings seen within limits of motion artifact. Noted atherosclerotic calcifications of the aorta. Tortuosity of the iliac vessels urine cx (07/13): Enterobacter Aerogenes resistant to rocephin Blood cx (07/13): NGTD IV rocephin (07/14-07/15) switched to IV levaquin following culture results continue IV levaquin (07/16-) monitor on tele, given pts h/o afib; QTc ok bladder scan/PVR 07/15 with 400-500 ml retained urine. Voided multiple times after initial bladder scan. Repeat PVR < 100. did have some coughing when trying bedside swallow 07/14 resume home meds once appropriate/tolerating PO NPO for now except meds, IVF bedside swallow eval ongoing acute on chronic pain feels some lower left extremity/knee pain/tenderness on light touch. responds yes when asked if in pain but unable to elaborate further d/t mentation. unknown etiology or chronicity. She did have a recent fall at home and has some degree of chronic pain per family pain control - fentanyl ordered - daughter states tolerates this well in past family reports patient doesn't do well with morphine/dilaudid continue lidocaine patch, tramadol avoid ativan continue PT Hypertension Hyperlipidemia Depression Hx a-fib; not on anticoagulation Hx ulcers confirm home meds, restart as appropriate resume home metoprolol, imdur, cardizem, statin Code: Full Dispo: Home, ~1-2 days Pending improvement of mentation baseline is aox3, wheelchair bound, but can transfer independently Time Spent Managing Pts Care (In Minutes): 54
[2024-07-16] MEDS: D5.45NS W/KCL 20MEQ 20 MEQ/1,000 ML BAG IV SCH (07:49)
[2024-07-16] MEDS: Levofloxacin 750mg IV 750 MG/150 ML BAG IV SCH (07:50)
[2024-07-16] MEDS ORDERED: Levofloxacin 750mg IV 750 MG/150 ML BAG IV SCH (08:00)
[2024-07-16] MEDS: KCL 20 MEQ/100 mL IVPB 20 MEQ/100 ML BAG IV SCH (10:12)
[2024-07-17 06:02] LABS: Absolute Basophils 0.1 K/uL (0-0.5); Absolute Lymphocytes (CBC) 1.2 K/uL (0.7-4.9); Absolute Monocytes 1.5 K/uL (0.1-1.3); Absolute Neutrophil 11.4 K/uL (1.8-8.0); Basophils % 0.5 % (0-1.3); Eosinophils % 0.1 % (0-4.4); Hematocrit 39.6 % (36.0-45.0); Hemoglobin 13.1 g/dL (12.0-15.0); Lymphocytes % 8.7 % (15.3-44.8); MCH 28.6 pg (27.0-35.0); MCHC 33.1 g/dL (32.0-36.0); MCV 86.6 fL (80-100); MPV 9.6 fL (7.6-11.3); Monocytes % 10.6 % (3.3-12.3); Neutrophils % 80.1 % (41.7-73.7); Platelets 244 thou/uL (152-406); RBC Red Blood Cell Count 4.57 M/uL (3.86-4.86); Red Cell Distribution Width 14.5 % (12.1-15.2)
[2024-07-17 06:16] LABS: Anion Gap 9.7 mEq/L (5.0-15.0); Magnesium 2.3 mg/dL (1.6-2.4); Potassium 3.7 mEq/L (3.5-5.1)
--- NOTE | 2024-07-17 09:18 | P.PN ---
Subjective Date of Service: 07/17/24 Chief Complaint: Delirium Change patient continues to remain unresponsive agitated requiring a sitter to monitor Review of Systems is unable to be obtained Physical Examination - Vital Signs Temperature: 98.0 F Blood Pressure: 193/107 Pulse: 79 Respirations: 16 Pulse Ox (%): 97 - Physical Exam General: Delirious, Unresponsive Respiratory: Clear to auscultation bilaterally Cardiovascular: No edema, Regular rate/rhythm - Studies Microbiology Data (last 24 hrs): 07/13/24 20:11 Clean Catch Urine Carter Count - Final >100,000 CFU/ML. 07/13/24 20:11 Clean Catch Urine - Final Enterobacter Aerogenes Assessment And Plan - Current Problems (Diagnosis) (1) Metabolic encephalopathy Current Visit: Yes Status: Acute Plan: Patient admitted with a metabolic encephalopathy bacteria in the urine sensitive to levofloxacin and is delirious I have added thiamine was no change in treatment
[2024-07-17] MEDS: THIAMINE 200 MG/2 ML INJ IVP SCH (13:15)
[2024-07-17] MEDS ORDERED: WATER FOR INJ,STERILE 10 ML IM PRN (15:50)
[2024-07-17] MEDS ORDERED: ZIPRASIDONE MESYLA 20 MG/VIAL IM PRN (15:50)
[2024-07-17] MEDS: CLONIDINE 0.1 MG/PATCH TD SCH (16:01)
[2024-07-17 16:57] LABS: Thyroid Stimulating Hormone 0.95 uIU/mL (0.358-3.740)
[2024-07-17] MEDS: CEFEPIME 1 GM in NA CHLORIDE 0.9% 100 ML IV SCH (21:02)
[2024-07-18 09:04] LABS: Hematocrit 41.1 % (36.0-45.0); Hemoglobin 13.3 g/dL (12.0-15.0); MCH 28.3 pg (27.0-35.0); MCHC 32.4 g/dL (32.0-36.0); MCV 87.4 fL (80-100); MPV 9.6 fL (7.6-11.3); Platelets 205 thou/uL (152-406); RBC Red Blood Cell Count 4.71 M/uL (3.86-4.86); Red Cell Distribution Width 14.5 % (12.1-15.2)
[2024-07-18 09:20] LABS: Anion Gap 11.6 mEq/L (5.0-15.0); Potassium 3.6 mEq/L (3.5-5.1)
--- NOTE | 2024-07-18 09:39 | P.PN ---
Subjective Date of Service: 07/18/24 Chief Complaint: Delirium Patient appears to be less agitated today more alert and nonverbal Review of Systems is unable to be obtained Physical Examination - Vital Signs Temperature: 98.4 F Blood Pressure: 186/91 Pulse: 100 Respirations: 26 Pulse Ox (%): 92 - Physical Exam General: Alert, Unresponsive Respiratory: Clear to auscultation bilaterally Cardiovascular: No edema, Regular rate/rhythm, Normal S1 S2 Assessment And Plan - Current Problems (Diagnosis) (1) Metabolic encephalopathy Current Visit: Yes Status: Acute Plan: Patient appears to have encephalopathy may be doing elevated better today less agitated continue with thiamine reordered cultures including urinalysis Calcitonin level is still negative side effect of levofloxacin I will change her over to cefepime pressure is still elevated patient taking her pills labs ordered white count is declining. Cultures pending advance to soft diet consult Dr. Altman CT scan shows chronic small vessel disease of the brain
[2024-07-18 12:33] LABS: Urine Culture Reflex Order REFLEXED; Urine Microscopic Reflex YN ORDER UMIC; Urine RBC >50 /HPF (None Seen); Urine WBC >50 /HPF (<5)
[2024-07-18 12:35] LABS: Urine Bacteria >50 /HPF (<20)
[2024-07-18 12:36] LABS: Specific Gravity 1.021 (1.005-1.030); Urine Bilirubin NEGATIVE (Negative); Urine Clarity Turbid (Clear); Urine Color Light-Orange (Yellow); Urine Glucose Negative (Negative); Urine Ketones NEGATIVE (Negative)
[2024-07-18 12:37] LABS: Urine Blood 3+ (Negative); Urine Nitrite NEGATIVE (Negative); Urine Protein 2+ (Negative); Urine Urobilinogen Normal (Normal)
--- NOTE | 2024-07-18 15:07 | EKG ---
Test Date: 2024-07-15 Test Time: 21:52:49 Mutuel Clerk: SANDRA MEASUREMENT RESULTS: Intervals: Rate: 85 ME: 154 QRSD: 110 QT: 428 QTc: 509 [place]: P: 81 ME: 154 QRS: -68 T: 52 INTERPRETIVE STATEMENTS: Sinus rhythm with premature atrial complexes Pulmonary disease pattern Left anterior fascicular block Septal infarct, age undetermined Abnormal ECG Compared to ECG 07/13/2024 19:29:33 Left anterior fascicular block now present Myocardial infarct finding now present Sinus tachycardia no longer present Left-axis deviation no longer present Left ventricular hypertrophy no longer present T-wave abnormality no longer present Possible ischemia no longer present Electronically Signed On 07-18-24 15:06:16 CDT by Edgard Rush
--- NOTE | 2024-07-19 10:20 | P.PN ---
Subjective Date of Service: 07/19/24 Chief Complaint: Delirium Patient appears to be more alert today less agitated plan to communicate Review of Systems is unable to be obtained Physical Examination - Vital Signs Temperature: 97.6 F Blood Pressure: 158/84 Pulse: 85 Respirations: 20 Pulse Ox (%): 95 - Physical Exam General: Delirious, Unresponsive Respiratory: Clear to auscultation bilaterally Cardiovascular: No edema, Normal pulses, Regular rate/rhythm - Studies Microbiology Data (last 24 hrs): 07/13/24 20:20 Blood - Blood Aerobic Blood Culture - Final No growth in 5 days. 07/13/24 20:20 Blood - Blood Anaerobic Blood Culture - Final No growth in 5 days. 07/13/24 18:55 Blood - Blood Aerobic Blood Culture - Final No growth in 5 days. 07/13/24 18:55 Blood - Blood Anaerobic Blood Culture - Final No growth in 5 days. Assessment And Plan - Current Problems (Diagnosis) (1) Metabolic encephalopathy Current Visit: Yes Status: Acute Plan: Patient has encephalopathy neurology consult pending less agitated very alert trying to communicate. Urine culture is pending no evidence of active sepsis patient is eating and drinking white count is slowly declining Calcitonin level is negative no evidence of active stroke
[2024-07-19] MEDS: CEFEPIME 2 GM in NA CHLORIDE 0.9% 100 ML IV SCH (20:22)
[2024-07-20 06:53] LABS: Anion Gap 8.7 mEq/L (5.0-15.0); Magnesium 2.1 mg/dL (1.6-2.4); Potassium 3.7 mEq/L (3.5-5.1)
[2024-07-20] MEDS: POTASSIUM 25 MEQ EFFERV TAB PO ONE (08:56)
[2024-07-20] MEDS: DILTIAZEM HCL 240 MG PO SCH (15:40)
--- NOTE | 2024-07-20 15:54 | P.PN ---
Subjective Date of Service: 07/20/24 Chief Complaint: Delirium Patient is more awake today. He is oriented to person and place. No issues overnight, no reported agitation. No recorded fever. Physical Examination - Vital Signs Temperature: 97.9 F Blood Pressure: 176/87 Pulse: 61 Respirations: 16 Pulse Ox (%): 96 Assessment And Plan - Plan Physical Exam: GEN: awake, oriented x 2, NAD. CV: Regular rate and rhythm, no edema Pulm: Nonlabored respirations on room air ABD: soft, nontender, nondistended, normal bowel sounds. Neuro: Normal speech, normal affect, no focal motor deficit Problem List: Acute metabolic encephalopathy UTI, POA s/p Recent fall acute on chronic pain Hypertension Hyperlipidemia Depression Hx a-fib; not on anticoagulation Hx ulcers Acute metabolic encephalopathy UTI, POA s/p Recent fall on admission, presents with confusion, altered mentation, decreased responsiveness for ~2 weeks. +foul smelling urine History of recent fall with head injury. No reported loss of consciousness. CT head (07/13): Advanced chronic small vessel ischemic changes CXR (07/13): negative for any acute findings CT abd/pelvis (07/15): no acute findings seen within limits of motion artifact. Noted atherosclerotic calcifications of the aorta. Tortuosity of the iliac vessels urine cx (07/13): Enterobacter Aerogenes resistant to rocephin Blood cx (07/13): NGTD IV rocephin (07/14-07/15) switched to IV levaquin following culture results Patient initially on IV Levaquin. Levaquin switched to IV cefepime. Continue home meds. Speech therapy consult for swallow evaluation. bedside swallow eval ongoing acute on chronic pain Status post fall continue lidocaine patch. Tramadol as needed. avoid ativan continue PT Hypertension Hyperlipidemia Depression Hx a-fib; not on anticoagulation Hx ulcers Patient is more awake and interactive. Resume oral medications-metoprolol, imdur, cardizem, statin Code: Full Dispo: Home with home health. Wheelchair bound, but can transfer independently
[2024-07-20] MEDS: ACETAMINOPHEN 325 MG TABLET PO PRN (20:31)
[2024-07-20] MEDS: cloNIDine HCL 0.1 MG TAB PO SCH (20:31)
[2024-07-21 05:35] LABS: Absolute Basophils 0.1 K/uL (0-0.5); Absolute Lymphocytes (CBC) 1.5 K/uL (0.7-4.9); Absolute Monocytes 1.2 K/uL (0.1-1.3); Basophils % 1.1 % (0-1.3); Eosinophils % 11.3 % (0-4.4); Hematocrit 35.2 % (36.0-45.0); Hemoglobin 11.4 g/dL (12.0-15.0); Lymphocytes % 16.6 % (15.3-44.8); MCH 28.2 pg (27.0-35.0); MCHC 32.3 g/dL (32.0-36.0); MCV 87.5 fL (80-100); Monocytes % 13.9 % (3.3-12.3); Neutrophils % 57.1 % (41.7-73.7); Platelets 173 thou/uL (152-406); RBC Red Blood Cell Count 4.02 M/uL (3.86-4.86); Red Cell Distribution Width 15.2 % (12.1-15.2)
[2024-07-21 05:48] LABS: Anion Gap 6.9 mEq/L (5.0-15.0); Potassium 3.9 mEq/L (3.5-5.1)
[2024-07-21] MEDS: POTASSIUM CL SA 10 MEQ TAB PO ONE (09:05)
--- NOTE | 2024-07-21 16:27 | P.PN ---
Subjective Date of Service: 07/21/24 Chief Complaint: Delirium Patient is awake. She is oriented to person and place. No issues overnight, no reported agitation. No recorded fever. She ate well this morning. Physical Examination - Vital Signs Temperature: 97.2 F Blood Pressure: 98/53 Pulse: 53 Respirations: 16 Pulse Ox (%): 92 Assessment And Plan - Plan Physical Exam: GEN: awake, oriented x 2, NAD. CV: Regular rate and rhythm, no edema Pulm: Nonlabored respirations on room air ABD: soft, nontender, nondistended, normal bowel sounds. Neuro: Normal speech, normal affect, no focal motor deficit Problem List: Acute metabolic encephalopathy UTI, POA s/p Recent fall acute on chronic pain Hypertension Hyperlipidemia Depression Hx a-fib; not on anticoagulation Hx ulcers Acute metabolic encephalopathy UTI, POA s/p Recent fall on admission, presents with confusion, altered mentation, decreased responsiveness for ~2 weeks. +foul smelling urine History of recent fall with head injury. No reported loss of consciousness. CT head (07/13): Advanced chronic small vessel ischemic changes CXR (07/13): negative for any acute findings CT abd/pelvis (07/15): no acute findings seen within limits of motion artifact. Noted atherosclerotic calcifications of the aorta. Tortuosity of the iliac vessels urine cx (07/13): Enterobacter Aerogenes resistant to rocephin Blood cx (07/13): NGTD IV rocephin (07/14-07/15) switched to IV levaquin following culture results. Mental status improved. Functional status not improved to baseline yet. Patient initially on IV Levaquin. Levaquin switched to IV cefepime. Continue home meds. Speech therapy swallow evaluation note reviewed. Speech therapy input appreciated. Small bite-size food recommended. acute on chronic pain Status post fall continue lidocaine patch. Tramadol as needed. continue PT Hypertension Hyperlipidemia Depression Hx a-fib; not on anticoagulation Hx ulcers Patient is awake and interactive. Continue oral medications-metoprolol, imdur, cardizem, statin Code: Full Dispo: Home with home health. Wheelchair bound, but can transfer independently at baseline.
[2024-07-21] MEDS: ENSURE HIGH PROTEIN 237 ML CAN PO SCH (21:00)
[2024-07-22 04:45] LABS: Absolute Basophils 0.1 K/uL (0-0.5); Absolute Eosinophils 0.7 K/uL (0-0.5); Absolute Lymphocytes (CBC) 1.3 K/uL (0.7-4.9); Absolute Neutrophil 4.7 K/uL (1.8-8.0); Basophils % 0.9 % (0-1.3); Eosinophils % 8.5 % (0-4.4); Hematocrit 34.5 % (36.0-45.0); Hemoglobin 11.6 g/dL (12.0-15.0); Lymphocytes % 17.3 % (15.3-44.8); MCH 29.1 pg (27.0-35.0); MCHC 33.5 g/dL (32.0-36.0); MCV 86.9 fL (80-100); MPV 9.8 fL (7.6-11.3); Monocytes % 12.8 % (3.3-12.3); Neutrophils % 60.5 % (41.7-73.7); Nucleated Red Blood Cells % 0.1 % (0-0); Platelets 192 thou/uL (152-406); RBC Red Blood Cell Count 3.97 M/uL (3.86-4.86)
[2024-07-22 04:53] LABS: Anion Gap 7.9 mEq/L (5.0-15.0); Potassium 3.9 mEq/L (3.5-5.1)
[2024-07-22] MEDS: THIAMINE HCL 100 MG TABLET PO SCH (10:25)
[2024-07-22] MEDS: GABAPENTIN 100 MG CAP PO SCH (14:20)
[2024-07-22] MEDS: TRAMADOL HCL 50 MG TAB PO PRN (14:20)
--- NOTE | 2024-07-22 15:37 | P.PN ---
Subjective Date of Service: 07/22/24 Chief Complaint: Delirium Patient is awake and alert. Hard of hearing, slow to respond. She is oriented to person and place. No reported agitation. No recorded fever. Physical Examination - Vital Signs Temperature: 97.3 F Blood Pressure: 119/68 Pulse: 80 Respirations: 18 Pulse Ox (%): 97 Assessment And Plan - Plan Physical Exam: GEN: awake, oriented x 2, NAD. CV: Regular rate and rhythm, no edema Pulm: Nonlabored respirations on room air ABD: soft, nontender, nondistended, normal bowel sounds. Neuro: Normal speech, normal affect, no focal motor deficit Problem List: Acute metabolic encephalopathy UTI, POA s/p Recent fall acute on chronic pain Hypertension Hyperlipidemia Depression Hx a-fib; not on anticoagulation Hx ulcers Acute metabolic encephalopathy UTI, POA s/p Recent fall on admission, presents with confusion, altered mentation, decreased responsiveness for ~2 weeks. +foul smelling urine History of recent fall with head injury. No reported loss of consciousness. CT head (07/13): Advanced chronic small vessel ischemic changes CXR (07/13): negative for any acute findings CT abd/pelvis (07/15): no acute findings seen within limits of motion artifact. Noted atherosclerotic calcifications of the aorta. Tortuosity of the iliac vessels urine cx (07/13): Enterobacter Aerogenes resistant to rocephin Blood cx (07/13): NGTD IV rocephin (07/14-07/15) switched to IV levaquin following culture results. Mental status improved. Functional status not improved to baseline yet. Patient initially on IV Levaquin. Levaquin switched to IV cefepime. Continue home meds. Speech therapy swallow evaluation note reviewed. Speech therapy input appreciated. Small bite-size food recommended. Continue PT. acute on chronic pain Status post fall continue lidocaine patch. Tramadol as needed. continue PT. At baseline patient is able to transfer without assistance. Home dose of gabapentin resume Hypertension Hyperlipidemia Depression Hx a-fib; not on anticoagulation Hx ulcers Patient is awake and interactive. Continue oral medications-metoprolol, imdur, cardizem, statin Code: Full Dispo: Home with home health.
--- NOTE | 2024-07-23 15:15 | P.PN ---
Subjective Date of Service: 07/23/24 Chief Complaint: Delirium Patient is awake and alert. Patient has no new complaint and seems to be in a good mood. She is oriented to person and place. No reported agitation. Physical Examination - Vital Signs Temperature: 97.5 F Blood Pressure: 135/74 Pulse: 53 Respirations: 16 Pulse Ox (%): 94 Assessment And Plan - Plan Physical Exam: GEN: awake, oriented x 2, NAD. CV: Regular rate and rhythm, no edema Pulm: Clear to auscultation bilaterally, no rhonchi or wheezes. ABD: soft, nontender, nondistended, normal bowel sounds. Neuro: Normal speech, normal affect, no focal motor deficit Problem List: Acute metabolic encephalopathy UTI, POA s/p Recent fall acute on chronic pain Hypertension Hyperlipidemia Depression Hx a-fib; not on anticoagulation Hx ulcers Acute metabolic encephalopathy UTI, POA s/p Recent fall on admission, presents with confusion, altered mentation, decreased responsiveness for ~2 weeks. +foul smelling urine History of recent fall with head injury. No reported loss of consciousness. CT head (07/13): Advanced chronic small vessel ischemic changes CXR (07/13): negative for any acute findings CT abd/pelvis (07/15): no acute findings seen within limits of motion artifact. Noted atherosclerotic calcifications of the aorta. Tortuosity of the iliac vessels urine cx (07/13): Enterobacter Aerogenes resistant to rocephin Blood cx (07/13): NGTD IV rocephin (07/14-07/15) switched to IV levaquin after culture results. Mental status improved. Functional status not improved to baseline yet. IV Levaquin switched to IV cefepime. Antibiotics day 8. Patient completed antibiotics for UTI. Urine culture is also growing Meliza, however patient is clinically improved. Start oral Diflucan. Discontinue IV cefepime Continue home meds. Speech therapy swallow evaluation note reviewed. Small bite-size food recommended. Continue PT. Patient slated for skilled rehab placement. acute on chronic pain Status post fall continue lidocaine patch. Tramadol as needed. continue PT. At baseline patient is able to transfer without assistance. Home dose of gabapentin resume Hypertension Hyperlipidemia Depression Hx a-fib; not on anticoagulation Hx ulcers Patient is awake and interactive. Continue oral medications-metoprolol, imdur, cardizem, statin Code: Full Dispo: SNF
[2024-07-23] MEDS: FLUCONAZOLE 100 MG TAB PO SCH (16:45)
[2024-07-24 08:02] VITALS: O2SAT 92
--- NOTE | 2024-07-24 14:06 | P.DS ---
Admission Date: 07/14/24 Discharge Date: 07/24/24 Disposition: TRANSFER TO SNF - REHAB Discharge Condition: FAIR Reason for Admission: Delirium Brief History of Present Illness: 73 yrs old Female with a past medical history hypertension, atrial fibrillation presented to the emergency room with confusion. There is a report patient previously fell and hit her head. She is not on anticoagulation. Patient noted to be hypertensive in the ED. Urinalysis suggested the presence of UTI, blood work showed leukocytosis, chest x-ray showed no acute abnormality. CT head unremarkable shows no acute changes. Patient met criteria for sepsis. She was admitted for further management. Hospital Course: Patient admitted to the medical floor and the following medical problems addressed: Diagnosis Acute metabolic encephalopathy UTI, POA s/p Recent fall acute on chronic pain Hypertension Hyperlipidemia Depression Hx a-fib; not on anticoagulation Hx ulcers Acute metabolic encephalopathy UTI, POA s/p Recent fall on admission, presents with confusion, altered mentation, decreased responsiveness for ~2 weeks. +foul smelling urine History of recent fall with head injury. No reported loss of consciousness. CT head (07/13): Advanced chronic small vessel ischemic changes CXR (07/13): negative for any acute findings CT abd/pelvis (07/15): no acute findings seen within limits of motion artifact. Noted atherosclerotic calcifications of the aorta. Tortuosity of the iliac vessels urine cx (07/13): Enterobacter Aerogenes resistant to rocephin Blood cx (07/13): NGTD Patient initially treated with IV rocephin (07/14-07/15) switched to IV levaquin after culture results. Mental status improved. Functional status not improved to baseline yet. IV Levaquin later switched to IV cefepime. Patient completed antibiotics for bacterial UTI. Urine culture grew Meliza albican. however patient is clinically improved. Patient started oral Diflucan to complete 7 days of treatment. Speech therapy swallow evaluation done and small bite-size food recommended. PT evaluated patient and skilled rehab recommended. She is clinically stable for discharge. acute on chronic pain Status post fall Negative head CT. Pain was managed with lidocaine patch and tramadol At baseline patient is able to transfer without assistance. Home dose of gabapentin continued during the hospital stay. Hypertension Hyperlipidemia Depression Hx a-fib; not on anticoagulation Hx ulcers Continued oral medications-metoprolol, imdur, cardizem, statin. Vital Signs/Physical Exam: Temp Pulse Resp BP Pulse Ox 97.9 F 60 16 161/90 H 97 07/24/24 08:00 07/24/24 09:32 07/24/24 08:00 07/24/24 09:32 07/24/24 08:00 General: In no apparent distress, Other (Awake) HEENT: Mucous membr. moist/pink, Sclerae nonicteric Neck: Supple, JVD not distended Respiratory: Clear to auscultation bilaterally, Normal air movement Cardiovascular: No edema, Normal S1 S2, Irregular heart rate/rhythm Gastrointestinal: Soft and benign, Non-distended, No tenderness Musculoskeletal: No swelling, No tenderness Integumentary: No cyanosis Neurological: Normal strength at 5/5 x4 extr Laboratory Data at Discharge: WBC 7.70 thou/uL (4.3-10.9) 07/22/24 04:22 Hgb 11.6 g/dL (12.0-15.0) L 07/22/24 04:22 Hct 34.5 % (36.0-45.0) L 07/22/24 04:22 Plt Count 192 thou/uL (152-406) 07/22/24 04:22 PT 12.4 SECONDS (9.4-12.5) 07/13/24 18:55 INR 1.11 07/13/24 18:55 APTT 33.4 SECONDS (24.3-36.9) 07/13/24 18:55 Sodium 138 mEq/L (136-145) 07/22/24 04:22 Potassium 3.9 mEq/L (3.5-5.1) 07/22/24 04:22 BUN 23 mg/dL (7-18) H 07/22/24 04:22 Creatinine 1.16 mg/dL (0.55-1.02) H 07/22/24 04:22 Glucose 91 mg/dL (74-106) 07/22/24 04:22 Magnesium 2.1 mg/dL (1.6-2.4) 07/20/24 06:16 Total Bilirubin 0.3 mg/dL (0.2-1.0) 07/15/24 05:47 AST 41 U/L (15-37) H 07/15/24 05:47 ALT 22 U/L (13-56) 07/15/24 05:47 Alkaline Phosphatase 108 U/L (45-117) 07/15/24 05:47 Home Medications: Fluoxetine HCl [Prozac] 3 cap PO DAILY 03/05/23 Furosemide [Lasix*] 40 mg PO DAILY 03/05/23 Isosorbide Mononitrate [Isosorbide Mononitrate ER] 30 mg PO DAILY 03/05/23 Pravastatin [Pravachol*] 1 tab PO DAILY 03/05/23 Clonidine HCl [Catapres*] 0.2 mg PO TID 06/11/24 Famotidine 20 mg PO BEDTIME 06/11/24 Pantoprazole Sodium [Protonix] 1 tab PO DAILY 06/11/24 dilTIAZem HCL [Diltiazem 24Hr ER] 240 mg PO DAILY 06/11/24 Metoprolol Tartrate [Lopressor*] 50 mg PO BID #60 tab 06/13/24 Gabapentin [Neurontin*] 100 mg PO BID 07/14/24 Ensure High Protein 237 ml PO BID can 07/24/24 Fluconazole [Diflucan] 200 mg PO DAILY #6 tab 07/24/24 Lidocaine 4% Patch [Lidoderm 5% Patch*] 2 patch TOP DAILY pat 07/24/24 Thiamine HCl [Vitamin B-1*] 200 mg PO BID 07/24/24 traMADol HCL [Ultram*] 50 mg PO Q6H PRN #20 tab 07/24/24 New Medications: Fluconazole [Diflucan] 200 mg PO DAILY #6 tab traMADol HCL [Ultram*] 50 mg PO Q6H PRN #20 tab PRN Reason: Pain Scale 5-7 (Moderate) Physician Discharge Instructions: Longterm Facility: [address] [address] P:[phone]/F:[phone] Followup: Sundeep Bernabe MD [Primary Care Provider] - Time spent managing pt's care (in minutes): 38
[2024-07-24 16:04] VITALS: BP 109/57
[2024-07-24 16:39] VITALS: TEMP 99.1
== END 2024-07-24 18:00 | DRG 871 ==
LOC: ER 18:24 → 2ND 20:15 → OBSVTOIN 07-14 06:27 → 2ND 07-16 16:50
PROVIDERS: ADMIT Hospitalist; ATTEND Internal Medicine
DX: A41.9 Sepsis, unspecified organism (principal); G93.41 Metabolic encephalopathy; B37.41 Candidal cystitis and urethritis; F05 Delirium due to known physiological condition; N17.9 Acute kidney failure, unspecified; Z16.29 Resistance to other single specified antibiotic; I10 Essential (primary) hypertension; I16.0 Hypertensive urgency; F32.A Depression, unspecified; E78.00 Pure hypercholesterolemia, unspecified; I48.91 Unspecified atrial fibrillation; B96.89 Other specified bacterial agents as the cause of diseases classified elsewhere; Z88.5 Allergy status to narcotic agent; Z90.49 Acquired absence of other specified parts of digestive tract; Z90.710 Acquired absence of both cervix and uterus; Y93.9 Activity, unspecified; Z79.899 Other long term (current) drug therapy; W18.30XA Fall on same level, unspecified, initial encounter; Y92.9 Unspecified place or not applicable; Y99.9 Unspecified external cause status
CPT/HCPCS: 36415; 51702; 70450; 71045; 74177; 80048; 80053; 81001; 82947; 83605; 83735; 83880; 84132; 84145; 84439; 84443; 85025; 85027; 85610; 85730; 87040; 87077; 87086; 87088; 87186; 92610; 93005; 94760; 96374; 96375; 97110; 97116; 97161; 97530; 99285; G0378; J0360; J0692; J0696; J2405; J3010; J3411; J3480; J7030; Q9967

== ENCOUNTER 2024-09-05 13:31 | Emergency (ER) | payer OTHER ==
[2024-09-05 16:21] LABS: Absolute Basophils 0.1 K/uL (0-0.5); Absolute Eosinophils 0.3 K/uL (0-0.5); Absolute Monocytes 0.9 K/uL (0.1-1.3); Absolute Neutrophil 7.3 K/uL (1.8-8.0); Basophils % 0.7 % (0-1.3); Hematocrit 36.7 % (36.0-45.0); Hemoglobin 12.1 g/dL (12.0-15.0); Lymphocytes % 10.6 % (15.3-44.8); MCH 27.9 pg (27.0-35.0); MCHC 32.9 g/dL (32.0-36.0); MCV 84.7 fL (80-100); MPV 8.5 fL (7.6-11.3); Monocytes % 9.4 % (3.3-12.3); Neutrophils % 76.3 % (41.7-73.7); Nucleated Red Blood Cells % 0.1 % (0-0); Platelets 336 thou/uL (152-406); RBC Red Blood Cell Count 4.33 M/uL (3.86-4.86); Red Cell Distribution Width 15.8 % (12.1-15.2)
[2024-09-05 16:31] LABS: PT Prothrombin Time 13.3 SECONDS (9.4-12.5); PTT, Activated Partial Thromb 33.6 SECONDS (24.3-36.9); Protime INR 1.19
[2024-09-05 16:37] LABS: Specific Gravity 1.019 (1.005-1.030); Sqamous Epithelial <5 /HPF (None Seen); Urine Bacteria 20-50 /HPF (<20); Urine Bilirubin NEGATIVE (Negative); Urine Blood 3+ (OVER) (Negative); Urine Clarity Extremely Turbid (Clear); Urine Color Light-Orange (Yellow); Urine Crystals Unidentified Few /HPF (None Seen); Urine Culture Reflex Order REFLEXED; Urine Glucose NEGATIVE (Negative); Urine Ketones 1+ (Negative); Urine Microscopic Reflex YN ORDER UMIC; Urine Mucus 2+ /HPF (None Seen); Urine Nitrite NEGATIVE (Negative); Urine Protein 2+ (Negative); Urine RBC >50 /HPF (None Seen); Urine Urobilinogen 1+ (Normal); Urine WBC >50 /HPF (<5); Urine WBC Clump Occasional /HPF (None Seen); Urine Yeast (Budding) Few /HPF (None Seen)
[2024-09-05 16:39] LABS: AST/SGOT 15 U/L (15-37); Albumin 2.7 g/dL (3.4-5.0); Albumin/Globulin Ratio 0.6 (1.1-1.8); Alkaline Phosphatase 113 U/L (45-117); Anion Gap 12.8 mEq/L (5.0-15.0); BUN Blood Urea Nitrogen 21 mg/dL (7-18); Bicarbonate 27 mEq/L (21-32); Bilirubin Total 0.4 mg/dL (0.2-1.0); Globulin 4.6 g/dL (2.3-3.5); Glomerular Filtration Rate 54 ml/min (=/>90); Glucose Level 98 mg/dL (74-106); Potassium 3.8 mEq/L (3.5-5.1); Protein, Total 7.3 g/dL (6.4-8.2); Sodium Level 133 mEq/L (136-145)
[2024-09-05 16:40] LABS: ALT/SGPT < 14 U/L (13-56)
[2024-09-05] MEDS ORDERED: CEFTRIAXONE 1000 MG/VIAL ONE (16:53)
--- NOTE | 2024-09-05 17:52 | RAD REPORT ---
Procedure: Chest Single View HISTORY: Cough COMPARISON: June 2024 FINDINGS: The lungs appear clear of acute infiltrate. No significant pleural effusion noted. The heart is mildly to moderately enlarged. . IMPRESSION: No acute abnormality is displayed.
--- NOTE | 2024-09-05 18:27 | EDPHYS ---
Physician Documentation [facility] Name: Sherita Parada Age: 73 yrs Sex: Female : 1950 Arrival Date: 09/05/2024 Time: 13:31 Bed 15 Private MD: ED Physician Chato Martel HPI: 09/05 18:09 This 73 yrs old Female presents to ER via EMS with complaints of Wound Check. dr5 18:09 The affected area is on the coccyx. Progress: The patient reports increased pain, dr5 redness. Patient is a 73-year-old female presenting with decubitus ulcer formation on upper buttock as well as dysuria, fever, hypoxia at home. Historical: - Allergies: 13:48 codeine sulfate ('makes me crazy'); iw 13:48 Morphine; iw 13:48 steroids (Hypertension); iw - PMHx: 13:48 Atrial fibrillation; Hypertension; Ulcers; High Cholesterol; iw - PSHx: 13:48 hysterectomy; Benign Tumor; Appendectomy; Lumpectomy of breast; Cyst removal; iw ROS: 18:09 Constitutional: as per hpi dr5 Exam: 18:09 Constitutional: This is a well developed, well nourished patient who is awake, alert, dr5 and in no acute distress. Head/Face: Normocephalic, atraumatic. ENT: Nares patent. No nasal discharge, no septal abnormalities noted. Tympanic membranes are normal and external auditory canals are clear. Oropharynx with no redness, swelling, or masses, exudates, or evidence of obstruction, uvula midline. Mucous membranes moist. Neck: Trachea midline, no thyromegaly or masses palpated, and no cervical lymphadenopathy. Supple, full range of motion without nuchal rigidity, or vertebral point tenderness. No Meningismus. Chest/axilla: Normal chest wall appearance and motion. Nontender with no deformity. No lesions are appreciated. Cardiovascular: Irregular Irregular rate and rhythm with a normal S1 and S2. Normal PMI, no JVD. No pulse deficits. Abdomen/GI: Soft, non-tender, non-distended Skin: Warm, dry with normal turgor. Normal color with no rashes, no lesions, and no evidence of cellulitis. Neuro: Awake and alert, GCS 15, oriented to person, place, time, and situation. Cranial nerves II-XII grossly intact. Motor strength 5/5 in all extremities. Sensory grossly intact. Cerebellar exam normal. Normal gait. 18:09 Skin: Appearance: abscess, Wound recheck: Stage I decubitus ulcer noted. Abrasions noted to the left buttock with drainage and tenderness to palpation. Decubitus ulcer approximate stage II to right heel noted.. Vital Signs: 13:46 BP 139 / 79; Pulse 74; Resp 16; Temp 97.8; Pulse Ox 99% on R/A; iw 16:49 BP 137 / 81; Pulse 75; Resp 18; Pulse Ox 94% on R/A; iw 18:17 BP 183 / 108; Pulse 74; Resp 16; Pulse Ox 95% ; iw 18:46 BP 178 / 101; Pulse 71; Resp 16; Pulse Ox 95% ; iw MDM: 15:23 Medical Screening Exam initiated dr5 18:09 Differential diagnosis: cellulitis, Decubitus ulcer. Urinary tract infection, dr5 cellulitis. Data reviewed: vital signs, nurses notes, lab test result(s), radiologic studies, plain films. 18:25 ED course: Discussed case with Dr. Kraus and joint decision-making recommended dr5 patient discharged home on antibiotics. Will send patient home on Keflex pending urine culture. All labs discussed with daughter. Will have patient transported back home by EMS due to patient being bedbound. 12 15:41 Order name: CBC with Diff; Complete Time: 16:41 [facility] 09/05 15:41 Order name: CMP; Complete Time: 16:41 [facility] 09/05 15:41 Order name: Lactate w/ 2H reflex if indic.; Complete Time: 16:41 [facility] 09/05 15:41 Order name: Protime (+inr); Complete Time: 16:41 [facility] 09/05 15:41 Order name: Ptt, Activated; Complete Time: 16:41 [facility] 09/05 15:41 Order name: Urinalysis w/ reflexes; Complete Time: 16:41 09/05 16:41 Order name: Urine Culture EDKY 12 15:41 Order name: Chest Single View XRAY; Complete Time: 17:59 [facility] 09/05 15:41 Order name: Accucheck; Complete Time: 17:12 [facility] 09/05 15:41 Order name: Cardiac monitoring; Complete Time: 17:12 [facility] 09/05 15:41 Order name: EKG - Nurse/Tech; Complete Time: 18:17 dr5 09/05 15:41 Order name: IV Saline Lock - Large Bore; Complete Time: 16:16 dr5 09/05 15:41 Order name: Labs collected and sent; Complete Time: 16:16 dr5 09/05 15:41 Order name: O2 Per Protocol; Complete Time: 16:16 dr5 09/05 15:41 Order name: O2 Sat Monitoring; Complete Time: 16:16 dr5 09/05 15:41 Order name: Vital Signs; Complete Time: 16:16 dr5 Administered Medications: 17:11 Drug: Rocephin IV 1 grams IV at per protocol once; Given slow IV push per pharmacy iw instructions Route: IV; Rate: per protocol; Site: right antecubital; 17:30 Follow up: IV Status: Completed infusion iw Disposition Summary: 09/05/24 18:27 Discharge Ordered Notes: Location: Home dr5 Condition: Stable dr5 Diagnosis - UTI/ Urinary tract infection, site not specified dr5 Followup: dr5 - With: Emergency Department - When: As needed - Reason: Worsening of condition Followup: dr5 - With: Private Physician - When: 1 - 2 days - Reason: Recheck today's complaints, Continuance of care, Re-evaluation by your physician Discharge Instructions: - Discharge Summary Sheet dr5 - Urinary Tract Infection, Adult dr5 Forms: - Medication Reconciliation Form dr5 - Antibiotic Education dr5 - Patient Portal Instructions dr5 - Leadership Thank You Letter dr5 Prescriptions: - Cephalexin 500 mg Oral Capsule - take 1 capsule ORAL route every 6 hours for 10 days; 40 capsule; Refills: 0, dr5 Product Selection Permitted - Fluconazole 150 mg Oral Tablet - take 1 tablet ORAL route once daily; 30 tablet; Refills: 0, Product Selection dr5 Permitted Signatures: Dispatcher [employer] EDKaitlynn Ac RN RN iw Augie Hoffman, KARLA-C BIOCHEMISTRY PROFESSOR-Cdr5 Corrections: (The following items were deleted from the chart) 15:41 15:41 BLOOD CULTURE*+BA.LAB.BRZ ordered. EDMS EDMS 15:41 15:41 CBC+H.LAB.BRZ ordered. EDMS EDMS 15:41 15:41 COMPREHENSIVE METABOLIC PANEL+C.LAB.BRZ ordered. EDMS EDMS 15:41 15:41 LACTATE+C.LAB.BRZ ordered. EDMS EDMS 15:41 15:41 PROTIME (+INR)+COAG.LAB.BRZ ordered. EDMS EDMS 15: 15:41 PTT, ACTIVATED+COAG.LAB.BRZ ordered. EDMS EDMS 15: 15:41 Urinalysis+U.LAB.BRZ ordered. EDMS EDMS 15: 15:41 Chest Single View+RAD.RAD.BRZ ordered. EDMS EDMS
--- NOTE | 2024-09-05 18:27 | ER ---
Nurse's Notes [facility] Name: Sherita Parada Age: 73 yrs Sex: Female : 1950 Arrival Date: 09/05/2024 Time: 13:31 Bed 15 Private MD: Diagnosis: UTI/ Urinary tract infection, site not specified Presentation: 09/05 13:46 Chief complaint: EMS states: daughter noticed pt had a new bed sore when she went to iw change her today , pt has been immobile after UTI in June, was in rehab at [facility], discharged 2 weeks ago. Coronavirus screen: At this time, the client does not indicate any symptoms associated with coronavirus-19. Ebola Screen: No symptoms or risks identified at this time. Initial Sepsis Screen: Does the patient meet any 2 criteria? No. Patient's initial sepsis screen is negative. Does the patient have a suspected source of infection? No. Patient's initial sepsis screen is negative. Risk Assessment: Do you want to hurt yourself or someone else? Patient reports no desire to harm self or others. Onset of symptoms was September 05, 2024. 13:46 Method Of Arrival: EMS: [facility] iw 13:46 Acuity: NAVIN 3 iw Historical: - Allergies: 13:48 codeine sulfate ('makes me crazy'); iw 13:48 Morphine; iw 13:48 steroids (Hypertension); iw - PMHx: 13:48 Atrial fibrillation; Hypertension; Ulcers; High Cholesterol; iw - PSHx: 13:48 hysterectomy; Benign Tumor; Appendectomy; Lumpectomy of breast; Cyst removal; iw Screenin:49 [facility] ED Fall Risk Assessment (Adult) Altered Elimination No (0 pt). iw 16:49 Abuse screen: Denies threats or abuse. Nutritional screening: No deficits noted. iw Tuberculosis screening: No symptoms or risk factors identified. Assessment: 13:48 Reassessment: pt cleaned of incontinence, linens changed , placed in gown. iw 13:48 General: Appears in no apparent distress. Behavior is calm, cooperative. Pain: iw Complains of pain in back and buttocks. Neuro: Level of Consciousness is awake, alert, obeys commands, Oriented to person, place, time. Cardiovascular: Patient's skin is warm and dry. Respiratory: Airway is patent Respiratory effort is even, unlabored, Respiratory pattern is regular, symmetrical. Derm: Wound noted buttocks Wound is redness, abrasion, excoriation noted to buttocks. 17:46 Derm: Wound noted heel of right foot. db Vital Signs: 13:46 BP 139 / 79; Pulse 74; Resp 16; Temp 97.8; Pulse Ox 99% on R/A; iw 16:49 BP 137 / 81; Pulse 75; Resp 18; Pulse Ox 94% on R/A; iw 18:17 BP 183 / 108; Pulse 74; Resp 16; Pulse Ox 95% ; iw 18:46 BP 178 / 101; Pulse 71; Resp 16; Pulse Ox 95% ; iw ED Course: 13:32 Patient arrived in ED. iw 13:46 Kaitlynn Andres, RN is Primary Nurse. iw 13:48 Triage completed. iw 13:48 Arm band placed on. iw 15:23 Augie Hoffman FNP-C is PHCP. dr5 15:23 Chato Martel MD is Attending Physician. dr5 16:16 Initial lab(s) drawn, by me, sent to lab. Inserted saline lock: 22 gauge in right iw antecubital area, using aseptic technique. Blood collected. Flushed with 10 mL NS. 16:27 Urine collected: straight cath specimen, bogdan colored. tm3 17:36 Chest Single View XRAY In Process Unspecified. EDMS 17:47 Patient has correct armband on for positive identification. Bed in low position. Call db light in reach. Side rails up X2. Warm blanket given. Pillow given. 18:47 No provider procedures requiring assistance completed. IV discontinued, intact, iw bleeding controlled, No redness/swelling at site. Pressure dressing applied. Administered Medications: 17:11 Drug: Rocephin IV 1 grams IV at per protocol once; Given slow IV push per pharmacy iw instructions Route: IV; Rate: per protocol; Site: right antecubital; 17:30 Follow up: IV Status: Completed infusion iw Medication: 14:46 VIS not applicable for this client. iw Outcome: 18:27 Discharge ordered by . dr5 18:52 Discharged to home via ambulance, iw 18:52 Condition: good 18:52 Discharge instructions given to patient, Instructed on discharge instructions, follow up and referral plans. medication usage, Demonstrated understanding of instructions, follow-up care, medications, Prescriptions given X 2, 18:53 Patient left the ED. iw Signatures: Dispatcher [employer] EDMS Geoff Calvin tm3 Kaitlynn Andres, Chelsy García RN RN RN Augie Alvarez, MASTER POLICE DETECTIVE-C MASTER POLICE DETECTIVE-Cdr5
[2024-09-05 19:13] VITALS: TEMP 97.8
[2024-09-05 19:16] VITALS: O2SAT 95
[2024-09-05 19:18] VITALS: BP 178/101
--- NOTE | 2024-09-07 12:02 | EKG ---
Test Date: 2024-09-05 Test Time: 18:06:29 Front Office Secretary: JOSHUA MEASUREMENT RESULTS: Intervals: Rate: 77 IN: 172 QRSD: 110 QT: 450 QTc: 509 Merrick: P: 43 IN: 172 QRS: -49 T: 28 INTERPRETIVE STATEMENTS: Sinus rhythm with premature atrial complexes Left anterior fascicular block Prolonged QT Abnormal ECG Compared to ECG 07/15/2024 21:52:49 Prolonged QT interval now present Myocardial infarct finding no longer present Electronically Signed On 09-07-24 12:01:29 MAMMAL KEEPER by Edgard Rush
== END 2024-09-05 18:53 | disposition home or self-care (01) ==
LOC: ER 13:31
DX: N39.0 Urinary tract infection, site not specified (principal); L89.151 Pressure ulcer of sacral region, stage 1; L89.612 Pressure ulcer of right heel, stage 2; I10 Essential (primary) hypertension; I48.91 Unspecified atrial fibrillation
CPT/HCPCS: 96365; 93005; 87088; 85025; 81001; 87086; 36415; 85610; 83605; 85730; 87077; 87186; 80053; 71045; 99284; J0696; 87040

== ENCOUNTER 2024-09-18 09:44 | Inpatient (IN) | payer OTHER ==
[2024-09-18 10:20] LABS: Absolute Basophils 0.1 K/uL (0-0.5); Absolute Eosinophils 0.1 K/uL (0-0.5); Absolute Lymphocytes (CBC) 0.7 K/uL (0.7-4.9); Absolute Monocytes 0.4 K/uL (0.1-1.3); Absolute Neutrophil 6.7 K/uL (1.8-8.0); Basophils % 1.2 % (0-1.3); Eosinophils % 0.7 % (0-4.4); Hematocrit 39.3 % (36.0-45.0); Hemoglobin 12.7 g/dL (12.0-15.0); MCH 27.1 pg (27.0-35.0); MCHC 32.3 g/dL (32.0-36.0); MCV 83.8 fL (80-100); MPV 8.7 fL (7.6-11.3); Monocytes % 5.3 % (3.3-12.3); Neutrophils % 83.8 % (41.7-73.7); Platelets 315 thou/uL (152-406); RBC Red Blood Cell Count 4.69 M/uL (3.86-4.86); Red Cell Distribution Width 16.4 % (12.1-15.2)
[2024-09-18 10:39] LABS: AST/SGOT 13 U/L (15-37); Albumin 2.9 g/dL (3.4-5.0); Albumin/Globulin Ratio 0.6 (1.1-1.8); Alkaline Phosphatase 139 U/L (45-117); Anion Gap 12.8 mEq/L (5.0-15.0); BUN Blood Urea Nitrogen 19 mg/dL (7-18); Bicarbonate 24 mEq/L (21-32); Bilirubin Total 0.4 mg/dL (0.2-1.0); Globulin 4.8 g/dL (2.3-3.5); Glomerular Filtration Rate 46 ml/min (=/>90); Glucose Level 124 mg/dL (74-106); Lipase 10 U/L (13-75); Potassium 3.8 mEq/L (3.5-5.1); Protein, Total 7.7 g/dL (6.4-8.2); Sodium Level 132 mEq/L (136-145)
[2024-09-18 10:40] LABS: ALT/SGPT < 14 U/L (13-56)
[2024-09-18] MEDS ORDERED: NA CHLORIDE 0.9% 1,000 ML ONE (10:45)
[2024-09-18] MEDS ORDERED: FAMOTIDINE 20 MG/2 ML VIAL IV ONE (10:45)
[2024-09-18] MEDS ORDERED: ONDANSETRON 4 MG/2 ML VIAL ONE ×2 (10:45→16:23)
[2024-09-18 11:31] LABS: Sqamous Epithelial None Seen /HPF (None Seen); Urine Bacteria None Seen /HPF (<20); Urine Bilirubin NEGATIVE (Negative); Urine Blood 3+ (Negative); Urine Clarity Turbid (Clear); Urine Color Colorless (Yellow); Urine Crystals Unidentified Few /HPF (None Seen); Urine Culture Reflex Order REFLEXED; Urine Glucose NEGATIVE (Negative); Urine Ketones NEGATIVE (Negative); Urine Microscopic Reflex YN ORDER UMIC; Urine Nitrite NEGATIVE (Negative); Urine Protein 3+ (Negative); Urine RBC >50 /HPF (None Seen); Urine Urobilinogen Normal (Normal); Urine WBC 20-50 /HPF (<5); Urine Yeast (Budding) Trace /HPF (None Seen)
--- NOTE | 2024-09-18 13:34 | ER ---
Nurse's Notes [facility] Name: Sherita Parada Age: 73 yrs Sex: Female : 1950 Arrival Date: 09/18/2024 Time: 09:44 Bed 7 Private MD: Diagnosis: Abdominal pain, Generalized;Vomiting;UTI/ Urinary tract infection, site not specified;Dehydration Presentation: 09/18 09:46 Chief complaint: Patient states: N/V since 11 PM last night. Chief complaint: EMS ll1 states: 20 G L AC. zofran 4mg IV given en route. Fingerstick 117, BP 190/120, 97.8 temp. Coronavirus screen: Client denies travel out of the [place] in the last 14 days. Coronavirus screen: fatigue, nausea, vomiting. Client presents with at least one sign or symptom that may indicate coronavirus-19. Standard/surgical mask placed on the client. Ebola Screen: Patient denies travel to an Ebola-affected area in the 21 days before illness onset. Initial Sepsis Screen: Does the patient meet any 2 criteria? No. Patient's initial sepsis screen is negative. Does the patient have a suspected source of infection? No. Patient's initial sepsis screen is negative. Risk Assessment: Do you want to hurt yourself or someone else? Patient reports no desire to harm self or others. Onset of symptoms was September 17, 2024. 09:46 Method Of Arrival: EMS: [facility] ll1 09:46 Acuity: NAVIN 3 ll1 Historical: - Allergies: 09:46 codeine sulfate ('makes me crazy'); ll1 09:46 Morphine; ll1 09:46 steroids (Hypertension); ll1 - PMHx: 09:46 Atrial fibrillation; High Cholesterol; Hypertension; Ulcers; ll1 - PSHx: 09:46 Cyst removal; hysterectomy; Appendectomy; Lumpectomy of breast; Benign Tumor; Cyst ll1 removal; - Immunization history:: Adult Immunizations up to date. - Infectious Disease History:: Denies. - Social history:: Smoking status: Patient denies any tobacco usage or history of. - Family history:: not pertinent. Screenin:53 [facility] ED Fall Risk Assessment (Adult) History of falling in the last 3 months, ll1 including since admission No falls in past 3 months (0 pts) Confusion or Disorientation No (0 pts) Intoxicated or Sedated No (0 pts) Impaired Gait Yes (1 pt) Mobility Assist Device Used Yes (1 pt) Altered Elimination Yes (1 pt) Score/Fall Risk Level 3 or more points = High Risk Maintained a safe environment, Hourly rounding (assess needs \T\ fall precautionary measures) done. Abuse screen: Denies threats or abuse. Nutritional screening: No deficits noted. Tuberculosis screening: No symptoms or risk factors identified. Assessment: 09:53 General: Appears uncomfortable, ill, Behavior is calm, cooperative, appropriate for ll1 age. General: Reports fatigue for. Pain: Denies pain. Neuro: Reports weakness. GI: Reports diarrhea, nausea, vomiting. 10:55 Reassessment: No changes from previously documented assessment. Patient and/or family ll1 updated on plan of care and expected duration. Pain level reassessed. Patient is alert, oriented x 3, equal unlabored respirations, skin warm/dry/pink. 11:15 Reassessment: cleaned pelvic area and upper legs of dried diarrhea. Straight cathed, ll1 then new diaper applied, tolerated well. 11:32 Reassessment: No changes from previously documented assessment. Patient and/or family ll1 updated on plan of care and expected duration. Pain level reassessed. Patient is alert, oriented x 3, equal unlabored respirations, skin warm/dry/pink. 11:57 Reassessment: No changes from previously documented assessment. Patient and/or family ll1 updated on plan of care and expected duration. Pain level reassessed. 14:48 Reassessment: No changes from previously documented assessment. Patient and/or family ll1 updated on plan of care and expected duration. Pain level reassessed. Patient is alert, oriented x 3, equal unlabored respirations, skin warm/dry/pink. 15:17 Reassessment: No changes from previously documented assessment. Patient and/or family ll1 updated on plan of care and expected duration. Pain level reassessed. Patient is alert, oriented x 3, equal unlabored respirations, skin warm/dry/pink. 15:46 Reassessment: No changes from previously documented assessment. ll1 16:26 Reassessment: No changes from previously documented assessment. Patient and/or family ll1 updated on plan of care and expected duration. Pain level reassessed. given nausea medication. Vital Signs: 09:52 BP 172 / 117; Pulse 78; Resp 17; Temp 97; Pulse Ox 97% on R/A; Weight 81.65 kg; Height ll1 5 ft. 5 in. ; Pain 0/10; 10:04 BP 175 / 107; ll1 10:09 BP 164 / 101; Pulse 74; Resp 17; Pulse Ox 97% on R/A; ll1 10:55 BP 177 / 102; Pulse 76; Resp 17; Pulse Ox 95% on R/A; Pain 0/10; ll1 11:32 BP 171 / 91; Pulse 75; Resp 17; Pulse Ox 96% ; ll1 11:42 BP 179 / 93; Pulse 82; Resp 17; Pulse Ox 99% on R/A; Pain 0/10; ll1 12:30 BP 185 / 108; Pulse 77; Resp 18; Pulse Ox 99% on R/A; ll1 13:15 BP 181 / 110; Pulse 86; Resp 18; Pulse Ox 96% on R/A; ll1 14:51 BP 175 / 91; Pulse 86; Resp 18; Pulse Ox 97% on R/A; ll1 15:10 BP 199 / 124; Pulse 86; Pulse Ox 96% on R/A; ll1 15:50 BP 148 / 96; Pulse 86; Resp 18; Temp 97.1; Pulse Ox 96% on R/A; ll1 09:52 Body Mass Index 29.95 (81.65 kg, 165.1 cm) ll1 09:52 Pain Scale: Adult ll1 10:55 Pain Scale: Adult ll1 11:42 Pain Scale: Adult ll1 ED Course: 09:45 Patient arrived in ED. ll1 09:46 Elvis Monsalve MD is Attending Physician. [facility] 09:46 Arm band placed on Patient placed in an exam room, on a stretcher. ll1 09:48 Triage completed. ll1 09:48 Maintain EMS IV. Dressing intact. Good blood return noted. Site clean \T\ dry. Gauge \T\ ll 1 site: 20 G L FA. Flushed with 10 mL NS IV is patent, is intact, with fluids infusing freely, with good blood return. 09:51 Rigo Cardona RN is Primary Nurse. ll1 09:53 Patient has correct armband on for positive identification. Bed in low position. Call ll1 light in reach. Provided Education on: ER procedures and process. Client placed on continuous cardiac and pulse oximetry monitoring. NIBP monitoring applied. 10:09 Initial lab(s) drawn, by me, sent to lab. ll1 11:15 Straight cath inserted, using sterile technique, 16 Fr. Specimen obtained. Patient ll1 tolerated well. 11:57 Warm blanket given. ll1 13:33 Carroll Francisco is Hospitalizing Provider. ailyn 14:39 CT Abd/Pelvis - Without Contrast In Process Unspecified. EDMS 14:46 cleaned of urine and BM diaper. New gown and diaper applied. New warm blankets after, ll1 tolerated well.. 16:03 No provider procedures requiring assistance completed. Patient admitted, IV remains in ll1 place. Administered Medications: 10:54 Drug: NS 0.9% IV 1000 ml IV at 1000 ml once; to be given as a bolus over 60 minutes ll1 Route: IV; Rate: 1000 ml; Site: left forearm; 11:58 Follow up: Response: No adverse reaction; IV Status: Completed infusion; IV Intake: ll1 1000ml 10:54 Drug: Ondansetron IVP 4 mg IVP once; over 2 minutes Route: IVP; Site: left forearm; ll1 11:58 Follow up: Response: No adverse reaction; Nausea is decreased ll1 10:54 Drug: Famotidine IVP 20 mg IVP once; dilute with 10 mL 0.9% NaCl; give over 2 minutes ll1 Route: IVP; Site: left forearm; 11:58 Follow up: Response: No adverse reaction ll1 13:53 Drug: Rocephin - Rocephin (cefTRIAXone) IVPB 1 grams IVPB once over 30 mins; (mix in 50 ll1 mL NS) Route: IVPB; Infused Over: 30 mins; Site: right antecubital; 14:53 Follow up: Response: No adverse reaction; IV Status: Completed infusion; IV Intake: [id number] 15:16 Drug: hydrALAZINE IVP 10 mg IVP once Route: IVP; Site: left forearm; ll1 15:53 Follow up: Response: No adverse reaction; Blood pressure is lowered ll1 16:26 Drug: Ondansetron IVP 4 mg IVP once; over 2 minutes Route: IVP; Site: left forearm; ll1 16:26 Follow up: Response: No adverse reaction ll1 Medication: 09:53 VIS not applicable for this client. ll1 Intake: 11:58 IV: 1000ml; Total: 1000ml. ll1 14:53 IV: 50ml; Total: 1050ml. ll1 Outcome: 13:34 Decision to Hospitalize by Provider. ailyn 16:03 Admitted to Med/surg accompanied by tech, via stretcher, room 404, with chart, Report ll1 called to faxed to 4th 16:03 Condition: stable 16:03 Instructed on the need for admit, 16:33 Patient left the ED. ll1 Signatures: Dispatcher [employer] Elvis Reyes MD MD cha Lewis, Lynsay RN RN ll1 Corrections: (The following items were deleted from the chart) 16:55 15:17 Reassessment: No changes from previously documented assessment. Patient and/or ll1 family updated on plan of care and expected duration. Pain level reassessed. Patient is alert, oriented x 3, equal unlabored respirations, skin warm/dry/pink. ll1 17:34 11:15 Reassessment: new diaper applied after straight cath, tolerated well. ll1 ll1
--- NOTE | 2024-09-18 13:34 | EDPHYS ---
Physician Documentation [facility] Name: Sherita Parada Age: 73 yrs Sex: Female : 1950 Arrival Date: 09/18/2024 Time: 09:44 Bed 7 Private MD: KARYN Physician Elvis Monsalve HPI: 09/18 13:28 This 73 yrs old Female presents to ER via EMS with complaints of nausea/ ailyn vomiting, weak. 13:28 The patient presents with abdominal pain in the upper abdomen, in the lower abdomen. ailyn Onset: The symptoms/episode began/occurred just prior to arrival, this morning. The patient presents to the emergency department with nausea, vomiting, abdominal pain, of the right upper quadrant, left upper quadrant, right lower quadrant and left lower quadrant. Onset: The symptoms/episode began/occurred just prior to arrival, this morning. Possible causes: unknown. The symptoms are aggravated by nothing. The symptoms are alleviated by nothing. Associated signs and symptoms: Pertinent positives: abdominal pain, nausea, vomiting. The symptoms do not radiate. Modifying factors: The symptoms are alleviated by nothing, the symptoms are aggravated by nothing. Historical: - Allergies: 09:46 codeine sulfate ('makes me crazy'); ll1 09:46 Morphine; ll1 09:46 steroids (Hypertension); ll1 - PMHx: 09:46 Atrial fibrillation; High Cholesterol; Hypertension; Ulcers; ll1 - PSHx: 09:46 Cyst removal; hysterectomy; Appendectomy; Lumpectomy of breast; Benign Tumor; Cyst ll1 removal; - Immunization history:: Adult Immunizations up to date. - Infectious Disease History:: Denies. - Social history:: Smoking status: Patient denies any tobacco usage or history of. - Family history:: not pertinent. ROS: 13:28 Constitutional: Negative for fever, chills, and weight loss, Eyes: Negative for injury, ailyn pain, redness, and discharge, ENT: Negative for injury, pain, and discharge, Neck: Negative for injury, pain, and swelling, Cardiovascular: Negative for chest pain, palpitations, and edema, Respiratory: Negative for shortness of breath, cough, wheezing, and pleuritic chest pain, Back: Negative for injury and pain, : Negative for injury, bleeding, discharge, and swelling, MS/Extremity: Negative for injury and deformity, Skin: Negative for injury, rash, and discoloration, Neuro: Negative for headache, weakness, numbness, tingling, and seizure, Psych: Negative for depression, anxiety, suicide ideation, homicidal ideation, and hallucinations, Allergy/Immunology: Negative for hives, rash, and allergies, Endocrine: Negative for neck swelling, polydipsia, polyuria, polyphagia, and marked weight changes, Hematologic/Lymphatic: Negative for swollen nodes, abnormal bleeding, and unusual bruising, 13:28 Abdomen/GI: Positive for abdominal pain, nausea and vomiting, Exam: 13:28 Constitutional: This is a well developed, well nourished patient who is awake, alert, ailyn and in no acute distress. Head/Face: Normocephalic, atraumatic. Eyes: Pupils equal round and reactive to light, extra-ocular motions intact. Lids and lashes normal. Conjunctiva and sclera are non-icteric and not injected. Cornea within normal limits. Periorbital areas with no swelling, redness, or edema. ENT: Nares patent. No nasal discharge, no septal abnormalities noted. Tympanic membranes are normal and external auditory canals are clear. Oropharynx with no redness, swelling, or masses, exudates, or evidence of obstruction, uvula midline. Mucous membranes moist. Neck: Trachea midline, no thyromegaly or masses palpated, and no cervical lymphadenopathy. Supple, full range of motion without nuchal rigidity, or vertebral point tenderness. No Meningismus. Chest/axilla: Normal chest wall appearance and motion. Nontender with no deformity. No lesions are appreciated. Cardiovascular: Regular rate and rhythm with a normal S1 and S2. No gallops, murmurs, or rubs. Normal PMI, no JVD. No pulse deficits. Respiratory: Lungs have equal breath sounds bilaterally, clear to auscultation and percussion. No rales, rhonchi or wheezes noted. No increased work of breathing, no retractions or nasal flaring. Back: No spinal tenderness. No costovertebral tenderness. Full range of motion. Female : Normal external genitalia. Skin: Warm, dry with normal turgor. Normal color with no rashes, no lesions, and no evidence of cellulitis. MS/ Extremity: Pulses equal, no cyanosis. Neurovascular intact. Full, normal range of motion., bilateral aka Neuro: Awake and alert, GCS 15, oriented to person, place, time, and situation. Cranial nerves II-XII grossly intact. Motor strength 5/5 in all extremities. Sensory grossly intact. Cerebellar exam normal. Normal gait. Psych: Awake, alert, with orientation to person, place and time. Behavior, mood, and affect are within normal limits. 13:28 ECG was reviewed by the Attending Physician. 13:28 Musculoskeletal/extremity: DVT Exam: No signs of deep vein thrombosis. no pain, no swelling, no tenderness, negative Homans' sign noted on exam, no appreciated bluish discoloration, no erythema, no increased warmth, Vital Signs: 09:52 BP 172 / 117; Pulse 78; Resp 17; Temp 97; Pulse Ox 97% on R/A; Weight 81.65 kg; Height ll1 5 ft. 5 in. ; Pain 0/10; 10:04 BP 175 / 107; ll1 10:09 BP 164 / 101; Pulse 74; Resp 17; Pulse Ox 97% on R/A; ll1 10:55 BP 177 / 102; Pulse 76; Resp 17; Pulse Ox 95% on R/A; Pain 0/10; ll1 11:32 BP 171 / 91; Pulse 75; Resp 17; Pulse Ox 96% ; ll1 11:42 BP 179 / 93; Pulse 82; Resp 17; Pulse Ox 99% on R/A; Pain 0/10; ll1 12:30 BP 185 / 108; Pulse 77; Resp 18; Pulse Ox 99% on R/A; ll1 13:15 BP 181 / 110; Pulse 86; Resp 18; Pulse Ox 96% on R/A; ll1 14:51 BP 175 / 91; Pulse 86; Resp 18; Pulse Ox 97% on R/A; ll1 15:10 BP 199 / 124; Pulse 86; Pulse Ox 96% on R/A; ll1 15:50 BP 148 / 96; Pulse 86; Resp 18; Temp 97.1; Pulse Ox 96% on R/A; ll1 09:52 Body Mass Index 29.95 (81.65 kg, 165.1 cm) ll1 09:52 Pain Scale: Adult ll1 10:55 Pain Scale: Adult ll1 11:42 Pain Scale: Adult ll1 MDM: 09:46 Medical Screening Exam initiated [facility] 09/18 10:09 Order name: CBC with Diff; Complete Time: 10:28 [facility] 09/18 10:09 Order name: CMP; Complete Time: 13:19 [facility] 09/18 10:09 Order name: Lipase; Complete Time: 13:19 [facility] 09/18 10:29 Order name: Urinalysis w/ reflexes; Complete Time: 13:19 [facility] 09/18 10:29 Order name: Troponin High Sensitivity; Complete Time: 13:19 [facility] 09/18 11:36 Order name: Urine Culture [facility] 09/18 13:28 Order name: CT Abd/Pelvis - Without Contrast; Complete Time: 14:54 [facility] 09/18 10:09 Order name: IV Saline Lock; Complete Time: 10:10 [facility] 09/18 10:09 Order name: Labs collected and sent; Complete Time: 10:10 [facility] 09/18 10:29 Order name: EKG - Nurse/Tech; Complete Time: 10:54 [facility] EC:28 Rate is 77 beats/min. Rhythm is regular. QRS [place] is Normal. NE interval is normal. QRS ailyn interval is normal. QT interval is normal. No Q waves. T waves are Normal. No ST changes noted. Clinical impression: NSR w/ Non-specific ST/T Changes and No evidence of ischemia. Interpreted by me. Reviewed by me. Administered Medications: 10:54 Drug: NS 0.9% IV 1000 ml IV at 1000 ml once; to be given as a bolus over 60 minutes ll1 Route: IV; Rate: 1000 ml; Site: left forearm; 11:58 Follow up: Response: No adverse reaction; IV Status: Completed infusion; IV Intake: ll1 1000ml 10:54 Drug: Ondansetron IVP 4 mg IVP once; over 2 minutes Route: IVP; Site: left forearm; ll1 11:58 Follow up: Response: No adverse reaction; Nausea is decreased ll1 10:54 Drug: Famotidine IVP 20 mg IVP once; dilute with 10 mL 0.9% NaCl; give over 2 minutes ll1 Route: IVP; Site: left forearm; 11:58 Follow up: Response: No adverse reaction ll1 13:53 Drug: Rocephin - Rocephin (cefTRIAXone) IVPB 1 grams IVPB once over 30 mins; (mix in 50 ll1 mL NS) Route: IVPB; Infused Over: 30 mins; Site: right antecubital; 14:53 Follow up: Response: No adverse reaction; IV Status: Completed infusion; IV Intake: [id number] 15:16 Drug: hydrALAZINE IVP 10 mg IVP once Route: IVP; Site: left forearm; ll1 15:53 Follow up: Response: No adverse reaction; Blood pressure is lowered ll1 16:26 Drug: Ondansetron IVP 4 mg IVP once; over 2 minutes Route: IVP; Site: left forearm; ll1 16:26 Follow up: Response: No adverse reaction ll1 Disposition Summary: 09/18/24 13:34 Hospitalization Ordered Notes: Hospitalization Status: Observation ailyn Provider: Carroll Francisco cha Location: Telemetry/MedSurg (observation) ailyn Condition: Fair ailyn Problem: new ailyn Symptoms: have improved ailyn Bed/Room Type: Standard ailyn Room Assignment: 404(09/18/24 15:23) eb Diagnosis - Abdominal pain, Generalized ailyn - Vomiting ailyn - UTI/ Urinary tract infection, site not specified ailyn - Dehydration ailyn Forms: - Medication Reconciliation Form ailyn - SBAR form ailyn - Leadership Thank You Letter ailyn Signatures: Dispatcher [employer] Elvis Reyes MD MD cha Attema, Lee, WINE MAKER-C WINE MAKER-Cla1 Gwen Stevens Lynsay RN RN ll1 Corrections: (The following items were deleted from the chart) : 13:34 ailyn eb
[2024-09-18] MEDS ORDERED: CEFTRIAXONE 1000 MG/VIAL ONE (13:48)
[2024-09-18] MEDS ORDERED: NA CHLORIDE 0.9% 50 ML ONE (13:49)
--- NOTE | 2024-09-18 14:51 | RAD REPORT ---
EXAMINATION: CT ABDOMEN AND PELVIS WITHOUT CONTRAST CLINICAL INDICATION: Female, 73 years old.Abd pain;Nausea / vomiting TECHNIQUE: CT abdomen and pelvis was performed, without IV contrast, as per department protocol. Axia l, sagittal and coronal reconstructions were obtained. One or more of the following dose reduction techniques were used: Automated exposure control, adjustment of the mA and/or kV according to the pat ient size, and/or iterative reconstruction. Unless otherwise specified, incidental findings do not require dedicated imaging follow-up. [id number]. IV CONTRAST: Not administered. COMPARISON: None FINDINGS: The lack of intravenous contrast limits the sensitivity of this exam for evaluation of solid visceral organs, vascular structures, and retroperitoneum. LOWER CHEST: No acute process identified.No significant pericardial effusion. Multivessel coronary ar shey calcifications. UPPER GI: No significant abnormality. LIVER: Hepatic steatosis, but otherwise unremarkable. GALLBLADDER/BILE DUCTS: No biliary ductal dilatation.? PANCREAS: Atrophy, but otherwise unremarkable. SPLEEN: Unremarkable. ADRENALS: Left adrenal nodule measuring 15 mm is consistent with an adenoma. KIDNEYS AND URETERS: Normal size and contour. No hydronephrosis.Low density and/or too small to nikole cterize renal lesions which are statistically benign. ABDOMINAL AORTA AND OTHER VESSELS: Moderate atherosclerotic changes without aortic aneurysm. PERITONEUM: No abnormal free fluid. No free air. LYMPH NODES: No pathologic lymphadenopathy. ABDOMINAL WALL: No significant abnormality. SMALL BOWEL/COLON: Small bowel has normal course and caliber. No colonic wall thickening or pericolon ic inflammatory changes.Nonvisualized appendix but no secondary signs of acute appendicitis. Mild diverticulosis without diverticulitis. URINARY BLADDER: Trace bladder gas. REPRODUCTIVE ORGANS: Uterus surgically absent. No adnexal abnormality. MUSCULOSKELETAL: Multilevel degenerative changes in the spine. No acute fracture. ADDITIONAL FINDINGS: None. IMPRESSION: No acute in the abdomen or pelvis, with evaluation limited by lack of IV contrast. Trace bladder gas . This could be from recent instrumentation or cystitis. Correlate with urinalysis.
[2024-09-18] MEDS ORDERED: HYDRALAZINE HCL 20 MG/ML VIAL ONE (15:09)
--- NOTE | 2024-09-18 15:29 | P.HP ---
Certification for Inpatient Patient admitted to: Inpatient With expected LOS: >2 Midnights Patient will require the following post-hospital care: None Practitioner: I am a practitioner with admitting privileges, knowledge of patient current condition, hospital course, and medical plan of care. Services: Services provided to patient in accordance with Admission requirements found in Title 42 Section 412.3 of the Code of Federal Regulations Patient History Date of Service: 09/18/24 Reason for admission: UTI History of Present Illness: 73-year-old female with history of atrial fibrillation not on anticoagulation, GI bleed/gastric ulcers, hypertension, hyperlipidemia presents to the emergency department chief complaint of nausea/vomiting. She also appears altered, drowsy. She was evaluated in the emergency department her labs are significant for sodium of 132 creatinine 1.24 GFR 46 glucose 124 UA with 250 leuk esterase, 20- 50 white blood cell, greater than 50 red blood cells, 3+ blood, trace yeast. CT abdomen pelvis without contrast was performed which showed no acute findings in the abdomen or pelvis, trace bladder gas which could be from recent instrumentation or cystitis. Patient will be admitted for further management of suspected UTI with metabolic encephalopathy, nausea/vomiting Allergies codeine Allergy (Verified 06/10/24 22:07) AMS morphine Adverse Reaction (Unknown, Verified 07/13/24 22:58) unknown prednisone Adverse Reaction (Verified 07/13/24 22:58) hypertension Home Medications: Fluoxetine HCl [Prozac] 3 cap PO DAILY 03/05/23 Furosemide [Lasix*] 40 mg PO DAILY 03/05/23 Isosorbide Mononitrate [Isosorbide Mononitrate ER] 30 mg PO DAILY 03/05/23 Pravastatin [Pravachol*] 1 tab PO DAILY 03/05/23 Clonidine HCl [Catapres*] 0.2 mg PO TID 06/11/24 Famotidine 20 mg PO BEDTIME 06/11/24 Pantoprazole Sodium [Protonix] 1 tab PO DAILY 06/11/24 dilTIAZem HCL [Diltiazem 24Hr ER] 240 mg PO DAILY 06/11/24 Metoprolol Tartrate [Lopressor*] 50 mg PO BID #60 tab 06/13/24 Gabapentin [Neurontin*] 100 mg PO BID 07/14/24 Ensure High Protein 237 ml PO BID can 07/24/24 Fluconazole [Diflucan] 200 mg PO DAILY #6 tab 07/24/24 Lidocaine 4% Patch [Lidoderm 5% Patch*] 2 patch TOP DAILY pat 07/24/24 Thiamine HCl [Vitamin B-1*] 200 mg PO BID 07/24/24 traMADol HCL [Ultram*] 50 mg PO Q6H PRN #20 tab 07/24/24 - Past Medical/Surgical History Diabetic: No -: Depression -: Hypertension -: Osteoarthritis -: Lymphedema L -: A-fib-not on anticoagulation -: Hyperlipidemia -: History of GI bleed/gastric ulcers -: SX salivatory gland Psychosocial/ Personal History: Lives at home with her son - Family History Mother -: Diabetes, Stroke - Social History Alcohol use: No CD- Drugs: No Caffeine use: Yes Place of Residence: Home Review of Systems Gastrointestinal: Nausea, Vomiting Neurological: Confusion Physical Examination - Physical Exam General: Alert, In no apparent distress, Oriented x2 HEENT: Atraumatic, PERRLA, Mucous membr. moist/pink, EOMI, Sclerae nonicteric Neck: Supple, 2+ carotid pulse no bruit, No LAD, Without JVD or thyroid abnormality Respiratory: Clear to auscultation bilaterally, Normal air movement Cardiovascular: Regular rate/rhythm, Normal S1 S2 Gastrointestinal: Normal bowel sounds, No tenderness Musculoskeletal: No tenderness Integumentary: No rashes Neurological: Normal speech, Normal strength at 5/5 x4 extr, Normal affect - Studies Laboratory Data (last 24 hrs) 09/18/24 09/18/24 10:00 10:00 WBC 8.00 Hgb 12.7 Hct 39.3 Plt Count 315 Sodium 132 L Potassium 3.8 BUN 19 H Creatinine 1.24 H Glucose 124 H Total Bilirubin 0.4 AST 13 L ALT < 14 Alkaline Phosphatase 139 H Lipase 10 L Assessment and Plan - Plan Assessment: UTI Acute metabolic encephalopathy secondary to above Nausea and vomiting Atrial fibrillation not on chronic anticoagulation HX of gastric ulcers/GIB Hypertension Hyperlipidemia Plan: UTI Acute metabolic encephalopathy secondary to above Previous cultures reviewed Will start Levaquin empirically Await urine culture Continue IV fluids overnight Nausea and vomiting HX of gastric ulcers/GIB IVF, antiemetics Start twice daily PPI History of GI bleeds in the past No melena, hematochezia, hematemesis Atrial fibrillation not on chronic anticoagulation Hypertension Hyperlipidemia Continue home indications when verified DVT PPX: Lovenox Code status: Full Discharge Plan: Home Plan to discharge in: 48 Hours - Advance Directives Does patient have a Living Will: No Does patient have a Durable POA for Healthcare: No - Code Status/Comfort Care Code Status Assessed: Yes (Full code) Critical Care: No Time Spent Managing Pts Care (In Minutes): 67
[2024-09-18] MEDS ORDERED: SODIUM CHLORIDE 0.9% 10ML INJ IV PRN (16:57)
[2024-09-18] MEDS: NA CHLORIDE 0.9% 1,000 ML IV SCH (17:18)
[2024-09-18] MEDS: HYDRALAZINE HCL 20 MG/ML VIAL IV PRN (17:25)
[2024-09-18 17:40] VITALS: BMI 29.9
[2024-09-18] MEDS: PANTOPRAZOLE 40 MG INJ IVP SCH (20:16)
[2024-09-18] MEDS: ONDANSETRON 4 MG/2 ML VIAL IV PRN (20:16)
[2024-09-19] MEDS: ONDANSETRON 4 MG/2 ML VIAL IV ONE (00:15)
[2024-09-19] MEDS: KETOROLAC 30 MG/ML INJ IV PRN (02:24)
[2024-09-19] MEDS: HYDROMORPHONE HCL 1 MG/ML INJ IV ONE (04:53)
[2024-09-19 06:17] LABS: Absolute Basophils 0.1 K/uL (0-0.5); Absolute Lymphocytes (CBC) 0.6 K/uL (0.7-4.9); Absolute Monocytes 0.7 K/uL (0.1-1.3); Absolute Neutrophil 7.7 K/uL (1.8-8.0); Basophils % 0.6 % (0-1.3); Hematocrit 40.9 % (36.0-45.0); Hemoglobin 13.5 g/dL (12.0-15.0); Lymphocytes % 6.8 % (15.3-44.8); MCH 27.4 pg (27.0-35.0); MPV 8.7 fL (7.6-11.3); Monocytes % 7.9 % (3.3-12.3); Neutrophils % 84.7 % (41.7-73.7); Platelets 390 thou/uL (152-406); RBC Red Blood Cell Count 4.93 M/uL (3.86-4.86); Red Cell Distribution Width 16.8 % (12.1-15.2)
[2024-09-19 06:38] LABS: Anion Gap 13.6 mEq/L (5.0-15.0); Potassium 3.6 mEq/L (3.5-5.1)
[2024-09-19] MEDS: POTASSIUM 25 MEQ EFFERV TAB PO ONE (09:00)
--- NOTE | 2024-09-19 09:46 | P.PN ---
Date of Service: 09/19/24 Subjective: Moaning states "I just dont feel good" Cant specify pain/nausea etc No acute events overnight ROS: 10 point ROS as noted above, otherwise negative Physical exam GEN: Alert, oriented, groaning, oriented x2 HEENT: Normal conjunctiva, sclera anicteric CV: Regular rate and rhythm, no edema Pulm: Nonlabored respirations on room air ABD: Soft, nontender, nondistended MSK: No joint tenderness Integumentary: No rashes Neuro: Normal speech, normal affect Vitals reviewed Assessment: UTI Acute metabolic encephalopathy secondary to above Nausea and vomiting Atrial fibrillation not on chronic anticoagulation HX of gastric ulcers/GIB Hypertension Hyperlipidemia Plan: UTI Acute metabolic encephalopathy secondary to above Previous cultures reviewed Will start Levaquin empirically Await urine culture Continue IV fluids PT Nausea and vomiting HX of gastric ulcers/GIB IVF, antiemetics Start twice daily PPI History of GI bleeds in the past No melena, hematochezia, hematemesis Atrial fibrillation not on chronic anticoagulation Hypertension Hyperlipidemia Continue home indications when verified DVT PPX: Lovenox Code status: Full Discharge Plan: Home Plan to discharge in: 48 Hours Time Spent Managing Pts Care (In Minutes): 35 <Konrad Kahn - Last Filed: 09/19/24 09:45> Patient seen and examined, plan of care discussed with Konrad Kahn. Diagnosis Acute metabolic encephalopathy secondary to acute cystitis Hypokalemia Patient with a recent history of ESBL Klebsiella UTI resistant to Levaquin No clinical improvement since yesterday. Patient observed to be dry heaving and experiencing chills. IV Levaquin changed to IV meropenem. Follow urine culture and blood cultures. PPI for history of gastric ulcer. <ryan stephens - Last Filed: 09/19/24 17:13>
[2024-09-19] MEDS: Levofloxacin500mg IV 500 MG/100 ML BAG IV SCH (09:50)
[2024-09-19] MEDS: ENOXAPARIN 40 MG/0.4 ML SQ SCH (09:51)
[2024-09-19] MEDS: METOPROLOL TAR 50 MG TAB PO SCH (09:51)
[2024-09-19] MEDS: POTASSIUM CL SA 10 MEQ TAB PO ONE (09:51)
[2024-09-19] MEDS: DILTIAZEM HCL 120 MG SR CAP PO SCH (09:51)
[2024-09-19] MEDS: PROMETHAZINE INJ 25 MG/ML AMP IV PRN (13:10)
[2024-09-19] MEDS: Meropenem 1,000 MG in NA CHLORIDE 0.9% 100 ML IV SCH (13:11)
[2024-09-20] MEDS: HYDROMORPHONE HCL 0.5 MG/0.5 ML INJ IV PRN (01:44)
[2024-09-20 06:05] LABS: Absolute Lymphocytes (CBC) 0.3 K/uL (0.7-4.9); Absolute Monocytes 1.2 K/uL (0.1-1.3); Absolute Neutrophil 7.5 K/uL (1.8-8.0); Basophils % 0.5 % (0-1.3); Hematocrit 36.1 % (36.0-45.0); Hemoglobin 11.7 g/dL (12.0-15.0); Lymphocytes % 3.3 % (15.3-44.8); MCH 27.2 pg (27.0-35.0); MCHC 32.3 g/dL (32.0-36.0); MCV 84.2 fL (80-100); MPV 8.9 fL (7.6-11.3); Monocytes % 13.5 % (3.3-12.3); Neutrophils % 82.7 % (41.7-73.7); Platelets 271 thou/uL (152-406); RBC Red Blood Cell Count 4.29 M/uL (3.86-4.86); Red Cell Distribution Width 16.9 % (12.1-15.2)
[2024-09-20 06:26] LABS: Anion Gap 10.5 mEq/L (5.0-15.0); Potassium 3.5 mEq/L (3.5-5.1)
[2024-09-20] MEDS: POTASSIUM 25 MEQ EFFERV TAB PO ONE (09:00)
--- NOTE | 2024-09-20 09:01 | RAD REPORT ---
EXAM: CT brain without contrast HISTORY: Altered mental status COMPARISON: 07/13/2024 TECHNIQUE: Multiple contiguous axial images were obtained and a CT of the brain without contrast. Sag ittal and coronal reformats were performed. One or more of the following dose reduction techniques were used: Automated exposure control, adjust ment of the mA and/or kV according to patient size, and/or iterative reconstruction. FINDINGS: No evidence of hydrocephalus, intracranial hemorrhage, or extra-axial fluid collection. Mild brain atrophy with moderate periventricular and deep white matter chronic microvascular ischemi c changes present. No evidence of midline shift or areas of brain edema. The calvarium is intact. The visualized paranasal sinuses and mastoid air cells are essentially clear . IMPRESSION: No evidence of acute intracranial abnormality.
--- NOTE | 2024-09-20 09:07 | P.PN ---
Date of Service: 09/20/24 Subjective: Moaning constantly states "I just dont feel good" Cant specify pain/nausea etc No acute events overnight CT head this morning negative for acute findings Not verbally responding but seems to understand questions when repeated and nods ROS: 10 point ROS as noted above, otherwise negative Physical exam GEN: Confused, groaning, oriented x2 HEENT: Normal conjunctiva, sclera anicteric CV: Regular rate and rhythm, no edema Pulm: Nonlabored respirations on room air ABD: Soft, nontender, nondistended MSK: No joint tenderness Integumentary: No rashes Neuro: Normal speech, normal affect Vitals reviewed Assessment: UTI Acute metabolic encephalopathy secondary to above Nausea and vomiting Atrial fibrillation not on chronic anticoagulation HX of gastric ulcers/GIB Hypertension Hyperlipidemia Plan: UTI Acute metabolic encephalopathy secondary to above Previous cultures reviewed Switched to merrem 09/19 based on cultures from 09/05 with ESBL Await urine culture Continue IV fluids PT Nausea and vomiting HX of gastric ulcers/GIB IVF, antiemetics Start twice daily PPI History of GI bleeds in the past No melena, hematochezia, hematemesis Atrial fibrillation not on chronic anticoagulation Hypertension Hyperlipidemia Continue home indications when verified DVT PPX: Lovenox Code status: Full Discharge Plan: Home Plan to discharge in: 48-72 hours Time Spent Managing Pts Care (In Minutes): 35
[2024-09-20] MEDS: D5 0.9 NS 1,000 ML IV SCH (10:26)
--- NOTE | 2024-09-20 11:15 | EKG ---
Test Date: 2024-09-18 Test Time: 10:52:49 Candy Counter Clerk: LML MEASUREMENT RESULTS: Intervals: Rate: 77 [place]: 180 QRSD: 116 QT: 434 QTc: 491 Bernard: P: 29 [place]: 180 QRS: -48 T: -12 INTERPRETIVE STATEMENTS: Normal sinus rhythm Left anterior fascicular block Left ventricular hypertrophy with QRS widening Cannot rule out Septal infarct, age undetermined Abnormal ECG Compared to ECG 09/05/2024 18:06:29 Left ventricular hypertrophy now present Myocardial infarct finding now present Atrial premature complex(es) no longer present Prolonged QT interval no longer present Electronically Signed On 09-20-24 11:11:53 [employer] by Edgard Rush
[2024-09-20] MEDS: METOPROLOL TARTRATE 5 MG/5 ML INJ IV STA (11:49)
[2024-09-20] MEDS: METOPROLOL TARTRATE 5 MG/5 ML INJ IV PRN (22:19)
[2024-09-20] MEDS ORDERED: WATER FOR INJ,STERILE 10 ML IM PRN (22:25)
[2024-09-20] MEDS: WATER FOR INJ,STERILE 0 ML ONE (22:37)
[2024-09-20] MEDS: THIAMINE 200 MG/2 ML INJ IVP SCH (22:46)
[2024-09-20] MEDS: ZIPRASIDONE MESYLA 20 MG/VIAL IM PRN (22:49)
[2024-09-21] MEDS: dilTIAZem HCL 25 MG/5 ML VIAL IV ONE ×2 (02:42→02:43)
[2024-09-21] MEDS: NA CHLORIDE 0.9% 100 ML ONE (02:44)
[2024-09-21] MEDS: DILTIAZEM INJ 125 MG/25 ML 125 MG in NA CHLORIDE 0.9% 100 ML IV SCH (03:00)
[2024-09-21] MEDS: METOPROLOL TARTRATE 5 MG/5 ML INJ IV PRN (03:32)
[2024-09-21 06:10] LABS: Absolute Lymphocytes (CBC) 0.5 K/uL (0.7-4.9); Absolute Monocytes 1.1 K/uL (0.1-1.3); Absolute Neutrophil 4.1 K/uL (1.8-8.0); Basophils % 0.3 % (0-1.3); Hematocrit 36.7 % (36.0-45.0); Hemoglobin 12.2 g/dL (12.0-15.0); Lymphocytes % 8.6 % (15.3-44.8); MCH 27.5 pg (27.0-35.0); MCHC 33.2 g/dL (32.0-36.0); MCV 82.8 fL (80-100); MPV 8.8 fL (7.6-11.3); Monocytes % 19.2 % (3.3-12.3); Neutrophils % 71.9 % (41.7-73.7); Nucleated Red Blood Cells % 0.1 % (0-0); Platelets 265 thou/uL (152-406); RBC Red Blood Cell Count 4.44 M/uL (3.86-4.86); Red Cell Distribution Width 16.9 % (12.1-15.2)
[2024-09-21 06:15] LABS: Magnesium 1.8 mg/dL (1.6-2.4); Phosphorus 2.2 mg/dL (2.5-4.9)
[2024-09-21 06:24] LABS: Albumin 2.7 g/dL (3.4-5.0); Albumin/Globulin Ratio 0.7 (1.1-1.8); Anion Gap 11.8 mEq/L (5.0-15.0); Bilirubin Total 0.4 mg/dL (0.2-1.0); Globulin 3.9 g/dL (2.3-3.5); Potassium 2.8 mEq/L (3.5-5.1); Protein, Total 6.6 g/dL (6.4-8.2)
[2024-09-21] MEDS: KCL 20 MEQ/100 mL IVPB 20 MEQ/100 ML BAG IV SCH (06:39)
[2024-09-21] MEDS: ENOXAPARIN 40 MG/0.4 ML SQ SCH (08:07)
[2024-09-21] MEDS: METOPROLOL TARTRATE 5 MG/5 ML INJ IV STA (08:08)
[2024-09-21] MEDS: ENOXAPARIN 80 MG/0.8 ML SQ SCH (09:00)
[2024-09-21 09:15] LABS: Atypical Lymphocytes 3 %; Differential Total Cells Count 100; Lymphocytes 13 % (15-42); Monocytes 11 % (0-10); Segmented Neutrophils 71 % (40-80)
[2024-09-21 09:16] LABS: Blood Morphology Comment NOT SEEN (NOT SEEN); Platelet Estimate ADEQ
--- NOTE | 2024-09-21 10:35 | P.CNS ---
Date of Consult: 09/21/24 Chief Complaint: UTI History of Present Illness: Patient with PMH of atrial fibrillation not on anticoagulation due to GI bleed and Ulcers, presented with AMS, admitted for UTI, patient is altered so informations was obtained from chart review. Allergies codeine Allergy (Verified 06/10/24 22:07) AMS morphine Adverse Reaction (Unknown, Verified 07/13/24 22:58) unknown prednisone Adverse Reaction (Verified 07/13/24 22:58) hypertension Home medications list reviewed: Yes Home Medications: Fluoxetine HCl [Prozac] 3 cap PO DAILY 03/05/23 Furosemide [Lasix*] 40 mg PO DAILY 03/05/23 Isosorbide Mononitrate [Isosorbide Mononitrate ER] 30 mg PO DAILY 03/05/23 Pravastatin [Pravachol*] 1 tab PO DAILY 03/05/23 Clonidine HCl [Catapres*] 0.2 mg PO TID 06/11/24 Famotidine 20 mg PO BEDTIME 06/11/24 Pantoprazole Sodium [Protonix] 1 tab PO DAILY 06/11/24 dilTIAZem HCL [Diltiazem 24Hr ER] 240 mg PO DAILY 06/11/24 Metoprolol Tartrate [Lopressor*] 50 mg PO BID #60 tab 06/13/24 Gabapentin [Neurontin*] 100 mg PO BID 07/14/24 Ensure High Protein 237 ml PO BID can 07/24/24 Fluconazole [Diflucan] 200 mg PO DAILY #6 tab 07/24/24 Lidocaine 4% Patch [Lidoderm 5% Patch*] 2 patch TOP DAILY pat 07/24/24 Thiamine HCl [Vitamin B-1*] 200 mg PO BID 07/24/24 traMADol HCL [Ultram*] 50 mg PO Q6H PRN #20 tab 07/24/24 - Past Medical/Surgical History Diabetic: No -: Depression -: Hypertension -: Osteoarthritis -: Lymphedema L -: A-fib-not on anticoagulation -: Hyperlipidemia -: History of GI bleed/gastric ulcers -: SX salivatory gland Psychosocial/ Personal History: Lives at home with her son - Family History Mother Medical History: Diabetes, Stroke - Social History Smoking Status: Unknown if ever smoked Alcohol use: No CD- Drugs: No Caffeine use: Yes Place of Residence: Home Review of Systems is unable to be obtained (paitent is altered) Physical Examination Temp Pulse Resp BP Pulse Ox 987.6 F H 97 H 20 162/76 H 99 09/21/24 08:00 09/21/24 09:30 09/21/24 09:30 09/21/24 09:30 09/21/24 09:30 General: In no apparent distress HEENT: Atraumatic, PERRLA, Mucous membr. moist/pink, EOMI, Sclerae nonicteric Neck: Supple, 2+ carotid pulse no bruit, No LAD, Without JVD or thyroid abnormal ity Respiratory: Clear to auscultation bilaterally, Normal air movement Cardiovascular: Irregular heart rate/rhythm Gastrointestinal: Normal bowel sounds, No tenderness Musculoskeletal: No tenderness Integumentary: No rashes Neurological: Normal gait, Normal speech, Normal tone, Normal affect Lymphatics: No axilla or inguinal lymphadenopathy - Problems (1) Atrial fibrillation Current Visit: Yes Status: Acute Plan: Patient with PMH of atrial fibrillation not on anticoagulation due to gastric ulcers. - stop diltazem - Amiodarone 150 mg IV x 1 then continue drip per protocol for 24 hours then switch to amiodarone 200 mg po BID - continue therapeutic lovenox, if Hg stable then will switch to Eliquis 5 mg po BID - Patient might benefit from watchman in the future. (2) HTN (hypertension) Current Visit: No Status: Acute Plan: if patient is able to tolerate PO then recommend lopressor 50 mg po BID if no PO then Metoprolol 5 mg IV q 6 hours.
[2024-09-21] MEDS: AMIODARONE HCL 150 MG in D5W 100 ML IV STA (10:38)
[2024-09-21] MEDS: AMIODARONE HCL 900 MG in Dextrose 5%-Water 482 ML IV SCH (10:53)
--- NOTE | 2024-09-21 13:33 | P.PN ---
Subjective Date of Service: 09/21/24 Chief Complaint: UTI Speech eval ordered to eval swallowing admitted with metabolic encephalopathy secondary to UTI, has noted confusion, nonverbal, Review of Systems is unable to be obtained Physical Examination - Vital Signs Temperature: 97.9 F Blood Pressure: 180/107 Pulse: 93 Respirations: 31 Pulse Ox (%): 100 - Physical Exam General: Alert, In no apparent distress, Oriented x2, Other (Nonverbal) HEENT: Atraumatic, Normocephalic Neck: Supple, 2+ carotid pulse no bruit Respiratory: Clear to auscultation bilaterally, Normal air movement Cardiovascular: Irregular heart rate/rhythm Gastrointestinal: Normal bowel sounds, Soft and benign Musculoskeletal: No clubbing, No swelling, Other (Generalized weakness) Neurological: Normal tone, Other (Nonverbal, confused), Abnormal speech - Studies Microbiology Data (last 24 hrs): 09/18/24 11:10 Clean Catch Urine [place] Count - Final BETWEEN 10,000 & 100,000 CFU/ML 09/18/24 11:10 Clean Catch Urine - Final Klebsiella Pneumoniae Esbl Assessment And Plan - Plan Assessment: Acute cystitis secondary to ESBL of the urine Acute metabolic encephalopathy secondary to above UTI Nausea and vomiting Atrial fibrillation not on chronic anticoagulation HX of gastric ulcers/GIB Hypertension Hyperlipidemia Plan: Acute cystitis secondary to ESBL of the urine Acute metabolic encephalopathy secondary to above Previous cultures reviewed Switched to merrem 09/19 based on cultures from 09/05 with ESBL Urine culture Klebsiella pneumonia, ESBL Continue IV fluids PT eval, reports being wheelchair-bound at home-patient did not respond when instructed by physical therapy prompts Nonverbal, Metabolic encephalopathy Speech eval ordered for swallow evaluation PT eval Atrial fibrillation RVR chronic anticoagulation Hypertension Hyperlipidemia Continue home indications when verified Cardiology consulted transition Cardizem drip to amiodarone drip Lovenox 1 mg/kg, transition to Eliquis in a.m. Nausea and vomiting HX of gastric ulcers/GIB IVF, antiemetics Start twice daily PPI History of GI bleeds in the past No melena, hematochezia, hematemesis DVT PPX: Lovenox Code status: Full Discharge Plan: Home Plan to discharge in: 48-72 hours Discharge Plan: Home - Code Status/Comfort Care Code Status: Full Code Critical Care: Yes Time Spent Managing PTS Care (In Minutes): 65
[2024-09-21 15:30] LABS: Anion Gap 9.7 mEq/L (5.0-15.0); Phosphorus 1.9 mg/dL (2.5-4.9)
[2024-09-21 15:34] LABS: Magnesium 1.9 mg/dL (1.6-2.4); Potassium 3.7 mEq/L (3.5-5.1)
[2024-09-21] MEDS: CLONIDINE 0.1 MG/PATCH TD SCH (16:03)
[2024-09-21] MEDS: FUROSEMIDE 40 MG/4 ML VIAL IV SCH (17:39)
[2024-09-21] MEDS: D5.45NS W/KCL 20MEQ 20 MEQ/1,000 ML BAG IV SCH (17:59)
[2024-09-21] MEDS ORDERED: D5 0.45 NS 1,000 ML with POTASSIUM CL 10 MEQ IV SCH (18:00)
--- NOTE | 2024-09-21 18:42 | CON ---
History Of Present Illness: This is a 73-year-old female with significant past medical history of at rial fibrillation, GI bleed, gastric ulcers, hypertension, hyperlipidemia. I was consulted for urose psis. The patient is admitted to ICU for altered mental status, currently on meropenem. The patient is unable to give history. Most of the history was obtained through medical records and staff. Past Medical History: As per HPI. Social History: Nonsmoker, nondrinker. Family History: Noncontributory. Medication: Meropenem. See MARs for other medications. Allergies: CODEINE, MORPHINE, AND PREDNISONE. Review of Systems: Unable to obtain. Physical Examination: General: This is a 73-year-old female, lying in bed. Nurse by the bedside, not in any acute cardiop ulmonary distress except elevated blood pressure of 180/107, pulse 93, respirations 30, temperature 9 7.9. HEENT: Unremarkable. Neck: Supple. Lungs: Basal crackles. Heart: S1, S2. Regular. Abdomen: Soft, nontender. Bowel sounds present. Extremities: Trace edema. Thickened and brittle nails noted with traumatic lesions noted on the ham mertoe deformity. Laboratory Data: Shows WBC 5.7, hemoglobin 12.2, platelets are 265. Chemistry shows BUN of 19, crea tinine 1.03. Albumin level is 2.7. Micro data shows the urine culture growing Klebsiella pneumoniae , ESBL. The patient is currently on meropenem. See MARs for other medications. Assessment And Plan: Urosepsis in a 73-year-old female. We will recommend to continue meropenem for 10 days. Blood cultures were not obtained at the time of admission. CT abdomen shows no acute prob lems in abdomen and pelvis region. Moderate protein-calorie malnourishment. Leukorrhea with wbc's 2 0 to 50 in urine. Hematuria with more than 50 rbc's in the urine. Monitor for signs of infection wi th WBC and fever trend. Thank you, Dr. Domínguez and Dr. Francisco for consult. NF/MODL Voice ID: [id number] Report ID: [id number]
[2024-09-22 05:53] LABS: Absolute Monocytes 0.9 K/uL (0.1-1.3); Absolute Neutrophil 3.1 K/uL (1.8-8.0); Basophils % 0.8 % (0-1.3); Hematocrit 41.4 % (36.0-45.0); Hemoglobin 13.5 g/dL (12.0-15.0); Lymphocytes % 19.8 % (15.3-44.8); MCH 27.3 pg (27.0-35.0); MCHC 32.5 g/dL (32.0-36.0); MPV 8.7 fL (7.6-11.3); Neutrophils % 61.4 % (41.7-73.7); Nucleated Red Blood Cells % 0.2 % (0-0); Platelets 211 thou/uL (152-406); RBC Red Blood Cell Count 4.93 M/uL (3.86-4.86)
[2024-09-22 06:14] LABS: Albumin 2.6 g/dL (3.4-5.0); Albumin/Globulin Ratio 0.6 (1.1-1.8); Bilirubin Total 0.5 mg/dL (0.2-1.0); Globulin 4.2 g/dL (2.3-3.5); Magnesium 1.8 mg/dL (1.6-2.4); Phosphorus 2.4 mg/dL (2.5-4.9); Protein, Total 6.8 g/dL (6.4-8.2)
[2024-09-22] MEDS: KCL 20 MEQ/100 mL IVPB 20 MEQ/100 ML BAG IV SCH (07:14)
--- NOTE | 2024-09-22 10:47 | P.PN ---
Date of Service: 09/22/24 Subjective Chief Complaint: UTI More alert today, plan to start pured diet today, She has been n.p.o. due to confusion, speech eval, Review of Systems is unable to be obtained Physical Examination - Vital Signs reviewed - Physical Exam General: Awake, alert, Other (Nonverbal) eyes open to verbal HEENT: Atraumatic, Normocephalic Neck: Supple, 2+ carotid pulse no bruit Respiratory: Clear to auscultation bilaterally, unlabored Cardiovascular: Irregular heart rate/rhythm Gastrointestinal: Normal bowel sounds, Soft and benign Musculoskeletal: No clubbing, No swelling, Other (Generalized weakness) Neurological: Normal tone, Other (Nonverbal, confused), Abnormal speech - Studies Microbiology Data (last 24 hrs): 09/18/24 11:10 Clean Catch Urine [place] Count - Final BETWEEN 10,000 & 100,000 CFU/ML 09/18/24 11:10 Clean Catch Urine - Final Klebsiella Pneumoniae Esbl Assessment And Plan - Plan Assessment: Acute cystitis secondary to ESBL of the urine Acute metabolic encephalopathy secondary to above UTI Nausea and vomiting Dysphagia Atrial fibrillation not on chronic anticoagulation HX of gastric ulcers/GIB Hypertension Hyperlipidemia Plan: Acute cystitis secondary to ESBL of the urine Acute metabolic encephalopathy secondary to above Previous cultures reviewed Switched to merrem 09/19 based on cultures from 09/05 with ESBL Urine culture Klebsiella pneumonia, ESBL Continue IV fluids PT eval, reports being wheelchair-bound at home-patient did not respond when instructed by physical therapy prompts Nonverbal, Metabolic encephalopathy Speech eval ordered for swallow evaluation PT eval Atrial fibrillation RVR chronic anticoagulation Hypertension Hyperlipidemia Continue home indications when verified Cardiology consulted transition Cardizem drip to amiodarone drip Lovenox 1 mg/kg, transition to Eliquis in a.m. when tolerating p.o. Nausea and vomiting improved Dysphagia HX of gastric ulcers/GIB IVF, antiemetics Start twice daily PPI History of GI bleeds in the past No melena, hematochezia, hematemesis Speech eval, plan to advance to pured diet for lunch today 09/22 DVT PPX: Lovenox Code status: Full Discharge Plan: Home Plan to discharge in: 48-72 hours Discharge Plan: Home - Code Status/Comfort Care Code Status: Full Code Critical Care: Yes Time Spent Managing PTS Care (In Minutes): 45
[2024-09-22] MEDS: Mupirocin NASAL 2 APPL/1 GM TUBE NAS SCH (20:12)
[2024-09-22] MEDS: NIFEDIPINE XL 30 MG TABLET PO SCH (20:13)
[2024-09-23 05:22] LABS: Absolute Lymphocytes (CBC) 1.2 K/uL (0.7-4.9); Absolute Monocytes 0.6 K/uL (0.1-1.3); Absolute Neutrophil 2.9 K/uL (1.8-8.0); Basophils % 0.6 % (0-1.3); Eosinophils % 0.2 % (0-4.4); Hematocrit 42.6 % (36.0-45.0); Hemoglobin 13.8 g/dL (12.0-15.0); Lymphocytes % 25.9 % (15.3-44.8); MCH 27.1 pg (27.0-35.0); MCHC 32.5 g/dL (32.0-36.0); MCV 83.5 fL (80-100); Monocytes % 13.2 % (3.3-12.3); Neutrophils % 60.1 % (41.7-73.7); Nucleated Red Blood Cells % 0.7 % (0-0); Platelets 167 thou/uL (152-406)
[2024-09-23 05:51] LABS: Albumin 2.5 g/dL (3.4-5.0); Albumin/Globulin Ratio 0.6 (1.1-1.8); Anion Gap 9.9 mEq/L (5.0-15.0); Bilirubin Total 0.4 mg/dL (0.2-1.0); Magnesium 1.7 mg/dL (1.6-2.4); Potassium 2.9 mEq/L (3.5-5.1); Protein, Total 6.5 g/dL (6.4-8.2)
[2024-09-23] MEDS: KCL 20 MEQ/100 mL IVPB 20 MEQ/100 ML BAG IV SCH (06:14)
--- NOTE | 2024-09-23 08:45 | P.PN ---
Date of Service: 09/23/24 Subjective: Mental status improving Oriented x 2-3 Tolerating PO meds/food so far today ROS: 10 point ROS as noted above, otherwise negative Physical exam GEN: Alert,oriented x2-3 HEENT: Normal conjunctiva, sclera anicteric CV: Regular rate and rhythm, no edema Pulm: Nonlabored respirations on room air ABD: Soft, nontender, nondistended MSK: No joint tenderness Integumentary: No rashes Neuro: Normal speech, normal affect Vitals reviewed Assessment: UTI-MDR/ESBL Acute metabolic encephalopathy secondary to above Nausea and vomiting Atrial fibrillation with RVR HX of gastric ulcers/GIB Hypertension Hyperlipidemia Plan: UTI Acute metabolic encephalopathy secondary to above Switched to merrem 09/19 based on cultures from 09/05 with ESBL Urine culture shows Klebsiella ESBL Will need 10 days IV abx through 09/29 ID consulted/following Improving PT consulted Nausea and vomiting HX of gastric ulcers/GIB IVF, antiemetics Started on twice daily PPI-will reduce to daily History of GI bleeds in the past No melena, hematochezia, hematemesis Atrial fibrillation with RVR Seen by cardiology, had Afib with RVR Now on IV amio Plan to transition to PO amio tonight Tolerating bills, HGB stable on therapeutic Lovenox we will switch to p.o. Eliquis tonight as well Cardiology consulted and following Hypertension Hyperlipidemia Continue home indications when verified DVT PPX: Lovenox Code status: Full Discharge Plan: SNF Plan to discharge in: 48-72 hours Time Spent Managing Pts Care (In Minutes): 35
[2024-09-23] MEDS ORDERED: SODIUM CHLORIDE 0.9% 10ML INJ IV PRN (08:46)
--- NOTE | 2024-09-23 10:28 | P.PN ---
Subjective Date of Service: 09/23/24 Chief Complaint: UTI Subjective: No new changes, No C/O voiced, Tolerating diet, Ambulating, Improving Review of Systems 10-point ROS is otherwise unremarkable Physical Examination - Vital Signs Temperature: 97.6 F Blood Pressure: 150/92 Pulse: 81 Respirations: 18 Pulse Ox (%): 96 - Physical Exam General: Alert, In no apparent distress HEENT: Atraumatic, PERRLA, EOMI Neck: Supple, JVD not distended Respiratory: Clear to auscultation bilaterally, Normal air movement Cardiovascular: Regular rate/rhythm, Normal S1 S2 Gastrointestinal: Normal bowel sounds, No tenderness Musculoskeletal: No tenderness Integumentary: No rashes Neurological: Normal speech, Normal tone, Normal affect Lymphatics: No axilla or inguinal lymphadenopathy - Studies Medications List Reviewed: Yes Assessment And Plan - Current Problems (Diagnosis) (1) Atrial fibrillation Current Visit: Yes Status: Acute Plan: Patient with PMH of atrial fibrillation not on anticoagulation due to gastric ulcers. - switch to amiodarone 200 mg po BID - switch to Eliquis 5 mg po BID - Patient might benefit from watchman in the future. (2) HTN (hypertension) Current Visit: No Status: Acute Plan: lopressor 50 mg po BID Nifedipine XL 30 mg daily
[2024-09-23] MEDS: AMIODARONE HCL 200 MG TAB PO ONE (10:53)
[2024-09-23] MEDS: PANTOPRAZOLE 40 MG INJ IVP SCH (10:53)
--- NOTE | 2024-09-23 15:38 | PN ---
Subjective: Patient lying in bed. No new acute event. Chart reviewed. Denies any chest pain, abdo juliana pain, constipation, or diarrhea. Objective: Vital Signs: Temperature 98, pulse 81, respirations 18, and blood pressure 139/65. Lungs: Basal crackles. Heart: S1 and S2. Regular. Abdomen: Soft, nontender. Bowel sounds present. Extremities: Trace edema. Laboratory Data: Shows WBC 4.7, hemoglobin 13.8, and platelets are 167. BUN of 22, creatinine 0.9. Albumin level is 2.5. Urine culture growing Klebsiella pneumoniae, ESBL. Patient currently on joseph penem. Assessment And Plan: Urosepsis. Altered mental status, improving. Continue meropenem, total of 10 days. Moderate protein-calorie malnourishment. Klebsiella extended spectrum beta-lactamase pneumoni a. Urinary tract infection. Monitor signs of infection. We will follow the patient as needed. NF/MODL Voice ID: [id number] Report ID: [id number]
[2024-09-23] MEDS: Meropenem 1,000 MG in NA CHLORIDE 0.9% 100 ML IV SCH (16:40)
[2024-09-23 20:16] LABS: C.diff Antigen/Toxin Ag neg : Tox neg (NEG : NEG); CDIFF INTERNAL NEG CONTROL White Background (WHITE BKGD); STOOL CONSISTENCY Liquid/Semi-Solid
[2024-09-23] MEDS: APIXABAN 5 MG TABLET PO SCH (20:20)
[2024-09-23] MEDS: AMIODARONE HCL 200 MG TAB PO SCH (20:21)
[2024-09-23] MEDS: MAGNESIUM SULFATE 1 gm IVPB 1 GM/100 ML BAG IV ONE (20:22)
[2024-09-23] MEDS: ENSURE ENLIVE 237 ML CAN PO SCH (20:34)
[2024-09-23] MEDS: POTASSIUM CL SA 10 MEQ TAB PO ONE (21:02)
[2024-09-24 06:18] LABS: Absolute Basophils 0.2 K/uL (0-0.5); Absolute Lymphocytes (CBC) 1.1 K/uL (0.7-4.9); Absolute Monocytes 0.7 K/uL (0.1-1.3); Absolute Neutrophil 6.3 K/uL (1.8-8.0); Basophils % 2.4 % (0-1.3); Eosinophils % 0.6 % (0-4.4); Hematocrit 40.5 % (36.0-45.0); Hemoglobin 13.3 g/dL (12.0-15.0); MCH 27.2 pg (27.0-35.0); MCHC 32.9 g/dL (32.0-36.0); MCV 82.7 fL (80-100); MPV 9.7 fL (7.6-11.3); Monocytes % 8.2 % (3.3-12.3); Neutrophils % 75.8 % (41.7-73.7); Nucleated Red Blood Cells % 0.2 % (0-0); Platelets 179 thou/uL (152-406); Red Cell Distribution Width 16.8 % (12.1-15.2)
[2024-09-24 06:40] LABS: Albumin 2.4 g/dL (3.4-5.0); Albumin/Globulin Ratio 0.6 (1.1-1.8); Anion Gap 9.8 mEq/L (5.0-15.0); Bilirubin Total 0.3 mg/dL (0.2-1.0); Globulin 3.7 g/dL (2.3-3.5); Magnesium 1.9 mg/dL (1.6-2.4); Potassium 3.8 mEq/L (3.5-5.1); Protein, Total 6.1 g/dL (6.4-8.2)
[2024-09-24] MEDS: POTASSIUM CL SA 10 MEQ TAB PO ONE (08:36)
--- NOTE | 2024-09-24 09:26 | P.PN ---
Date of Service: 09/24/24 Subjective: Mental status improving Oriented x 2-3 Tolerating PO meds/food so far today Having more frequent loose watery stools today Cdiff negative Improving ROS: 10 point ROS as noted above, otherwise negative Physical exam GEN: Alert,oriented x2-3 HEENT: Normal conjunctiva, sclera anicteric CV: Regular rate and rhythm, no edema Pulm: Nonlabored respirations on room air ABD: Soft, nontender, nondistended MSK: No joint tenderness Integumentary: No rashes Neuro: Normal speech, normal affect Vitals reviewed Assessment: UTI-MDR/ESBL Acute metabolic encephalopathy secondary to above Nausea and vomiting Atrial fibrillation with RVR HX of gastric ulcers/GIB Hypertension Hyperlipidemia Plan: UTI Acute metabolic encephalopathy secondary to above Switched to merrem 09/19 based on cultures from 09/05 with ESBL Urine culture shows Klebsiella ESBL Will need 10 days IV abx through 09/29 ID consulted/following Improving PT consulted Nausea and vomiting/diarrhea HX of gastric ulcers/GIB Having loose stoole-C. difficile negative Continue to monitor IVF, antiemetics Started on twice daily PPI-will reduce to daily History of GI bleeds in the past No melena, hematochezia, hematemesis Atrial fibrillation with RVR Seen by cardiology, had Afib with RVR Now on PO amiodarone 200mg BID Eliquis 5mg PO BID Cardiology consulted and following Hypertension Hyperlipidemia Home meds continued DVT PPX: Lovenox Code status: Full Discharge Plan: SNF vs home Plan to discharge in: 48-72 hours Time Spent Managing Pts Care (In Minutes): 35
--- NOTE | 2024-09-24 11:40 | P.PN ---
Subjective Date of Service: 09/24/24 Chief Complaint: UTI Subjective: No new changes, No C/O voiced, Tolerating diet, Ambulating, Improving Review of Systems 10-point ROS is otherwise unremarkable Physical Examination - Vital Signs Temperature: 97.5 F Blood Pressure: 119/75 Pulse: 70 Respirations: 18 Pulse Ox (%): 98 - Physical Exam General: Alert, In no apparent distress HEENT: Atraumatic, PERRLA, EOMI Neck: Supple, JVD not distended Respiratory: Clear to auscultation bilaterally, Normal air movement Cardiovascular: Regular rate/rhythm, Normal S1 S2 Gastrointestinal: Normal bowel sounds, No tenderness Musculoskeletal: No tenderness Integumentary: No rashes Neurological: Normal speech, Normal tone, Normal affect Lymphatics: No axilla or inguinal lymphadenopathy - Studies Medications List Reviewed: Yes Assessment And Plan - Current Problems (Diagnosis) (1) Atrial fibrillation Current Visit: Yes Status: Acute Plan: Patient with PMH of atrial fibrillation not on anticoagulation due to gastric ulcers. rate controlled, did not attempt DCCV due to risk of interruption of anticoagulation if GI bleed re occur. - amiodarone 200 mg po BID - Eliquis 5 mg po BID - Patient might benefit from watchman in the future. outpatient follow up with cardiology will sign off, please call with any questions. (2) HTN (hypertension) Current Visit: No Status: Acute Plan: lopressor 50 mg po BID Nifedipine XL 30 mg daily
--- NOTE | 2024-09-24 12:51 | EKG ---
Test Date: 2024-09-21 Test Time: 03:07:48 [employer] Parts Fabricator: JG MEASUREMENT RESULTS: Intervals: Rate: 128 PA: 184 QRSD: 104 QT: 332 QTc: 484 [place]: P: PA: 184 QRS: -54 T: 100 INTERPRETIVE STATEMENTS: Sinus tachycardia with premature atrial complexes Left anterior fascicular block Left ventricular hypertrophy with repolarization abnormality Cannot rule out Septal infarct, age undetermined Abnormal ECG Compared to ECG 09/18/2024 10:52:49 Atrial premature complex(es) now present Early repolarization now present Sinus rhythm no longer present Myocardial infarct finding still present Electronically Signed On 09-24-24 12:48:52 PROPELLER TESTER by Edgard Rush
--- NOTE | 2024-09-24 12:51 | EKG ---
Test Date: 2024-09-21 Test Time: 03:08:21 Health Care Consultant: JG MEASUREMENT RESULTS: Intervals: Rate: 142 TN: QRSD: 100 QT: 334 QTc: 513 [place]: P: TN: QRS: -54 T: 102 INTERPRETIVE STATEMENTS: Atrial fibrillation with rapid ventricular response Left axis deviation Minimal voltage criteria for LVH, may be normal variant Septal infarct, age undetermined Abnormal ECG Compared to ECG 09/21/2024 03:07:48 Left-axis deviation now present Sinus tachycardia no longer present Atrial premature complex(es) no longer present Left anterior fascicular block no longer present Early repolarization no longer present Myocardial infarct finding still present Electronically Signed On 09-24-24 12:48:46 ABSTRACT CHECKER by Edgard Rush
[2024-09-25 04:53] LABS: Absolute Eosinophils 0.3 K/uL (0-0.5); Absolute Lymphocytes (CBC) 1.9 K/uL (0.7-4.9); Absolute Monocytes 0.9 K/uL (0.1-1.3); Absolute Neutrophil 4.9 K/uL (1.8-8.0); Basophils % 0.3 % (0-1.3); Eosinophils % 3.2 % (0-4.4); Hematocrit 37.6 % (36.0-45.0); Hemoglobin 12.3 g/dL (12.0-15.0); Lymphocytes % 24.2 % (15.3-44.8); MCHC 32.6 g/dL (32.0-36.0); MCV 82.9 fL (80-100); MPV 9.1 fL (7.6-11.3); Monocytes % 10.9 % (3.3-12.3); Neutrophils % 61.4 % (41.7-73.7); Nucleated Red Blood Cells % 0.2 % (0-0); Platelets 152 thou/uL (152-406); RBC Red Blood Cell Count 4.54 M/uL (3.86-4.86); Red Cell Distribution Width 16.9 % (12.1-15.2)
--- NOTE | 2024-09-25 08:46 | P.PN ---
Date of Service: 09/25/24 Subjective: Mental status improving Oriented x 2-3 Tolerating PO meds/food so far today Having more frequent loose watery stools yesterday and today FMS in place Cdiff negative Improving ROS: 10 point ROS as noted above, otherwise negative Physical exam GEN: Alert,oriented x2-3 HEENT: Normal conjunctiva, sclera anicteric CV: Regular rate and rhythm, no edema Pulm: Nonlabored respirations on room air ABD: Soft, nontender, nondistended, FMS/guzman in place MSK: No joint tenderness Integumentary: No rashes Neuro: Normal speech, normal affect Vitals reviewed Assessment: UTI-MDR/ESBL Acute metabolic encephalopathy secondary to above Nausea and vomiting Atrial fibrillation with RVR HX of gastric ulcers/GIB Hypertension Hyperlipidemia Plan: UTI Acute metabolic encephalopathy secondary to above Switched to merrem 09/19 based on cultures from 09/05 with ESBL Urine culture shows Klebsiella ESBL Will need 10 days IV abx through 09/29 ID consulted/following Improving PT consulted SNF vs home with HH/PT depending on ongoing PT Nausea and vomiting/diarrhea HX of gastric ulcers/GIB Having loose stoole-C. difficile negative FMS in place since 09/24 Will try imodium x1 Continue to monitor IVF, antiemetics Started on twice daily PPI-will reduce to daily History of GI bleeds in the past No melena, hematochezia, hematemesis Atrial fibrillation with RVR Seen by cardiology, had Afib with RVR Now on PO amiodarone 200mg BID Eliquis 5mg PO BID Cardiology consulted and following Hypertension Hyperlipidemia Home meds continued DVT PPX: Eliquis Code status: Full Discharge Plan: SNF vs home Plan to discharge in: 48-72 hours Time Spent Managing Pts Care (In Minutes): 35
[2024-09-25] MEDS: LOPERAMIDE HCL 2 MG CAPSULE PO STA (09:02)
[2024-09-26 06:33] LABS: Anion Gap 9.9 mEq/L (5.0-15.0)
[2024-09-26 06:38] LABS: Magnesium 1.8 mg/dL (1.6-2.4); Potassium 3.9 mEq/L (3.5-5.1)
[2024-09-26] MEDS: MAGNESIUM SULFATE 1 gm IVPB 1 GM/100 ML BAG IV ONE (07:38)
[2024-09-26] MEDS: KCL 20 MEQ/100 mL IVPB 20 MEQ/100 ML BAG IV SCH (07:41)
--- NOTE | 2024-09-26 08:46 | P.PN ---
Date of Service: 09/26/24 Subjective: Mental status improving Oriented x 3 Tolerating PO meds/food Diarrhea improved had formed stool overnight FMS removed, stable for floor ROS: 10 point ROS as noted above, otherwise negative Physical exam GEN: Alert,oriented x2-3 HEENT: Normal conjunctiva, sclera anicteric CV: Regular rate and rhythm, no edema Pulm: Nonlabored respirations on room air ABD: Soft, nontender, nondistended MSK: No joint tenderness Integumentary: No rashes Neuro: Normal speech, normal affect Vitals reviewed Assessment: UTI-MDR/ESBL Acute metabolic encephalopathy secondary to above Nausea and vomiting Atrial fibrillation with RVR HX of gastric ulcers/GIB Hypertension Hyperlipidemia Plan: UTI Acute metabolic encephalopathy secondary to above Switched to merrem 09/19 based on cultures from 09/05 with ESBL Urine culture shows Klebsiella ESBL Will need 10 days IV abx through 09/29 ID consulted/following Improving PT consulted SNF vs home with HH/PT depending on ongoing PT Nausea and vomiting/diarrhea HX of gastric ulcers/GIB Was having loose stoole-C. difficile negative Now with formed stool and FMS removed No melena, hematochezia, hematemesis Atrial fibrillation with RVR Seen by cardiology, had Afib with RVR Now on PO amiodarone 200mg BID Eliquis 5mg PO BID Cardiology consulted and following-signed off for now, call if needed Hypertension Hyperlipidemia Home meds continued DVT PPX: Eliquis Code status: Full Discharge Plan: SNF vs home Plan to discharge in: 48-72 hours Time Spent Managing Pts Care (In Minutes): 35
[2024-09-27 06:19] LABS: Anion Gap 10.2 mEq/L (5.0-15.0); Magnesium 1.9 mg/dL (1.6-2.4); Potassium 4.2 mEq/L (3.5-5.1)
[2024-09-27] MEDS: PANTOPRAZOLE 40MG TABLET PO SCH (08:51)
[2024-09-27] MEDS: THIAMINE HCL 100 MG TABLET PO SCH (08:52)
--- NOTE | 2024-09-27 10:30 | P.PN ---
Date of Service: 09/27/24 Subjective: Mental status improving Oriented x 3 Tolerating PO meds/food Diarrhea improved had formed stool overnight pending pt to determine dispo needs ROS: 10 point ROS as noted above, otherwise negative Physical exam GEN: Alert,oriented x2-3 HEENT: Normal conjunctiva, sclera anicteric CV: Regular rate and rhythm, no edema Pulm: Nonlabored respirations on room air ABD: Soft, nontender, nondistended MSK: No joint tenderness Integumentary: No rashes Neuro: Normal speech, normal affect Vitals reviewed Assessment: UTI-MDR/ESBL Acute metabolic encephalopathy secondary to above Nausea and vomiting Atrial fibrillation with RVR HX of gastric ulcers/GIB Hypertension Hyperlipidemia Plan: UTI Acute metabolic encephalopathy secondary to above Switched to merrem 09/19 based on cultures from 09/05 with ESBL Urine culture shows Klebsiella ESBL Will need 10 days IV abx through 09/29 ID consulted/following Improving PT consulted SNF vs home with HH/PT depending on ongoing PT Nausea and vomiting/diarrhea HX of gastric ulcers/GIB Was having loose stoole-C. difficile negative Now with formed stool and FMS removed No melena, hematochezia, hematemesis Atrial fibrillation with RVR Seen by cardiology, had Afib with RVR Now on PO amiodarone 200mg BID Eliquis 5mg PO BID Cardiology consulted and following-signed off for now, call if needed Hypertension Hyperlipidemia Home meds continued DVT PPX: Eliquis Code status: Full Discharge Plan: SNF vs home Plan to discharge in: 48-72 hours Time Spent Managing Pts Care (In Minutes): 35
[2024-09-28] MEDS: TRAMADOL HCL 50 MG TAB PO PRN ×2 (02:03→20:23)
--- NOTE | 2024-09-28 10:52 | P.PN ---
Date of Service: 09/28/24 Subjective: Awake and conversing Expresses a desire to go home and be care for by her son Will reach out to her son today for further planning IV merrem to finish 09/29 ROS: 10 point ROS as noted above, otherwise negative Physical exam GEN: Alert and oriented x2-3, no acute distress HEENT: Normal conjunctiva, sclera anicteric CV: Regular rate and rhythm, no edema Pulm: Nonlabored respirations, clear BBS, on RA ABD: Soft, nontender, nondistended MSK: No joint tenderness Integumentary: No rashes Neuro: Normal speech, normal affect Vitals reviewed Assessment: UTI-MDR/ESBL Acute metabolic encephalopathy secondary to above Nausea and vomiting Atrial fibrillation with RVR HX of gastric ulcers/GIB Hypertension Hyperlipidemia Plan: UTI Acute metabolic encephalopathy secondary to above Switched to merrem 09/19 based on cultures from 09/05 with ESBL Urine culture shows Klebsiella ESBL Will need 10 days IV abx through 09/29 ID recommends Merrem til 09/29 Improving PT consulted- patient continues to be weak SNF vs home with HH/PT depending on ongoing PT Nausea and vomiting/diarrhea HX of gastric ulcers/GIB Was having loose stoole-C. difficile negative Now with formed stool and FMS removed No melena, hematochezia, hematemesis Atrial fibrillation with RVR Seen by cardiology, had Afib with RVR Now on PO amiodarone 200mg BID Eliquis 5mg PO BID Cardiology consulted and following-signed off for now, call if needed Hypertension Hyperlipidemia Home meds continued DVT PPX: Eliquis Code status: Full Discharge Plan: SNF vs home Plan to discharge in: 48-72 hours
--- NOTE | 2024-09-28 13:39 | P.PN ---
Date of Service: 09/28/24 Patient with no new complaints since last visit able to tolerate antibiotic without any problem Physical exam: Patient laying in bed not in any acute cardiopulmonary distress Temp Pulse Resp BP Pulse Ox 98.3 F 67 20 126/66 96 09/28/24 11:42 09/28/24 11:42 09/28/24 11:42 09/28/24 11:42 09/28/24 11:42 HEENT: Normal conjunctiva, sclera anicteric CV: Regular rate and rhythm, no edema Pulm: Nonlabored respirations, clear BBS, on RA ABD: Soft, nontender, nondistended MSK: No joint tenderness Integumentary: No rashes Neuro: Normal speech, normal affect Laboratory Last Values WBC 8.00 thou/uL (4.3-10.9) 09/18/24 10:00 RBC 4.69 M/uL (3.86-4.86) 09/18/24 10:00 Hgb 12.7 g/dL (12.0-15.0) 09/18/24 10:00 Hct 39.3 % (36.0-45.0) 09/18/24 10:00 MCV 83.8 fL (80-100) 09/18/24 10:00 MCH 27.1 pg (27.0-35.0) 09/18/24 10:00 MCHC 32.3 g/dL (32.0-36.0) 09/18/24 10:00 RDW 16.4 % (12.1-15.2) H 09/18/24 10:00 Plt Count 315 thou/uL (152-406) 09/18/24 10:00 MPV 8.7 fL (7.6-11.3) 09/18/24 10:00 Neutrophils % 83.8 % (41.7-73.7) H 09/18/24 10:00 Lymphocytes % 9.0 % (15.3-44.8) L 09/18/24 10:00 Monocytes % 5.3 % (3.3-12.3) 09/18/24 10:00 Eosinophils % 0.7 % (0-4.4) 09/18/24 10:00 Basophils % 1.2 % (0-1.3) 09/18/24 10:00 Absolute Neutrophils 6.7 K/uL (1.8-8.0) 09/18/24 10:00 Absolute Lymphocytes 0.7 K/uL (0.7-4.9) 09/18/24 10:00 Absolute Monocytes 0.4 K/uL (0.1-1.3) 09/18/24 10:00 Absolute Eosinophils 0.1 K/uL (0-0.5) 09/18/24 10:00 Absolute Basophils 0.1 K/uL (0-0.5) 09/18/24 10:00 Sodium 132 mEq/L (136-145) L 09/18/24 10:00 Potassium 3.8 mEq/L (3.5-5.1) 09/18/24 10:00 Chloride 99 mEq/L (98-107) 09/18/24 10:00 Carbon Dioxide 24 mEq/L (21-32) 09/18/24 10:00 Anion Gap 12.8 mEq/L (5.0-15.0) 09/18/24 10:00 BUN 19 mg/dL (7-18) H 09/18/24 10:00 Creatinine 1.24 mg/dL (0.55-1.02) H 09/18/24 10:00 Est GFR (CKD-EPI) 46 ml/min (=/>90) L 09/18/24 10:00 Glucose 124 mg/dL (74-106) H 09/18/24 10:00 Calcium 9.6 mg/dL (8.5-10.1) 09/18/24 10:00 Total Bilirubin 0.4 mg/dL (0.2-1.0) 09/18/24 10:00 AST 13 U/L (15-37) L 09/18/24 10:00 ALT < 14 U/L (13-56) 09/18/24 10:00 Alkaline Phosphatase 139 U/L (45-117) H 09/18/24 10:00 Troponin I High Sens 45.1 pg/mL (<58.9) 09/18/24 10:00 Serum Total Protein 7.7 g/dL (6.4-8.2) 09/18/24 10:00 Albumin 2.9 g/dL (3.4-5.0) L 09/18/24 10:00 Globulin 4.8 g/dL (2.3-3.5) H 09/18/24 10:00 Albumin/Globulin Ratio 0.6 (1.1-1.8) L 09/18/24 10:00 Lipase 10 U/L (13-75) L 09/18/24 10:00 Urine Color Colorless (Yellow) 09/18/24 11:10 Urine Clarity Turbid (Clear) H 09/18/24 11:10 Urine pH 8.0 (5.0-7.0) H 09/18/24 11:10 Ur Specific [place] 1.010 (1.005-1.030) 09/18/24 11:10 Glucose (UA)(Auto) Negative (Negative) 09/18/24 11:10 Urine Ketones Negative (Negative) 09/18/24 11:10 Urine Blood 3+ (Negative) H 09/18/24 11:10 Urine Nitrite Negative (Negative) 09/18/24 11:10 Urine Bilirubin Negative (Negative) 09/18/24 11:10 Urine Urobilinogen Normal (Normal) 09/18/24 11:10 Ur Leukocyte Esterase 250 [place]/uL (Negative) H 09/18/24 11:10 Urine RBC >50 /HPF (None Seen) H 09/18/24 11:10 Urine WBC 20-50 /HPF (<5) H 09/18/24 11:10 Ur Squamous Epith Cells None seen /HPF (None Seen) 09/18/24 11:10 Unidentified Crystals Few /HPF (None Seen) 09/18/24 11:10 Urine Bacteria None seen /HPF (<20) 09/18/24 11:10 Urine Yeast (Budding) Trace /HPF (None Seen) H 09/18/24 11:10 Urine Culture Reflexed Reflexed 09/18/24 11:10 Urine Total Protein 3+ (Negative) H 09/18/24 11:10 Amiodarone HCl (Amiodarone Hcl 200 Mg Tab) 200 mg PO BID [facility] Last Admin: 09/28/24 08:28 Dose: 200 mg Apixaban (Apixaban 5 Mg Tablet) 5 mg PO BID [facility] Last Admin: 09/28/24 08:28 Dose: 5 mg Clonidine HCl (Clonidine 0.1 Mg/Patch) 0.1 mg TD EVERY 7TH DAY [facility] Last Admin: 09/28/24 08:28 Dose: 0.1 mg Hydralazine HCl (Hydralazine Hcl 20 Mg/Ml Vial) 10 mg IV Q6HP PRN PRN Reason: FOR SBP>180 OR DBP>100 [facility] Last Admin: 09/22/24 15:04 Dose: 10 mg Potassium Chloride/Dextrose/Sod Cl (D5.45 Ns With Kcl 20meq/Liter) 20 meq in 1,000 mls @ 50 mls/hr IV .Q20H [facility] Last Admin: 09/28/24 09:10 Dose: 1,000 mls Meropenem 1,000 mg/ Sodium (Chloride) 100 mls @ 100 mls/hr IV Q8HR [facility]; Protocol Last Admin: 09/28/24 08:29 Dose: 100 mls Metoprolol Tartrate (Metoprolol Tar 50 Mg Tab) 50 mg PO BID [facility] Last Admin: 09/28/24 08:28 Dose: 50 mg Metoprolol Tartrate (Metoprolol Tartrate 5 Mg/5 Ml Inj) 5 mg IV Q4H PRN PRN Reason: SBP >160 Last Admin: 09/22/24 18:29 Dose: 5 mg Nifedipine (Nifedipine Xl 30 Mg Tablet) 30 mg PO DAILY [facility] Last Admin: 09/28/24 08:28 Dose: 30 mg Nutritional Formula (Ensure Enlive 237 Ml Can) 237 ml PO BID [facility] Last Admin: 09/28/24 08:28 Dose: 237 ml Ondansetron HCl (Ondansetron 4 Mg/2 Ml Vial) 4 mg IV Q6HP PRN PRN Reason: NAUSEA / VOMITING Last Admin: 09/19/24 10:53 Dose: 4 mg Pantoprazole Sodium ([facility] 40mg [facility]t) [facility] Last Admin: 09/28/24 06:10 Dose: 40 mg Sodium Chloride (Sodium Chloride 0.9% 10ml Inj) 10 ml IV UD PRN PRN Reason: Diluant Sterile Water (Water For Inj,Sterile 10 Ml) 1.2 ml IM UD PRN PRN Reason: DILUTION OF MED Thiamine HCl (Thiamine Hcl 100 Mg Tablet) 200 mg PO BID [facility] Last Admin: 09/28/24 08:28 Dose: 200 mg Tramadol HCl (Tramadol Hcl 50 Mg Tab) 50 mg PO Q6H PRN PRN Reason: Pain scale 5-7 (Moderate) Last Admin: 09/28/24 02:03 Dose: 50 mg Assessment and plan: Urosepsis secondary to ESBL Klebsiella pneumonia infection currently on IV antibiotic Pyuria Hematuria Moderate protein calorie malnourishment Monitor signs of infection with WBC and fever trends
[2024-09-29 00:20] VITALS: O2SAT 99
[2024-09-29] MEDS ORDERED: POTASSIUM 25 MEQ EFFERV TAB PO ONE (09:00)
--- NOTE | 2024-09-29 15:37 | P.DS ---
Admission Date: 09/18/24 Discharge Date: 09/29/24 Disposition: DC HOME/HOME HEALTH CARE Discharge Condition: GOOD Reason for Admission: UTI Brief History of Present Illness: Diagnosis UTI-MDR/ESBL Acute metabolic encephalopathy secondary to above Nausea and vomiting Atrial fibrillation with RVR HX of gastric ulcers/GIB Hypertension Hyperlipidemia HPI 09/18/24 Sherita Parada is a 73-year-old female with history of atrial fibrillation not on anticoagulation, GI bleed/gastric ulcers, hypertension, hyperlipidemia presents to the emergency department chief complaint of nausea/vomiting. She also appears altered, drowsy. She was evaluated in the emergency department her labs are significant for sodium of 132 creatinine 1.24 GFR 46 glucose 124 UA with 250 leuk esterase, 20- 50 white blood cell, greater than 50 red blood cells, 3+ blood, trace yeast. CT abdomen pelvis without contrast was performed which showed no acute findings in the abdomen or pelvis, trace bladder gas which could be from recent instrumentation or cystitis. Patient will be admitted for further management of suspected UTI with metabolic encephalopathy, nausea/vomiting Hospital Course: Sherita Parada is a pleasant 73 year old female with a past medical history significant for atrial fibrillation not on anticoagulation, GI bleed/gastric ulcers, hypertension, hyperlipidemia who was admitted to the [facility] on 09/18/24 for UTI with metabolic encephalopathy, nausea vomiting. Sherita was successfully treated with Merrem for 10 days, encephalopathy resolved. Atrial fibrillation was managed by Dr. Rush, some medication changes this admission of which she tolerated well. Sherita seemed more debilitated and more limited with mobility. She was evaluated by physical therapy, recommendation for SNF. Sherita and her son have both refused SNF at discharge. Son at the bedside to discuss discharge to home with home health and PT as the last facility did not care for her well. He reports having additional help everyday to allow turning to bath and reposition Sherita. He reports she improved while at home prior to this admission. He verbalizes understanding that she will be susceptible to wounds and ulcers from being more bedbound d/t debilitated state. He expressed he has a hospital bed which helps manage her care and physical therapy has helped her strengthen in the past. During this conversation, Sherita was able to sit forward to reach her foot showing her core strength is strong enough to position in bed and roll for bathing. On 09/29/23, Sherita was seen on morning rounds and deemed medically stable for discharge home with home health. Sherita was discharged with instructions to schedule follow-up appointments with Dr. Rush and PCP. Sherita was provided prescriptions for Procardia, clonidine patch, amiodarone. Physical exam GEN: AAO x2-3, no acute distress HEENT: Normal conjunctiva, sclera anicteric CV: RRR, S1 S2 present, no edema Pulm: Nonlabored respirations, clear BBS, on RA ABD: Soft on palpation, ND/NT MSK: No joint tenderness Integumentary: No rashes, eschar to left heel Neuro: Normal speech, normal affect Vital Signs/Physical Exam: Temp Pulse Resp BP Pulse Ox 98.4 F 63 18 121/60 96 09/29/24 12:00 09/29/24 12:00 09/29/24 12:00 09/29/24 12:00 09/29/24 12:00 Laboratory Data at Discharge: WBC 8.00 thou/uL (4.3-10.9) 09/25/24 04:10 Hgb 12.3 g/dL (12.0-15.0) 09/25/24 04:10 Hct 37.6 % (36.0-45.0) 09/25/24 04:10 Plt Count 152 thou/uL (152-406) 09/25/24 04:10 Sodium 135 mEq/L (136-145) L 09/27/24 05:50 Potassium Cancelled 09/29/24 15:00 BUN 15 mg/dL (7-18) 09/27/24 05:50 Creatinine 0.89 mg/dL (0.55-1.02) 09/27/24 05:50 Glucose 89 mg/dL (74-106) 09/27/24 05:50 Phosphorus 2.4 mg/dL (2.5-4.9) L 09/22/24 05:13 Magnesium 1.9 mg/dL (1.6-2.4) 09/27/24 05:50 Total Bilirubin 0.3 mg/dL (0.2-1.0) 09/24/24 05:08 AST 61 U/L (15-37) H 09/24/24 05:08 ALT 32 U/L (13-56) 09/24/24 05:08 Alkaline Phosphatase 106 U/L (45-117) 09/24/24 05:08 Lipase 10 U/L (13-75) L 09/18/24 10:00 Home Medications: Fluoxetine HCl [Prozac] 3 cap PO DAILY 03/05/23 Furosemide [Lasix*] 40 mg PO DAILY 03/05/23 Isosorbide Mononitrate [Isosorbide Mononitrate ER] 30 mg PO DAILY 03/05/23 Pravastatin [Pravachol*] 1 tab PO DAILY 03/05/23 Famotidine 20 mg PO BEDTIME 06/11/24 Pantoprazole Sodium [Protonix] 1 tab PO DAILY 06/11/24 Metoprolol Tartrate [Lopressor*] 50 mg PO BID #60 tab 06/13/24 Gabapentin [Neurontin*] 100 mg PO BID 07/14/24 Ensure High Protein 237 ml PO BID can 07/24/24 Fluconazole [Diflucan] 200 mg PO DAILY #6 tab 07/24/24 Lidocaine 4% Patch [Lidoderm 5% Patch*] 2 patch TOP DAILY pat 07/24/24 Thiamine HCl [Vitamin B-1*] 200 mg PO BID 07/24/24 traMADol HCL [Ultram*] 50 mg PO Q6H PRN #20 tab 07/24/24 Amiodarone HCl [Cordarone*] 200 mg PO BID 30 Days #60 tab 09/29/24 Apixaban [Eliquis] 5 mg PO BID 09/29/24 Clonidine Patch [Catapres-Tts 1*] 0.1 mg TD EVERY 7TH DAY pat 09/29/24 Clonidine Patch [Catapres-Tts 1*] 0.1 mg TD EVERY 7TH DAY 30 Days #4 patch 09/29/24 Ensure Enlive 237 ml PO BID can 09/29/24 Nifedipine Xl [Procardia Xl*] 30 mg PO DAILY 30 Days #30 tab 09/29/24 New Medications: Clonidine Patch [Catapres-Tts 1*] 0.1 mg TD EVERY 7TH DAY 30 Days #4 patch Amiodarone HCl [Cordarone*] 200 mg PO BID 30 Days #60 tab Nifedipine Xl [Procardia Xl*] 30 mg PO DAILY 30 Days #30 tab Physician Discharge Instructions: Sherita was treated for Klebsiella ESBL in the urine, she has completed Merrem IV. Follow-up with PCP for continued urinary tract infection monitoring. She was seen by cardiology and medication changes were made during this admission. Cardizem was stopped and replaced with amiodarone, Clonidine tablet was stopped and replaced with the clonidine patch. Dr. Rush will follow-up outpatient for continued atrial fibrillation management. Plan is to return home with home health and physical therapy. 1. Please call and schedule a follow-up appointment with your PCP in 3-5 days - Please follow-up with your PCP for medication refills/adjustments 2. Please call and schedule a follow-up appointment with Dr. uRsh in one week -Managing atrial fibrillation 3. Continue heart healthy diet 4. activity restrictions fall precautions 5. Return to the ED if symptoms worsen New medications Procardia 30 mg daily Clonidine patch 0.1 mg every 7 days, please change every 7 days Amiodarone 200 mg twice daily, replacing the use of Cardizem, stop Cardizem Stop medications Cardizem tablet Clonidine tablet Continue other medications as prescribed Diet: AHA Activity: Fall precautions Followup: Sundeep Bernabe MD [Primary Care Provider] - Edgard Rush MD [ACTIVE - CAN ADMIT] -
[2024-09-29 15:57] VITALS: BP 131/72; TEMP 97.6
--- NOTE | 2024-09-29 17:34 | PN ---
Subjective: The patient is lying in bed. No new acute event. Chart reviewed. Somnolent. Objective: Vital Signs: Temperature 98, pulse 63, respirations 18, blood pressure 121/60. Lungs: Basal crackles. Heart: S1, S2. Regular. Abdomen: Soft, nontender. Bowel sounds present. Extremities: No edema. Laboratory Data: Shows no new labs available today. Assessment And Plan: Urosepsis secondary to extended-spectrum beta-lactamase Klebsiella. Continue I V antibiotic. Pyuria, hematuria, moderate protein-calorie malnourishment. Monitor signs of infectio n with WBC and fever trends. NF/MODL Voice ID: [id number] Report ID: [id number]
== END 2024-09-29 17:35 | disposition home health service (06) | DRG 689 ==
LOC: ER 09:44 → ERHOLD 15:15 → 4TH 15:59 → 3RD-ICU 09-21 03:27 → 4TH 09-26 09:40
PROVIDERS: ADMIT Internal Medicine; ATTEND Internal Medicine
PROC: 02HV33Z Insertion of Infusion Device into Superior Vena Cava, Percutaneous Approach (ICD-10-PCS; principal; 2024-09-22)
DX: N30.01 Acute cystitis with hematuria (principal); G93.41 Metabolic encephalopathy; E44.0 Moderate protein-calorie malnutrition; Z16.12 Extended spectrum beta lactamase (ESBL) resistance; Z16.29 Resistance to other single specified antibiotic; E87.6 Hypokalemia; I48.91 Unspecified atrial fibrillation; E86.0 Dehydration; E78.00 Pure hypercholesterolemia, unspecified; I10 Essential (primary) hypertension; B96.1 Klebsiella pneumoniae [K. pneumoniae] as the cause of diseases classified elsewhere; R13.10 Dysphagia, unspecified; Z88.5 Allergy status to narcotic agent; Z90.49 Acquired absence of other specified parts of digestive tract; Z90.710 Acquired absence of both cervix and uterus; Z79.899 Other long term (current) drug therapy; Z68.29 Body mass index [BMI] 29.0-29.9, adult; Z79.01 Long term (current) use of anticoagulants
CPT/HCPCS: 36415; 51702; 70450; 74176; 80048; 80053; 81001; 82947; 83690; 83735; 84100; 84132; 84484; 85025; 87077; 87086; 87088; 87186; 87324; 92526; 92610; 93005; 96361; 96365; 96375; 97110; 97161; 97530; 99285; J0282; J0360; J0696; J1171; J1650; J1940; J2185; J2405; J2470; J2550; J3411; J3475; J3480; J3486; J7030; J7042; J7060; J7799

== ENCOUNTER 2024-11-01 13:41 | Inpatient (IN) | payer OTHER ==
[2024-11-01 14:05] LABS: Absolute Basophils 0.1 K/uL (0-0.5); Absolute Eosinophils 0.4 K/uL (0-0.5); Absolute Lymphocytes (CBC) 1.6 K/uL (0.7-4.9); Absolute Monocytes 0.8 K/uL (0.1-1.3); Absolute Neutrophil 5.5 K/uL (1.8-8.0); Basophils % 1.3 % (0-1.3); Eosinophils % 4.9 % (0-4.4); Hematocrit 31.7 % (36.0-45.0); Hemoglobin 10.9 g/dL (12.0-15.0); Lymphocytes % 18.7 % (15.3-44.8); MCH 27.9 pg (27.0-35.0); MCHC 34.3 g/dL (32.0-36.0); MCV 81.4 fL (80-100); MPV 8.7 fL (7.6-11.3); Monocytes % 9.1 % (3.3-12.3); Platelets 259 thou/uL (152-406); RBC Red Blood Cell Count 3.89 M/uL (3.86-4.86); Red Cell Distribution Width 18.5 % (12.1-15.2)
[2024-11-01 14:14] LABS: Anion Gap 8.6 mEq/L (5.0-15.0); Potassium 3.6 mEq/L (3.5-5.1)
--- NOTE | 2024-11-01 14:18 | RAD REPORT ---
EXAMINATION: Foot Right 3 View CLINICAL INDICATION: Female, 73 years old. osteo r/o COMPARISON: No prior exam. VIEWS: Three views FINDINGS: No acute fracture. Osteopenia No malalignment/dislocation. Mild to moderate scattered degenerative changes are present at the great toe, midfoot, and hindfoot. Calcaneal spurs. Other: There is a wound at the heel lucency with calcaneal lucency that is favored to represent the o verlapping margins of the wound. Osteomyelitis difficult to entirely exclude, however. MRI could confirm. IMPRESSION: No acute fracture identified. Heel wound without conclusive evidence of osteomyelitis. MRI could bett er evaluate.
--- NOTE | 2024-11-01 14:30 | EDPHYS ---
Physician Documentation [facility] Name: Sherita Parada Age: 73 yrs Sex: Female : 1950 Arrival Date: 11/01/2024 Time: 13:41 Bed 23 Private MD: ED Physician Glenn Guillaume HPI: 11/01 13:43 This 73 yrs old Female presents to ER via Unassigned with complaints of heel ulcer. sb4 13:45 Patient reports a wound right heel for quite some time but states that her home health sb4 nurse looked at it yesterday and told her that it needed to be debrided. She denies any pain. Denies any history of diabetes. Is primarily bedbound. Denies any fever. Historical: - Allergies: 13:48 codeine sulfate ('makes me crazy'); iw 13:48 Morphine; iw 13:48 steroids (Hypertension); iw - PMHx: 13:48 Atrial fibrillation; Hypertension; High Cholesterol; Ulcers; iw - PSHx: 13:48 Benign Tumor; Cyst removal; Appendectomy; Lumpectomy of breast; iw - Immunization history:: Adult Immunizations up to date. - Infectious Disease History:: Denies. - Social history:: Smoking status: Patient/guardian denies using tobacco. ROS: 13:45 Constitutional: Negative for fever, chills, and weight loss, sb4 13:45 Skin: Positive for ulceration, of the heel of right foot, 13:45 All other systems are negative, Exam: 13:45 Head/Face: Normocephalic, atraumatic. Eyes: Extra-ocular motions intact. Periorbital sb4 areas with no swelling, redness, or edema. ENT: Mucous membranes moist. Respiratory: No increased work of breathing, no retractions or nasal flaring. 13:45 Constitutional: The patient appears in no acute distress, alert, awake, unkempt, 13:45 Skin: 4 cm pressure ulcer right heel with necrotic center and surrounding erythema. no purulence. Vital Signs: 13:46 BP 167 / 91; Pulse 53; Resp 16; Temp 97.4; Pulse Ox 98% on R/A; iw 16:30 BP 175 / 85; Pulse 55; Resp 16; Pulse Ox 98% on R/A; jb4 17:00 BP 205 / 93; Pulse 66; Resp 16; Pulse Ox 99% on R/A; jb4 17:15 BP 170 / 102; Pulse 82; Resp 16; Pulse Ox 100% on R/A; jb4 MDM: 13:43 Medical Screening Exam initiated sb4 14:28 Data reviewed: vital signs, nurses notes, lab test result(s), radiologic studies, I sb4 have discussed the patient's presentation/case with the attending Emergency Department Physician; and as a result, I will admit patient. Consideration of Admission/Observation Patient was admitted/placed on observation. Counseling: I had a detailed discussion with the patient and/or guardian regarding the historical points, exam findings, and any diagnostic results supporting the discharge/admit diagnosis, lab results, radiology results, the need for further work-up and treatment in the hospital. 11/01 13:42 Order name: Basic Metabolic Panel; Complete Time: 14:14 sb4 11/01 13:42 Order name: CBC with Diff; Complete Time: 14:14 sb4 11/01 15:38 Order name: Urinalysis w/ reflexes EDMS 11/01 15:39 Order name: Basic Metabolic Panel EDMS 11/01 15:39 Order name: Basic Metabolic Panel EDMS 11/01 15:39 Order name: Basic Metabolic Panel EDMS 11/01 15:39 Order name: Basic Metabolic Panel EDMS 11/01 15:39 Order name: Basic Metabolic Panel EDMS 11/01 15:39 Order name: Basic Metabolic Panel EDMS 11/01 15:39 Order name: Basic Metabolic Panel EDMS 11/01 15:39 Order name: Basic Metabolic Panel EDMS 11/01 15:39 Order name: CBC with Automated Diff EDMS 11/01 15:39 Order name: CBC with Automated Diff EDMS 11/01 15:39 Order name: CBC with Automated Diff EDMS 11/01 15:39 Order name: CBC with Automated Diff EDMS 11/01 15:39 Order name: CBC with Automated Diff EDMS 11/01 15:39 Order name: CBC with Automated Diff EDMS 11/01 15:39 Order name: CBC with Automated Diff EDMS 11/01 15:39 Order name: CBC with Automated Diff EDMS 11/01 15:39 Order name: Magnesium EDMS 11/01 15:39 Order name: Magnesium EDMS 11/01 15:39 Order name: Magnesium EDMS 11/01 15:39 Order name: Magnesium EDMS 11/01 15:39 Order name: Magnesium EDMS 11/01 15:39 Order name: Magnesium EDMS 11/01 15:39 Order name: Magnesium EDMS 11/01 15:39 Order name: Magnesium EDMS 11/01 15:39 Order name: Phosphorus EDMS 11/01 15:39 Order name: Phosphorus EDMS 11/01 15:39 Order name: Phosphorus EDMS 11/01 15:39 Order name: Phosphorus EDMS 11/01 15:39 Order name: Phosphorus EDMS 11/01 15:39 Order name: Phosphorus EDMS 11/01 15:39 Order name: Phosphorus EDMS 11/01 15:39 Order name: Phosphorus EDMS 11/01 13:42 Order name: Foot Right 3 View XRAY; Complete Time: 14:19 sb4 11/01 14:26 Order name: Lower Extremity Artery Uni Ltd; Complete Time: 15:16 EDMS 11/01 15:39 Order name: Foot Right Wo Cont EDMS 11/01 15:38 Order name: CONS Physician Consult EDMS 11/01 15:38 Order name: Physical Therapy Consult EDMS 11/01 13:42 Order name: IV Saline Lock; Complete Time: 13:51 sb4 11/01 13:42 Order name: Labs collected and sent; Complete Time: 13:51 sb4 Administered Medications: 15:23 Drug: vancoMYCIN IVPB 1 grams IVPB once over 2 hrs Route: IVPB; Infused Over: 2 hrs; jb4 Site: right antecubital; 17:23 Follow up: Response: No adverse reaction; IV Status: Completed infusion; IV Intake: jb4 250ml 17:18 Drug: hydrALAZINE IVP 20 mg IVP once Route: IVP; Site: right antecubital; jb4 18:08 Follow up: Response: No adverse reaction; Marked relief of symptoms jb4 Disposition Summary: 11/01/24 14:29 Hospitalization Ordered Notes: Hospitalization Status: Inpatient Admission sb4 Provider: Carroll Francisco sb4 Location: Telemetry/MedSur (Inpatient) sb4 Condition: Fair sb4 Problem: new sb4 Symptoms: are unchanged sb4 Bed/Room Type: Standard sb4 Room Assignment: 218(11/01/24 15:44) bd Diagnosis - Pressure ulcer of right heel sb4 Forms: - Medication Reconciliation Form sb4 - SBAR form sb4 - Leadership Thank You Letter sb4 Addendum: 11/03/2024 09:08 Co-signature as Attending Physician, Glenn Guillaume MD I reviewed the patient's care r t provided by the Advanced Practice Provider and agree with the diagnosis and treatment plan. Signatures: Dispatcher [employer] EDNJ Kaitlyn Lim Irene, LARON RN iw Owen Saavedra RN RN jb4 Sheila Eduardo, PAMollyC PA-C sb4 Glenn Guillaume MD MD rt Luly Sosa RN RN me1 Corrections: (The following items were deleted from the chart) 11/01 14:26 14:20 Extremity Venous Uni Ltd+US.RAD.BRZ ordered. [facility] EDNJ 15:44 14:29 sb4 bd
--- NOTE | 2024-11-01 14:30 | ER ---
Nurse's Notes [facility] Name: Sherita Parada Age: 73 yrs Sex: Female : 1950 Arrival Date: 11/01/2024 Time: 13:41 Bed 23 Private MD: Diagnosis: Pressure ulcer of right heel Presentation: 11/01 13:46 Chief complaint: EMS states: has a wound on her right heel that they are worried might iw be infected, she was recently in a [facility] for rehab and has not been able to ambulate since then. Coronavirus screen: At this time, the client does not indicate any symptoms associated with coronavirus-19. Ebola Screen: No symptoms or risks identified at this time. Initial Sepsis Screen: Does the patient meet any 2 criteria? No. Patient's initial sepsis screen is negative. Does the patient have a suspected source of infection? No. Patient's initial sepsis screen is negative. Risk Assessment: Do you want to hurt yourself or someone else? Patient reports no desire to harm self or others. 13:46 Method Of Arrival: EMS: [facility] iw 13:46 Acuity: NAVIN 3 iw Historical: - Allergies: 13:48 codeine sulfate ('makes me crazy'); iw 13:48 Morphine; iw 13:48 steroids (Hypertension); iw - PMHx: 13:48 Atrial fibrillation; Hypertension; High Cholesterol; Ulcers; iw - PSHx: 13:48 Benign Tumor; Cyst removal; Appendectomy; Lumpectomy of breast; iw - Immunization history:: Adult Immunizations up to date. - Infectious Disease History:: Denies. - Social history:: Smoking status: Patient/guardian denies using tobacco. Screenin:57 [facility] ED Fall Risk Assessment (Adult) History of falling in the last 3 months, me1 including since admission No falls in past 3 months (0 pts) Confusion or Disorientation No (0 pts) Intoxicated or Sedated No (0 pts) Impaired Gait Yes (1 pt) Mobility Assist Device Used Yes (1 pt) Altered Elimination No (0 pt) Score/Fall Risk Level 0 - 2 = Low Risk Maintained a safe environment, Provided non-skid footwear, Hourly rounding (assess needs \T\ fall precautionary measures) done. Abuse screen: Denies threats or abuse. Nutritional screening: No deficits noted. Tuberculosis screening: No symptoms or risk factors identified. Assessment: 13:57 General: Appears in no apparent distress. unkempt, well developed, Behavior is calm, me1 cooperative, appropriate for age, Reports has a wound on her right heel that they are worried might be infected, she was recently in a [facility] for [facility]hab and has not been able to ambulate since then. Pain: Complains of pain in right foot and heel of right foot Pain does not radiate. Pain currently is 5 out of 10 on a pain scale. Quality of pain is described as aching, Pain began gradually, Is continuous. Neuro: Level of Consciousness is awake, alert, obeys commands, Oriented to person, place, time, situation, Appropriate for age. Cardiovascular: Patient's skin is warm and dry. Respiratory: Airway is patent Respiratory effort is even, unlabored, Respiratory pattern is regular, symmetrical. GI: No signs and/or symptoms were reported involving the gastrointestinal system. : No signs and/or symptoms were reported regarding the genitourinary system. EENT: No signs and/or symptoms were reported regarding the EENT system. Derm: Wound noted heel of right foot. Musculoskeletal: Reports nonambulatory since recent stay in [facility] for rehab. 15:00 Reassessment: Patient appears in no apparent distress at this time. Patient and/or jb4 family updated on plan of care and expected duration. Pain level reassessed. Patient is alert, oriented x 3, equal unlabored respirations, skin warm/dry/pink. 16:00 Reassessment: Patient appears in no apparent distress at this time. Patient and/or jb4 family updated on plan of care and expected duration. Pain level reassessed. Patient is alert, oriented x 3, equal unlabored respirations, skin warm/dry/pink. 17:00 Reassessment: Patient appears in no apparent distress at this time. Patient and/or jb4 family updated on plan of care and expected duration. Pain level reassessed. Patient is alert, oriented x 3, equal unlabored respirations, skin warm/dry/pink. Vital Signs: 13:46 BP 167 / 91; Pulse 53; Resp 16; Temp 97.4; Pulse Ox 98% on R/A; iw 16:30 BP 175 / 85; Pulse 55; Resp 16; Pulse Ox 98% on R/A; jb4 17:00 BP 205 / 93; Pulse 66; Resp 16; Pulse Ox 99% on R/A; jb4 17:15 BP 170 / 102; Pulse 82; Resp 16; Pulse Ox 100% on R/A; jb4 ED Course: 13:41 Patient arrived in ED. sb4 13:41 Sheila Eduardo [facility] sb4 13:41 Glenn Guillaume MD is Attending Physician. sb4 13:45 Luly Sosa RN is Primary Nurse. me1 13:48 Triage completed. iw 13:48 Arm band placed on. iw 13:51 Basic Metabolic Panel Sent. me1 13:51 CBC with Diff Sent. me1 13:52 Initial lab(s) drawn, by me, sent to lab. Inserted saline lock: 22 gauge in right me1 antecubital area, using aseptic technique. 13:57 Patient has correct armband on for positive identification. Bed in low position. Call me1 light in reach. Side rails up X2. Provided Education on: POC. Verbalized understanding.. Client placed on continuous cardiac and pulse oximetry monitoring. NIBP monitoring applied. Pulse ox on. NIBP on. 13:57 No provider procedures requiring assistance completed. me1 14:04 Foot Right 3 View XRAY In Process Unspecified. EDMS 14:28 Carroll Francisco is Hospitalizing Provider. sb4 15:01 Lower Extremity Artery Uni Ltd In Process Unspecified. EDMS 17:00 Patient admitted, IV remains in place. jb4 Administered Medications: 15:23 Drug: vancoMYCIN IVPB 1 grams IVPB once over 2 hrs Route: IVPB; Infused Over: 2 hrs; jb4 Site: right antecubital; 17:23 Follow up: Response: No adverse reaction; IV Status: Completed infusion; IV Intake: jb4 250ml 17:18 Drug: hydrALAZINE IVP 20 mg IVP once Route: IVP; Site: right antecubital; jb4 18:08 Follow up: Response: No adverse reaction; Marked relief of symptoms jb4 Medication: 13:57 VIS not applicable for this client. me1 Intake: 17:23 IV: 250ml; Total: 250ml. jb4 Outcome: 14:29 Decision to Hospitalize by Provider. sb4 17:00 Admitted to Med/surg accompanied by nurse, via stretcher, room 218, with chart, jb4 17:00 Condition: stable 17:00 Discharge instructions given to patient, Instructed on the need for admit, Demonstrated understanding of instructions, 18:11 Patient left the ED. aa5 Signatures: Dispatcher [employer] Kaitlynn Otero, RN Dorene Dolan RN RN aa5 Owen Saavedra RN RN jb4 Sheila Eduardo PA-C PAJesu low4 Luly Sosa RN RN me1 Corrections: (The following items were deleted from the chart) 13:57 13:46 Chief complaint: EMS states: has a wound on her right heel that they are worried me1 might be infected, she was recently in a [facility] for [facility]hab and has not been able to ambulate since then iw
[2024-11-01] MEDS ORDERED: VANCOMYCIN 1 GM/VIAL ONE (15:14)
[2024-11-01] MEDS ORDERED: NA CHLORIDE 0.9% 250 ML ONE (15:14)
--- NOTE | 2024-11-01 15:16 | RAD REPORT ---
EXAMINATION: US LOWER EXTREMITIES ARTERIAL DOPPLER RIGHT CLINICAL INDICATION: Female, 73 years old. heel ulcer RIGHT TECHNIQUE: Arterial duplex ultrasound was performed of the right lower extremity with real-time and D oppler evaluation. [id number]. COMPARISON: No prior exam. FINDINGS: Right leg Doppler: Grayscale: Mild plaque. Common femoral: Waveform: Triphasic Peak systolic velocity (cm/sec): 113 Superficial femoral: Waveform: Triphasic Peak systolic velocity (cm/sec): 88 Popliteal Waveform: Triphasic Peak systolic velocity (cm/sec): 49 Tibial: Waveform: Triphasic Peak systolic velocity (cm/sec): 79 Dorsalis pedis: Waveform: Triphasic Peak systolic velocity (cm/sec): 39 IMPRESSION: Multiphasic waveforms in the right lower extremity without evidence of a flow-limiting stenosis.
--- NOTE | 2024-11-01 15:43 | P.HP ---
Certification for Inpatient Patient admitted to: Inpatient With expected LOS: >2 Midnights Patient will require the following post-hospital care: None Practitioner: I am a practitioner with admitting privileges, knowledge of patient current condition, hospital course, and medical plan of care. Services: Services provided to patient in accordance with Admission requirements found in Title 42 Section 412.3 of the Code of Federal Regulations Patient History Date of Service: 11/01/24 Reason for admission: Right foot ulcer History of Present Illness: Sherita Parada is a 73 year old female with pmhx HTN, Afib (no anticoagulant), hypercholesterolemia, chronic right foot ulcer x 3 months who presents to the ED for evaluation of right foot ulcer. She reports home health provides care for her right heel ulcer and was recommended to come to the ED for further evaluation. Significant laboratory evaluation H&H 07/22, BUN/creatinine 18/1.34, GFR 42, serum glucose 108. Right foot x-ray reports "No acute fracture identified. Heel wound without conclusive evidence of osteomyelitis. MRI could better evaluate." Right lower extremity arterial ultrasound report "Multiphasic waveforms in the right lower extremity without evidence of a flow-limiting stenosis." Initial vitals BP 167 / 91; Pulse 53; Resp 16; Temp 97.4; Pulse Ox 98% on R/A Sherita will be admitted to the hospitalist service for further evaluation and treatment of Right foot ulcer, concerns for osteomylitis. Allergies codeine Allergy (Verified 06/10/24 22:07) AMS morphine Adverse Reaction (Unknown, Verified 07/13/24 22:58) unknown prednisone Adverse Reaction (Verified 07/13/24 22:58) hypertension Home Medications: Fluoxetine HCl [Prozac] 3 cap PO DAILY 03/05/23 Furosemide [Lasix*] 40 mg PO DAILY 03/05/23 Isosorbide Mononitrate [Isosorbide Mononitrate ER] 30 mg PO DAILY 03/05/23 Pravastatin [Pravachol*] 1 tab PO DAILY 03/05/23 Famotidine 20 mg PO BEDTIME 06/11/24 Pantoprazole Sodium [Protonix] 1 tab PO DAILY 06/11/24 Metoprolol Tartrate [Lopressor*] 50 mg PO BID #60 tab 06/13/24 Gabapentin [Neurontin*] 100 mg PO BID 07/14/24 Ensure High Protein 237 ml PO BID can 07/24/24 Fluconazole [Diflucan] 200 mg PO DAILY #6 tab 07/24/24 Lidocaine 4% Patch [Lidoderm 5% Patch*] 2 patch TOP DAILY pat 07/24/24 Thiamine HCl [Vitamin B-1*] 200 mg PO BID 07/24/24 traMADol HCL [Ultram*] 50 mg PO Q6H PRN #20 tab 07/24/24 Amiodarone HCl [Cordarone*] 200 mg PO BID 30 Days #60 tab 09/29/24 Apixaban [Eliquis] 5 mg PO BID 09/29/24 Clonidine Patch [Catapres-Tts 1*] 0.1 mg TD EVERY 7TH DAY pat 09/29/24 Clonidine Patch [Catapres-Tts 1*] 0.1 mg TD EVERY 7TH DAY 30 Days #4 patch 09/29/24 Ensure Enlive 237 ml PO BID can 09/29/24 Nifedipine Xl [Procardia Xl*] 30 mg PO DAILY 30 Days #30 tab 09/29/24 - Past Medical/Surgical History Diabetic: No -: Depression -: Hypertension -: Osteoarthritis -: Lymphedema L -: A-fib-not on anticoagulation -: Hyperlipidemia -: History of GI bleed/gastric ulcers -: SX salivatory gland Psychosocial/ Personal History: Lives at home with her son - Family History Mother -: Diabetes, Stroke - Social History Smoking Status: Former smoker Alcohol use: No CD- Drugs: No Caffeine use: Yes Review of Systems Other: Per HPI Physical Examination - Physical Exam General: Alert, In no apparent distress, Oriented x3 HEENT: Atraumatic, Normocephalic, PERRLA Neck: Supple, 2+ carotid pulse no bruit Respiratory: Clear to auscultation bilaterally, Normal air movement Cardiovascular: No edema, Normal pulses, Regular rate/rhythm, Normal S1 S2 Capillary refill: <2 Seconds Gastrointestinal: Normal bowel sounds, Soft and benign Musculoskeletal: Other (Right heel ulcer) Integumentary: No rashes Neurological: Normal speech, Normal tone - Studies Laboratory Data (last 24 hrs) 11/01/24 11/01/24 13:50 13:50 WBC 8.30 Hgb 10.9 L Hct 31.7 L Plt Count 259 Sodium 139 Potassium 3.6 BUN 18 Creatinine 1.34 H Glucose 108 H Assessment and Plan - Plan Assessment and Plan non-diabetic Right heel ulcer -Doppler Ultrasound RLE negative for stenosis -Vanc/cefepime -IVF -MRI right foot -Wound care consulted -Dr. Nayak consulted MADDY -BUN/creatinine 18/1.34, GFR 42 - IVF -monitor in AM labs Anemia of chronic disease -H&H 07/22 -Monitor and transfuse PRN History GI bleed and gastric ulcer Osteoarthritis HTN/HLD Afib Depression Lymphedema -continuous telemetry -Continue home medications DVT ppx heparin Full code LOS 2-3 days Discharge Plan: Home Plan to discharge in: 72 Hours - Advance Directives Does patient have a Living Will: No Does patient have a Durable POA for Healthcare: No
[2024-11-01] MEDS ORDERED: HYDRALAZINE HCL 20 MG/ML VIAL ONE (17:14)
[2024-11-01] MEDS: NA CHLORIDE 0.9% 1,000 ML IV SCH (18:08)
[2024-11-01] MEDS: CEFEPIME 2 GM in NA CHLORIDE 0.9% 100 ML IV SCH (18:09)
[2024-11-01] MEDS: HEPARIN 5000 UNIT/ML 1 ML VIAL SQ SCH (18:14)
[2024-11-01] MEDS: AMIODARONE HCL 200 MG TAB PO SCH (20:27)
[2024-11-01] MEDS: VANCOMYCIN 500 MG in NA CHLORIDE 0.9% 100 ML IVPB ONE (20:27)
[2024-11-01] MEDS ORDERED: APIXABAN 5 MG TABLET PO SCH (21:00)
[2024-11-01 22:15] LABS: Specific Gravity 1.015 (1.005-1.030); Sqamous Epithelial <5 /HPF (None Seen); Urine Bacteria <20 /HPF (<20); Urine Bilirubin NEGATIVE (Negative); Urine Blood 3+ (Negative); Urine Clarity Extremely Turbid (Clear); Urine Color Light-Orange (Yellow); Urine Crystals Unidentified Few /HPF (None Seen); Urine Culture Reflex Order REFLEXED; Urine Glucose NEGATIVE (Negative); Urine Ketones NEGATIVE (Negative); Urine Microscopic Reflex YN ORDER UMIC; Urine Mucus Slight /HPF (None Seen); Urine Nitrite NEGATIVE (Negative); Urine Protein 1+ (Negative); Urine Urobilinogen Normal (Normal); Urine WBC >50 /HPF (<5); Urine WBC Clump Rare /HPF (None Seen); Urine Yeast (Budding) Trace /HPF (None Seen)
[2024-11-02 04:38] LABS: Absolute Basophils 0.1 K/uL (0-0.5); Absolute Eosinophils 0.4 K/uL (0-0.5); Absolute Lymphocytes (CBC) 1.1 K/uL (0.7-4.9); Absolute Monocytes 0.8 K/uL (0.1-1.3); Absolute Neutrophil 6.8 K/uL (1.8-8.0); Eosinophils % 4.3 % (0-4.4); Hematocrit 33.9 % (36.0-45.0); Hemoglobin 11.4 g/dL (12.0-15.0); Lymphocytes % 11.5 % (15.3-44.8); MCH 27.5 pg (27.0-35.0); MCHC 33.6 g/dL (32.0-36.0); MCV 81.8 fL (80-100); MPV 8.6 fL (7.6-11.3); Monocytes % 8.6 % (3.3-12.3); Neutrophils % 74.6 % (41.7-73.7); Nucleated Red Blood Cells % 0.1 % (0-0); Platelets 278 thou/uL (152-406); RBC Red Blood Cell Count 4.15 M/uL (3.86-4.86); Red Cell Distribution Width 18.7 % (12.1-15.2)
[2024-11-02 04:45] LABS: Anion Gap 9.3 mEq/L (5.0-15.0); Magnesium 1.8 mg/dL (1.6-2.4); Phosphorus 3.1 mg/dL (2.5-4.9); Potassium 3.3 mEq/L (3.5-5.1)
[2024-11-02] MEDS: HYDRALAZINE HCL 20 MG/ML VIAL IV ONE (04:51)
[2024-11-02] MEDS: ONDANSETRON 4 MG/2 ML VIAL IV PRN (04:51)
[2024-11-02] MEDS ORDERED: cloNIDine HCL 0.1 MG TAB PO ONE (05:18)
[2024-11-02] MEDS: cloNIDine HCL 0.1 MG TAB PO ONE ×3 (06:27→21:53)
[2024-11-02] MEDS: POTASSIUM CL SA 10 MEQ TAB PO ONE (08:04)
[2024-11-02] MEDS: HEPARIN 5000 UNIT/ML 1 ML VIAL SQ SCH (08:04)
[2024-11-02] MEDS: MAGNESIUM SULFATE 1 gm IVPB 1 GM/100 ML BAG IV ONE (08:06)
[2024-11-02] MEDS: PROMETHAZINE INJ 25 MG/ML AMP IV ONE (11:33)
--- NOTE | 2024-11-02 11:37 | P.PN ---
Date of Service: 11/02/24 Subjective: Began complaining of nausea/vomiting overnight Denies abdominal pain currently ROS: 10 point ROS as noted above, otherwise negative Physical exam GEN: Alert, oriented x2 , NAD HEENT: Normal conjunctiva, sclera anicteric CV: Regular rate and rhythm, no edema Pulm: Nonlabored respirations on room air ABD: Soft, nontender, nondistended MSK: No joint tenderness Integumentary:Wound to right heel with eschar present Neuro: Normal speech, normal affect Vitals reviewed Assessment and Plan non-diabetic Right heel ulcer -Doppler Ultrasound RLE negative for stenosis -Vanc/cefepime -IVF -MRI right foot-pending -Wound care consulted -Dr. Nayak consulted-possible I&D in AM MADDY -IVF -Improved -Monitor with daily labs Anemia of chronic disease -H&H 07/22 -Monitor and transfuse PRN History GI bleed and gastric ulcer Osteoarthritis HTN/HLD Afib Depression Lymphedema -continuous telemetry -Continue home medications DVT ppx heparin Full code LOS 2-3 days Discharge Plan: Home Plan to discharge in: 72 Hours Time Spent Managing Pts Care (In Minutes): 35
--- NOTE | 2024-11-02 12:16 | RAD REPORT ---
EXAMINATION: CT ABDOMEN AND PELVIS WITHOUT CONTRAST CLINICAL INDICATION: Abdominal pain. Vomiting TECHNIQUE: CT abdomen and pelvis was performed, as per department protocol. IV contrast and oral was not administered.Axial, sagittal and coronal reconstructions were obtained. One or more of the following dose reduction techniques were used: Automated exposure control, adjustment of the mA and/o r kV according to the patient size, and/or iterative reconstruction. Unless otherwise specified, incidental findings do not require dedicated imaging follow-up. [id number]. COMPARISON: 2023 FINDINGS: Patient's arms overlie the chest resulting in artifact upper abdomen. The lack of intravenous and oral contrast limits evaluation of solid organs, vessels and bowel. The liver, spleen, pancreas, right adrenal and kidneys appear grossly normal Small left adrenal nodule consistent with an adenoma unchanged No evidence of diverticulitis Hysterectomy. No adnexal mass. Spondylosis lumbar spine results in spinal stenosis IMPRESSION: No acute abnormality displayed
[2024-11-02] MEDS: HYDRALAZINE HCL 20 MG/ML VIAL IV PRN (12:47)
[2024-11-02] MEDS: LORazepam 2 MG/ML VIAL IV ONE (14:54)
[2024-11-02] MEDS ORDERED: VANCOMYCIN 1 GM in NA CHLORIDE 0.9% 250 ML IVPB SCH (15:35)
[2024-11-02] MEDS: VANCOMYCIN 1.5 GM in NA CHLORIDE 0.9% 500 ML IVPB SCH (16:21)
--- NOTE | 2024-11-02 17:45 | CON ---
Date of Consultation: 11/02/2024 Reason For Service: Right foot ulcer. History Of Present Illness: This is a case of a 73-year-old patient with multiple medical problems i ncluding hypertension, atrial fibrillation with an infected ulcer on the right foot area. Surgical c magaly was obtained for evaluation of the foot since also the initial x-rays cannot rule out osteomye litis. She has this wound for several months. She does not remember what initiated it. Today, she also have some nausea. There are no new medications that she remember and the abdomen is nontender. Past Medical History: As above. Allergies: INCLUDE CODEINE, MORPHINE, AND PREDNISONE. Medications: Reviewed. Past Surgical History: Include salivary gland surgery. Social History: She used to smoke, not anymore, and she does not drink alcohol. Review of Systems: Today, she had some nausea. No vomiting. No abdominal pain. She has pain on the ulcer on the right foot. No shortness of breath. No chest pain. No dysuria, hematuria, hematochezia, or melena. She does not recall the last colonoscopy, patient advised. Physical Examination: Vital Signs: Reviewed. General: The patient is awake and alert. She is a little bit nauseous. She is not vomiting at this moment. HEENT: Pupils are equal and reactive. Anicteric. Neck: Supple. Chest: Clear. Heart: S1 and S2. Abdomen: Soft and depressible. No guarding or rebound. Bowel sounds positive. Extremities: She has about 3 x 3 cm ulcer on the right foot with necrotic center. I cannot feel the bone at this moment once again. Once we will clean, we will have a better understanding of the sta ging of the wound. The etiology of that is unknown. Imaging: The MRI is still pending. Plan: From our surgical standpoint, if medically she is susceptible, we will like to do the debridem ent of that foot ulcer. We might have to use some sedation since she is a little bit anxious. We ca n keep her NPO after midnight to see what we can do about that. The benefits, alternatives, and risk s of debridement fully explained to the patient which include, but not limited to, infection, bleedin g, damage to adjacent structures, anesthesia complication, nonhealing wound, LA, and even . Onc e again, this is planned pending that medically she is acceptable risk. HM/MODL Voice ID: [id number] Report ID: [id number]
[2024-11-02] MEDS: ACETAMINOPHEN 325 MG TABLET PO PRN (18:00)
[2024-11-02] MEDS: ONDANSETRON 4 MG/2 ML VIAL IV ONE (18:01)
[2024-11-02] MEDS ORDERED: CLONIDINE 0.1 MG/PATCH TD SCH (19:30)
[2024-11-02] MEDS ORDERED: VANCOMYCIN 1.5 GM in NA CHLORIDE 0.9% 500 ML IVPB SCH (20:00)
[2024-11-02] MEDS: CEFEPIME 2 GM in NA CHLORIDE 0.9% 100 ML IV SCH (21:46)
[2024-11-02] MEDS: FAMOTIDINE 20 MG TAB PO SCH (21:53)
[2024-11-02] MEDS: THIAMINE HCL 100 MG TABLET PO SCH (21:53)
[2024-11-03 04:37] LABS: Absolute Basophils 0.1 K/uL (0-0.5); Absolute Lymphocytes (CBC) 1.6 K/uL (0.7-4.9); Absolute Neutrophil 5.7 K/uL (1.8-8.0); Basophils % 1.2 % (0-1.3); Eosinophils % 0.5 % (0-4.4); Hematocrit 33.2 % (36.0-45.0); Lymphocytes % 18.4 % (15.3-44.8); MCH 27.5 pg (27.0-35.0); MCHC 33.3 g/dL (32.0-36.0); MCV 82.5 fL (80-100); MPV 8.6 fL (7.6-11.3); Monocytes % 11.8 % (3.3-12.3); Neutrophils % 68.1 % (41.7-73.7); Nucleated Red Blood Cells % 0.1 % (0-0); Platelets 262 thou/uL (152-406); RBC Red Blood Cell Count 4.02 M/uL (3.86-4.86); Red Cell Distribution Width 18.5 % (12.1-15.2)
[2024-11-03 04:57] LABS: Anion Gap 7.3 mEq/L (5.0-15.0); Magnesium 2.2 mg/dL (1.6-2.4); Phosphorus 3.3 mg/dL (2.5-4.9); Potassium 3.3 mEq/L (3.5-5.1)
[2024-11-03] MEDS ORDERED: LIDOCAINE 1% MPF 5 ML VIAL ONE (07:00)
[2024-11-03] MEDS ORDERED: propofoL 200 MG/20 ML VIAL IV ONE (07:00)
[2024-11-03] MEDS ORDERED: ONDANSETRON 4 MG/2 ML VIAL ONE (07:00)
[2024-11-03] MEDS ORDERED: MIDAZOLAM HCL 2 MG/2 ML INJ ONE (07:01)
[2024-11-03] MEDS: Ringers Lactate 1,000 ML IV ONE (07:15)
[2024-11-03] MEDS: COLLAGENASE 30 GM OINTMENT TOP ONE (08:18)
[2024-11-03] MEDS: BUPIVACAINE 0.5% PF 10 ML VIAL ONE (08:20)
--- NOTE | 2024-11-03 09:25 | OP ---
Date of Procedure: 11/03/2024 Surgeon: Andres Nayak MD Preoperative Diagnosis: Necrotic stage III ulcer of the right foot about 3 x 3 cm. Postoperative Diagnosis: Necrotic stage III ulcer of the right foot about 3 x 3 cm. Procedure: Excisional debridement of stage III necrotic infected ulcer on the right foot. Anesthesia: Sedation plus local. Complications: None. Specimens: Culture and tissue. Findings: Necrotic tissue all the way down the calcaneus. I cannot see the bone right now, but we a re very close. I cannot rule out osteomyelitis. Indications: This is a case of a 73-year-old patient, who comes to us with multiple medical problems , also having a pressure ulcer on the right foot with necrosis present and infection. The benefits, alternatives, and risks of excisional debridement were fully explained, which include, but not limite d to infection, bleeding, damage to adjacent structures, anesthesia complication, recurrence, NH, and even . She also understands this may not relieve symptoms. She might need more than one surgi nraen intervention. She understands also the importance of dressing changes, following up with the doc tors in this case, probably wound care, and offloading. She signed a consent with a person in charge . Description Of Procedure: The area of concern was marked by me and the patient in the holding room. The patient was brought to the operating room and placed in supine position. Sedation was induced. Local anesthetic was applied after time-out and after prepping the area in the usual sterile fashion . With the help of a blade, we proceeded to do surgical debridement with stage 3 ulcer. Necrotic ti ssue was removed. Culture was sent. This goes very close to calcaneus bone. Area was irrigated. H emostasis obtained and the area was packed with Santyl wet-to-dry. The patient tolerated the procedu re well. The patient was sent to recovery in stable condition. HM/MODL Voice ID: [id number] Report ID: [id number]
[2024-11-03] MEDS: NIFEDIPINE XL 30 MG TABLET PO SCH (10:14)
[2024-11-03] MEDS: CLONIDINE 0.1 MG/PATCH TD SCH (10:14)
[2024-11-03] MEDS: ISOSORBIDE MONO SR 30 MG TAB PO SCH (10:15)
[2024-11-03] MEDS: FLUOXETINE 20 MG CAP PO SCH (10:15)
[2024-11-03] MEDS: DILTIAZEM HCL 120 MG SR CAP PO SCH (10:16)
[2024-11-03] MEDS: PANTOPRAZOLE 40MG TABLET PO SCH (10:16)
[2024-11-03] MEDS: Meropenem 1,000 MG in NA CHLORIDE 0.9% 100 ML IV SCH (13:05)
--- NOTE | 2024-11-03 15:48 | P.PN ---
Date of Service: 11/03/24 Subjective: S/P debridement today Still with intermittent confusion but mental status seems to be improving ROS: 10 point ROS as noted above, otherwise negative Physical exam GEN: Alert, oriented x2 , NAD HEENT: Normal conjunctiva, sclera anicteric CV: Regular rate and rhythm, no edema Pulm: Nonlabored respirations on room air ABD: Soft, nontender, nondistended MSK: No joint tenderness Integumentary:Wound to right heel with eschar present Neuro: Normal speech, normal affect Vitals reviewed Assessment and Plan non-diabetic Right heel ulcer -Doppler Ultrasound RLE negative for stenosis -Switch to Vanco and Merrem given presence of encephalopathy and urine growing gram-negative rods with recent ESBL infection -IVF -Unable to obtain MRI of the foot due to patient movement/compliance -Wound care consulted -Dr. Nayak performed debridement 11/03 -Infectious disease also consulted, plan to obtain CT of the foot as we are unable to get MRI to further evaluate for possible osteo MADDY -IVF -Improved -Monitor with daily labs Anemia of chronic disease -H&H 07/22 -Monitor and transfuse PRN History GI bleed and gastric ulcer Osteoarthritis HTN/HLD Afib Restart Eliquis Depression Lymphedema -continuous telemetry -Continue home medications DVT ppx heparin Full code LOS 2-3 days Discharge Plan: Home Plan to discharge in: 72 Hours Time Spent Managing Pts Care (In Minutes): 35
--- NOTE | 2024-11-03 17:10 | CON ---
History Of Present Illness: Patient is a 73-year-old female, I was called for evaluation of heel ulc er and osteomyelitis. The patient is not a good historian. Most of the history was obtained through medical records and staff. Patient's x-ray of the right foot shows that she has no acute fracture, heel wound without conclusive evidence of osteomyelitis. She had debridement done by surgical team elo hernandez. The patient was found to have ulceration and necrotic area removed and stage III ulcer was not ed. Santyl was applied to the wound site. The patient was also somewhat confused and cefepime was s topped. Past Medical History: 1. Right heel ulcer, consider getting an MRI to rule out osteomyelitis, status post debridement. 2. Anemia of chronic disease. 3. Mild renal insufficiency. 4. Pyuria, WBC more than 50 in the urine with leukocyte esterase 500, hematuria, 11 to 20 RBC with so me budding yeast in the urinalysis. Micro data shows gram-negative rods more than 100,000 rods. Assessment And Plan: Urosepsis. Recommend to start patient on Rocephin 1 g q.24 hours, pending cult ure results. Continue vancomycin for the heel ulcer, rule out osteomyelitis. Unstageable right heel ulcer, lymphedema, depression. Continue supportive care and wound care. Continue current antibioti c. Depending on MRI, we will recommend duration of antibiotic. We will follow the patient closely. Thank you for consult. KASH/KIRSTEN Voice ID: [id number] Report ID: [id number]
[2024-11-03] MEDS: APIXABAN 5 MG TABLET PO SCH (20:39)
[2024-11-03] MEDS: POTASSIUM CL SA 10 MEQ TAB PO ONE (20:55)
[2024-11-04] MEDS: HYDRALAZINE HCL 20 MG/ML VIAL IV PRN (00:29)
[2024-11-04] MEDS: CYCLOBENZAPRINE 10 MG TAB PO ONE (02:03)
[2024-11-04] MEDS: VANCOMYCIN 1.5 GM in NA CHLORIDE 0.9% 500 ML IVPB SCH (03:34)
[2024-11-04 05:31] LABS: Absolute Basophils 0.1 K/uL (0-0.5); Absolute Eosinophils 0.1 K/uL (0-0.5); Absolute Monocytes 0.9 K/uL (0.1-1.3); Absolute Neutrophil 9.2 K/uL (1.8-8.0); Basophils % 1.3 % (0-1.3); Eosinophils % 0.6 % (0-4.4); Hematocrit 34.6 % (36.0-45.0); Hemoglobin 11.6 g/dL (12.0-15.0); Lymphocytes % 8.8 % (15.3-44.8); MCH 27.5 pg (27.0-35.0); MCHC 33.6 g/dL (32.0-36.0); MCV 81.8 fL (80-100); MPV 9.4 fL (7.6-11.3); Monocytes % 7.9 % (3.3-12.3); Neutrophils % 81.4 % (41.7-73.7); Nucleated Red Blood Cells % 0.1 % (0-0); Platelets 289 thou/uL (152-406); RBC Red Blood Cell Count 4.23 M/uL (3.86-4.86); Red Cell Distribution Width 18.7 % (12.1-15.2)
[2024-11-04 06:08] LABS: Anion Gap 12.2 mEq/L (5.0-15.0); Phosphorus 2.2 mg/dL (2.5-4.9); Potassium 3.2 mEq/L (3.5-5.1)
[2024-11-04] MEDS: POTASS/SODIUM PHOSPHATE 1 PKT POWD.PACK PO SCH (09:03)
[2024-11-04] MEDS: POTASSIUM 25 MEQ EFFERV TAB PO ONE (09:04)
[2024-11-04] MEDS: FUROSEMIDE 40 MG TABLET PO SCH (09:05)
--- NOTE | 2024-11-04 10:26 | P.PN ---
Date of Service: 11/04/24 Subjective: Still with confusion, moaning and growing but stops when she is spoken to Able to answer simple yes/no questions, confused globally but no focal deficits ROS: 10 point ROS as noted above, otherwise negative Physical exam GEN: Alert, oriented x1-2 , NAD HEENT: Normal conjunctiva, sclera anicteric CV: Regular rate and rhythm, no edema Pulm: Nonlabored respirations on room air ABD: Soft, nontender, nondistended MSK: No joint tenderness Integumentary:Wound to right heel with dressing in place Neuro: Normal speech, normal affect Vitals reviewed Assessment and Plan non-diabetic Right heel ulcer -Doppler Ultrasound RLE negative for stenosis -Switch to Vanco and Merrem given presence of encephalopathy and urine growing gram-negative rods with recent ESBL infection -Unable to obtain MRI of the foot due to patient movement/compliance -Wound care consulted/ID -Dr. Nayak performed debridement 11/03 -Infectious disease also consulted, plan to obtain CT of the foot as we are unable to get MRI to further evaluate for possible osteo HTN Home medications continued Getting better control of BP MADDY -Improved -Monitor with daily labs Anemia of chronic disease -H&H 07/22 -Monitor and transfuse PRN History GI bleed and gastric ulcer Osteoarthritis HTN/HLD Afib Restart Eliquis Continue amiodarone Depression Lymphedema -continuous telemetry -Continue home medications DVT ppx heparin Full code LOS 2-3 days Discharge Plan: Home Plan to discharge in: 72 Hours Time Spent Managing Pts Care (In Minutes): 35
[2024-11-04] MEDS: Meropenem 1,000 MG in NA CHLORIDE 0.9% 100 ML IV SCH (21:03)
[2024-11-05 05:46] LABS: Absolute Basophils 0.1 K/uL (0-0.5); Absolute Eosinophils 0.2 K/uL (0-0.5); Absolute Lymphocytes (CBC) 1.1 K/uL (0.7-4.9); Absolute Monocytes 1.2 K/uL (0.1-1.3); Basophils % 1.4 % (0-1.3); Eosinophils % 1.9 % (0-4.4); Hematocrit 36.1 % (36.0-45.0); Hemoglobin 12.1 g/dL (12.0-15.0); MCH 27.6 pg (27.0-35.0); MCHC 33.4 g/dL (32.0-36.0); MCV 82.6 fL (80-100); MPV 8.8 fL (7.6-11.3); Monocytes % 10.9 % (3.3-12.3); Neutrophils % 75.8 % (41.7-73.7); Platelets 311 thou/uL (152-406); RBC Red Blood Cell Count 4.38 M/uL (3.86-4.86); Red Cell Distribution Width 18.7 % (12.1-15.2)
[2024-11-05 06:11] LABS: Anion Gap 9.5 mEq/L (5.0-15.0); Magnesium 1.8 mg/dL (1.6-2.4); Phosphorus 2.7 mg/dL (2.5-4.9); Potassium 3.5 mEq/L (3.5-5.1)
[2024-11-05] MEDS: POTASSIUM CL SA 10 MEQ TAB PO ONE (08:00)
[2024-11-05] MEDS: MAGNESIUM SULFATE 1 gm IVPB 1 GM/100 ML BAG IV ONE (08:18)
[2024-11-05] MEDS: POTASSIUM 25 MEQ EFFERV TAB PO ONE (08:18)
[2024-11-05] MEDS ORDERED: VANCOMYCIN 1 GM in NA CHLORIDE 0.9% 250 ML IVPB SCH (09:00)
--- NOTE | 2024-11-05 10:10 | P.PN ---
Date of Service: 11/05/24 Subjective: More alert today Less moaning and groaning Still confused ROS: 10 point ROS as noted above, otherwise negative Physical exam GEN: Alert, oriented x1-2 , NAD HEENT: Normal conjunctiva, sclera anicteric CV: Regular rate and rhythm, no edema Pulm: Nonlabored respirations on room air ABD: Soft, nontender, nondistended MSK: No joint tenderness Integumentary:Wound to right heel with dressing in place Neuro: Normal speech, normal affect Vitals reviewed Assessment and Plan Infected Right heel pressure ulcer UTI Metabolic encephalopathy -Doppler Ultrasound RLE negative for stenosis -Unable to obtain MRI of the foot due to patient movement/compliance -Wound care consulted/ID -Dr. Nayak performed debridement 11/03 -Infectious disease also consulted, plan to obtain CT of the foot as we are unable to get MRI to further evaluate for possible osteo -Urine and wound cultures growing ESBL bacteria, continue IV merrem, ID following -Mental status slowly improving HTN Home medications continued Getting better control of BP MADDY -Improved -Monitor with daily labs Anemia of chronic disease -H&H 07/22 -Monitor and transfuse PRN History GI bleed and gastric ulcer Osteoarthritis HTN/HLD Afib Restart Eliquis Continue amiodarone Depression Lymphedema -continuous telemetry -Continue home medications DVT ppx heparin Full code LOS 2-3 days Discharge Plan: Home Plan to discharge in: 72 Hours Time Spent Managing Pts Care (In Minutes): 35 <Konrad Kahn - Last Filed: 11/05/24 10:07> Chart has been reviewed. Events of the last 24 hours have been noted. Case discussed with TANYA. I performed a substantial part of the MDM during this patient's care today. I personally made or approved the documented management plan and acknowledge its risk of complications. I agree with the findings and documentation provided in the TANYA's notes Continue with antibiotic therapy. Place a PICC line and arrange for outpatient antibiotic. Continue with supportive care for her additional medicationmedical issues. <Jose L Bellamy - Last Filed: 11/07/24 06:54>
--- NOTE | 2024-11-05 13:17 | RAD REPORT ---
EXAMINATION: CT RIGHT FOOT WITHOUT CONTRAST CLINICAL INDICATION: Female, 73 years old.[facility] MA[facility] eval for osteo, cannot tolerate MRI TECHNIQUE: CT of the right foot was performed, without IV contrast, as per department protocol. Axial , sagittal and coronal reconstructions were obtained. One or more of the following dose reduction techniques were used: Automated exposure control, adjustment of the mA and/or kV according to patient size, and/or iterative reconstruction. Unless otherwise specified, incidental findings do not require dedicated imaging follow-up. COMPARISON: Right foot radiographs 11/01/2024. FINDINGS: The lack of intravenous contrast limits the sensitivity of this exam for evaluation of fluid collecti ons and sinus tracts. MUSCULOSKELETAL: Diffuse osteopenia limits evaluation Cortical erosive changes along the medial base of the calcaneus, see series 201 image 32 and series 204 image 58 among others. No evidence of acute fractures or other focal suspicious osseous lesions. SOFT TISSUES: Overlying wound with minimal superficial soft tissue gas. Subcutaneous swelling and th ickening extends along the mid to hindfoot predominantly along the plantar surface and slightly medially. No appreciable fluid collections. JOINTS : Mild ankle joint effusion. Mild to moderate degenerative changes of the subtalar joint and m idfoot articulations. Fatty replacement of the deep muscles of the foot. Major tendinous structures appear unremarkable wit h mild enthesopathy at the Achilles insertion. Vascular calcifications. ADDITIONAL FINDINGS: None. IMPRESSION: Cortical erosive changes along the medial base of the calcaneus, underlying known wound/ulcer, concer pat for ongoing osteomyelitis.
[2024-11-06 06:31] LABS: Absolute Basophils 0.1 K/uL (0-0.5); Absolute Eosinophils 0.6 K/uL (0-0.5); Absolute Lymphocytes (CBC) 1.2 K/uL (0.7-4.9); Absolute Neutrophil 6.4 K/uL (1.8-8.0); Basophils % 1.5 % (0-1.3); Eosinophils % 5.9 % (0-4.4); Hemoglobin 12.3 g/dL (12.0-15.0); Lymphocytes % 12.6 % (15.3-44.8); MCH 27.4 pg (27.0-35.0); MCHC 33.2 g/dL (32.0-36.0); MCV 82.6 fL (80-100); MPV 8.9 fL (7.6-11.3); Platelets 285 thou/uL (152-406); RBC Red Blood Cell Count 4.48 M/uL (3.86-4.86); Red Cell Distribution Width 18.7 % (12.1-15.2)
[2024-11-06 06:48] LABS: Anion Gap 8.7 mEq/L (5.0-15.0); Magnesium 2.3 mg/dL (1.6-2.4); Phosphorus 2.7 mg/dL (2.5-4.9); Potassium 3.7 mEq/L (3.5-5.1)
[2024-11-06] MEDS: TRAMADOL HCL 50 MG TAB PO PRN (08:55)
[2024-11-06] MEDS: NA CHLORIDE 0.9% 250 ML IV ONE (10:50)
[2024-11-06] MEDS: NA CHLORIDE 0.9% 1,000 ML IV SCH (10:51)
[2024-11-06] MEDS: METOPROLOL TARTRATE 5 MG/5 ML INJ IV ONE (12:38)
[2024-11-06] MEDS: METOPROLOL TARTRATE 5 MG/5 ML INJ IV STA (12:45)
--- NOTE | 2024-11-06 13:19 | P.PN ---
Date of Service: 11/06/24 Subjective: More alert today improving ROS: 10 point ROS as noted above, otherwise negative Physical exam GEN: Alert, oriented x1-2 , NAD, slow to respond HEENT: Normal conjunctiva, sclera anicteric CV: Regular rate and rhythm, no edema Pulm: Nonlabored respirations on room air ABD: Soft, nontender, nondistended MSK: No joint tenderness Integumentary:Wound to right heel with dressing in place Neuro: Normal speech, normal affect Vitals reviewed Assessment and Plan Infected Right heel pressure ulcer UTI Metabolic encephalopathy -Doppler Ultrasound RLE negative for stenosis -Wound care consulted/ID -Dr. Nayak performed debridement 11/03 -CT suspicious for ostemyelitis -Urine and wound cultures growing ESBL bacteria, continue IV merrem, ID following -Will need PICC-ordered, 6 weeks of IV abx -Mental status improving HTN Home medications continued Getting better control of BP MADDY -Improved -Monitor with daily labs Anemia of chronic disease -H&H 07/22 -Monitor and transfuse PRN History GI bleed and gastric ulcer Osteoarthritis HTN/HLD Afib Restart Eliquis Continue amiodarone Depression Lymphedema -continuous telemetry -Continue home medications DVT ppx heparin Full code LOS 2-3 days Discharge Plan: Home Plan to discharge in: 72 Hours Time Spent Managing Pts Care (In Minutes): 35 <Konrad Kahn - Last Filed: 11/06/24 13:17> Chart has been reviewed. Events of the last 24 hours have been noted. Case discussed with TANYA. I performed a substantial part of the MDM during this patient's care today. I personally made or approved the documented management plan and acknowledge its risk of complications. I agree with the findings and documentation provided in the TANYA's notes Continue with antibiotic therapy. Place a PICC line and arrange for outpatient antibiotic. Continue with supportive care for her additional medicationmedical issues. <Jose L Bellamy - Last Filed: 11/07/24 06:55>
[2024-11-06] MEDS: Mupirocin NASAL 2 APPL/1 GM TUBE NAS SCH (20:05)
--- NOTE | 2024-11-06 21:57 | RAD REPORT ---
EXAMINATION: ONE VIEW CHEST XR CLINICAL INDICATION: PICC Line Placement TECHNIQUE: Frontal chest projection is submitted. Examination is limited by patient positioning and t echnique. COMPARISON: 09/03/2024 FINDINGS: The right-sided advised in the SVC. The lungs are grossly clear. The heart is upper limit of normal i n size. No displaced fractures identified. IMPRESSION: Right-sided PICC line is tip in SVC.
[2024-11-07 07:50] LABS: Absolute Basophils 0.1 K/uL (0-0.5); Absolute Eosinophils 0.7 K/uL (0-0.5); Absolute Lymphocytes (CBC) 1.1 K/uL (0.7-4.9); Absolute Neutrophil 8.2 K/uL (1.8-8.0); Basophils % 1.3 % (0-1.3); Eosinophils % 6.6 % (0-4.4); Hematocrit 36.2 % (36.0-45.0); Hemoglobin 11.9 g/dL (12.0-15.0); Lymphocytes % 9.4 % (15.3-44.8); MCHC 32.8 g/dL (32.0-36.0); MCV 82.3 fL (80-100); Monocytes % 9.2 % (3.3-12.3); Neutrophils % 73.5 % (41.7-73.7); Nucleated Red Blood Cells % 0.1 % (0-0); Platelets 269 thou/uL (152-406); Red Cell Distribution Width 18.2 % (12.1-15.2)
[2024-11-07 08:03] LABS: Anion Gap 9.3 mEq/L (5.0-15.0); Phosphorus 2.6 mg/dL (2.5-4.9); Potassium 3.3 mEq/L (3.5-5.1)
--- NOTE | 2024-11-07 08:26 | P.PN ---
Date of Service: 11/07/24 Subjective: feeling better overall this morning denies urinary symptoms. No constipation PICC placed ROS: 10 point ROS as noted above, otherwise negative Physical Exam: GEN: Alert, oriented, NAD CV: Regular rate and rhythm, no edema Pulm: Nonlabored respirations on room air, clear bilaterally Neuro: Normal speech, normal affect Problem List: Infected Right heel pressure ulcer, s/p I&D (11/03) Possible right calcaneus osteomyelitis UTI - Klebsiella Pneumoniae ESBL Metabolic encephalopathy likely secondary to the above Hypertension MADDY Chronic anemia History GI bleed and gastric ulcer Osteoarthritis HTN/HLD Afib Depression Lymphedema Infected Right heel pressure ulcer, s/p I&D (11/03) Possible right calcaneus osteomyelitis UTI - Klebsiella Pneumoniae ESBL Metabolic encephalopathy likely secondary to the above doppler u/s (11/01): no flow limiting stenosis. Dr. Nayak is following s/p I&D (11/03) C consult. continue local wound care per surgery ID consulted. CT abdomen negative CT foot (11/05): cortical erosive changes along the medial base of the calcaneus, underlying known wound/ulcer. Concerning for ongiong osteomyelitis. urine cx (11/01): Klebsiella Pneumoniae ESBL wound cx (11/02): Proteus Mirabilis ESBL, E. coli ID recommending 6 weeks of IV antibiotics continue IV merrem for 6 weeks total (End Date: ~12/15/24) PICC line placed 11/06 for long term IV abx Mental status improving HTN continue home nifedipine, indur, amiodarone, cardizen PRN hydralazine MADDY, resolved resolved. Continue to monitor renal function Anemia of chronic disease History GI bleed and gastric ulcer Stable. Daily labs Osteoarthritis HTN/HLD Afib continue home eliquis, amiodarone Depression Lymphedema -continuous telemetry -Continue home medications Code: Full Dispo: Home Time Spent Managing Pts Care (In Minutes): 45
[2024-11-08 05:11] LABS: Absolute Basophils 0.1 K/uL (0-0.5); Absolute Eosinophils 0.6 K/uL (0-0.5); Absolute Lymphocytes (CBC) 1.1 K/uL (0.7-4.9); Absolute Monocytes 0.9 K/uL (0.1-1.3); Absolute Neutrophil 7.3 K/uL (1.8-8.0); Basophils % 1.4 % (0-1.3); Eosinophils % 5.9 % (0-4.4); Hematocrit 34.9 % (36.0-45.0); Hemoglobin 11.6 g/dL (12.0-15.0); Lymphocytes % 11.1 % (15.3-44.8); MCH 27.6 pg (27.0-35.0); MCHC 33.3 g/dL (32.0-36.0); Monocytes % 8.8 % (3.3-12.3); Neutrophils % 72.8 % (41.7-73.7); Platelets 230 thou/uL (152-406); RBC Red Blood Cell Count 4.21 M/uL (3.86-4.86); Red Cell Distribution Width 18.7 % (12.1-15.2)
[2024-11-08 05:30] LABS: Anion Gap 7.5 mEq/L (5.0-15.0); Magnesium 1.9 mg/dL (1.6-2.4); Phosphorus 2.9 mg/dL (2.5-4.9); Potassium 3.5 mEq/L (3.5-5.1)
--- NOTE | 2024-11-08 13:03 | P.PN ---
Date of Service: 11/08/24 Subjective: no acute events overnight afebrile ROS: 10 point ROS as noted above, otherwise negative Physical Exam: GEN: Alert, oriented, NAD CV: Regular rate and rhythm, no edema Pulm: Nonlabored respirations on room air, clear bilaterally Neuro: Normal speech, normal affect Problem List: Infected Right heel pressure ulcer, s/p I&D (11/03) Possible right calcaneus osteomyelitis UTI - Klebsiella Pneumoniae ESBL Metabolic encephalopathy likely secondary to the above Hypertension MADDY Chronic anemia History GI bleed and gastric ulcer Osteoarthritis HTN/HLD Afib Depression Lymphedema Infected Right heel pressure ulcer, s/p I&D (11/03) Possible right calcaneus osteomyelitis UTI - Klebsiella Pneumoniae ESBL Metabolic encephalopathy likely secondary to the above doppler u/s (11/01): no flow limiting stenosis. Dr. Nayak is following s/p I&D (11/03) [facility] consult. continue local wound care per surgery ID consulted. CT abdomen negative CT foot (11/05): cortical erosive changes along the medial base of the calcaneus, underlying known wound/ulcer. Concerning for ongiong osteomyelitis. urine cx (11/01): Klebsiella Pneumoniae ESBL wound cx (11/02): Proteus Mirabilis ESBL, E. coli ID recommending 6 weeks of IV antibiotics continue IV merrem for 6 weeks total (End Date: ~12/15/24) PICC line placed 11/06 for intermediate IV abx Mental status improving HTN continue home nifedipine, indur, amiodarone, cardizen PRN hydralazine MADDY, resolved resolved. Continue to monitor renal function Anemia of chronic disease History GI bleed and gastric ulcer Stable. Daily labs Osteoarthritis HTN/HLD Afib continue home eliquis, amiodarone Depression Lymphedema -continuous telemetry -Continue home medications Code: Full Dispo: Home vs snf Time Spent Managing Pts Care (In Minutes): 45
--- NOTE | 2024-11-08 18:24 | PN ---
Subjective: This patient lying in bed. No new acute event. Chart reviewed. Objective: Vital Signs: Temperature 98, pulse 100, respirations 16, blood pressure 177/80. Lungs: Basal crackles. Heart: S1, S2. Regular. Abdomen: Soft, nontender. Bowel sounds present. Extremities: Trace edema. Laboratory Data: Shows WBC 10, hemoglobin 11, platelets 230. BUN 16, creatinine 0.9. Urine culture , Klebsiella pneumoniae. Right heel wound culture: Proteus mirabilis, E coli ESBL. Currently on me ropenem. Assessment And Plan: Right heel ulceration, status post debridement. Wound cultures with pedro, Pro teus mirabilis and E coli ESBL. Currently being treated with meropenem. Recommendation for treatmen t is 6 weeks. Urine cultures positive for Klebsiella pneumoniae. Also covered with meropenem. Cont inue supportive care and wound care. Anemia of chronic disease. No other recommendation at this zen[facility] e. NF/MODL Voice ID: [id number] Report ID: [id number]
[2024-11-09] MEDS: AMINO ACIDS/PROTEIN HYDROLYS 30 ML LIQUID.PKT PO SCH (09:00)
--- NOTE | 2024-11-09 16:01 | PN ---
Subjective: Patient lying in bed. No new acute event. Chart reviewed. Objective: Vital Signs: Reviewed. Lungs: Basal crackles. Heart: S1, S2. Regular. Abdomen: Soft, nontender. Bowel sounds present. Extremities: No edema. Laboratory Data: WBC 10, hemoglobin 11.6, platelets are 230. Chemistry shows BUN of 716, creatinine of 0.9. The patient is currently on meropenem and tolerating it well. Assessment And Plan: Left heel osteomyelitis and ulceration, being treated by surgical team. Wound cultures with Proteus mirabilis and Escherichia coli extended-spectrum beta-lactamase. Continue antibiotic for 6 weeks. Klebsiella pneumoniae urinary tract infection. Also being covered with meropenem. Anemia of chronic disease. Continue to monitor for signs of infection with WBC and fever trends. NF/MODL Voice ID: [id number] Report ID: [id number]
--- NOTE | 2024-11-09 17:31 | P.PN ---
Subjective Date of Service: 11/09/24 Chief Complaint: Right foot ulcer Patient denies any complain. She is tolerating diet. No recorded fever. Physical Examination - Vital Signs Temperature: 97.5 F Blood Pressure: 147/87 Pulse: 86 Respirations: 20 Pulse Ox (%): 99 Assessment And Plan - Plan Physical Exam: GEN: Alert, oriented, NAD CV: Regular rate and rhythm, no edema Pulm: Nonlabored respirations on room air, clear bilaterally Neuro: Normal speech, normal affect. Skin: No rash, normal skin turgor. 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 Dr. Nayak is following s/p I&D (11/03) [facility] consult. continue local wound care per surgery ID is following CT abdomen negative CT foot (11/05): cortical erosive changes along the medial base of the calcaneus, underlying known wound/ulcer. Concerning for ongiong osteomyelitis. urine cx (11/01): Klebsiella Pneumoniae ESBL wound cx (11/02): Proteus Mirabilis ESBL, E. coli ID recommending 6 weeks of IV antibiotics continue IV merrem for 6 weeks total (End Date: ~12/15/24) PICC line placed 11/06 for [facility] IV abx Mental status improved. Poor functional status. HTN continue home nifedipine, indur, amiodarone, cardizen PRN hydralazine MADDY, resolved resolved. Continue to monitor renal function Anemia of chronic disease History GI bleed and gastric ulcer Stable. Daily labs Osteoarthritis HTN/HLD Afib continue home eliquis, amiodarone Depression Lymphedema -continuous telemetry -Continue home medications Code: Full Dispo: SNF
[2024-11-09 21:54] VITALS: BMI 30.9
[2024-11-10] MEDS: POTASSIUM CL SA 10 MEQ TAB PO ONE (09:41)
--- NOTE | 2024-11-10 13:24 | PN ---
Subjective: The patient lying in bed. Denies any headache, nausea, vomiting, chest pain, abdominal pain, constipation, or diarrhea. Objective: Vital Signs: Temperature 97.5, pulse 100, respiration 18, blood pressure 145/70. Lungs: Basal crackles. Heart: S1, S2. Regular. Abdomen: Soft, nontender. Bowel sounds present. Extremities: Trace edema. Wound noted. Laboratory Data: Shows WBC 10, hemoglobin 11.6, platelets are 230. Chemistry shows BUN of 16, creat inine 0.9. Wound culture growing E coli and Proteus mirabilis, ESBL. Urine culture was positive for Klebsiella pneumoniae, ESBL. The patient is currently on meropenem. Assessment And Plan: 1. Urinary tract infection with extended-spectrum beta-lactamase Klebsiella pneumoniae. Heel wound c ultures are positive for Escherichia coli and Proteus mirabilis, extended-spectrum beta-lactamase. 2. Anemia of chronic disease. 3. Multidrug-resistant organism infection and osteomyelitis of the heel. Continue antibiotic for 6 weeks. We will follow the patient as needed. NF/MODL Voice ID: [id number] Report ID: [id number]
--- NOTE | 2024-11-10 16:10 | P.PN ---
Subjective Date of Service: 11/10/24 Chief Complaint: Right foot ulcer Patient has no new complaint No issues overnight. Physical Examination - Vital Signs Temperature: 98.3 F Blood Pressure: 117/60 Pulse: 80 Respirations: 16 Pulse Ox (%): 95 Assessment And Plan - Plan Physical Exam: GEN: Alert, oriented, NAD CV: Regular rate and rhythm, no edema Pulm: Nonlabored respirations on room air, clear bilaterally Neuro: Normal speech, normal affect. Skin: No rash, normal skin turgor. Musculoskeletal: Clean dressing-right foot. 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 Dr. Nayak is following s/p I&D (11/03) [facility] consult. continue local wound care per surgery ID is following CT abdomen negative CT foot (11/05): cortical erosive changes along the medial base of the calcaneus, underlying known wound/ulcer. Concerning for ongiong osteomyelitis. urine cx (11/01): Klebsiella Pneumoniae ESBL wound cx (11/02): Proteus Mirabilis ESBL, E. coli ID recommending 6 weeks of IV antibiotics continue IV merrem for 6 weeks total (End Date: ~12/15/24) PICC line placed 11/06 for [facility] IV abx Mental status improved. Poor functional status. HTN continue home nifedipine, indur, amiodarone, cardizen PRN hydralazine MADDY, resolved resolved. Continue to monitor renal function Anemia of chronic disease History GI bleed and gastric ulcer Stable. Daily labs Osteoarthritis HTN/HLD Afib continue home eliquis, amiodarone Depression Lymphedema -continuous telemetry -Continue home medications 11/10 Continue IV meropenem Patient is slated for 6 weeks of IV antibiotics. PICC line is in place. Patient has not been able to walk and can only sit at the edge of the bed. Social service consulted to evaluate for SNF placement. Patient is currently normotensive on current antihypertensives. Heart rate fluctuates but overall improved on amiodarone. Hemoglobin has been stable Continue Eliquis. Renal function has been stable on oral Lasix Continue PT. Code: Full Dispo: SNF
[2024-11-10] MEDS: MELATONIN 5 MG TABLET PO PRN (20:55)
[2024-11-11 04:48] LABS: Absolute Basophils 0.1 K/uL (0-0.5); Absolute Eosinophils 0.9 K/uL (0-0.5); Absolute Lymphocytes (CBC) 1.3 K/uL (0.7-4.9); Absolute Monocytes 0.9 K/uL (0.1-1.3); Absolute Neutrophil 5.6 K/uL (1.8-8.0); Basophils % 1.5 % (0-1.3); Eosinophils % 9.8 % (0-4.4); Hematocrit 33.5 % (36.0-45.0); Hemoglobin 11.2 g/dL (12.0-15.0); Lymphocytes % 14.4 % (15.3-44.8); MCHC 33.5 g/dL (32.0-36.0); MCV 83.8 fL (80-100); Neutrophils % 64.3 % (41.7-73.7); Nucleated Red Blood Cells % 0.1 % (0-0); Platelets 209 thou/uL (152-406); Red Cell Distribution Width 18.7 % (12.1-15.2)
[2024-11-11 05:04] LABS: Anion Gap 7.3 mEq/L (5.0-15.0); Potassium 3.3 mEq/L (3.5-5.1)
[2024-11-11] MEDS: POTASSIUM CL SA 10 MEQ TAB PO ONE ×2 (06:10→23:10)
--- NOTE | 2024-11-11 17:53 | P.PN ---
Subjective Date of Service: 11/11/24 Chief Complaint: Right foot ulcer Patient has no new complaint No issues overnight. Patient is eating well. Physical Examination - Vital Signs Temperature: 97.8 F Blood Pressure: 125/77 Pulse: 91 Respirations: 18 Pulse Ox (%): 97 Assessment And Plan - Plan Physical Exam: GEN: Alert, oriented, NAD CV: Regular rate and rhythm, no edema Pulm: Nonlabored respirations on room air, clear bilaterally Neuro: Normal speech, normal affect. Skin: No rash, normal skin turgor. Musculoskeletal: Clean dressing-right foot. 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 Dr. Nayak is following s/p I&D (11/03) [facility] consult. continue local wound care per surgery ID is following CT abdomen negative CT foot (11/05): cortical erosive changes along the medial base of the calcaneus, underlying known wound/ulcer. Concerning for ongiong osteomyelitis. urine cx (11/01): Klebsiella Pneumoniae ESBL wound cx (11/02): Proteus Mirabilis ESBL, E. coli ID recommending 6 weeks of IV antibiotics continue IV merrem for 6 weeks total (End Date: ~12/15/24) PICC line placed 11/06 for [facility] IV abx Mental status improved. Poor functional status. HTN continue home nifedipine, indur, amiodarone, cardizen PRN hydralazine AMDDY, resolved resolved. Continue to monitor renal function Anemia of chronic disease History GI bleed and gastric ulcer Stable. Daily labs Osteoarthritis HTN/HLD Afib continue home eliquis, amiodarone Depression Lymphedema -continuous telemetry -Continue home medications 11/10 Continue IV meropenem Patient is slated for 6 weeks of IV antibiotics. PICC line is in place. Patient has not been able to walk and can only sit at the edge of the bed. Social service consulted to evaluate for SNF placement. Patient is currently normotensive on current antihypertensives. Heart rate fluctuates but overall improved on amiodarone. Hemoglobin has been stable Continue Eliquis. Renal function has been stable on oral Lasix Continue PT. 11/11 Continue IV meropenem. Patient to complete 6 weeks of IV meropenem via PICC line. Continue wound dressing daily director of creative services assisting with SNF placement. Stable hemoglobin. Continue Eliquis. Continue amiodarone for A-fib. Optimize electrolytes, correct potassium as needed. Code: Full Dispo: SNF
[2024-11-12 05:10] LABS: Anion Gap 7.4 mEq/L (5.0-15.0); Potassium 3.4 mEq/L (3.5-5.1)
[2024-11-12] MEDS: POTASSIUM CL SA 10 MEQ TAB PO ONE (06:28)
--- NOTE | 2024-11-12 14:30 | P.PN ---
Date of Service: 11/12/24 Subjective No new complaints continue IV Merrem, tolerating well Awaiting placement ROS 10 point ROS as noted above, otherwise negative Physical Exam: GEN: AAO x3, NAD CV: Afib with HR control, no edema Pulm: Nonlabored respirations, clear BBS, on RA Neuro: Normal speech, normal affect. Skin: No rash, normal skin turgor. Musculoskeletal: right foot dressing CDI Vitals Reviewed Problem List: Infected Right heel pressure ulcer, s/p I&D (11/03) Possible right calcaneus osteomyelitis UTI - Klebsiella Pneumoniae ESBL Metabolic encephalopathy likely secondary to the above Hypertension MADDY Chronic anemia History GI bleed and gastric ulcer Osteoarthritis HTN/HLD Afib Depression Lymphedema Infected Right heel pressure ulcer, s/p I&D (11/03) Possible right calcaneus osteomyelitis UTI - Klebsiella Pneumoniae ESBL Metabolic encephalopathy likely secondary to the above doppler u/s (11/01): no flow limiting stenosis. Dr. Nayak is following s/p I&D (11/03) [facility] consult. continue local wound care per surgery ID is following CT abdomen negative CT foot (11/05): cortical erosive changes along the medial base of the calcaneus, underlying known wound/ulcer. Concerning for ongiong osteomyelitis. urine cx (11/01): Klebsiella Pneumoniae ESBL wound cx (11/02): Proteus Mirabilis ESBL, E. coli ID recommending 6 weeks of IV antibiotics continue IV merrem for 6 weeks total (End Date: ~12/15/24) PICC line placed 11/06 for correction IV abx Mental status improved. Poor functional status. HTN continue home nifedipine, indur, amiodarone, cardizen PRN hydralazine MADDY, resolved resolved. Continue to monitor renal function Anemia of chronic disease History GI bleed and gastric ulcer Stable. Daily labs Osteoarthritis HTN/HLD Afib continue home eliquis, amiodarone Depression Lymphedema -continuous telemetry -Continue home medications 11/10 Continue IV meropenem Patient is slated for 6 weeks of IV antibiotics. PICC line is in place. Patient has not been able to walk and can only sit at the edge of the bed. Social service consulted to evaluate for SNF placement. Patient is currently normotensive on current antihypertensives. Heart rate fluctuates but overall improved on amiodarone. Hemoglobin has been stable Continue Eliquis. Renal function has been stable on oral Lasix Continue PT. 11/11 Continue IV meropenem. Patient to complete 6 weeks of IV meropenem via PICC line. Continue wound dressing daily check services clerk assisting with SNF placement. Stable hemoglobin. Continue Eliquis. Continue amiodarone for A-fib. Optimize electrolytes, correct potassium as needed. 11/12/24 Plan to complete a total of 6 weeks of Merrem via PICC line Hemodynamically stable Atrial fibrillation with rate control Code: Full Dispo: pending SNF
--- NOTE | 2024-11-13 15:23 | P.PN ---
Subjective Date of Service: 11/13/24 Chief Complaint: Right foot ulcer Patient has no new complaint No issues overnight. Physical Examination - Vital Signs Temperature: 97.6 F Blood Pressure: 120/81 Pulse: 89 Respirations: 17 Pulse Ox (%): 97 Assessment And Plan - Plan Physical Exam: GEN: Alert, oriented, NAD CV: Regular rate and rhythm, no edema Pulm: Nonlabored respirations on room air, clear bilaterally Neuro: Normal speech, normal affect. Skin: No rash, normal skin turgor. Musculoskeletal: Clean dressing-right foot. 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 Dr. Nayak is following s/p I&D (11/03) [facility] consult. continue local wound care per surgery ID is following CT abdomen negative CT foot (11/05): cortical erosive changes along the medial base of the calcaneus, underlying known wound/ulcer. Concerning for ongiong osteomyelitis. urine cx (11/01): Klebsiella Pneumoniae ESBL wound cx (11/02): Proteus Mirabilis ESBL, E. coli ID recommending 6 weeks of IV antibiotics continue IV merrem for 6 weeks total (End Date: ~12/15/24) [facility] Mental status improved. Poor functional status. HTN continue home nifedipine, indur, amiodarone, cardizen PRN hydralazine MADDY, resolved resolved. Continue to monitor renal function Anemia of chronic disease History GI bleed and gastric ulcer Stable. Daily labs Osteoarthritis HTN/HLD Afib continue home eliquis, amiodarone Depression Lymphedema -continuous telemetry -Continue home medications 11/10 Continue IV meropenem Patient is slated for 6 weeks of IV antibiotics. PICC line is in place. Patient has not been able to walk and can only sit at the edge of the bed. Social service consulted to evaluate for SNF placement. Patient is currently normotensive on current antihypertensives. Heart rate fluctuates but overall improved on amiodarone. Hemoglobin has been stable Continue Eliquis. Renal function has been stable on oral Lasix Continue PT. 11/11 Continue IV meropenem. Patient to complete 6 weeks of IV meropenem via PICC line. Continue wound dressing daily emergency services professional assisting with SNF placement. Stable hemoglobin. Continue Eliquis. Continue amiodarone for A-fib. Optimize electrolytes, correct potassium as needed. 11/13 Continue IV meropenem Daily wound care Continue amiodarone and Eliquis for A-fib. Awaiting insurance authorization for SNF([facility]). Code: Full Dispo: SNF
[2024-11-13] MEDS: TRAMADOL HCL 50 MG TAB PO PRN (20:41)
[2024-11-14 06:02] LABS: Absolute Basophils 0.1 K/uL (0-0.5); Absolute Eosinophils 0.7 K/uL (0-0.5); Absolute Monocytes 0.9 K/uL (0.1-1.3); Absolute Neutrophil 5.3 K/uL (1.8-8.0); Eosinophils % 9.1 % (0-4.4); Hematocrit 32.3 % (36.0-45.0); Hemoglobin 10.9 g/dL (12.0-15.0); Lymphocytes % 12.9 % (15.3-44.8); MCHC 33.6 g/dL (32.0-36.0); MCV 83.3 fL (80-100); Monocytes % 10.7 % (3.3-12.3); Neutrophils % 66.3 % (41.7-73.7); Nucleated Red Blood Cells % 0.1 % (0-0); Platelets 240 thou/uL (152-406); RBC Red Blood Cell Count 3.88 M/uL (3.86-4.86); Red Cell Distribution Width 19.1 % (12.1-15.2)
[2024-11-14 06:09] LABS: Anion Gap 9.3 mEq/L (5.0-15.0); Potassium 3.3 mEq/L (3.5-5.1)
[2024-11-14] MEDS: POTASSIUM 25 MEQ EFFERV TAB PO ONE (09:25)
--- NOTE | 2024-11-14 11:33 | P.PN ---
Subjective Date of Service: 11/14/24 Chief Complaint: Right foot ulcer Patient has no complaint. He is awake and alert and participate in conversations meaningfully. Physical Examination - Vital Signs Temperature: 97.7 F Blood Pressure: 135/83 Pulse: 90 Respirations: 20 Pulse Ox (%): 97 Assessment And Plan - Plan Physical Exam: GEN: Alert, oriented, NAD CV: Regular rate and rhythm, no edema Pulm: clear to auscultation bilaterally, adequate breath sounds bilaterally. Neuro: Normal speech, normal affect. Skin: No rash, normal skin turgor. Musculoskeletal: Clean dressing-right foot. 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 Dr. Nayak is following s/p I&D (11/03) [facility] consult. continue local wound care per surgery ID is following CT abdomen negative CT foot (11/05): cortical erosive changes along the medial base of the calcaneus, underlying known wound/ulcer. Concerning for ongiong osteomyelitis. urine cx (11/01): Klebsiella Pneumoniae ESBL wound cx (11/02): Proteus Mirabilis ESBL, E. coli ID recommending 6 weeks of IV antibiotics continue IV merrem for 6 weeks total (End Date: ~12/15/24) PICC line placed 11/06 for half-way IV abx Mental status improved. Poor functional status. HTN continue home nifedipine, indur, amiodarone, cardizen PRN hydralazine MADDY, resolved resolved. Continue to monitor renal function Anemia of chronic disease History GI bleed and gastric ulcer Stable. Daily labs Osteoarthritis HTN/HLD Afib continue home eliquis, amiodarone Depression Lymphedema -continuous telemetry -Continue home medications 11/10 Continue IV meropenem Patient is slated for 6 weeks of IV antibiotics. PICC line is in place. Patient has not been able to walk and can only sit at the edge of the bed. Social service consulted to evaluate for SNF placement. Patient is currently normotensive on current antihypertensives. Heart rate fluctuates but overall improved on amiodarone. Hemoglobin has been stable Continue Eliquis. Renal function has been stable on oral Lasix Continue PT. 11/11 Continue IV meropenem. Patient to complete 6 weeks of IV meropenem via PICC line. Continue wound dressing daily procurement services manager assisting with SNF placement. Stable hemoglobin. Continue Eliquis. Continue amiodarone for A-fib. Optimize electrolytes, correct potassium as needed. 11/13 Continue IV meropenem Daily wound care Continue amiodarone and Eliquis for A-fib. Awaiting insurance authorization for SNF([facility]). 11/14 Continue IV Merrem. IV Merrem day 13. Continue local wound care. Continue PT. Awaiting insurance authorization for SNF placement. Code: Full Dispo: SNF
[2024-11-14 23:59] VITALS: O2SAT 98
[2024-11-15 09:08] VITALS: TEMP 98.2
[2024-11-15 12:19] VITALS: BP 142/79
--- NOTE | 2024-11-15 13:39 | P.DS ---
Admission Date: 11/01/24 Discharge Date: 11/15/24 Disposition: TRANSFER TO LONG-TERM Discharge Condition: FAIR Reason for Admission: Right foot ulcer Brief History of Present Illness: Sherita Parada is a 73 year old female with pmhx HTN, Afib (no anticoagulant), hypercholesterolemia, chronic right foot ulcer x 3 months who presented to the ED for evaluation of right foot ulcer. She reports home health provides care for her right heel ulcer and was recommended to come to the ED for further evaluation. Significant laboratory evaluation H&H 07/22, BUN/creatinine 18/1.34, GFR 42, serum glucose 108. Right foot x-ray reported "No acute fracture identified. Heel wound without conclusive evidence of osteomyelitis. MRI could better evaluate." Venous Doppler of the lower extremities showed right lower extremity arterial ultrasound report "Multiphasic waveforms in the right lower extremity without evidence of a flow-limiting stenosis." Patient was admitted for further evaluation and treatment of Right foot ulcer with concerns for osteomylitis. 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 Dr. Nayak is following s/p I&D (11/03) [facility] consult. continue local wound care per surgery ID is following CT abdomen negative CT foot (11/05): cortical erosive changes along the medial base of the calcaneus, underlying known wound/ulcer. Concerning for ongiong osteomyelitis. urine cx (11/01): Klebsiella Pneumoniae ESBL wound cx (11/02): Proteus Mirabilis ESBL, E. coli ID recommending 6 weeks of IV antibiotics continue IV merrem for 6 weeks total (End Date: ~12/15/24) PICC line placed 11/06 for usp IV abx Mental status improved. Poor functional status. Patient presented with worsening right heel ulcer/wound concerning for infection. CT foot cortical erosive changes along the medial base of the calcaneus, underlying known wound/ulcer. Concerning for ongiong osteomyelitis. ' Arterial doppler ultrasound was negative. CT abdomen was negative. Patient was evaluated by Dr. Nayak and underwent I&D of her infected right heel wound on 11/03. Wound cultures grew Proteus Mirabilis ESBL and E. coli. Urine culture also grew klebsiella pneumonia Esbl. She was started on IV merrem and had improvement of her symptoms. Dr. Thompson (infectious disease) recommended patient complete 6 weeks of IV antibiotics to treat suspected right calcaneus osteomyelitis. PICC line placed 11/06 for usp IV abx. Patient has reduced functional status and recieved PT. She is planned for skilled rehab. Patient was feeling better, afebrile without leuckocytosis > 24 hours, foot pain improving, and was deemed stable for discharge. Follow up with Dr. Nayak in wound healing center for further management in 1 week. Daily wound care: Wound clean with Vashe wash, pat dry, Apply Santyl, Gauze and Kerlix wrap. Vital Signs/Physical Exam: Temp Pulse Resp BP Pulse Ox 98.2 F 92 H 16 142/79 H 97 11/15/24 12:00 11/15/24 12:00 11/15/24 12:00 11/15/24 12:11/15/24 12:00 General: Alert, In no apparent distress, Oriented x2 HEENT: Mucous membr. moist/pink Neck: Supple, JVD not distended Respiratory: Clear to auscultation bilaterally, Normal air movement Cardiovascular: No edema, Regular rate/rhythm, Normal S1 S2 Gastrointestinal: Soft and benign Musculoskeletal: No swelling Neurological: Normal speech, Normal strength at 5/5 x4 extr Laboratory Data at Discharge: WBC 8.00 thou/uL (4.3-10.9) 11/14/24 05:20 Hgb 10.9 g/dL (12.0-15.0) L 11/14/24 05:20 Hct 32.3 % (36.0-45.0) L 11/14/24 05:20 Plt Count 240 thou/uL (152-406) 11/14/24 05:20 Sodium 139 mEq/L (136-145) 11/14/24 05:20 Potassium 3.6 mEq/L (3.5-5.1) 11/14/24 15:05 BUN 13 mg/dL (7-18) 11/14/24 05:20 Creatinine 0.72 mg/dL (0.55-1.02) 11/14/24 05:20 Glucose 104 mg/dL (74-106) 11/14/24 05:20 Phosphorus 2.9 mg/dL (2.5-4.9) 11/08/24 04:55 Magnesium 1.9 mg/dL (1.6-2.4) 11/08/24 04:55 Home Medications: Fluoxetine HCl [Prozac] 3 cap PO DAILY 03/05/23 Furosemide [Lasix*] 40 mg PO DAILY 03/05/23 Pravastatin [Pravachol*] 1 tab PO DAILY 03/05/23 Famotidine 20 mg PO BEDTIME 06/11/24 Pantoprazole Sodium [Protonix] 1 tab PO DAILY 06/11/24 Gabapentin [Neurontin*] 100 mg PO BID 07/14/24 Thiamine HCl [Vitamin B-1*] 200 mg PO BID 07/24/24 Amiodarone HCl [Cordarone*] 200 mg PO BID 30 Days #60 tab 09/29/24 Nifedipine Xl [Procardia Xl*] 30 mg PO DAILY 30 Days #30 tab 09/29/24 Isosorbide Mononitrate [Isosorbide Mononitrate ER] 30 mg PO DAILY 11/02/24 dilTIAZem HCL [Diltiazem 24Hr ER] 240 mg PO DAILY 11/02/24 Acetaminophen [Tylenol*] 650 mg PO Q4HP PRN tab 11/15/24 Amino Acids/Protein Hydrolys [Prosource No Carb Liquid Pkt] 30 ml PO BID packet 11/15/24 Apixaban [Eliquis] 5 mg PO BID 11/15/24 Clonidine Patch [Catapres-Tts 1*] 0.1 mg TD EVERY 7TH DAY pat 11/15/24 Melatonin 5 mg PO BEDTIME PRN PRN 11/15/24 traMADol HCL [Ultram*] 50 mg PO Q6H PRN #15 tab 11/15/24 New Medications: traMADol HCL [Ultram*] 50 mg PO Q6H PRN #15 tab PRN Reason: Pain Scale 5-7 (Moderate) Physician Discharge Instructions: Physician discharge instructions: Patient presents with worsening right heel ulcer/wound concerning for infection. CT foot cortical erosive changes along the medial base of the calcaneus, u nderlying known wound/ulcer. Concerning for ongiong osteomyelitis. ' Arterial doppler ultrasound was negative. CT abdomen was negative. Patient was evaluated by Dr. Nayak and underwent I&D of her infected right heel wound on 11/03. Wound cultures grew Proteus Mirabilis ESBL and E. coli. Urine culture also grew klebsiella pneumonia Esbl. She was started on IV merrem and had improvement of her symptoms. Dr. Thompson (infectious disease) recommended patient complete 6 weeks of IV antibiotics to treat suspected right calcaneus osteomyelitis. PICC line placed 11/06 for usp IV abx. Patient was feeling better, afebrile without leuckocytosis > 24 hours, foot pain improving, and was deemed stable for discharge. Follow up with Dr. Nayak in wound healing center for further management in 1 week. Daily wound care: Wound clean with Vashe wash, pat dry, Apply Santyl, Gauze and Kerlix wrap. Medications: IV merrem (end date: 12/15/24) Follow up: PCP 3-[address] Nayak in office in 1 week Please call to schedule / confirm appointments Diet: AHA Activity: Fall precautions Followup: Sundeep Bernabe MD [Primary Care Provider] - Time spent managing pt's care (in minutes): 39
--- NOTE | 2024-11-15 17:24 | PN ---
Subjective: Patient lying in bed, not in any acute distress. Objective: Vital Signs: Temperature 98, pulse 90, respirations 16, blood pressure 146/89. Lungs: Basal crackles. Heart: S1, S2. Regular. Abdomen: Soft, nontender. Bowel sounds present. Extremities: Trace edema. Wound noted. Laboratory Data: WBC 8, hemoglobin 10.9, platelets 240. Chemistry shows BUN of 13, creatinine 0.7. The patient currently on meropenem. Assessment And Plan: Urinary tract infection resolved with extended-spectrum beta-lactamase Klebsiel la pneumoniae. Heel wound infected with Escherichia coli and Proteus mirabilis, extended-spectrum beta-lactamase. Anemia of chronic disease. Multidrug resistant organism infection and osteomyelitis of left heel. Continue antibiotic for 6 weeks. Monitor signs of infection with WBC and fever trends. NF/MODL Voice ID: [id number] Report ID: [id number]
== END 2024-11-15 15:43 | DRG 463 ==
LOC: ER 13:41 → ERHOLD 15:28 → 2ND 16:31
PROVIDERS: ADMIT Internal Medicine; ATTEND Internal Medicine
PROC: 0JBQ0ZZ Excision of Right Foot Subcutaneous Tissue and Fascia, Open Approach (ICD-10-PCS; principal; 2024-11-03 08:00)
PROC: 02HV33Z Insertion of Infusion Device into Superior Vena Cava, Percutaneous Approach (ICD-10-PCS; 2024-11-06)
DX: M86.8X7 Other osteomyelitis, ankle and foot (principal); G93.41 Metabolic encephalopathy; L89.613 Pressure ulcer of right heel, stage 3; I96 Gangrene, not elsewhere classified; N17.9 Acute kidney failure, unspecified; N39.0 Urinary tract infection, site not specified; Z16.12 Extended spectrum beta lactamase (ESBL) resistance; Z16.24 Resistance to multiple antibiotics; I48.91 Unspecified atrial fibrillation; F32.A Depression, unspecified; I10 Essential (primary) hypertension; E78.00 Pure hypercholesterolemia, unspecified; M19.90 Unspecified osteoarthritis, unspecified site; I89.0 Lymphedema, not elsewhere classified; D63.8 Anemia in other chronic diseases classified elsewhere; B96.89 Other specified bacterial agents as the cause of diseases classified elsewhere; R31.9 Hematuria, unspecified; B96.4 Proteus (mirabilis) (morganii) as the cause of diseases classified elsewhere; B96.1 Klebsiella pneumoniae [K. pneumoniae] as the cause of diseases classified elsewhere; Z88.5 Allergy status to narcotic agent; Z88.8 Allergy status to other drugs, medicaments and biological substances; Z74.01 Bed confinement status; Z79.01 Long term (current) use of anticoagulants; Z90.49 Acquired absence of other specified parts of digestive tract; Z87.891 Personal history of nicotine dependence; Z79.899 Other long term (current) drug therapy
CPT/HCPCS: 36415; 71045; 73700; 74176; 80048; 80202; 81001; 83735; 84100; 84132; 85025; 87070; 87075; 87077; 87086; 87088; 87186; 87205; 88304; 93926; 96365; 96366; 96375; 97110; 97161; 97530; 99285; J0360; J0692; J1644; J2003; J2185; J2250; J2405; J2550; J2704; J3475; J3590; J7030; J7040; J7050; J7120

== ENCOUNTER 2024-12-09 14:41 | Inpatient (IN) | payer OTHER ==
--- NOTE | 2024-12-09 16:04 | RAD REPORT ---
EXAM: CT brain without contrast HISTORY: Confusion COMPARISON: 2023 TECHNIQUE: Multiple contiguous axial images were obtained and a CT of the brain without contrast.. Sagittal and coronal reconstruction performed. Automated exposure control, adjustment of the mA and/or kV according to patient size, and/or iterative reconstruction. Unless otherwise specified, incidental f indings do not require dedicated imaging follow-up FINDINGS: An intracranial bleed is not seen Ventricles are normal caliber No extra-axial fluid collection noted Moderate to marked low density periventricular, deep and subcortical white matter without significant change presumably ischemic changes secondary to small vessel disease. No fluid within the visualized sinuses or mastoids noted. IMPRESSION: No acute intracranial abnormality noted. If the patient continues to have symptoms to suggest an acute intracranial abnormality then MRI of th e brain would be recommended.
[2024-12-09 16:28] LABS: Absolute Basophils 0.1 K/uL (0-0.5); Absolute Eosinophils 0.2 K/uL (0-0.5); Absolute Lymphocytes (CBC) 0.7 K/uL (0.7-4.9); Absolute Neutrophil 7.8 K/uL (1.8-8.0); Basophils % 0.9 % (0-1.3); Eosinophils % 1.7 % (0-4.4); Hemoglobin 9.4 g/dL (12.0-15.0); Lymphocytes % 7.5 % (15.3-44.8); MCH 28.4 pg (27.0-35.0); MCHC 34.8 g/dL (32.0-36.0); MCV 81.5 fL (80-100); MPV 8.9 fL (7.6-11.3); Monocytes % 10.1 % (3.3-12.3); Neutrophils % 79.8 % (41.7-73.7); Nucleated Red Blood Cells % 0.1 % (0-0); Platelets 311 thou/uL (152-406); RBC Red Blood Cell Count 3.31 M/uL (3.86-4.86); Red Cell Distribution Width 16.9 % (12.1-15.2)
--- NOTE | 2024-12-09 16:29 | RAD REPORT ---
Procedure: Chest Single View HISTORY: Cough COMPARISON: October 2024 FINDINGS: Moderate bilateral pulmonary opacities. No significant pleural effusion. The heart is mildly to moderately enlarged. IMPRESSION: These findings probably indicate CHF
[2024-12-09 16:31] LABS: Influenza A Ag Negative; Influenza B Ag Negative
[2024-12-09 16:32] LABS: SARS-CoV-2 Antigen Rapid Res Negative (Negative)
[2024-12-09 16:34] LABS: ALT/SGPT < 14 U/L (13-56); AST/SGOT 21 U/L (15-37); Albumin 1.9 g/dL (3.4-5.0); Albumin/Globulin Ratio 0.4 (1.1-1.8); Alkaline Phosphatase 126 U/L (45-117); Anion Gap 9.3 mEq/L (5.0-15.0); BUN Blood Urea Nitrogen 17 mg/dL (7-18); Bicarbonate 26 mEq/L (21-32); Bilirubin Direct 0.2 mg/dL (0-0.2); Bilirubin Indirect, Calculated 0.6 mg/dL (0.2-0.8); Bilirubin Total 0.8 mg/dL (0.2-1.0); Globulin 4.5 g/dL (2.3-3.5); Glomerular Filtration Rate 62 ml/min (=/>90); Glucose Level 96 mg/dL (74-106); Lipase 9 U/L (13-75); Magnesium 2.1 mg/dL (1.6-2.4); NT PRO-BNP 4212 pg/mL (<125); Potassium 4.3 mEq/L (3.5-5.1); Protein, Total 6.4 g/dL (6.4-8.2); Sodium Level 133 mEq/L (136-145); Troponin High Sensitivity 24.8 pg/mL (<58.9)
[2024-12-09] MEDS ORDERED: FUROSEMIDE 40 MG/4 ML VIAL ONE (16:48)
--- NOTE | 2024-12-09 17:33 | EDPHYS ---
Physician Documentation [facility] Name: Sherita Parada Age: 73 yrs Sex: Female : 1950 Arrival Date: 12/09/2024 Time: 14:41 Bed 17 Private MD: ED Physician Teresa Andres HPI: 12/09 17:33 This 73 yrs old Female presents to ER via EMS with complaints of Shortness Of sw6 Breath. 15:13 The patient presents with EMS from home for evaluation for low oxygen level. She does sw6 have a history of right heel osteomyelitis and was recently admitted and discharged home approximately 3 weeks ago. She does receive IV antibiotics and she had a home health nurse that checked on her today and noted she had a room air saturation of 88%. She does not wear oxygen at baseline. Therefore EMS was called and she was brought for evaluation. Her saturations did improve when she was placed on 2 L of oxygen. She was noted to have a wet sounding cough. She denies complaints. Family reports she is currently at her baseline however EMS reports she appears different to them and that she is not as with it and is not ambulating like she normally does. No history of diabetes. The patient is unable to provide further information herself. she also has a left arm PICC line for which she is receiving IV antibiotics for a right heal osteomyelitis. she was recently discharged from a SNF in [place] on Friday. today is . Here for evaluation.. 17:34 The patient has shortness of breath at rest. Onset: The symptoms/episode began/occurred sw6 several days ago. Duration: The symptoms are continuous, and are steadily getting worse. The patient's shortness of breath has no apparent modifying factors. The patient has not experienced similar symptoms in the past. 17:34 Associated signs and symptoms: Pertinent positives: non-productive cough, Pertinent sw6 negatives: fever. Severity of symptoms: in the emergency department the symptoms are unchanged. Historical: - Allergies: 15:25 codeine sulfate ('makes me crazy'); db 15:25 Morphine; db 15:25 steroids (Hypertension); db - PMHx: 15:25 High Cholesterol; Atrial fibrillation; Hypertension; Ulcers; db - PSHx: 15:25 Appendectomy; Benign Tumor; hysterectomy; Lumpectomy of breast; Cyst removal; db - Immunization history:: Adult Immunizations unknown. - Infectious Disease History:: Denies. - Social history:: Smoking status: unknown. ROS: 15:13 Respiratory: Positive for cough, "sounds productive", sw6 15:13 Unable to obtain ROS due to altered mental status, 17:33 Constitutional: Negative for fever, chills, and weight loss, sw6 Exam: 15:13 Constitutional: This is a well developed, well nourished patient who is awake, alert, sw6 and in no acute distress. Cardiovascular: Regular rate and rhythm with a normal S1 and S2. No gallops, murmurs, or rubs. Normal PMI, no JVD. No pulse deficits. Abdomen/GI: Soft, non-tender, with normal bowel sounds. No distension or tympany. No guarding or rebound. No evidence of tenderness throughout. 15:13 Respiratory: the patient does not display signs of respiratory distress, Poor air movement to bilateral lungs with a wet sounding cough. There is no wheezing heard. She has no use accessory muscles., 15:13 Musculoskeletal/extremity: Dressing intact to right foot and heel. She is unable to wiggle the toes of her right foot.. 15:13 Neuro: The patient is orientated to person and place only. She is not orientated to time. She is able to fully move her bilateral arms as well as her left leg but not the right lower leg., 16:39 ECG was reviewed by the Attending Physician. sw6 17:18 Musculoskeletal/extremity: Left upper arm PICC line site is clean, dry and intact.. sw6 Vital Signs: 15:25 BP 128 / 74; Pulse 73; Resp 24; Temp 99; Pulse Ox 96% on 2 lpm NC; db 16:00 BP 142 / 76; Pulse 73; Resp 16; Pulse Ox 95% on R/A; db 17:20 BP 135 / 80; Pulse 69; Resp 20; Pulse Ox 95% on 2 lpm NC; db 18:00 BP 121 / 76; Pulse 71; Resp 23; Pulse Ox 95% on 2 lpm NC; db 18:30 BP 136 / 76; Pulse 71; Resp 20; Pulse Ox 95% on 2 lpm NC; db 19:30 BP 129 / 84; Pulse 69; Resp 20; Pulse Ox 98% ; ay 20:30 BP 120 / 68; Pulse 68; Resp 19; Pulse Ox 96% on 2 lpm NC; ay 21:30 BP 141 / 75; Pulse 65; Resp 21; Pulse Ox 100% on 2 lpm NC; ay MDM: 15:03 Medical Screening Exam initiated 15:13 Differential diagnosis: Bronchitis pneumonia, reactive airway disease, Sepsis. Data reviewed: vital signs, nurses notes, EMS record. 16:39 Consideration of Admission/Observation Patient was admitted/placed on observation. Management of patient was discussed with the following:. ED course: The patient is doing well here in the ER. Her EKG shows a normal sinus rhythm, no STEMI. Her laboratory studies showed normal troponin as well as an elevated BNP at 4212. She also has a low albumin level at 1.7. Her chest x-ray shows pulmonary edema. She was given a dose of IV Lasix here in the ER. As she does have a new oxygen requirement due to her volume overload she does require admission for continued management.. 17:33 ED course: Spoke with Dr. Bellamy with the internal medicine service and the patient was [facility] accepted for admission for continued management.. 12/09 15:12 Order name: BMP; Complete Time: 16:37 12/09 16:37 Interpretation: Within normal limits. 12/09 15:12 Order name: CBC with Diff; Complete Time: 16:37 12/09 16:37 Interpretation: Abnormal: Anemia. 12/09 15:12 Order name: Hepatic Function; Complete Time: 16:37 12/09 16:38 Interpretation: Abnormal: Hypoalbuminemia. 12/09 15:12 Order name: Lipase; Complete Time: 16:37 12/09 16:38 Interpretation: Within normal limits. 12/09 15:12 Order name: Magnesium; Complete Time: 16:37 12/09 15:12 Order name: NT PRO-BNP; Complete Time: 16:37 12/09 16:38 Interpretation: Abnormal: Elevated bnp. 12/09 15:12 Order name: Troponin HS; Complete Time: 16:37 12/09 16:37 Interpretation: Within normal limits. 12/09 15:12 Order name: COVID-19 Ag + Flu A+B Ag; Complete Time: 16:37 12/09 16:37 Interpretation: Within normal limits. sw6 12/09 17:56 Order name: T4 Free EDMS 12/09 17:56 Order name: Thyroid Stimulating Hormone EDMS 12/09 17:56 Order name: Urinalysis w/ reflexes EDMS 12/09 17:56 Order name: Basic Metabolic Panel EDMS 12/09 17:56 Order name: Basic Metabolic Panel EDMS 12/09 17:56 Order name: Basic Metabolic Panel EDMS 12/09 17:56 Order name: Basic Metabolic Panel EDMS 12/09 17:56 Order name: Basic Metabolic Panel EDMS 12/09 17:56 Order name: Basic Metabolic Panel EDMS 12/09 17:56 Order name: Basic Metabolic Panel EDMS 12/09 17:56 Order name: Basic Metabolic Panel EDMS 12/09 17:56 Order name: CBC with Automated Diff EDMS 12/09 17:56 Order name: CBC with Automated Diff EDMS 12/09 17:56 Order name: CBC with Automated Diff EDMS 12/09 17:56 Order name: CBC with Automated Diff EDMS 12/09 17:56 Order name: CBC with Automated Diff EDMS 12/09 17:56 Order name: CBC with Automated Diff EDMS 12/09 17:56 Order name: CBC with Automated Diff EDMS 12/09 17:56 Order name: CBC with Automated Diff EDMS 12/09 17:56 Order name: Magnesium EDMS 12/09 17:56 Order name: Magnesium EDMS 12/09 17:56 Order name: Magnesium EDMS 12/09 17:56 Order name: Magnesium EDMS 12/09 17:56 Order name: Magnesium EDMS 12/09 17:56 Order name: Magnesium EDMS 12/09 17:56 Order name: Magnesium EDMS 12/09 17:56 Order name: Magnesium EDMS 12/09 17:56 Order name: Phosphorus EDMS 12/09 17:56 Order name: Phosphorus EDMS 12/09 17:56 Order name: Phosphorus EDMS 12/09 17:56 Order name: Phosphorus EDMS 12/09 17:56 Order name: Phosphorus EDMS 12/09 17:56 Order name: Phosphorus EDMS 12/09 17:56 Order name: Phosphorus EDMS 12/09 17:56 Order name: Phosphorus EDMS 12/09 17:56 Order name: Troponin High Sensitivity EDMS 12/09 17:56 Order name: Troponin High Sensitivity EDMS 12/09 17:56 Order name: Troponin High Sensitivity [facility] 12/09 15:12 Order name: XRAY CXR (1 view); Complete Time: 16:30 6 12/09 16:30 Interpretation: Pulmonary edema. sw6 12/09 15:12 Order name: CT Head Brain wo Cont; Complete Time: 16:30 sw6 12/09 17:56 Order name: Echo with Doppler [facility] 12/09 15:12 Order name: EKG; Complete Time: 15:13 sw6 12/09 17:58 Order name: Physical Therapy Consult [facility] 12/09 15:12 Order name: Cardiac monitoring; Complete Time: 16:15 sw6 12/09 15:12 Order name: EKG - Nurse/Tech; Complete Time: 16:15 sw6 12/09 15:12 Order name: IV Saline Lock; Complete Time: 16:15 sw6 12/09 15:12 Order name: Labs collected and sent; Complete Time: 16:15 6 12/09 15:12 Order name: O2 Per Protocol; Complete Time: 16:15 sw12/09 15:12 Order name: O2 Sat Monitoring; Complete Time: 16:15 EC:39 Rate is 72 beats/min. Rhythm is regular. QRS [place] is Normal. QRS interval is prolonged. sw6 QT interval is normal. No Q waves. T waves are Normal. No ST changes noted. Administered Medications: 17:15 Drug: Furosemide IVP 40 mg IVP once; give over 2 minutes Route: IVP; Site: left upper db arm; 19:05 Follow up: Response: No adverse reaction db Disposition Summary: 12/09/24 17:32 Hospitalization Ordered Notes: Hospitalization Status: Inpatient Admission 6 Provider: Jose L Bellamy sw6 Condition: Fair sw6 Problem: an acute exacerbation sw6 Symptoms: are unchanged sw6 Bed/Room Type: Standard [facility] Location: Telemetry/MedSurg (Inpatient)(12/10/24 04:44) Room Assignment: [facility](12/10/24 04:45) Diagnosis - Acute systolic (congestive) heart failure sw6 - hypoxia sw6 - hypoalbuminemia sw6 Forms: - Medication Reconciliation Form sw6 - SBAR form sw6 - Leadership Thank You Letter [facility] Signatures: Dispatcher [employer] Adrienne Pearce RN RN kl Benton, Danielle, RN RN db Williams, Sandra, MD MD 6 Corrections: (The following items were deleted from the chart) 15:50 15:25 PSHx: Benign Tumor; db db 15:50 15:25 PSHx: Cyst removal; db db 16:37 16:37 Within normal limits. 6 [facility] 17:18 15:13 Musculoskeletal/extremity: Dressing intact to left foot and heel. She is unable [facility] to wiggle the toes of her left foot.. 6 :18 15:13 Neuro: The patient is orientated to person and place only. She is not orientated sw to time. She is able to fully move her bilateral arms as well as her right leg but not the left lower leg., [facility] 17:20 15:13 The patient presents with EMS from home for evaluation for low oxygen level. She sw6 does have a history of right heel osteomyelitis and was recently admitted and discharged home approximately 3 weeks ago. She does receive IV antibiotics and she had a home health nurse that checked on her today and noted she had a room air saturation of 88%. She does not wear oxygen at baseline. Therefore EMS was called and she was brought for evaluation. Her saturations did improve when she was placed on 2 L of oxygen. She has noted to have a wet sounding cough. She denies complaints. Family reports she is currently at her baseline however EMS reports she appears different to them and that she is not as with them and is not ambulating like she normally does. No history of diabetes. The patient is unable to write further information herself. Here for evaluation.. [facility] : 17:32 Telemetry/MedSurg (Inpatient) [facility] 21:24 17:32 [facility] 12/10 04:44 20 21:24 [facility] ER HOLD [facility] 12/10 04:44 0320 21:24 ERHOLD- [facility] 12/10 04:45 04:44 [facility]
--- NOTE | 2024-12-09 17:33 | ER ---
Nurse's Notes [facility] Name: Sherita Parada Age: 73 yrs Sex: Female : 1950 Arrival Date: 12/09/2024 Time: 14:41 Bed 17 Private MD: Diagnosis: Acute systolic (congestive) heart failure;hypoxia;hypoalbuminemia Presentation: 12/09 15:25 Chief complaint: EMS states: SOB, LOW SPO2 AT HOME 88% RA. MORE AMS THAN NORMAL. db HOSPITALIZED 3 WEEKS AGO FOR R HEEL INFECTION. LEFT PICC JIMMY FOR HOME ABX. NONAMBULATORY. Coronavirus screen: Client denies travel out of the [place] in the last 14 days. At this time, the client does not indicate any symptoms associated with coronavirus-19. Ebola Screen: Patient negative for fever greater than or equal to 101.5 degrees Fahrenheit, and additional compatible Ebola Virus Disease symptoms Patient denies exposure to infectious person. Patient denies travel to an Ebola-affected area in the 21 days before illness onset. No symptoms or risks identified at this time. Initial Sepsis Screen: Does the patient meet any 2 criteria? RR > 20 per min. Yes Does the patient have a suspected source of infection? No. Patient's initial sepsis screen is negative. Risk Assessment: Do you want to hurt yourself or someone else? Patient reports no desire to harm self or others. Onset of symptoms was December 09, 2024. 15:25 Method Of Arrival: EMS: [facility] db 15:25 Acuity: NAVIN 2 db 15:25 Care prior to arrival: Glucose check: 100 Oxygen administered. via nasal cannula. db Triage Assessment: 15:25 General: Appears in no apparent distress. comfortable, Behavior is calm, cooperative, db drowsy. Pain: Denies pain. Respiratory: Reports shortness of breath Airway is patent Respiratory effort is even, unlabored, Respiratory pattern is regular, symmetrical. Historical: - Allergies: 15:25 codeine sulfate ('makes me crazy'); db 15:25 Morphine; db 15:25 steroids (Hypertension); db - PMHx: 15:25 High Cholesterol; Atrial fibrillation; Hypertension; Ulcers; db - PSHx: 15:25 Appendectomy; Benign Tumor; hysterectomy; Lumpectomy of breast; Cyst removal; db - Immunization history:: Adult Immunizations unknown. - Infectious Disease History:: Denies. - Social history:: Smoking status: unknown. Screenin:20 [facility] ED Fall Risk Assessment (Adult) History of falling in the last 3 months, db including since admission Yes- fall prone (multiple falls) (3 pts) Confusion or Disorientation No (0 pts) Intoxicated or Sedated No (0 pts) Impaired Gait Yes (1 pt) Mobility Assist Device Used No (0 pt) Altered Elimination No (0 pt) Score/Fall Risk Level 3 or more points = High Risk Oriented to surroundings, Maintained a safe environment, Hourly rounding (assess needs \T\ fall precautionary measures) done. Abuse screen: Denies threats or abuse. Denies injuries from another. Nutritional screening: No deficits noted. Tuberculosis screening: No symptoms or risk factors identified. Assessment: 15:32 Reassessment: PATIENT IS IN CT. db 16:16 Reassessment: Patient appears in no apparent distress at this time. Patient and/or db family updated on plan of care and expected duration. Pain level reassessed. Patient is alert, oriented x 3, equal unlabored respirations, skin warm/dry/pink. General: Appears in no apparent distress. comfortable, Behavior is calm, cooperative. Pain: Denies pain. Neuro: Level of Consciousness is awake, alert, obeys commands, Oriented to person, place, time, situation. 16:16 Derm: Skin is Wound noted lateral side of right heel and medial aspect of right heel. db 17:20 Reassessment: Patient appears in no apparent distress at this time. Patient and/or db family updated on plan of care and expected duration. Pain level reassessed. Patient is alert, oriented x 3, equal unlabored respirations, skin warm/dry/pink. FAMILY IS AT BEDSIDE. Respiratory: Airway is patent Respiratory effort is even, unlabored, Respiratory pattern is regular, symmetrical. 19:10 General: Appears in no apparent distress. comfortable, Behavior is calm, cooperative. ay Pain: Denies pain. Neuro: Level of Consciousness is awake, alert, obeys commands, Oriented to person, place. Cardiovascular: Denies chest pain, nausea, vomiting, Capillary refill < 3 seconds. Respiratory: Airway is patent Respiratory effort is even, unlabored, on 2L NC with saturation above 95%. Derm: Wound noted right foot and medial aspect of right heel and lateral side of right heel wound dressed with gauze and wrapped with marie bandage. Vital Signs: 15:25 BP 128 / 74; Pulse 73; Resp 24; Temp 99; Pulse Ox 96% on 2 lpm NC; db 16:00 BP 142 / 76; Pulse 73; Resp 16; Pulse Ox 95% on R/A; db 17:20 BP 135 / 80; Pulse 69; Resp 20; Pulse Ox 95% on 2 lpm NC; db 18:00 BP 121 / 76; Pulse 71; Resp 23; Pulse Ox 95% on 2 lpm NC; db 18:30 BP 136 / 76; Pulse 71; Resp 20; Pulse Ox 95% on 2 lpm NC; db 19:30 BP 129 / 84; Pulse 69; Resp 20; Pulse Ox 98% ; ay 20:30 BP 120 / 68; Pulse 68; Resp 19; Pulse Ox 96% on 2 lpm NC; ay 21:30 BP 141 / 75; Pulse 65; Resp 21; Pulse Ox 100% on 2 lpm NC; ay ED Course: 15:01 Patient arrived in ED. kb3 15:03 Teresa Andres MD is Attending Physician. sw6 15:25 Arm band placed on Patient placed in an exam room. db 15:31 CT Head Brain wo Cont In Process Unspecified. EDMS 15:31 Chelsy Britt, RN is Primary Nurse. db 15:33 Patient moved back from CT. db 15:43 XRAY CXR (1 view) In Process Unspecified. EDMS 15:49 Triage completed. db 16:00 Initial lab(s) drawn, by me, sent to lab. EKG done. Accessed MIDLINE LEFT UPPER ARM. db 16:16 Patient has correct armband on for positive identification. Bed in low position. Call db light in reach. Side rails up X2. Client placed on continuous cardiac and pulse oximetry monitoring. NIBP monitoring applied. tool worker on. Pulse ox on. NIBP on. Warm blanket given. Pillow given. PATIENT PLACED ON PURWICK. 17:31 Jose L Bellamy MD is Hospitalizing Provider. sw6 18:46 Oxygen administration via nasal cannula \T\ 2L/min Response to oxygen therapy: symptoms db improved. 20:27 Mat Tapia, RN is Primary Nurse. ay 12/10 05:30 Patient admitted, IV remains in place. ay Administered Medications: 12/09 17:15 Drug: Furosemide IVP 40 mg IVP once; give over 2 minutes Route: IVP; Site: left upper db arm; 19:05 Follow up: Response: No adverse reaction db Medication: 17:21 VIS not applicable for this client. db Outcome: 17:32 Decision to Hospitalize by Provider. sw6 12/10 05:30 Admitted to Med/surg accompanied by nurse, accompanied by tech, with oxygen, ay Condition: stable Instructed on the need for admit, 06:08 Patient left the ED. ay Signatures: Dispatcher [employer] EDMS Jaquelin Starkey RN RN kb3 Chelsy Britt RN RN db Teresa Andres MD MD sw6 Mat Tapia RN RN ay Corrections: (The following items were deleted from the chart) 12/09 15:50 15:25 PSHx: Benign Tumor; db db 15:50 15:25 PSHx: Cyst removal; db db 19:02 16:16 Reassessment: Patient appears in no apparent distress at this time. Patient db and/or family updated on plan of care and expected duration. Pain level reassessed. Patient is alert, oriented x 3, equal unlabored respirations, skin warm/dry/pink. db
[2024-12-09] MEDS ORDERED: ACETAMINOPHEN 325 MG TABLET PO PRN (17:49)
--- NOTE | 2024-12-09 17:57 | P.HP ---
Certification for Inpatient Patient admitted to: Observation With expected LOS: <2 Midnights Practitioner: I am a practitioner with admitting privileges, knowledge of patient current condition, hospital course, and medical plan of care. Services: Services provided to patient in accordance with Admission requirements found in Title 42 Section 412.3 of the Code of Federal Regulations Patient History Date of Service: 12/09/24 Reason for admission: Acute hypoxic respiratory failure secondary to CHF exacerbation History of Present Illness: Sherita Parada is a 73 year old female with pmhx Afib, hypercholesterolemia, hypertension, ulcers who presents to the ED with decreased oxygen saturation that was monitored by HH PT. Daughter at the bedside reports she does not have oxygen at home. She has reportedly been discharged home from SNF for PT and now using HH PT. Her last admission was for gangrene to right foot. Laboratory evaluation significant for H&H 06/18, left shift neutrophils 79, sodium 133, BNP 4212, alk phos 126, albumin 1.9, lipase 9. Chest x-ray reports "These findings probably indicate CHF" Brain CT reports "Moderate to marked low density periventricular, deep and subcortical white matter without significant change presumably ischemic changes secondary to small vessel disease. No fluid within the visualized sinuses or mastoids noted. No acute intracranial abnormality noted." Sherita will be admitted to hospitalist service for Acute hypoxic respiratory failure secondary to CHF exacerbation. Allergies codeine Allergy (Verified 06/10/24 22:07) AMS morphine Adverse Reaction (Unknown, Verified 07/13/24 22:58) unknown prednisone Adverse Reaction (Verified 07/13/24 22:58) hypertension Home Medications: Gabapentin [Neurontin*] 100 mg PO BID 07/14/24 Thiamine HCl [Vitamin B-1*] 200 mg PO BID 07/24/24 Amiodarone HCl [Cordarone*] 200 mg PO BID 30 Days #60 tab 09/29/24 Nifedipine Xl [Procardia Xl*] 30 mg PO DAILY 30 Days #30 tab 09/29/24 Acetaminophen [Tylenol*] 650 mg PO Q4HP PRN tab 11/15/24 Clonidine Patch [Catapres-Tts 1*] 0.1 mg TD EVERY 7TH DAY pat 11/15/24 Melatonin 5 mg PO BEDTIME PRN PRN 11/15/24 traMADol HCL [Ultram*] 50 mg PO Q4H PRN 12/10/24 - Past Medical/Surgical History Diabetic: No -: Depression -: Hypertension -: Osteoarthritis -: Lymphedema L -: A-fib-not on anticoagulation -: Hyperlipidemia -: History of GI bleed/gastric ulcers -: SX salivatory gland Psychosocial/ Personal History: Lives at home with her son - Family History Mother -: Diabetes, Stroke - Social History Alcohol use: No CD- Drugs: No Caffeine use: Yes Review of Systems Other: per HPI Physical Examination - Physical Exam General: Oriented x1, Other (fatigue) HEENT: Atraumatic Neck: Supple, 2+ carotid pulse no bruit Respiratory: Clear to auscultation bilaterally, Normal air movement Cardiovascular: No edema, Normal pulses Capillary refill: <2 Seconds Gastrointestinal: Normal bowel sounds Musculoskeletal: No clubbing Integumentary: No rashes Neurological: Normal speech - Studies Laboratory Data (last 24 hrs) 12/09/24 12/09/24 16:03 16:03 WBC 9.80 Hgb 9.4 L Hct 27.0 L Plt Count 311 Sodium 133 L Potassium 4.3 BUN 17 Creatinine 0.96 Glucose 96 Magnesium 2.1 Total Bilirubin 0.8 AST 21 ALT < 14 Alkaline Phosphatase 126 H Lipase 9 L Assessment and Plan - Plan Assessment and Plan Acute hypoxic respiratory failure secondary to CHF exacerbation Fluid volume overload secondary to CHF exacerbation -Lasix given in the ED -IV Lasix -Intake and output, daily weight -Oxygen protocol ordered Hyponatremia -NA 133 -monitor in AM labs Anemia -H/H 06/18 -Transfuse when Hgb< 7 Right foot ulcer -Daily dressing Hypercholesterolemia Atrial fibrillation Hypertension/Hyperlipidemia Osteoarthritis Lymphedema Depression History of GI bleed/gastric ulcers -Continue home medications of appropriate -Follow up outpatient DVT PPx heparin DNR LOS 24-hour OBS Discharge Plan: Home Plan to discharge in: 24 Hours - Advance Directives Does patient have a Living Will: No Does patient have a Durable POA for Healthcare: No
[2024-12-09 22:44] VITALS: BMI 33.3
[2024-12-10] MEDS: HEPARIN 5000 UNIT/ML 1 ML VIAL SQ SCH (01:00)
[2024-12-10] MEDS ORDERED: HEPARIN 5000 UNIT/ML 1 ML VIAL ONE (02:03)
[2024-12-10 05:42] LABS: Absolute Basophils 0.1 K/uL (0-0.5); Absolute Eosinophils 0.3 K/uL (0-0.5); Absolute Lymphocytes (CBC) 0.6 K/uL (0.7-4.9); Absolute Monocytes 0.8 K/uL (0.1-1.3); Absolute Neutrophil 5.8 K/uL (1.8-8.0); Basophils % 1.3 % (0-1.3); Eosinophils % 3.5 % (0-4.4); Hematocrit 25.7 % (36.0-45.0); Hemoglobin 8.9 g/dL (12.0-15.0); Lymphocytes % 8.5 % (15.3-44.8); MCH 28.2 pg (27.0-35.0); MCHC 34.7 g/dL (32.0-36.0); MCV 81.3 fL (80-100); MPV 9.2 fL (7.6-11.3); Monocytes % 10.4 % (3.3-12.3); Neutrophils % 76.3 % (41.7-73.7); Nucleated Red Blood Cells % 0.1 % (0-0); Platelets 303 thou/uL (152-406); RBC Red Blood Cell Count 3.16 M/uL (3.86-4.86); Red Cell Distribution Width 16.8 % (12.1-15.2)
[2024-12-10 05:58] LABS: Anion Gap 9.6 mEq/L (5.0-15.0); Magnesium 2.1 mg/dL (1.6-2.4); Phosphorus 3.3 mg/dL (2.5-4.9); Potassium 3.6 mEq/L (3.5-5.1); Thyroid Stimulating Hormone 1.44 uIU/mL (0.358-3.740)
[2024-12-10] MEDS: FUROSEMIDE 40 MG/4 ML VIAL IV SCH (08:53)
[2024-12-10] MEDS: POTASSIUM CL SA 10 MEQ TAB PO ONE (08:54)
[2024-12-10] MEDS ORDERED: MELATONIN 5 MG TABLET PO PRN (14:00)
[2024-12-10] MEDS: NIFEDIPINE XL 30 MG TABLET PO SCH (15:24)
[2024-12-10] MEDS: CLONIDINE 0.1 MG/PATCH TD SCH (15:25)
[2024-12-10 15:28] LABS: Specific Gravity 1.012 (1.005-1.030); Sqamous Epithelial <5 /HPF (None Seen); Urine Bacteria <20 /HPF (<20); Urine Bilirubin NEGATIVE (Negative); Urine Blood 3+ (OVER) (Negative); Urine Clarity Extremely Turbid (Clear); Urine Color Light-Yellow (Yellow); Urine Crystals Unidentified Few /HPF (None Seen); Urine Culture Reflex Order NOT NEEDED; Urine Glucose NEGATIVE (Negative); Urine Ketones NEGATIVE (Negative); Urine Microscopic Reflex YN ORDER UMIC; Urine Mucus Slight /HPF (None Seen); Urine Nitrite NEGATIVE (Negative); Urine Protein 1+ (Negative); Urine RBC >50 /HPF (None Seen); Urine Urobilinogen Normal (Normal); Urine WBC <5 /HPF (<5); Urine WBC Clump Rare /HPF (None Seen); Urine Yeast (Budding) Occasional /HPF (None Seen)
[2024-12-10] MEDS ORDERED: ONDANSETRON 4 MG/2 ML VIAL IV PRN (17:13)
[2024-12-10] MEDS: TRAMADOL HCL 50 MG TAB PO PRN (17:14)
--- NOTE | 2024-12-10 18:37 | P.PN ---
Date of Service: 12/10/24 Subjective awake in bed, reports being bed bound able to work with physical therapy ROS 10 point ROS as noted above, otherwise negative Physical Exam General: Oriented x1, Other (fatigue) HEENT: Atraumatic Neck: Supple, 2+ carotid pulse no bruit Respiratory: Clear to auscultation bilaterally, Normal air movement, 3 LNC Cardiovascular: No edema, Normal pulses Capillary refill: <2 Seconds Gastrointestinal: Normal bowel sounds Musculoskeletal: No clubbing Integumentary: No rashes Neurological: Normal speech Vitals Reviewed Problem list Acute hypoxic respiratory failure secondary to CHF exacerbation Fluid volume overload secondary to CHF exacerbation Hyponatremia Anemia Right foot ulcer Hypercholesterolemia Atrial fibrillation Hypertension/Hyperlipidemia Osteoarthritis Lymphedema Depression History of GI bleed/gastric ulcers Assessment and Plan Acute hypoxic respiratory failure secondary to CHF exacerbation Fluid volume overload secondary to CHF exacerbation -Lasix given in the ED -IV Lasix x 1 -Monitor electrolyes, replace PRN -Intake and output, daily weight -Oxygen protocol ordered Hyponatremia -NA 134 -monitor in AM labs Anemia -H/H 05/16- stable -Transfuse when Hgb< 7 Right foot ulcer -Daily dressing -Follow Wound culture Hypercholesterolemia Atrial fibrillation Hypertension/Hyperlipidemia Osteoarthritis Lymphedema Depression History of GI bleed/gastric ulcers -Continue home medications of appropriate -Follow up outpatient DVT PPx heparin DNR LOS 24-hour OBS Discharge Plan: Home Plan to discharge in: 24 Hours
[2024-12-10] MEDS: AMIODARONE HCL 200 MG TAB PO SCH (21:13)
[2024-12-10] MEDS: GABAPENTIN 100 MG CAP PO SCH (21:13)
[2024-12-10] MEDS: THIAMINE HCL 100 MG TABLET PO SCH (21:14)
[2024-12-11 06:18] LABS: Absolute Basophils 0.1 K/uL (0-0.5); Absolute Eosinophils 0.3 K/uL (0-0.5); Absolute Monocytes 0.7 K/uL (0.1-1.3); Absolute Neutrophil 5.1 K/uL (1.8-8.0); Basophils % 0.9 % (0-1.3); Eosinophils % 4.9 % (0-4.4); Hematocrit 28.4 % (36.0-45.0); Hemoglobin 9.8 g/dL (12.0-15.0); Lymphocytes % 13.4 % (15.3-44.8); MCH 28.1 pg (27.0-35.0); MCHC 34.6 g/dL (32.0-36.0); MPV 8.8 fL (7.6-11.3); Monocytes % 10.1 % (3.3-12.3); Neutrophils % 70.7 % (41.7-73.7); Platelets 352 thou/uL (152-406); RBC Red Blood Cell Count 3.51 M/uL (3.86-4.86); Red Cell Distribution Width 16.5 % (12.1-15.2)
[2024-12-11 06:55] LABS: Albumin/Globulin Ratio 0.4 (1.1-1.8); Anion Gap 9.7 mEq/L (5.0-15.0); Bilirubin Total 0.6 mg/dL (0.2-1.0); Globulin 4.8 g/dL (2.3-3.5); Magnesium 2.1 mg/dL (1.6-2.4); Phosphorus 3.4 mg/dL (2.5-4.9); Potassium 3.7 mEq/L (3.5-5.1); Protein, Total 6.8 g/dL (6.4-8.2)
[2024-12-11 10:39] VITALS: O2SAT 95
[2024-12-11] MEDS: POTASSIUM CL SA 10 MEQ TAB PO ONE (14:05)
[2024-12-11 16:38] VITALS: BP 111/66; TEMP 97.8
--- NOTE | 2024-12-11 18:00 | P.DS ---
Admission Date: 12/10/24 Discharge Date: 12/11/24 Disposition: ROUTINE DISCHARGE Discharge Condition: GOOD Reason for Admission: Acute hypoxic respiratory failure secondary to CHF exacerbation Brief History of Present Illness: Diagnosis Acute hypoxic respiratory failure secondary to CHF exacerbation Fluid volume overload secondary to CHF exacerbation Hyponatremia Anemia Right foot ulcer Hypercholesterolemia Atrial fibrillation Hypertension/Hyperlipidemia Osteoarthritis Lymphedema Depression History of GI bleed/gastric ulcers HPI 12/09/24 Sherita Parada is a 73 year old female with pmhx Afib, hypercholesterolemia, hypertension, ulcers who presents to the ED with decreased oxygen saturation that was monitored by PT. Daughter at the bedside reports she does not have oxygen at home. She has reportedly been discharged home from SNF for PT and now using HH PT. Her last admission was for gangrene to right foot. Laboratory evaluation significant for H&H 06/18, left shift neutrophils 79, sodium 133, BNP 4212, alk phos 126, albumin 1.9, lipase 9. Chest x-ray reports "These findings probably indicate CHF" Brain CT reports "Moderate to marked low density periventricular, deep and subcortical white matter without significant change presumably ischemic changes secondary to small vessel disease. No fluid within the visualized sinuses or mastoids noted. No acute intracranial abnormality noted." hSerita will be admitted to hospitalist service for Acute hypoxic respiratory failure secondary to CHF exacerbation. Hospital Course: Sherita was admitted and treated for the following diagnosis Acute hypoxic respiratory failure secondary to CHF exacerbation Fluid volume overload secondary to CHF exacerbation -Tolerated Lasix -electrolyes replaced -Intake and output and daily weight measured -Oxygen supplemented Hyponatremia -Na stable Anemia -H/H stable Right foot ulcer -Daily dressing -Wound culture-gram positive rods- ceftin Hypercholesterolemia Atrial fibrillation Hypertension/Hyperlipidemia Osteoarthritis Lymphedema Depression History of GI bleed/gastric ulcers -Continued home medications appropriately -Follow up outpatient General: awake, Oriented x1, Other (fatigue) HEENT: Atraumatic Neck: Supple, 2+ carotid pulse no bruit Respiratory: Clear BBS, Normal air movement Cardiovascular: No edema, Normal pulses Capillary refill: <2 Seconds Gastrointestinal: Normal bowel sounds, soft and nontender on palpation Musculoskeletal: No clubbing Integumentary: No rashes Neurological: Normal speech Vital Signs/Physical Exam: Temp Pulse Resp BP Pulse Ox 97.8 F 88 16 111/66 94 12/11/24 16:00 12/11/24 16:00 12/11/24 16:00 12/11/24 16:00 12/11/24 16:00 Laboratory Data at Discharge: WBC 7.20 thou/uL (4.3-10.9) 12/11/24 05:49 Hgb 9.8 g/dL (12.0-15.0) L D 12/11/24 05:49 Hct 28.4 % (36.0-45.0) L 12/11/24 05:49 Plt Count 352 thou/uL (152-406) 12/11/24 05:49 Sodium 130 mEq/L (136-145) L 12/11/24 05:49 Potassium 3.7 mEq/L (3.5-5.1) 12/11/24 05:49 BUN 16 mg/dL (7-18) 12/11/24 05:49 Creatinine 0.86 mg/dL (0.55-1.02) 12/11/24 05:49 Glucose 88 mg/dL (74-106) 12/11/24 05:49 Phosphorus 3.4 mg/dL (2.5-4.9) 12/11/24 05:49 Magnesium 2.1 mg/dL (1.6-2.4) 12/11/24 05:49 Total Bilirubin 0.6 mg/dL (0.2-1.0) 12/11/24 05:49 AST 27 U/L (15-37) 12/11/24 05:49 ALT 19 U/L (13-56) 12/11/24 05:49 Alkaline Phosphatase 133 U/L (45-117) H 12/11/24 05:49 Lipase 9 U/L (13-75) L 12/09/24 16:03 Home Medications: Gabapentin [Neurontin*] 100 mg PO BID 07/14/24 Thiamine HCl [Vitamin B-1*] 200 mg PO BID 07/24/24 Amiodarone HCl [Cordarone*] 200 mg PO BID 30 Days #60 tab 09/29/24 Nifedipine Xl [Procardia Xl*] 30 mg PO DAILY 30 Days #30 tab 09/29/24 Acetaminophen [Tylenol*] 650 mg PO Q4HP PRN tab 11/15/24 Clonidine Patch [Catapres-Tts 1*] 0.1 mg TD EVERY 7TH DAY pat 11/15/24 Melatonin 5 mg PO BEDTIME PRN PRN 11/15/24 traMADol HCL [Ultram*] 50 mg PO Q4H PRN 12/10/24 Cefdinir [Cefdinir*] 300 mg PO BID #14 cap 12/11/24 Ipratropium/Albuterol Sulfate [Iprat-Albut 0.5-3(2.5) mg/3 ml] 3 ml IH Q6HP PRN #60 amp 12/11/24 New Medications: Ipratropium/Albuterol Sulfate [Iprat-Albut 0.5-3(2.5) mg/3 ml] 3 ml IH Q6HP PRN #60 amp PRN Reason: Shortness Of Breath Cefdinir [Cefdinir*] 300 mg PO BID #14 cap Physician Discharge Instructions: -DC IV and DC home -Please notify pH regarding discharge -Follow-up with PCP in 1 to 2 weeks -Follow-up with Pulmonary in 1 to 2 weeks -Please call Dr. Bellamy at [phone] if any questions regarding hospital stay -Please call nursing station at [phone] if any nursing or medication questions -Return to the emergency room if symptoms worsen Diet: AHA Activity: Fall precautions Followup: Sundeep Bernabe MD [Primary Care Provider] -
--- NOTE | 2024-12-13 09:13 | ECHO ---
HEIGHT: 5 ft 5 in WEIGHT: 184 lb 0 oz DATE OF STUDY: 12/10/[address]: Kristin Noland NP 2-DIMENSIONAL: YES M.MODE: YES DOPPLER: YES COLOR FLOW: YES TDS: PORTABLE: YES DEFINITY: BUBBLE STUDY: DIAGNOSIS: CONGESTIVE HEART FAILURE EXACERBATION CARDIAC HISTORY: CATHERIZATION: NO SURGERY: NO PROSTHETIC VALVE: NO PACEMAKER: NO MEASUREMENTS (cm) DIASTOLIC (NORMALS) SYSTOLIC (NORMALS) IVSd 1.1 (0.6-1.2) LA Diam 2.9 (1.9-4.0) LVEF 55-60% LVIDd 3.3 (3.5-5.7) LVIDs 2.3 (2.0-3.5) %FS 30% LVPWd 1.2 (0.6-1.2) Ao Diam 2.7 (2.0-3.7) 2 DIMENSIONAL ASSESSMENT: RIGHT ATRIUM: NORMAL LEFT ATRIUM: NORMAL RIGHT VENTRICLE: NORMAL LEFT VENTRICLE: NORMAL TRICUSPID VALVE: MILD TRICUSPID REGURGITATION MITRAL VALVE: MITRAL ANNULAR CALCIFICATION WITH TRACE MITRAL REGURGIATION PULMONIC VALVE: NOT SEEN AORTIC VALVE: NORMAL PERICARDIAL EFFUSION: NONE AORTIC ROOT: NORMAL LEFT VENTRICULAR WALL MOTION: NORMAL DOPPLER/COLOR FLOW: SEE BELOW COMMENTS: 1. NORMAL LEFT VENTRICULAR EJECTION FRACTION 55-60% WITH NORMAL WALL MOTION 2. GRADE I DIASTOLIC DYSFUNCTION 3. MODERATE MITRAL ANNULAR CALCIFICATION WITH TRACE TRICUSPID REGURGIATION 4. MILD TRICUSPID REGURGITATION 5. RIGHT VENTRICULAR SYSTOLIC PRESSURE IS 38 mmHg PLUS RIGHT ATRIAL PRESSURE TECHNOLOGIST: ANA ESTRADA
--- NOTE | 2024-12-13 12:12 | EKG ---
Test Date: 2024-12-09 Test Time: 15:55:42 Weaving Teacher: RAYMUNDO MEASUREMENT RESULTS: Intervals: Rate: 72 [place]: 200 QRSD: 116 QT: 442 QTc: 483 [place]: P: [place]: 200 QRS: -52 T: 28 INTERPRETIVE STATEMENTS: Sinus rhythm Left anterior fascicular block Abnormal ECG Compared to ECG 09/21/2024 03:08:21 Left anterior fascicular block now present Atrial fibrillation no longer present Left-axis deviation no longer present Left ventricular hypertrophy no longer present Myocardial infarct finding no longer present Electronically Signed On 12-13-24 12:03:53 CDT by Edgard Rush
== END 2024-12-11 19:50 | disposition home or self-care (01) | DRG 291 ==
LOC: ER 14:41 → ERHOLD 17:49 → UNDOADMOB 18:14 → ERHOLD 18:14 → 4TH 12-10 05:40 → OBSVTOIN 12-10 15:51
PROVIDERS: ADMIT Hospitalist; ATTEND Hospitalist
DX: I11.0 Hypertensive heart disease with heart failure (principal); I50.23 Acute on chronic systolic (congestive) heart failure; J96.01 Acute respiratory failure with hypoxia; E87.1 Hypo-osmolality and hyponatremia; I48.91 Unspecified atrial fibrillation; D64.9 Anemia, unspecified; F32.A Depression, unspecified; E78.00 Pure hypercholesterolemia, unspecified; M19.90 Unspecified osteoarthritis, unspecified site; E88.09 Other disorders of plasma-protein metabolism, not elsewhere classified; L97.519 Non-pressure chronic ulcer of other part of right foot with unspecified severity; Z88.5 Allergy status to narcotic agent; Z88.8 Allergy status to other drugs, medicaments and biological substances; Z74.01 Bed confinement status; Z90.49 Acquired absence of other specified parts of digestive tract; Z90.710 Acquired absence of both cervix and uterus
CPT/HCPCS: 36415; 70450; 71045; 80048; 80053; 80076; 81001; 83690; 83735; 83880; 84100; 84439; 84443; 84484; 85025; 86140; 87070; 87205; 87428; 93005; 93306; 96374; 97161; 97530; 99285; G0378; J1644; J1940

== ENCOUNTER 2025-01-29 18:06 | Emergency (ER) | payer OTHER ==
[2025-01-29 18:52] LABS: PT Prothrombin Time 13.3 SECONDS (10-13.0); Protime INR 1.18
[2025-01-29 18:54] LABS: Absolute Basophils 0.1 K/uL (0-0.5); Absolute Eosinophils 0.2 K/uL (0-0.5); Absolute Lymphocytes (CBC) 1.1 K/uL (0.7-4.9); Absolute Neutrophil 7.9 K/uL (1.8-8.0); Eosinophils % 2.3 % (0-4.4); Hematocrit 32.2 % (36.0-45.0); Hemoglobin 11.1 g/dL (12.0-15.0); MCH 29.2 pg (27.0-35.0); MCHC 34.5 g/dL (32.0-36.0); MCV 84.5 fL (80-100); MPV 8.8 fL (7.6-11.3); Monocytes % 9.9 % (3.3-12.3); Neutrophils % 75.8 % (41.7-73.7); Nucleated Red Blood Cells % 0.2 % (0-0); Platelets 248 thou/uL (152-406); RBC Red Blood Cell Count 3.81 M/uL (3.86-4.86); Red Cell Distribution Width 17.3 % (12.1-15.2)
[2025-01-29 19:25] LABS: Sqamous Epithelial None Seen /HPF (None Seen); Urine Bacteria <20 /HPF (<20); Urine Crystals Unidentified Moderate /HPF (None Seen); Urine Mucus 2+ /HPF (None Seen); Urine RBC None Seen /HPF (None Seen); Urine WBC >50 /HPF (<5)
[2025-01-29 19:28] LABS: Specific Gravity 1.011 (1.005-1.030); Urine Bilirubin NEGATIVE (Negative); Urine Blood 2+ (Negative); Urine Clarity Extremely Turbid (Clear); Urine Color Orange (Yellow); Urine Culture Reflex Order REFLEXED; Urine Glucose NEGATIVE (Negative); Urine Ketones NEGATIVE (Negative); Urine Microscopic Reflex YN NO UMIC; Urine Nitrite NEGATIVE (Negative); Urine Protein 2+ (Negative); Urine Urobilinogen Normal (Normal)
[2025-01-29] MEDS ORDERED: CEFTRIAXONE 1000 MG/VIAL ONE (19:44)
[2025-01-29] MEDS ORDERED: NA CHLORIDE 0.9% 50 ML ONE (19:44)
--- NOTE | 2025-01-29 19:58 | RAD REPORT ---
Procedure: Chest Single View HISTORY: Confusion COMPARISON: November 2024 FINDINGS: Mild bilateral interstitial opacities appear chronic. The lungs appear clear of acute infiltrate. No significant pleural effusion noted. The heart is mildly enlarged. IMPRESSION: No acute abnormality is displayed.
[2025-01-29 20:03] LABS: ALT/SGPT 16 U/L (13-56); Albumin 2.5 g/dL (3.4-5.0); Albumin/Globulin Ratio 0.6 (1.1-1.8); Alkaline Phosphatase 94 U/L (45-117); Anion Gap 13.3 mEq/L (5.0-15.0); BUN Blood Urea Nitrogen 27 mg/dL (7-18); Bicarbonate 24 mEq/L (21-32); Bilirubin Total 0.6 mg/dL (0.2-1.0); Glomerular Filtration Rate 35 ml/min (=/>90); Glucose Level 92 mg/dL (74-106); NT PRO-BNP 2701 pg/mL (<450); Protein, Total 6.5 g/dL (6.4-8.2); Sodium Level 132 mEq/L (136-145); Troponin High Sensitivity 17.9 pg/mL (<58.9)
[2025-01-29 20:04] LABS: AST/SGOT 21 U/L (15-37); Bilirubin Direct < 0.2 mg/dL (0-0.2); Bilirubin Indirect, Calculated 0.4 mg/dL (0.2-0.8); Magnesium 2.1 mg/dL (1.6-2.4); Potassium 4.3 mEq/L (3.5-5.1)
--- NOTE | 2025-01-29 21:05 | ER ---
Nurse's Notes [facility] Name: Sherita Parada Age: 74 yrs Sex: Female : 1950 Arrival Date: 01/29/2025 Time: 18:01 Bed 6 Private MD: Diagnosis: UTI/ Urinary tract infection, site not specified;Weakness Presentation: 01/29 18:02 Chief complaint: EMS states: Pt's son reported pt has not "been her normal self", aa5 reports decreased urination and pt being "more sleepy". 18:02 Coronavirus screen: At this time, the client does not indicate any symptoms associated aa5 with coronavirus-19. Ebola Screen: Patient denies travel to an Ebola-affected area in the 21 days before illness onset. Initial Sepsis Screen:. Risk Assessment: Do you want to hurt yourself or someone else? Patient reports no desire to harm self or others. Onset of symptoms was January 29, 2025. 18:02 Method Of Arrival: EMS: [facility] aa5 18:02 Acuity: NAVIN 3 aa5 18:02 Care prior to arrival: Glucose check: 100. aa5 18:02 Initial Sepsis Screen: Does the patient meet any 2 criteria? No. Patient's initial aa5 sepsis screen is negative. Does the patient have a suspected source of infection? No. Patient's initial sepsis screen is negative. Historical: - Allergies: 18:02 codeine sulfate ('makes me crazy'); aa5 18:02 Morphine; aa5 18:02 steroids (Hypertension); aa5 - PMHx: 18:02 Atrial fibrillation; High Cholesterol; Hypertension; Ulcers; CHF (Unknown); aa5 18:04 Dementia; aa5 - PSHx: 18:02 Appendectomy; Benign Tumor; left lymph node near neck; Cyst removal; groin; aa5 hysterectomy; Lumpectomy of breast; - Immunization history:: Adult Immunizations unknown. - Infectious Disease History:: unknown . - Social history:: Smoking status: unknown. Screenin:10 [facility] ED Fall Risk Assessment (Adult) History of falling in the last 3 months, aa5 including since admission No falls in past 3 months (0 pts) Confusion or Disorientation Yes (5 pts) Intoxicated or Sedated No (0 pts) Impaired Gait Mobility Assist Device Used Altered Elimination Yes (1 pt) Score/Fall Risk Level 3 or more points = High Risk Oriented to surroundings, Maintained a safe environment, Educated pt \\T\\ family on fall prevention, incl call for assistance when getting out of bed, Assessed \\T\\ reinforced patient's understanding of fall precautions. Abuse screen: No signs of abuse noted. Nutritional screening: No deficits noted. Tuberculosis screening: No symptoms or risk factors identified. Assessment: 18:02 General: Appears comfortable, Behavior is calm, cooperative. Pain: Denies pain. Neuro: aa5 Level of Consciousness is awake, obeys commands, confused, Oriented to person, place. Cardiovascular: Heart tones S1 S2 present Rhythm is regular. Respiratory: Airway is patent Respiratory effort is even, unlabored, Respiratory pattern is regular, symmetrical. GI: Abdomen is round non-distended, Bowel sounds present X 4 quads. Abd is soft and non tender X 4 quads. : brief noted. EENT: Oral mucosa is dry. Derm: Skin is pink, warm \\T\\ dry. Musculoskeletal: Pt is non-ambulatory at home. 18:41 : Yeast noted to genitalia, provider was notified. Pt cleaned of small amount of soft aa5 brown stool, clean brief applied. 19:28 General: Appears comfortable, Behavior is calm, cooperative. Pain: Denies pain. Neuro: ha1 Level of Consciousness is awake, obeys commands, confused, Oriented to person, place. Cardiovascular: Heart tones S1 S2 present Capillary refill < 3 seconds Rhythm is regular. Respiratory: Airway is patent Respiratory effort is even, unlabored, Respiratory pattern is regular, symmetrical. GI: Abdomen is round non-distended, Bowel sounds present X 4 quads. Abd is soft and non tender X 4 quads. : Dai in place to gravity drainage Urine is cloudy. Derm: Skin is pink, warm \\T\\ dry. Musculoskeletal: Circulation, motion, and sensation intact. 20:50 Reassessment: Patient appears in no apparent distress at this time. Patient and/or bm8 family updated on plan of care and expected duration. Pain level reassessed. Patient denies pain at this time. Patient states feeling better. Patient states symptoms have improved. 20:55 Reassessment: pt has passed PO challenge. bm8 21:07 Reassessment: pt awaiting ambulance to be dicharged. bm8 21:24 Reassessment: ems arrives to take pt home. bm8 Vital Signs: 18:02 BP 139 / 88; Pulse 66; Resp 18 S; Temp 98.4(O); Pulse Ox 96% on R/A; aa5 19:30 BP 138 / 99; Pulse 65; Resp 17 S; Pulse Ox 97% ; ha1 20:50 BP 147 / 85; Pulse 64; Resp 12; Temp 98.4; Pulse Ox 99% ; Pain 0/10; bm8 21:15 BP 147 / 85; Pulse 65; Resp 18 S; Pulse Ox 98% on R/A; ha1 21:24 BP 159 / 90; Pulse 64; Resp 15; Temp 98.4; Pulse Ox 100% ; Pain 0/10; bm8 20:50 Pain Scale: Adult bm8 21:24 Pain Scale: Adult bm8 Sarai Coma Score: 19:51 Eye Response: spontaneous(4). Motor Response: obeys commands(6). Verbal Response: bm8 oriented(5). Total: 15. 20:50 Eye Response: spontaneous(4). Motor Response: obeys commands(6). Verbal Response: bm8 oriented(5). Total: 15. ED Course: 18:01 Patient arrived in ED. aa5 18:02 Elvis Ann PA is PHCP. cp 18:02 Clyde Domínguez MD is Attending Physician. cp 18:02 Arm band placed on. aa5 18:02 Patient has correct armband on for positive identification. Bed in low position. Call aa5 light in reach. Side rails up X2. Client placed on continuous cardiac and pulse oximetry monitoring. NIBP monitoring applied. ekg monitor on. Pulse ox on. NIBP on. 18:02 Maintain EMS IV. Dressing intact. Site clean \\T\\ dry. Gauge \\T\\ site: 20G to R FA . Flushed aa 5 with 10 mL NS. 18:07 Dorene Britton, RN is Primary Nurse. aa5 18:09 Triage completed. aa5 18:35 Inserted saline lock: 22 gauge in right wrist, using aseptic technique. Blood aa5 collected. Flushed with 10 mL NS IV inserted by Bebeto Mejia RN. 18:35 EKG done, by ED staff, reviewed by Elvis ZUÑIGA. aa5 18:41 Dai cath inserted, using sterile technique, 16 Fr., by ma, balloon inflated, to aa5 gravity drainage, urine specimen collected. other sent to lab returned cloudy urine, Foul smelling. . Patient tolerated well. 18:59 No provider procedures requiring assistance completed. aa5 19:04 Report given to Greg RN and LARON Espinal. aa5 19:07 XRAY Chest (1 view) In Process Unspecified. EDMS 19:51 Provided Education on: need for admission. bm8 21:07 IV discontinued, intact, bleeding controlled, No redness/swelling at site. Pressure bm8 dressing applied. Administered Medications: 19:51 Drug: Rocephin IV 1 grams IV at calculated rate once; Given slow IV push per pharmacy bm8 instructions Route: IV; Rate: calculated rate; Site: right forearm; 20:56 Follow up: Response: No adverse reaction; IV Status: Completed infusion bm8 Medication: 18:25 VIS not applicable for this client. aa5 Outcome: 21:05 Discharge ordered by MD. bella 21:07 Discharged to home via ambulance, bm8 21:07 Condition: stable 21:07 Discharge instructions given to patient, family, Instructed on discharge instructions, follow up and referral plans. no drinking with medication, no driving heavy equipment, medication usage, safety practices, Demonstrated understanding of instructions, follow-up care, medications, 21:08 Prescriptions given X 1, bm8 21:25 Patient left the ED. bm8 Signatures: Dispatcher [employer] EDMS Dorene Britton, RN RN aa5 Elvis Ann PA PA cp Ayala, Heidy, RN RN ha1 Greg Mak RN RN bm8
--- NOTE | 2025-01-29 21:05 | EDPHYS ---
Physician Documentation [facility] Name: Sherita Parada Age: 74 yrs Sex: Female : 1950 Arrival Date: 01/29/2025 Time: 18:01 Bed 6 Private MD: ED Physician Clyde Domínguez HPI: 01/29 18:05 This 74 yrs old Female presents to ER via EMS with complaints of General Weakness. cp 18:05 general weakness and sleeping more. Onset: The symptoms/episode began/occurred today. cp 18:05 Severity of symptoms: in the emergency department the symptoms are unchanged despite cp home interventions. Historical: - Allergies: 18:02 codeine sulfate ('makes me crazy'); aa5 18:02 Morphine; aa5 18:02 steroids (Hypertension); aa5 - PMHx: 18:02 Atrial fibrillation; High Cholesterol; Hypertension; Ulcers; CHF (Unknown); aa5 18:04 Dementia; aa5 - PSHx: 18:02 Appendectomy; Benign Tumor; left lymph node near neck; Cyst removal; groin; aa5 hysterectomy; Lumpectomy of breast; - Immunization history:: Adult Immunizations unknown. - Infectious Disease History:: unknown . - Social history:: Smoking status: unknown. ROS: 18:10 Constitutional: Negative for body aches, chills, fever, poor PO intake, cp 18:10 Eyes: Negative for injury, pain, redness, and discharge, cp 18:10 Cardiovascular: Negative for chest pain, 18:10 Respiratory: Negative for cough, shortness of breath, wheezing, 18:10 Abdomen/GI: Negative for abdominal pain, vomiting, diarrhea, constipation, 18:10 Neuro: Positive for weakness, Negative for dizziness, headache, 18:10 All other systems are negative, Exam: 18:15 Constitutional: The patient appears in no acute distress, alert, awake, cp non-diaphoretic, non-toxic, well developed, well nourished, 18:15 Head/Face: Normocephalic, atraumatic. cp 18:15 Eyes: Periorbital structures: appear normal, Conjunctiva: normal, no exudate, no injection, Sclera: no appreciated abnormality, Lids and lashes: appear normal, bilaterally, 18:15 ENT: External ear(s): are unremarkable, Nose: is normal, Mouth: Lips: moist, Oral mucosa: moist, Posterior pharynx: Airway: no evidence of obstruction, patent, 18:15 Chest/axilla: Inspection: normal, 18:15 Cardiovascular: Rate: normal, Edema: is not appreciated, JVD: is not appreciated, 18:15 Respiratory: the patient does not display signs of respiratory distress, Respirations: normal, no use of accessory muscles, no retractions, labored breathing, is not present, Breath sounds: are clear throughout, 18:15 Abdomen/GI: Inspection: abdomen appears normal, Palpation: abdomen is soft and non-tender, in all quadrants, 18:15 Neuro: Orientation: to person, place \T\ time. Mentation: able to follow commands, Motor: no acute changes, 18:40 ECG was reviewed by the Attending Physician. Vital Signs: 18:02 BP 139 / 88; Pulse 66; Resp 18 S; Temp 98.4(O); Pulse Ox 96% on R/A; aa5 19:30 BP 138 / 99; Pulse 65; Resp 17 S; Pulse Ox 97% ; ha1 20:50 BP 147 / 85; Pulse 64; Resp 12; Temp 98.4; Pulse Ox 99% ; Pain 0/10; bm8 21:15 BP 147 / 85; Pulse 65; Resp 18 S; Pulse Ox 98% on R/A; ha1 21:24 BP 159 / 90; Pulse 64; Resp 15; Temp 98.4; Pulse Ox 100% ; Pain 0/10; bm8 20:50 Pain Scale: Adult bm8 21:24 Pain Scale: Adult bm8 Sarai Coma Score: 19:51 Eye Response: spontaneous(4). Motor Response: obeys commands(6). Verbal Response: bm8 oriented(5). Total: 15. 20:50 Eye Response: spontaneous(4). Motor Response: obeys commands(6). Verbal Response: bm8 oriented(5). Total: 15. MDM: 18:02 Medical Screening Exam initiated cp 19:00 Differential Diagnosis altered mental status, sepsis, uti, pneumonia, bacteremia. 21:05 Data reviewed: vital signs, nurses notes, lab test result(s), EKG, radiologic studies, cp plain films, and as a result, I will discharge patient. 21:05 I considered the following discharge prescriptions or medication management in the emergency department Medications were administered in the Emergency Department. See MAR. Independent interpretation of the following test(s) in the Emergency Department EKG: See my EKG interpretation above. Counseling: I had a detailed discussion with the patient and/or guardian regarding the historical points, exam findings, and any diagnostic results supporting the discharge/admit diagnosis, lab results, radiology results, to return to the emergency department if symptoms worsen or persist or if there are any questions or concerns that arise at home. Response to treatment: the patient's symptoms have mildly improved after treatment, and as a result, I will discharge patient. 01/29 18: Order name: Basic Metabolic Panel; Complete Time: 20:43 cp 01/29 20:43 Interpretation: Normal except: NA 132; BUN 27; CRE 1.55; GFR 35. cp 01/29 18: Order name: CBC with Diff; Complete Time: 19:10 cp 01/29 19:10 Interpretation: Normal except: RBC 3.81; HGB 11.1; HCT 32.2; RDW 17.3; RUSTY% 75.8; LYM% cp 11.0. 01/29 18: Order name: LFT's; Complete Time: 20:43 cp 01/29 20:44 Interpretation: Normal except: ALB 2.5; GLOB 4.0; A/G 0.6. cp 01/29 18:03 Order name: Magnesium; Complete Time: 20:43 cp 01/29 18:03 Order name: NT PRO-BNP; Complete Time: 20:43 cp 01/29 18:03 Order name: PT-INR; Complete Time: 19:10 cp 01/29 19:11 Interpretation: Normal except: PT 13.3. cp 01/29 18:03 Order name: Troponin HS; Complete Time: 20:43 cp 01/29 18:03 Order name: UA Rfx Pollo Cult if indicated; Complete Time: 19:39 cp 01/29 19:39 Interpretation: Normal except: UCLA Extremely Turbid; UBLD 2+; UPH 8.0; UPROT 2+; UESTR cp 500; UWBC >50; UNCX Moderate; HYAL 10-20. 01/29 18:03 Order name: Lactate w/ 2H reflex if indic.; Complete Time: 19:10 cp 01/29 19:11 Interpretation: Reviewed. cp 01/29 19:34 Order name: Urine Culture EDMS 01/29 18:03 Order name: XRAY Chest (1 view); Complete Time: 20:43 cp 01/29 18:03 Order name: Cardiac monitoring; Complete Time: 18:16 cp 01/29 18:03 Order name: EKG - Nurse/Tech; Complete Time: 18:53 cp 01/29 18:03 Order name: IV Saline Lock; Complete Time: 18:53 cp 01/29 18:03 Order name: Labs collected and sent; Complete Time: 18:53 cp 01/29 18:03 Order name: O2 Per Protocol; Complete Time: 18:16 cp 01/29 18:03 Order name: O2 Sat Monitoring; Complete Time: 18:16 cp 01/29 18:03 Order name: Dai; Complete Time: 18:53 cp 01/29 20:46 Order name: PO challenge; Complete Time: 20:56 cp EC:40 Rate is 65 beats/min. Rhythm is regular. MA interval is prolonged at 214 msec. QRS cp interval is prolonged at 110 msec. QT interval is normal. Interpreted by me. Reviewed by me. Administered Medications: 19:51 Drug: Rocephin IV 1 grams IV at calculated rate once; Given slow IV push per pharmacy bm8 instructions Route: IV; Rate: calculated rate; Site: right forearm; 20:56 Follow up: Response: No adverse reaction; IV Status: Completed infusion bm8 Disposition: 01/30 08:12 Co-signature as Attending Physician, Clyde Domínguez MD I reviewed the patient's care rn provided by the Advanced Practice Provider and agree with the diagnosis and treatment plan. Disposition Summary: 01/29/25 21:05 Discharge Ordered Notes: Location: Home cp Problem: new cp Symptoms: have improved cp Condition: Stable cp Diagnosis - UTI/ Urinary tract infection, site not specified cp - Weakness cp Followup: cp - With: Private Physician - When: 2 - 3 days - Reason: Recheck today's complaints Discharge Instructions: - Discharge Summary Sheet cp - Urinary Tract Infection, Adult cp - Weakness cp Forms: - Medication Reconciliation Form cp - Antibiotic Education cp - Prescription Opioid Use cp - Patient Portal Instructions cp - Leadership Thank You Letter cp - SBAR form up health system Prescriptions: - cefpodoxime 200 mg Oral tablet - take 1 tablet ORAL route every 12 hours for 7 days with food; 14 tablet; cp Refills: 0, Product Selection Permitted Signatures: Dispatcher [employer] Clyde Barnhart MD MD rn Calderon, Audri, RN RN aa5 Elvis Ann PA PA cp McDonald, Brad RN RN bm8
[2025-01-29 21:50] VITALS: TEMP 98.4
[2025-01-29 21:53] VITALS: BP 159/90; O2SAT 100
--- NOTE | 2025-01-31 12:01 | EKG ---
Test Date: 2025-01-29 Test Time: 18:33:42 Director Of Vital Statistics: AMI MEASUREMENT RESULTS: Intervals: Rate: 65 VT: 214 QRSD: 110 QT: 468 QTc: 486 [place]: P: 15 VT: 214 QRS: -64 T: 94 INTERPRETIVE STATEMENTS: Sinus rhythm with 1st degree AV block Left anterior fascicular block Left ventricular hypertrophy with repolarization abnormality Cannot rule out Septal infarct, age undetermined Abnormal ECG Compared to ECG 12/09/2024 15:55:42 First degree AV block now present Left ventricular hypertrophy now present Early repolarization now present Myocardial infarct finding now present Electronically Signed On 01-31-25 11:57:11 CDT by Edgard Rush
== END 2025-01-29 21:25 | disposition home or self-care (01) ==
LOC: ER 18:06
DX: N39.0 Urinary tract infection, site not specified (principal)
CPT/HCPCS: 96365; 93005; 87088; 85025; 87086; 80048; 36415; 83735; 85610; 80076; 83605; 81003; 84484; 83880; 71045; 51702; 99285; J0696